=== PATIENT | female | born 1960 | race Caucasian/White ===

== ENCOUNTER → 2022-12-11 07:54 | Outpatient (BNVA) | payer OTHER, SELFPAY | PROVIDERS: PCP Internal Medicine; Visit Provider Psychiatry & Neurology Neurology ==

== ENCOUNTER 2023-02-23 10:13 | Inpatient (IN) | payer OTHER, SELFPAY ==
--- NOTE | ~2023-02-23 | CT_ITS ---
EXAMINATION: CT HEAD WITHOUT CONTRAST CLINICAL INFORMATION: Unwitnessed fall. COMPARISON: None available. TECHNIQUE: Contiguous axial imaging was performed from the skull base to vertex without intravenous administration of contrast. This CT examination was performed using dose optimization techniques as appropriate, variously including the following: *Automated exposure control *Adjustment of mA and/or kV according to patient size (this includes techniques or standardized protocols for targeted exams where dose is matched to indication/reason for exam; i.e. extremities or head) *Use of iterative reconstruction technique DLP: 576 mGy-cm FINDINGS: There is no intra-axial, extra axial bleed, masses or midline shift. There is no acute infarction in evolution. There is no edema. The lateral ventricles are symmetrical in size and configuration without enlargement. Bone windows reveal no calvarial abnormality. There is no scalp soft tissue abnormality. Bilateral paranasal sinuses and mastoid air cells are well-aerated. CT/CT head/brain wo IV con IMPRESSION: No acute intracranial process seen.
--- NOTE | ~2023-02-23 | CT_ITS ---
EXAMINATION: CT HEAD WITHOUT CONTRAST CLINICAL INFORMATION: Headache, change in mentation. COMPARISON: None available. TECHNIQUE: Contiguous axial imaging was performed from the skull base to vertex without intravenous administration of contrast. Coronal and sagittal reformatted images were obtained. This CT examination was performed using dose optimization techniques as appropriate, variously including the following: *Automated exposure control *Adjustment of mA and/or kV according to patient size (this includes techniques or standardized protocols for targeted exams where dose is matched to indication/reason for exam; i.e. extremities or head) *Use of iterative reconstruction technique DLP: 545 mGy-cm FINDINGS: The cortical sulci are normal. The lateral ventricles are symmetrical. The third and fourth ventricles are in their normal midline position. The basilar and prepontine cisterns are unremarkable. There is no acute intra or extracerebral abnormality. There is no mass effect or midline shift. Sections through the bony calvarium are unremarkable. The paranasal sinuses are clear. The bony orbits and orbital contents are unremarkable. CT/CT head/brain wo IV con IMPRESSION: No acute intracranial pathology.
[2023-02-23 10:17] VITALS: BP 123/65; PULSE 76; RESP 18; TEMP 36.8; O2SAT 98; BMI 26.6
[2023-02-23 11:12] VITALS: BP 117/80; PULSE 62; RESP 16; O2SAT 99
--- NOTE | 2023-02-23 12:06 | ED_ITS ---
HPI - Psych General Chief Complaint: Psychiatric Symptoms Stated Complaint: Severe Depression Med Maintenance Time Seen by Provider: 02/23/23 11:54 Source: patient and family (cousin at bedside) Mode of arrival: ambulatory Limitations: no limitations History of Present Illness HPI Narrative: 62 year-old female with a history of bipolar 2 disorder, conversion disorder, TIA, carotid stenosis, syncope, seizures, PTSD, HDL, MVP, GERD, presenting to the ED today with a complaint of depression, racing thoughts x1 mo. Her psychiatrist recently started her on Abilify for depression, is currently tapering her off of sertraline, and started her on Trileptal 2 weeks ago however her depression has worsened - states she feels angry and admits to snapping at people. Reports increasing depression, not sleeping, caring for self, not participating in family vacations ( this is abnormal for her), not talking to many family members. Reports visual hallucinations and insomnia with 2-3 hours of sleep/night. Additionally complains of headache stating ?I feel like my head is going to explode? x1 mo, no resolution with NSAIDs. Last hospitalization for her BPD was 8 years ago and has been well controlled with medications. Denies SI/HI, visual/auditory/tactile hallucinations. Denies substance abuse. Denies fever, chills, chest pain, shortness of breath, nausea vomiting diarrhea, abdominal pain, dysuria, hematuria. Related Data Home Medications Medication Instructions Recorded Confirmed aspirin 81 mg tablet,delayed 81 mg PO DAILY 12/11/22 12/11/22 release atorvastatin 40 mg tablet 40 mg PO DAILY 12/11/22 12/11/22 clonazepam 0.5 mg tablet 0.25 - 0.5 mg PO DAILY PRN anxiety 12/11/22 12/11/22 ferrous sulfate 325 mg (65 mg 325 mg PO QAM 12/11/22 12/11/22 iron) tablet,delayed release lidocaine 5 % topical patch 1 patch topical DAILY 12/11/22 12/11/22 sertraline 100 mg tablet 100 mg PO BID 12/11/22 12/11/22 trazodone 100 mg tablet 100 mg PO BEDTIME 12/11/22 12/11/22 Allergies Allergy/AdvReac Type Severity Reaction Status Date / Time latex Allergy Unknown Unknown Uncoded 12/11/22 08:00 penicillin Allergy Unknown Unknown Uncoded 12/11/22 08:00 sulfa Allergy Unknown Unknown Uncoded 12/11/22 08:00 Review of Systems Review of Systems: Constitutional : No Weight loss, No Fever, No Chills, No Fatigue, No Malaise Eyes: No Eye Pain, No Swelling, No Redness Cardiovascular : No Chest Pain, No SOB, No Dyspnea on Exertion, No Orthopnea Respiratory : No Cough, No Sputum, No Wheezing Gastrointestinal : No Nausea, No Vomiting, No Diarrhea, No Constipation, No abdominal Pain, No Hematochezia, No Melena Genitourinary : No Dysuria, No Urinary Frequency, No Hematuria Musculoskeletal : No joint pain, No Myalgias, No Joint Swelling Skin : No Skin Lesions, No rash Neuro : No Weakness, No Numbness, No Dizziness, + Headache Psych : No Anxiety/Panic, + Depression All other systems reviewed and are negative Yes all other systems are reviewed and are negative [facility] Past Medical History Attestation statement: The following information was validated with the patient. Source: old records reviewed and nursing notes reviewed Medical History Acute cataract Anxiety Arthritis Bipolar 2 disorder Carotid artery stenosis [place] syndrome Cataract Cervical dystonia Cervicalgia Conversion disorder Essential and other specified forms of tremor GERD (gastroesophageal reflux disease) Hyperlipidemia Mitral valve prolapse Osteopenia PTSD (post-traumatic stress disorder) Raynauds syndrome Restless legs syndrome (RLS) Seizures Syncope TIA (transient ischemic attack) Surgical History Gastric bypass status for obesity H/O arthroplasty History of hysterectomy Family History Family History Father Heart disease Depressed Mother Heart disease Social History Social History Alcohol intake: never Patient Tobacco Use Status: Never used Tobacco Advance Directives: No Advance Directives Information Provided: No Physical Exam Vital Signs: Vital Signs: Last Vital Signs Temp 97.8 F 02/23/23 15:54 Pulse 59 02/23/23 15:54 Resp 18 02/23/23 15:54 BP 135/83 02/23/23 15:54 Pulse Ox 99 02/23/23 15:54 O2 Del Method Room Air 02/23/23 15:54 BMI result Body Mass Index 26.6 Appearance: Alert.? Oriented X3.? No acute distress.? Head: Normocephalic, atraumatic, no step-offs or deformities Eyes: Pupils equal, round and reactive to light.? Neck: Normal inspection.? Neck supple.? CVS: Normal heart rate and rhythm.? Pulses normal.? Respiratory: No respiratory distress.? Breath sounds normal.? Abdomen: Soft and nontender.? Skin: Skin warm and dry.? Normal skin color.? Normal skin turgor.? Extremities: No lower extremity edema.? No calf ttp. 5/5 strength to bilateral upper and lower extremities. Ambulating with a steady gait. Back: no CVA tenderness bilaterally Neuro: Oriented X 3.? No motor deficit.? No sensory deficit. CN 2-12 intact. Normal [id number], [id number], rapid hand movements. Course Reevaluation(s) Reevaluation #1: CBC with leukopenia and a normocytic anemia, no reports of bleeding. Do not have baseline labs on this patient to compare with. Chemistry with sodium of 132, patient tolerating p.o. will encourage p.o. hydration, this is likely secondary to poor p.o. intake. UA without infection. COVID negative . Head CT no acute intracranial abnormality. Consult placed for care team. For behavioral outburst. At this time medically cleared. Patient to be placed in observation to allow more time to be evaluated by behavioral health team. At time observation started patient common cooperative no acute distress will continue to monitor Time: 14:27 Reevaluation #2: In patient psychiatric admission at this time. Time: 17:20 Medications Administered Discontinued Medications Generic Name Dose Route Start Last Admin Trade Name Iris PRN Reason Stop Dose Admin Acetaminophen 650 mg 02/23/23 14:24 02/23/23 14:28 Acetaminophen 325 Mg Tablet PO 02/23/23 14:25 650 mg ONCE ONE Administration Ibuprofen 600 mg 02/23/23 15:55 02/23/23 16:00 Ibuprofen 600 Mg Tablet PO 02/23/23 15:56 600 mg ONCE ONE Administration Medical Decision Making Medical Decision Making MDM Narrative: 1230 62-year-old female with depression, visual hallucinations, outbursts of anger Vital signs stable. PE unremarkable Clinical concern for bipolar 2 disorder and depression. Will obtain CT head to rule out intracranial pathology given patient's age, history and symptoms. Low suspicion for ICH, CVA, posterior stroke. Will rule out UTI in electrolyte disturbances. Plan: UA, CT head. Medical clearance evaluation by behavioral health team Differential Diagnosis Differential Diagnoses: The differential diagnosis associated with the presentation includes Clinical concern for bipolar 2 disorder and depression. Will obtain CT head to rule out intracranial pathology given patient's age, history and symptoms. Low suspicion for ICH, CVA, posterior stroke. Will rule out UTI in electrolyte disturbances. Admission/Observation Consideration of admission/observation: Escalation of care including admission/observation considered possible psych admission Lab Data MDM Lab Attestation statement: I reviewed the patient's lab results. 02/23/23 13:17 02/23/23 13:17 Labs: Lab Results 02/23/23 02/23/23 02/23/23 Range/Units 13:17 13:17 13:17 WBC 3.2 L (4.8-10.8) X10*3/uL RBC 3.99 L (4.20-5.50) X10*6/uL Hgb 10.2 L (12.0-16.0) g/dl Hct 32.9 L (37.0-47.0) % MCV 82.5 (80.0-98.0) fL MCH 25.6 L (27.0-33.0) pg MCHC 31.0 (31.0-35.0) g/dl RDW 17.5 H (11.0-16.0) % Plt Count 123 L (160-400) X10*3/uL MPV 9.0 L (9.4-12.3) fL Immature Gran % (Auto) 0.0 (0.0-0.4) % Neut % (Auto) 62.2 (45-73) % Lymph % (Auto) 25.4 (20-40) % [place] % (Auto) 10.2 (2-11) % Eos % (Auto) 1.9 (0-4) % Baso % (Auto) 0.3 (0-2) % Lymph # (Auto) 0.8 L (1.2-4.9) X10*3/uL [place] # (Auto) 0.3 (0.1-1.2) X10*3/uL Eos # (Auto) 0.1 (0.0-0.4) X10*3/uL Baso # (Auto) 0.0 (0.0-0.2) X10*3/uL Abs Immat Gran (auto) 0.00 (0.00-0.03) X10*3/uL Absolute Neuts (auto) 2.0 (2.0-8.3) x10*3/uL Absolute Nucleated RBC 0.000 (0.0-0.012) X10*3/uL Nucleated RBC % (auto) 0.0 (0.0-0.2) /100WBC Sodium 132 L (135-145) mmol/L Potassium 3.7 (3.3-5.1) mmol/L Chloride 100 (96-108) mmol/L Carbon Dioxide 24 (22-29) mmol/L Anion Gap 12 (12-20) BUN 9 (9-16) mg/dL Creatinine 0.74 (0.5-1.4) mg/dL Estim Creat Clear Calc 92.3 Estimated GFR > 60 Random Glucose 93 (60-115) mg/dL Calcium 8.5 (8.4-10.2) mg/dL Magnesium 2.0 (1.6-2.6) mg/dL Total Bilirubin 0.5 (0.0-1.0) mg/dL AST 20 (5-31) U/L ALT 12 (0-31) U/L Alkaline Phosphatase 70 (39-117) U/L Total Protein 5.7 L (6.5-8.0) g/dL Albumin 3.4 L (3.5-5.0) g/dL Urine Color Urine Appearance Urine pH (5.0-9.0) Ur Specific [place] (1.005-1.025) Urine Protein (Neg-Trace) mg/dL Urine Glucose (UA) (Negative) mg/dL Urine Ketones (Negative) mg/dL Urine Blood (Negative) Urine Nitrite (Negative) Ur Leukocyte Esterase (Negative) Urine RBC (0-2) /HPF Urine WBC (0-5) /HPF Ur Squamous Epith Cells (0-2) /HPF Urine Bacteria (None Seen) Hyaline Casts (0-2) /LPF Urine Opiates Screen (Not Detect) Urine Fentanyl Screen (Not Detect) Ur Barbiturates Screen (Not Detect) Ur Phencyclidine Scrn (Not Detect) Ur Amphetamines Screen (Not Detect) U Benzodiazepines Scrn (Not Detect) Urine Cocaine Screen (Not Detect) U Marijuana (THC) Screen (Not Detect) Ethyl Alcohol < 10 mg/dL COVID-19 (JAYLIN) Negative (Negative) COVID-19 Clin Com See Note 02/23/23 02/23/23 Range/Units 13:17 15:16 WBC (4.8-10.8) X10*3/uL RBC (4.20-5.50) X10*6/uL Hgb (12.0-16.0) g/dl Hct (37.0-47.0) % MCV (80.0-98.0) fL MCH (27.0-33.0) pg MCHC (31.0-35.0) g/dl RDW (11.0-16.0) % Plt Count (160-400) X10*3/uL MPV (9.4-12.3) fL Immature Gran % (Auto) (0.0-0.4) % Neut % (Auto) (45-73) % Lymph % (Auto) (20-40) % [place] % (Auto) (2-11) % Eos % (Auto) (0-4) % Baso % (Auto) (0-2) % Lymph # (Auto) (1.2-4.9) X10*3/uL [place] # (Auto) (0.1-1.2) X10*3/uL Eos # (Auto) (0.0-0.4) X10*3/uL Baso # (Auto) (0.0-0.2) X10*3/uL Abs Immat Gran (auto) (0.00-0.03) X10*3/uL Absolute Neuts (auto) (2.0-8.3) x10*3/uL Absolute Nucleated RBC (0.0-0.012) X10*3/uL Nucleated RBC % (auto) (0.0-0.2) /100WBC Sodium (135-145) mmol/L Potassium (3.3-5.1) mmol/L Chloride (96-108) mmol/L Carbon Dioxide (22-29) mmol/L Anion Gap (12-20) BUN (9-16) mg/dL Creatinine (0.5-1.4) mg/dL Estim Creat Clear Calc Estimated GFR Random Glucose (60-115) mg/dL Calcium (8.4-10.2) mg/dL Magnesium (1.6-2.6) mg/dL Total Bilirubin (0.0-1.0) mg/dL AST (5-31) U/L ALT (0-31) U/L Alkaline Phosphatase (39-117) U/L Total Protein (6.5-8.0) g/dL Albumin (3.5-5.0) g/dL Urine Color Yellow Urine Appearance Cloudy Urine pH 7.5 (5.0-9.0) Ur Specific [place] 1.015 (1.005-1.025) Urine Protein Negative (Neg-Trace) mg/dL Urine Glucose (UA) Negative (Negative) mg/dL Urine Ketones Negative (Negative) mg/dL Urine Blood Negative (Negative) Urine Nitrite Negative (Negative) Ur Leukocyte Esterase Trace H (Negative) Urine RBC 0-2 (0-2) /HPF Urine WBC 0-5 (0-5) /HPF Ur Squamous Epith Cells 0-2 (0-2) /HPF Urine Bacteria None Seen (None Seen) Hyaline Casts 0-2 (0-2) /LPF Urine Opiates Screen Not Detected (Not Detect) Urine Fentanyl Screen Not Detected (Not Detect) Ur Barbiturates Screen Not Detected (Not Detect) Ur Phencyclidine Scrn Not Detected (Not Detect) Ur Amphetamines Screen Not Detected (Not Detect) U Benzodiazepines Scrn Not Detected (Not Detect) Urine Cocaine Screen Not Detected (Not Detect) U Marijuana (THC) Screen Not Detected (Not Detect) Ethyl Alcohol mg/dL COVID-19 (JAYLIN) (Negative) COVID-19 Clin Com Independent Interpretation I performed an independent interpretation of an: CT Scan (CT/CT head/brain wo IV con IMPRESSION: No acute intracranial pathology.) Radiology Impression Discussion of test interpretation with radiology: I have reviewed the radiologist's reading. Independent Historian Clinical information obtained from an independent historian. History obtained from or confirmed by: Friend (cousin at bedside) Chronic Conditions Patient?s care impacted by: Other (PTSD, bipolar 2 disorder, TIA, depression, conversion disorder) Core Measures AMI core measures followed: Yes Measure exclusions: not indicated Critical Care Time Critical Care Time Critical Care Time: No Discharge Plan Discharge Clinical Impression: Bipolar 2 disorder, Headache, Depression Patient Disposition: Still a Patient Prescriptions: No Action sertraline 100 mg tablet 100 mg PO BID clonazepam 0.5 mg tablet 0.25 - 0.5 mg PO DAILY PRN (Reason: anxiety) trazodone 100 mg tablet 100 mg PO BEDTIME atorvastatin 40 mg tablet 40 mg PO DAILY lidocaine 5 % adhesive patch,medicated 1 patch topical DAILY aspirin 81 mg tablet,delayed release (DR/EC) 81 mg PO DAILY ferrous sulfate 325 mg (65 mg iron) tablet,delayed release (DR/EC) 325 mg PO QAM Interventions: [place]-Suicide Risk Severity Scale Last Done: 02/23/23 11:18
[2023-02-23 13:27] LABS: MANUAL DIFF FLAG NO
[2023-02-23 13:29] LABS: Basophils Percent Auto 0.3 % (0-2); Eosinophils Absolute Auto 0.1 X10*3/uL (0.0-0.4); Eosinophils Percent Auto 1.9 % (0-4); Hematocrit 32.9 % (37.0-47.0); Hemoglobin 10.2 g/dl (12.0-16.0); Lymphocytes Absolute Auto 0.8 X10*3/uL (1.2-4.9); Lymphocytes Percent Auto 25.4 % (20-40); Mean Corpuscular Hemoglobin 25.6 pg (27.0-33.0); Mean Corpuscular Volume 82.5 fL (80.0-98.0); Monocytes Absolute Auto 0.3 X10*3/uL (0.1-1.2); Monocytes Percent Auto 10.2 % (2-11); Neutrophils Percent Auto 62.2 % (45-73); Platelet Count 123 X10*3/uL (160-400); Red Blood Count 3.99 X10*6/uL (4.20-5.50); Red Cell Distribution Width 17.5 % (11.0-16.0); White Blood Count 3.2 X10*3/uL (4.8-10.8)
[2023-02-23 13:32] LABS: Appearance Urine Cloudy; Color Urine Yellow; Glucose Urine UA Negative (Negative); Leukocyte Esterase Urine Trace (Negative); Nitrite Urine Negative (Negative); PH 7.5 (5.0-9.0); Specific Gravity - Urine 1.015 (1.005-1.025); UMIC TRIGGER UACC YES; Urine Blood Negative (Negative); Urine Ketones Negative (Negative); Urine Protein Negative (Neg-Trace)
[2023-02-23 13:37] LABS: Bacteria Urine None Seen (None Seen); Hyaline Casts Urine 0-2 /LPF (0-2); RBC Urine 0-2 /HPF (0-2); Squamous Epithelial Cell Urine 0-2 /HPF (0-2); WBC Urine 0-5 /HPF (0-5)
[2023-02-23 13:46] LABS: Alanine Aminotransferase 12 U/L (0-31); Albumin Level 3.4 g/dL (3.5-5.0); Alkaline Phosphatase 70 U/L (39-117); Anion Gap 12 (12-20); Aspartate Amino Transferase 20 U/L (5-31); Bilirubin Total 0.5 mg/dL (0.0-1.0); Blood Urea Nitrogen 9 mg/dL (9-16); Calcium 8.5 mg/dL (8.4-10.2); Carbon Dioxide 24 mmol/L (22-29); Chloride 100 mmol/L (96-108); Creatinine Clr Calc Pharmacy 92.3; Estimated Glomerular Filt Rate > 60; Glucose Random 93 mg/dL (60-115); Potassium 3.7 mmol/L (3.3-5.1); Sodium 132 mmol/L (135-145); Total Protein 5.7 g/dL (6.5-8.0)
[2023-02-23 14:05] LABS: COVID-19 Test Negative (Negative); IDNOW Serial# 9DB6401D
[2023-02-23] MEDS: Acetaminophen 325 MG TABLET 650 MG PO ×2 (14:28→23:16)
[2023-02-23 15:36] LABS: Amphetamine Screen Urine Not Detected (Not Detect); Barbiturates, Urine Not Detected (Not Detect); Benzodiazepines Screen Urine Not Detected (Not Detect); Cannabinoid Screen Urine Not Detected (Not Detect); Cocaine Screen Urine Not Detected (Not Detect); Fentanyl, urine Not Detected (Not Detect); Opiate Screen Urine Not Detected (Not Detect); Phencyclidine Screen Urine Not Detected (Not Detect)
[2023-02-23 15:40] LABS: Ethanol < 10 mg/dL
[2023-02-23 15:54] VITALS: BP 135/83; PULSE 59; RESP 18; TEMP 36.6; O2SAT 99
[2023-02-23] MEDS: Ibuprofen 600 MG TABLET PO (16:00)
--- NOTE | 2023-02-23 16:21 | PC.NURSE ---
CARE team with pt
--- NOTE | 2023-02-23 17:25 | ECG_ITS ---
Test Reason : MED CLEARANCE Blood Pressure : / mmHG Vent. Rate : 053 BPM Atrial Rate : 053 BPM P-R Int : 196 ms QRS Dur : 088 ms QT Int : 458 ms P-R-T Axes : 049 015 025 degrees QTc Int : 429 ms Sinus bradycardia Otherwise normal ECG No previous ECGs available Referred By: Martin Murray Electronically Signed By:ELVIA SHEETS MD
--- NOTE | 2023-02-23 18:34 | PHA.MEDREC ---
Addendum entered by Tessa Egan [facility] 02/25/23 12:36: Estradiol 0.1 mg does not exist, lowest it comes is 0.5mg. Patient stated she picks up from [facility] in [place], I called the [facility] and confirmed patient has been on estradiol 1 mg, not 0.1 mg. Reached out to provider. Original Note: Pharmacy Consult ? Medication Reconciliation Pharmacy has completed the medication reconciliation. Patient had list of medications. Reports abilify and Oxcarbezapine are newer prescriptions with in the past couple of weeks. She reported that her doctor are trying to wean her off of sertraline to swtich to bupropion. Patient reports using Estradiol 0.1 mg however she has not gotten that filled. Nora Pedroza, CarieD
--- NOTE | 2023-02-23 18:39 | PC.NURSE ---
RN TO RN REPORT FROM [facility] . PT IS AWARE OF PLAN OF CARE FOR TRANSFER TO THE POD.
[2023-02-23] MEDS: Ferrous Sulfate 324 MG TABLET.DR PO (23:15)
[2023-02-23] MEDS: traZODone HCL 100 MG TABLET PO (23:20)
[2023-02-23] MEDS: Sertraline HCL 100 MG TABLET 200 MG PO (23:20)
[2023-02-24 00:07] VITALS: BP 121/78; PULSE 69; RESP 18; TEMP 36.3; O2SAT 98
--- NOTE | 2023-02-24 02:11 | PC.NURSE ---
Patient is very pleasant, able to give thorough med/surg/medicine hx and provider hx. Appears well groomed, ambulates with some difficulty d/t medical issues with feet and also states that she thinks she might have broken her great toe on left foot in the last few days. Toe has very mild bruising but appears normal. Reports her hx of suicide attempts. States she has a very good family support structure but also states she doesn't like to tell them how she is feeling. She states her psychiatrist told her to come in. Patient reports not recognizing how she was feeling. She states very little sleep, racing thoughts, not wanting to clean her house or do anything that normally gives her pleasure. Family recognized something wrong. Patient reports wanting help to feel better.
[2023-02-24 06:00] VITALS: BP 118/66; PULSE 88; RESP 18; TEMP 36; O2SAT 99
[2023-02-24] MEDS: Acetaminophen 325 MG TABLET 650 MG PO ×2 (06:17→22:53)
[2023-02-24 07:57] LABS: Alanine Aminotransferase 13 U/L (0-31); Albumin Level 3.5 g/dL (3.5-5.0); Alkaline Phosphatase 71 U/L (39-117); Anion Gap 13 (12-20); Aspartate Amino Transferase 19 U/L (5-31); Bilirubin Total 0.5 mg/dL (0.0-1.0); Blood Urea Nitrogen 9 mg/dL (9-16); Calcium 8.7 mg/dL (8.4-10.2); Carbon Dioxide 23 mmol/L (22-29); Chloride 100 mmol/L (96-108); Cholesterol 156 mg/dL; Creatinine Clr Calc Pharmacy 94.9; Estimated Glomerular Filt Rate > 60; Glucose Fasting 96 mg/dL (60-99); HDL Cholesterol 33 mg/dL; LDL Cholesterol Calculated 103 mg/dl; Potassium 4.2 mmol/L (3.3-5.1); Sodium 132 mmol/L (135-145); Total Protein 5.8 g/dL (6.5-8.0); Triglycerides 104 mg/dL
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
[2023-02-24] MEDS: Atorvastatin Calcium 40 MG TABLET PO (09:34)
[2023-02-24] MEDS: ARIPiprazole 2 MG TABLET PO (09:34)
[2023-02-24] MEDS: Aspirin Enteric Coated 81 MG TABLET.DR PO (09:34)
[2023-02-24] MEDS: Ferrous Sulfate 324 MG TABLET.DR PO (09:34)
[2023-02-24] MEDS: Multivitamin TABLET 1 TAB PO (09:34)
[2023-02-24] MEDS: OXcarbazepine 300 MG TABLET PO ×2 (09:34→20:28)
[2023-02-24] MEDS: Ibuprofen 400 MG TABLET PO (10:41)
[2023-02-24] MEDS: Ondansetron ODT 4 MG TAB.RAPDIS TRANSLINGU (15:48)
[2023-02-24 17:08] VITALS: BP 127/60; PULSE 58; TEMP 36.3; O2SAT 100
[2023-02-24] MEDS: Sertraline HCL 50 MG TABLET 150 MG PO (20:28)
[2023-02-24] MEDS: traZODone HCL 100 MG TABLET PO (20:28)
[2023-02-24] MEDS: traZODone HCL 50 MG TABLET PO (22:53)
[2023-02-25] MEDS: Ibuprofen 400 MG TABLET PO ×2 (03:38→12:22)
[2023-02-25] MEDS: Atorvastatin Calcium 40 MG TABLET PO (10:03)
[2023-02-25] MEDS: Aspirin Enteric Coated 81 MG TABLET.DR PO (10:03)
[2023-02-25] MEDS: OXcarbazepine 300 MG TABLET PO ×2 (10:04→22:02)
[2023-02-25] MEDS: Multivitamin TABLET 1 TAB PO (10:04)
[2023-02-25] MEDS: clonazePAM 0.5 MG TABLET 0.25 MG PO (10:04)
[2023-02-25] MEDS: Ferrous Sulfate 324 MG TABLET.DR PO (10:04)
[2023-02-25] MEDS: ARIPiprazole 2 MG TABLET PO (10:04)
[2023-02-25 10:12] VITALS: BP 109/68; PULSE 70; RESP 18; TEMP 36.3; O2SAT 99
--- NOTE | 2023-02-25 10:29 | P.PNPSI_ITS ---
Subjective Subjective Date of Service: 02/25/23 Reason For Visit: Depression Subjective Notes: Rodriguez Warning and Conditional Voluntary Healthcare Proxy: No Guardianship: No Medical Problems Affecting Mental Status: No Interim History: Patient was seen and discussed in rounds today. Records and plans were reviewed. She is doing much better, is more hopeful. She is visible, social and interactive. She talked about her tremors but she is seeing a neurologist. She is less sad. Had some trouble sleeping last night. I will increase her trazodone. She is also requesting a vitamin-D level. This was ordered. Her sodium was a little bit low at 132 with a repeat and she states that she had reduced her sodium intake because of lower extremity edema. She was informed of this. She denies any symptoms pertaining to this. I also decrease her Zoloft further to 100 mg. She did not have any trouble with the previous decrease Review of Systems Review of Systems Tremors Yes all other systems are reviewed and are negative Mental Status Exam Mental Status Exam Narrative: Sophia was seen the morning after her admission. She is alert, oriented and very pleasant. Normal speech. Good eye contact. Affect is appropriate and varied. Less dysphoria present. No signs of psychosis. No signs of hypomania at this time. Cognitively she is intact. Judgment is intact Diagnostics Vital Signs (24Hr): Vital Signs - 24 hr 02/24/23 17:08 02/25/23 10:12 Temperature 97.4 F 97.3 F Pulse Rate 58 70 Respiratory Rate 18 Blood Pressure 127/60 109/68 Pulse Oximetry 100 99 Oxygen Delivery Method Room Air Room Air BMI result Body Mass Index 26.6 Labs 02/23/23 13:17 02/24/23 07:29 Labs: Laboratory Results - last 48 hr 02/23/23 02/23/23 02/23/23 13:17 13:17 13:17 WBC 3.2 L RBC 3.99 L Hgb 10.2 L Hct 32.9 L MCV 82.5 MCH 25.6 L MCHC 31.0 RDW 17.5 H Plt Count 123 L MPV 9.0 L Immature Gran % (Auto) 0.0 Neut % (Auto) 62.2 Lymph % (Auto) 25.4 Blanco % (Auto) 10.2 Eos % (Auto) 1.9 Baso % (Auto) 0.3 Lymph # (Auto) 0.8 L [place] # (Auto) 0.3 Eos # (Auto) 0.1 Baso # (Auto) 0.0 Abs Immat Gran (auto) 0.00 Absolute Neuts (auto) 2.0 Absolute Nucleated RBC 0.000 Nucleated RBC % (auto) 0.0 Sodium 132 L Potassium 3.7 Chloride 100 Carbon Dioxide 24 Anion Gap 12 BUN 9 Creatinine 0.74 Estim Creat Clear Calc 92.3 Estimated GFR > 60 Random Glucose 93 Fasting Glucose Calcium 8.5 Magnesium 2.0 Total Bilirubin 0.5 AST 20 ALT 12 Alkaline Phosphatase 70 Total Protein 5.7 L Albumin 3.4 L Triglycerides Cholesterol LDL Cholesterol, Calc HDL Cholesterol Urine Color Urine Appearance Urine pH Ur Specific [place] Urine Protein Urine Glucose (UA) Urine Ketones Urine Blood Urine Nitrite Ur Leukocyte Esterase Urine RBC Urine WBC Ur Squamous Epith Cells Urine Bacteria Hyaline Casts Urine Opiates Screen Urine Fentanyl Screen Ur Barbiturates Screen Ur Phencyclidine Scrn Ur Amphetamines Screen U Benzodiazepines Scrn Urine Cocaine Screen U Marijuana (THC) Screen Ethyl Alcohol < 10 COVID-19 (JAYLIN) Negative COVID-19 Clin Com See Note 02/23/23 02/23/23 02/24/23 13:17 15:16 07:29 WBC RBC Hgb Hct MCV MCH MCHC RDW Plt Count MPV Immature Gran % (Auto) Neut % (Auto) Lymph % (Auto) Blanco % (Auto) Eos % (Auto) Baso % (Auto) Lymph # (Auto) [place] # (Auto) Eos # (Auto) Baso # (Auto) Abs Immat Gran (auto) Absolute Neuts (auto) Absolute Nucleated RBC Nucleated RBC % (auto) Sodium 132 L Potassium 4.2 Chloride 100 Carbon Dioxide 23 Anion Gap 13 BUN 9 Creatinine 0.72 Estim Creat Clear Calc 94.9 Estimated GFR > 60 Random Glucose Fasting Glucose 96 Calcium 8.7 Magnesium Total Bilirubin 0.5 AST 19 ALT 13 Alkaline Phosphatase 71 Total Protein 5.8 L Albumin 3.5 Triglycerides 104 Cholesterol 156 LDL Cholesterol, Calc 103 HDL Cholesterol 33 Urine Color Yellow Urine Appearance Cloudy Urine pH 7.5 Ur Specific [place] 1.015 Urine Protein Negative Urine Glucose (UA) Negative Urine Ketones Negative Urine Blood Negative Urine Nitrite Negative Ur Leukocyte Esterase Trace H Urine RBC 0-2 Urine WBC 0-5 Ur Squamous Epith Cells 0-2 Urine Bacteria None Seen Hyaline Casts 0-2 Urine Opiates Screen Not Detected Urine Fentanyl Screen Not Detected Ur Barbiturates Screen Not Detected Ur Phencyclidine Scrn Not Detected Ur Amphetamines Screen Not Detected U Benzodiazepines Scrn Not Detected Urine Cocaine Screen Not Detected U Marijuana (THC) Screen Not Detected Ethyl Alcohol COVID-19 (JAYLIN) COVID-19 Clin Com Imaging Radiology Impressions: ITS Impressions Head CT 02/23/23 12:45 IMPRESSION: No acute intracranial pathology. Medications Medications Current Medications Acetaminophen (Acetaminophen 325 Mg Tablet) 650 mg PO Q6H PRN PRN Reason: Headache/Pain Mild Scale (1-3) Last Admin: 02/24/23 22:53 Dose: 650 mg Al Hydroxide/Mg Hydroxide (Magnesium Hydrox/Alum Hydrox 30 Ml Oral.Susp) 30 ml PO Q6H PRN PRN Reason: Heartburn/Nausea Aripiprazole (Aripiprazole 2 Mg Tablet) 2 mg PO DAILY [facility] Last Admin: 02/25/23 10:04 Dose: 2 mg Aspirin (Aspirin Enteric Coated 81 Mg Tablet.) 81 mg PO DAILY [facility] Last Admin: 02/25/23 10:03 Dose: 81 mg Atorvastatin Calcium (Atorvastatin Calcium 40 Mg Tablet) 40 mg PO DAILY [facility] Last Admin: 02/25/23 10:03 Dose: 40 mg Clonazepam (Clonazepam 0.5 Mg Tablet) 0.25 mg PO DAILY PRN PRN Reason: anxiety Last Admin: 02/25/23 10:04 Dose: 0.25 mg Ferrous Sulfate (Ferrous Sulfate 324 Mg Tablet.) 324 mg PO DAILY [facility] Last Admin: 02/25/23 10:04 Dose: 324 mg Hydroxyzine HCl (Hydroxyzine Hcl 25 Mg Tablet) 25 mg PO Q6H PRN PRN Reason: Anxiety Ibuprofen (Ibuprofen 400 Mg Tablet) 400 mg PO Q6H PRN PRN Reason: Headache Last Admin: 02/25/23 03:38 Dose: 400 mg Magnesium Hydroxide (Milk Of Magnesia 30 Ml Oral.Susp) 30 ml PO DAILY PRN PRN Reason: Constipation Multivitamins/Vitamin C (Multivitamin Tablet) 1 tab PO DAILY [facility] Last Admin: 02/25/23 10:04 Dose: 1 tab Non-Formulary Medication (Estradiol) 0.1 mg PO DAILY [facility] Ondansetron HCl (Ondansetron Odt 4 Mg Tab.Rapdis) 4 mg TRANSLINGU BID PRN PRN Reason: Nausea and Vomiting Last Admin: 02/24/23 15:48 Dose: 4 mg Oxcarbazepine (Oxcarbazepine 300 Mg Tablet) 300 mg PO BID JAYSON Last Admin: 02/25/23 10:04 Dose: 300 mg Pharmacy Consult (Consult Rx Perform Med Rec) 1 each MISCELLANE ONCE PRN PRN Reason: Consult order Sertraline HCl (Sertraline Hcl 50 Mg Tablet) 150 mg PO BEDTIME JAYSON Last Admin: 02/24/23 20:28 Dose: 150 mg Trazodone HCl (Trazodone Hcl 100 Mg Tablet) 100 mg PO BEDTIME JAYSON Last Admin: 02/24/23 20:28 Dose: 100 mg Trazodone HCl (Trazodone Hcl 50 Mg Tablet) 50 mg PO BEDTIME MRX1 PRN PRN Reason: Insomnia Last Admin: 02/24/23 22:53 Dose: 50 mg Allergies Allergies Allergy/AdvReac Type Severity Reaction Status Date / Time latex Allergy Unknown Unknown Uncoded 12/11/22 08:00 penicillin Allergy Unknown Unknown Uncoded 12/11/22 08:00 sulfa Allergy Unknown Unknown Uncoded 12/11/22 08:00 Assessment & Plan Assessment & Plan (1) PTSD (post-traumatic stress disorder): Status: Acute Code(s): F43.10 - Post-traumatic stress disorder, unspecified (2) Bipolar 2 disorder: Status: Acute Code(s): F31.81 - Bipolar II disorder Plan Continue current current medications with the reduction of Zoloft as previously planned by her psychiatrist to 150 mg towards tapering off and initiating Wellbutrin SR. Continue Abilify 2 mg, trazodone 100 mg and Trileptal 300 mg b.i.d.. She meets criteria for hospital level of care for safety and stabilization and medication review and change 02/25: Continue current regimen and plans. Decreased Zoloft further to 100 mg and increase trazodone to 150 mg Patient educated on: medication risk/benefits and therapeutic strategies Reason for continued inpatient stay Substantial Risk for: med/psych decompensation Time Spent With Patient Time: Total time managing care of this patient today ____ minutes.
[2023-02-25] MEDS: Acetaminophen 325 MG TABLET 650 MG PO (10:34)
[2023-02-25 11:34] LABS: Vitamin D 25-OH Total 33.2 ng/mL (>30)
[2023-02-25] MEDS: estradioL 0.5 MG TABLET 1 MG PO (14:07)
[2023-02-25] MEDS: hydrOXYzine HCL 25 MG TABLET PO ×2 (15:53→22:04)
[2023-02-25 18:00] VITALS: RESP 16
[2023-02-25] MEDS: traZODone HCL 50 MG TABLET 150 MG PO (22:02)
[2023-02-25] MEDS: Sertraline HCL 100 MG TABLET PO (22:02)
[2023-02-26] MEDS: Acetaminophen 325 MG TABLET 650 MG PO ×2 (06:38→14:51)
[2023-02-26] MEDS: OXcarbazepine 300 MG TABLET PO (09:05)
[2023-02-26] MEDS: Ferrous Sulfate 324 MG TABLET.DR PO (09:05)
[2023-02-26] MEDS: ARIPiprazole 2 MG TABLET PO (09:05)
[2023-02-26] MEDS: Multivitamin TABLET 1 TAB PO (09:05)
[2023-02-26] MEDS: estradioL 0.5 MG TABLET 1 MG PO (09:05)
[2023-02-26] MEDS: Aspirin Enteric Coated 81 MG TABLET.DR PO (09:05)
[2023-02-26] MEDS: Atorvastatin Calcium 40 MG TABLET PO (09:05)
[2023-02-26 09:09] VITALS: BP 118/71; PULSE 84; RESP 18; TEMP 35.9; O2SAT 99
--- NOTE | 2023-02-26 10:30 | HO.PSYCHPN ---
Subjective Subjective Date of Service: 02/26/23 Reason For Visit: Depression Subjective Notes: Conditional Voluntary Healthcare Proxy: No Guardianship: No Medical Problems Affecting Mental Status: No Interim History: Pt provides a list of symptoms she is looking to have addressed including feeling sad all of the time, angry, yelling, snapping, depressed, no energy, not caring about anything, lost interest in things-the beach, the pool, working out; introversion, staying alone, staying quiet, not participating in conversation, limited attention span, eating more, not sleeping well-up and down all night, staying home, no company, bad thoughts, road rage, multi-tasking, seeing things that are not there, cluttered home, not making phone calls, [place] 5 [place] 1 day. Care discussed with Dr. Chung Medication Compliance: Yes Side effects from medications: No Attending Groups: No Review of Systems Acute medical concerns: No Medical Review of Systems: unchanged Mental Status Exam Mental Status Exam Patient Appearance: Appropriate Patient Orientation: Person, Place, Time and Situation Level of Consciousness: Alert Patient Behavior: Talkative and Good Eye Contact Mood Description: Withdrawn, Depressed, Anxious and Apprehensive Affect Description: Flat Patient Cognition Impaired: No Ability to Follow Directions: Fair Speech Pattern: Spontaneous Speech Memory Description: Intact Hallucinations: Visual Delusions: Not Present Perceptual Disturbances: Depersonalization and Derealization Thought Process: Distracted and Rumination Thought Content: positive for Perseveration Depressive Symptoms: Increased Anxiety, Insomnia, Diff. Making Decisions, Increased Irritability, Difficulty Sleeping, Changes in Appetite, Loss of Int. in Activity, Feelings of Worthlessness, Hopelessness, Isolating-Friends/Family, Feelings of Guilt, Unhappiness, Increased Fatigue, Low Self Esteem, Loss of Energy and Difficulty Concentrating Judgement: Fair Diagnostics Vital Signs (24Hr): Vital Signs - 24 hr 02/25/23 18:00 02/26/23 09:09 Temperature 96.7 F L Pulse Rate 84 Respiratory Rate 16 18 Blood Pressure 118/71 Pulse Oximetry 99 Oxygen Delivery Method Room Air BMI result Body Mass Index 26.6 Labs 02/23/23 13:17 02/24/23 07:29 Labs: Laboratory Results - last 48 hr 02/25/23 10:38 25-OH Vitamin D Total 33.2 Imaging Radiology Impressions: ITS Impressions Head CT 02/23/23 12:45 IMPRESSION: No acute intracranial pathology. Medications Medications Current Medications Acetaminophen (Acetaminophen 325 Mg Tablet) 650 mg PO Q6H PRN PRN Reason: Headache/Pain Mild Scale (1-3) Last Admin: 02/26/23 06:38 Dose: 650 mg Al Hydroxide/Mg Hydroxide (Magnesium Hydrox/Alum Hydrox 30 Ml Oral.Susp) 30 ml PO Q6H PRN PRN Reason: Heartburn/Nausea Aripiprazole (Aripiprazole 2 Mg Tablet) 2 mg PO DAILY [facility] Last Admin: 02/26/23 09:05 Dose: 2 mg Aspirin (Aspirin Enteric Coated 81 Mg Tablet.) 81 mg PO DAILY [facility] Last Admin: 02/26/23 09:05 Dose: 81 mg Atorvastatin Calcium (Atorvastatin Calcium 40 Mg Tablet) 40 mg PO DAILY [facility] Last Admin: 02/26/23 09:05 Dose: 40 mg Clonazepam (Clonazepam 0.5 Mg Tablet) 0.25 mg PO DAILY PRN PRN Reason: anxiety Last Admin: 02/25/23 10:04 Dose: 0.25 mg Estradiol (Estradiol 0.5 Mg Tablet) 1 mg PO DAILY [facility] Last Admin: 02/26/23 09:05 Dose: 1 mg Ferrous Sulfate (Ferrous Sulfate 324 Mg Tablet.) 324 mg PO DAILY [facility] Last Admin: 02/26/23 09:05 Dose: 324 mg Hydroxyzine HCl (Hydroxyzine Hcl 25 Mg Tablet) 25 mg PO Q6H PRN PRN Reason: Anxiety Last Admin: 02/25/23 22:04 Dose: 25 mg Ibuprofen (Ibuprofen 400 Mg Tablet) 400 mg PO Q6H PRN PRN Reason: Headache Last Admin: 02/25/23 12:22 Dose: 400 mg Magnesium Hydroxide (Milk Of Magnesia 30 Ml Oral.Susp) 30 ml PO DAILY PRN PRN Reason: Constipation Multivitamins/Vitamin C (Multivitamin Tablet) 1 tab PO DAILY [facility] Last Admin: 02/26/23 09:05 Dose: 1 tab Ondansetron HCl (Ondansetron Odt 4 Mg Tab.Rapdis) 4 mg TRANSLINGU BID PRN PRN Reason: Nausea and Vomiting Last Admin: 02/24/23 15:48 Dose: 4 mg Oxcarbazepine (Oxcarbazepine 300 Mg Tablet) 300 mg PO BID [facility] Last Admin: 02/26/23 09:05 Dose: 300 mg Pharmacy Consult (Consult Rx Perform Med Rec) 1 each MISCELLANE ONCE PRN PRN Reason: Consult order Sertraline HCl (Sertraline Hcl 100 Mg Tablet) 100 mg PO BEDTIME JAYSON Last Admin: 02/25/23 22:02 Dose: 100 mg Trazodone HCl (Trazodone Hcl 50 Mg Tablet) 50 mg PO BEDTIME MRX1 PRN PRN Reason: Insomnia Last Admin: 02/24/23 22:53 Dose: 50 mg Trazodone HCl (Trazodone Hcl 50 Mg Tablet) 150 mg PO BEDTIME JAYSON Last Admin: 02/25/23 22:02 Dose: 150 mg Allergies Allergies Allergy/AdvReac Type Severity Reaction Status Date / Time latex Allergy Unknown Unknown Uncoded 12/11/22 08:00 penicillin Allergy Unknown Unknown Uncoded 12/11/22 08:00 sulfa Allergy Unknown Unknown Uncoded 12/11/22 08:00 Assessment & Plan Assessment & Plan (1) PTSD (post-traumatic stress disorder): Status: Acute Code(s): F43.10 - Post-traumatic stress disorder, unspecified (2) Bipolar 2 disorder: Status: Acute Code(s): F31.81 - Bipolar II disorder Plan Continue current current medications with the reduction of Zoloft as previously planned by her psychiatrist to 150 mg towards tapering off and initiating Wellbutrin SR. Continue Abilify 2 mg, trazodone 100 mg and Trileptal 300 mg b.i.d.. She meets criteria for hospital level of care for safety and stabilization and medication review and change 02/25: Continue current regimen and plans. Decreased Zoloft further to 100 mg and increase trazodone to 150 mg 02/26: Care discussed with Dr. Chung who reports Abilify by history has been helpful, Trileptal has just been started and they had hoped to change to Wellbutrin. Plan: Increase Abilify to 5 mg daily Increase Trileptal to 600 mg bid Informed Consent: understands Reason for continued inpatient stay Substantial Risk for: rapid decompensation Time Spent With Patient Time: Total time managing care of this patient today ____ minutes.
[2023-02-26] MEDS: clonazePAM 0.5 MG TABLET 0.25 MG PO (10:55)
[2023-02-26 17:35] VITALS: BP 114/63; PULSE 67; TEMP 36.2; O2SAT 96
[2023-02-26] MEDS: hydrOXYzine HCL 25 MG TABLET PO (18:11)
[2023-02-26] MEDS: OXcarbazepine 300 MG TABLET 600 MG PO (20:48)
[2023-02-26] MEDS: traZODone HCL 50 MG TABLET 150 MG PO (20:49)
[2023-02-26] MEDS: Sertraline HCL 100 MG TABLET PO (20:49)
[2023-02-27 08:21] VITALS: BP 112/67; PULSE 71; RESP 16; TEMP 35.6; O2SAT 98
[2023-02-27] MEDS: Ibuprofen 400 MG TABLET PO ×2 (08:30→15:45)
[2023-02-27] MEDS: estradioL 0.5 MG TABLET 1 MG PO (09:04)
[2023-02-27] MEDS: Ferrous Sulfate 324 MG TABLET.DR PO (09:05)
[2023-02-27] MEDS: ARIPiprazole 5 MG TABLET PO (09:05)
[2023-02-27] MEDS: Multivitamin TABLET 1 TAB PO (09:05)
[2023-02-27] MEDS: OXcarbazepine 300 MG TABLET 600 MG PO ×2 (09:06→20:10)
[2023-02-27] MEDS: Atorvastatin Calcium 40 MG TABLET PO (09:06)
[2023-02-27] MEDS: Docusate Sodium 100 MG CAPSULE PO (09:06)
--- NOTE | 2023-02-27 09:12 | HO.PSYCHPN ---
Subjective Subjective Date of Service: 02/27/23 Reason For Visit: Depression Subjective Notes: Conditional Voluntary Interim History: Pt reports overall improvement of symptoms including feeling less irritable, less depressed and her sleep is better. She continues to described mood as sad all day. She states she stays in her room most of the time and feels tired and fatigue. Noted that she has normocytic anemia on iron supplementation. Noted low sodium on admission, will recheck today as she has been started on trileptal. Pt denies SI/HI. Review of Systems Review of Systems Tremors Yes all other systems are reviewed and are negative Mental Status Exam Mental Status Exam Narrative: Appearance: wearing casual clothing, fair hygiene, in NAD Behavior: cooperative Psychomotor: no agitation or retardation noted Speech: clear, normal rate/rhythm/volume, spontaneous TP: linear TC: no psychosis, feeling better but still depressed SI: denies HI: denies VH/AH: none Delusions: none Insight/judgment: fair x 2. Memory/cog: alert, oriented x 3. Diagnostics Vital Signs (24Hr): Vital Signs - 24 hr 02/26/23 17:35 02/27/23 08:21 Temperature 97.1 F 96.1 F L Pulse Rate 67 71 Respiratory Rate 16 Blood Pressure 114/63 112/67 Pulse Oximetry 96 98 Oxygen Delivery Method Room Air Room Air BMI result Body Mass Index 26.6 Labs 02/23/23 13:17 02/24/23 07:29 Labs: Laboratory Results - last 48 hr 02/25/23 10:38 25-OH Vitamin D Total 33.2 Imaging Radiology Impressions: ITS Impressions Head CT 02/23/23 12:45 IMPRESSION: No acute intracranial pathology. Medications Medications Current Medications Acetaminophen (Acetaminophen 325 Mg Tablet) 650 mg PO Q6H PRN PRN Reason: Headache/Pain Mild Scale (1-3) Last Admin: 02/26/23 14:51 Dose: 650 mg Al Hydroxide/Mg Hydroxide (Magnesium Hydrox/Alum Hydrox 30 Ml Oral.Susp) 30 ml PO Q6H PRN PRN Reason: Heartburn/Nausea Aripiprazole (Aripiprazole 5 Mg Tablet) 5 mg PO DAILY [facility] Last Admin: 02/27/23 09:05 Dose: 5 mg Aspirin (Aspirin Enteric Coated 81 Mg Tablet.) 81 mg PO DAILY [facility] Last Admin: 02/26/23 09:05 Dose: 81 mg Atorvastatin Calcium (Atorvastatin Calcium 40 Mg Tablet) 40 mg PO DAILY [facility] Last Admin: 02/27/23 09:06 Dose: 40 mg Clonazepam (Clonazepam 0.5 Mg Tablet) 0.25 mg PO DAILY PRN PRN Reason: anxiety Last Admin: 02/26/23 10:55 Dose: 0.25 mg Docusate Sodium (Docusate Sodium 100 Mg Capsule) 100 mg PO BID PRN PRN Reason: Constipation Last Admin: 02/27/23 09:06 Dose: 100 mg Estradiol (Estradiol 0.5 Mg Tablet) 1 mg PO DAILY [facility] Last Admin: 02/27/23 09:04 Dose: 1 mg Ferrous Sulfate (Ferrous Sulfate 324 Mg Tablet.Dr) 324 mg PO DAILY [facility] Last Admin: 02/27/23 09:05 Dose: 324 mg Hydroxyzine HCl (Hydroxyzine Hcl 25 Mg Tablet) 25 mg PO Q6H PRN PRN Reason: Anxiety Last Admin: 02/26/23 18:11 Dose: 25 mg Ibuprofen (Ibuprofen 400 Mg Tablet) 400 mg PO Q6H PRN PRN Reason: Headache Last Admin: 02/27/23 08:30 Dose: 400 mg Magnesium Hydroxide (Milk Of Magnesia 30 Ml Oral.Susp) 30 ml PO DAILY PRN PRN Reason: Constipation Multivitamins/Vitamin C (Multivitamin Tablet) 1 tab PO DAILY [facility] Last Admin: 02/27/23 09:05 Dose: 1 tab Ondansetron HCl (Ondansetron Odt 4 Mg Tab.Rapdis) 4 mg TRANSLINGU BID PRN PRN Reason: Nausea and Vomiting Last Admin: 02/24/23 15:48 Dose: 4 mg Oxcarbazepine (Oxcarbazepine 300 Mg Tablet) 600 mg PO BID [facility] Last Admin: 02/27/23 09:06 Dose: 600 mg Pharmacy Consult (Consult Rx Perform Med Rec) 1 each MISCELLANE ONCE PRN PRN Reason: Consult order Sertraline HCl (Sertraline Hcl 100 Mg Tablet) 100 mg PO BEDTIME [facility] Last Admin: 02/26/23 20:49 Dose: 100 mg Trazodone HCl (Trazodone Hcl 50 Mg Tablet) 50 mg PO BEDTIME MRX1 PRN PRN Reason: Insomnia Last Admin: 02/24/23 22:53 Dose: 50 mg Trazodone HCl (Trazodone Hcl 50 Mg Tablet) 150 mg PO BEDTIME [facility] Last Admin: 02/26/23 20:49 Dose: 150 mg Allergies Allergies Allergy/AdvReac Type Severity Reaction Status Date / Time latex Allergy Unknown Unknown Uncoded 12/11/22 08:00 penicillin Allergy Unknown Unknown Uncoded 12/11/22 08:00 sulfa Allergy Unknown Unknown Uncoded 12/11/22 08:00 Assessment & Plan Assessment & Plan (1) PTSD (post-traumatic stress disorder): Status: Acute Code(s): F43.10 - Post-traumatic stress disorder, unspecified (2) Bipolar 2 disorder: Status: Acute Code(s): F31.81 - Bipolar II disorder Plan Continue current current medications with the reduction of Zoloft as previously planned by her psychiatrist to 150 mg towards tapering off and initiating Wellbutrin SR. Continue Abilify 2 mg, trazodone 100 mg and Trileptal 300 mg b.i.d.. She meets criteria for hospital level of care for safety and stabilization and medication review and change 02/25: Continue current regimen and plans. Decreased Zoloft further to 100 mg and increase trazodone to 150 mg 02/26: Care discussed with Dr. Chung who reports Abilify by history has been helpful, Trileptal has just been started and they had hoped to change to Wellbutrin. Plan: Increase Abilify to 5 mg daily Increase Trileptal to 600 mg bid 02/27 continue current medications. rechecked Na- slightly lowered than on admission 131- pending urine NA and urine osmolality. continue to monitor as trileptal recently increased. Reason for continued inpatient stay Substantial Risk for: inability to function Time Spent With Patient Time: Total time managing care of this patient today ____ minutes.
[2023-02-27 10:12] LABS: MANUAL DIFF FLAG NO
[2023-02-27 10:23] LABS: Basophils Percent Auto 0.4 % (0-2); Eosinophils Absolute Auto 0.1 X10*3/uL (0.0-0.4); Eosinophils Percent Auto 1.8 % (0-4); Hematocrit 32.2 % (37.0-47.0); Imm Gran Abs Auto 0.01 X10*3/uL (0.00-0.03); Imm Gran Pct Auto 0.4 % (0.0-0.4); Lymphocytes Absolute Auto 0.6 X10*3/uL (1.2-4.9); Lymphocytes Percent Auto 22.3 % (20-40); Mean Corpuscular HGB Conc 31.1 g/dl (31.0-35.0); Mean Corpuscular Hemoglobin 25.6 pg (27.0-33.0); Mean Corpuscular Volume 82.6 fL (80.0-98.0); Mean Platelet Volume 8.8 fL (9.4-12.3); Monocytes Absolute Auto 0.3 X10*3/uL (0.1-1.2); Monocytes Percent Auto 9.2 % (2-11); Neutrophils Absolute Auto 1.9 x10*3/uL (2.0-8.3); Neutrophils Percent Auto 65.9 % (45-73); Platelet Count 133 X10*3/uL (160-400); Red Cell Distribution Width 17.2 % (11.0-16.0); White Blood Count 2.8 X10*3/uL (4.8-10.8)
[2023-02-27 10:30] LABS: Alanine Aminotransferase 19 U/L (0-31); Albumin Level 3.1 g/dL (3.5-5.0); Alkaline Phosphatase 58 U/L (39-117); Anion Gap 13 (12-20); Aspartate Amino Transferase 27 U/L (5-31); Bilirubin Total 0.3 mg/dL (0.0-1.0); Blood Urea Nitrogen 10 mg/dL (9-16); Calcium 8.6 mg/dL (8.4-10.2); Carbon Dioxide 21 mmol/L (22-29); Chloride 101 mmol/L (96-108); Creatinine Clr Calc Pharmacy 94.9; Estimated Glomerular Filt Rate > 60; Glucose Random 97 mg/dL (60-115); Potassium 3.9 mmol/L (3.3-5.1); Sodium 131 mmol/L (135-145); Total Protein 5.2 g/dL (6.5-8.0)
[2023-02-27 11:05] LABS: Folate 13.6 ng/mL (> or = 4.0); Vitamin B12 436 pg/mL (200-900)
[2023-02-27] MEDS: hydrOXYzine HCL 25 MG TABLET PO ×2 (11:09→21:01)
[2023-02-27] MEDS: Acetaminophen 325 MG TABLET 650 MG PO ×2 (11:09→21:00)
[2023-02-27 14:33] LABS: Osmolality, Serum 268 mosm/kg (281-305)
[2023-02-27] MEDS: Ondansetron ODT 4 MG TAB.RAPDIS TRANSLINGU (14:35)
--- NOTE | 2023-02-27 19:19 | PC.NURSE ---
PT reports painful urination with urgency, pt reports hx of UTIs. Dr. Leblanc (oncall) notified via tiger text. Awaiting orders.
[2023-02-27 20:09] VITALS: BP 133/64; PULSE 69; RESP 18; TEMP 36.6; O2SAT 98
[2023-02-27] MEDS: Sertraline HCL 100 MG TABLET PO (20:10)
--- NOTE | 2023-02-27 20:24 | PC.NURSE ---
PT reports nausea/vomiting this afternoon, mild nausea is still present as well as a headache rated [address] Leblanc made aware, labs reordered as sodium was low this morning at 131. Ondansetron ordered also.
[2023-02-27] MEDS: traZODone HCL 50 MG TABLET 150 MG PO (21:02)
--- NOTE | 2023-02-27 22:37 | PC.NURSE ---
U/A ordered - awaiting sample, pt given cup and instructions on a clean catch.
[2023-02-28 03:04] LABS: Appearance Urine Clear; Color Urine Yellow; Glucose Urine UA Negative (Negative); Leukocyte Esterase Urine Negative (Negative); Nitrite Urine Negative (Negative); PH 6.5 (5.0-9.0); Specific Gravity - Urine >= 1.030 (1.005-1.025); Urine Blood Negative (Negative); Urine Ketones Negative (Negative); Urine Protein Negative (Neg-Trace)
[2023-02-28 03:23] LABS: Osmolality Urine 796 mosm/kg (373-1093)
[2023-02-28 03:29] LABS: Bacteria Urine None Seen (None Seen); Hyaline Casts Urine 0-2 /LPF (0-2); RBC Urine 0-2 /HPF (0-2); Squamous Epithelial Cell Urine 0-2 /HPF (0-2); WBC Urine 0-5 /HPF (0-5)
[2023-02-28 08:02] VITALS: BP 100/64; PULSE 91; RESP 16; TEMP 36.1; O2SAT 99
[2023-02-28] MEDS: OXcarbazepine 300 MG TABLET 600 MG PO (09:23)
[2023-02-28] MEDS: Acetaminophen 325 MG TABLET 650 MG PO ×2 (09:23→20:02)
[2023-02-28] MEDS: Aspirin Enteric Coated 81 MG TABLET.DR PO (09:24)
[2023-02-28] MEDS: ARIPiprazole 5 MG TABLET PO (09:24)
[2023-02-28] MEDS: Atorvastatin Calcium 40 MG TABLET PO (09:24)
[2023-02-28] MEDS: estradioL 0.5 MG TABLET 1 MG PO (09:24)
[2023-02-28] MEDS: Ferrous Sulfate 324 MG TABLET.DR PO (09:24)
[2023-02-28] MEDS: hydrOXYzine HCL 25 MG TABLET PO (09:25)
[2023-02-28] MEDS: Multivitamin TABLET 1 TAB PO (09:25)
[2023-02-28] MEDS: Ondansetron ODT 4 MG TAB.RAPDIS TRANSLINGU (10:31)
[2023-02-28] MEDS: Docusate Sodium 100 MG CAPSULE PO (12:42)
--- NOTE | 2023-02-28 15:53 | HO.PSYCHPN ---
Subjective Subjective Date of Service: 02/28/23 Reason For Visit: Depression Subjective Notes: Conditional Voluntary Healthcare Proxy: No Guardianship: No Medical Problems Affecting Mental Status: No Interim History: Review of discussion with Dr. Chung. Discussed hyponatremia, trileptal, sertraline. Will taper trileptal. Sertraline in process of taper. Wellbutrin to begin. Pt not interested in Depakote-45lb gain. [place] she reports she has taken before and will consider again. Shared list of some trials on her phone (cross reference to event note) Affordability is important, Atarax has been helpful. Medication Compliance: Yes Side effects from medications: Yes (Na 131) Attending Groups: No Review of Systems Na 131- asymptomatic, agrees to have BMP 03/01 Medical Review of Systems: unchanged Mental Status Exam Mental Status Exam Patient Appearance: Appropriate Patient Orientation: Person, Place, Time and Situation Level of Consciousness: Alert Patient Behavior: Talkative and Good Eye Contact Mood Description: Withdrawn, Depressed, Anxious and Apprehensive Affect Description: Flat Patient Cognition Impaired: No Ability to Follow Directions: Fair Speech Pattern: Spontaneous Speech Memory Description: Intact Hallucinations: Visual Delusions: Not Present Perceptual Disturbances: Depersonalization and Derealization Thought Process: Distracted and Rumination Thought Content: positive for Perseveration Depressive Symptoms: Increased Anxiety, Diff. Making Decisions, Increased Irritability, Changes in Appetite, Loss of Int. in Activity, Feelings of Worthlessness, Hopelessness, Isolating-Friends/Family, Feelings of Guilt, Unhappiness, Increased Fatigue, Low Self Esteem, Loss of Energy and Difficulty Concentrating Judgement: Fair Diagnostics Vital Signs (24Hr): Vital Signs - 24 hr 02/27/23 20:09 02/28/23 08:02 Temperature 97.8 F 96.9 F Pulse Rate 69 91 Respiratory Rate 18 16 Blood Pressure 133/64 100/64 Pulse Oximetry 98 99 Oxygen Delivery Method Room Air Room Air BMI result Body Mass Index 26.6 Labs 02/27/23 09:57 02/27/23 09:57 Labs: Laboratory Results - last 48 hr 02/27/23 02/27/23 02/27/23 02:48 09:57 09:57 WBC RBC Hgb Hct MCV MCH MCHC RDW Plt Count MPV Immature Gran % (Auto) Neut % (Auto) Lymph % (Auto) Keith % (Auto) Eos % (Auto) Baso % (Auto) Lymph # (Auto) Keith # (Auto) Eos # (Auto) Baso # (Auto) Abs Immat Gran (auto) Absolute Neuts (auto) Absolute Nucleated RBC Nucleated RBC % (auto) Sodium 131 L Potassium 3.9 Chloride 101 Carbon Dioxide 21 L Anion Gap 13 BUN 10 Creatinine 0.72 Estim Creat Clear Calc 94.9 Estimated GFR > 60 Random Glucose 97 Osmolality Calcium 8.6 Total Bilirubin 0.3 AST 27 ALT 19 Alkaline Phosphatase 58 Total Protein 5.2 L Albumin 3.1 L Vitamin B12 436 Folate 13.6 Urine Color Yellow Urine Appearance Clear Urine pH 6.5 Ur Specific Percival >= 1.030 H Urine Protein Negative Urine Glucose (UA) Negative Urine Ketones Negative Urine Blood Negative Urine Nitrite Negative Ur Leukocyte Esterase Negative Urine RBC 0-2 Urine WBC 0-5 Ur Squamous Epith Cells 0-2 Urine Bacteria None Seen Hyaline Casts 0-2 Urine Osmolality Ur Random Sodium 02/27/23 02/27/23 02/28/23 09:57 09:57 02:48 WBC 2.8 L RBC 3.90 L Hgb 10.0 L Hct 32.2 L MCV 82.6 MCH 25.6 L MCHC 31.1 RDW 17.2 H Plt Count 133 L MPV 8.8 L Immature Gran % (Auto) 0.4 Neut % (Auto) 65.9 Lymph % (Auto) 22.3 Keith % (Auto) 9.2 Eos % (Auto) 1.8 Baso % (Auto) 0.4 Lymph # (Auto) 0.6 L Keith # (Auto) 0.3 Eos # (Auto) 0.1 Baso # (Auto) 0.0 Abs Immat Gran (auto) 0.01 Absolute Neuts (auto) 1.9 L Absolute Nucleated RBC 0.000 Nucleated RBC % (auto) 0.0 Sodium Potassium Chloride Carbon Dioxide Anion Gap BUN Creatinine Estim Creat Clear Calc Estimated GFR Random Glucose Osmolality 268 L Calcium Total Bilirubin AST ALT Alkaline Phosphatase Total Protein Albumin Vitamin B12 Folate Urine Color Urine Appearance Urine pH Ur Specific Percival Urine Protein Urine Glucose (UA) Urine Ketones Urine Blood Urine Nitrite Ur Leukocyte Esterase Urine RBC Urine WBC Ur Squamous Epith Cells Urine Bacteria Hyaline Casts Urine Osmolality 796 Ur Random Sodium 02/28/23 02:48 WBC RBC Hgb Hct MCV MCH MCHC RDW Plt Count MPV Immature Gran % (Auto) Neut % (Auto) Lymph % (Auto) Keith % (Auto) Eos % (Auto) Baso % (Auto) Lymph # (Auto) Keith # (Auto) Eos # (Auto) Baso # (Auto) Abs Immat Gran (auto) Absolute Neuts (auto) Absolute Nucleated RBC Nucleated RBC % (auto) Sodium Potassium Chloride Carbon Dioxide Anion Gap BUN Creatinine Estim Creat Clear Calc Estimated GFR Random Glucose Osmolality Calcium Total Bilirubin AST ALT Alkaline Phosphatase Total Protein Albumin Vitamin B12 Folate Urine Color Urine Appearance Urine pH Ur Specific Percival Urine Protein Urine Glucose (UA) Urine Ketones Urine Blood Urine Nitrite Ur Leukocyte Esterase Urine RBC Urine WBC Ur Squamous Epith Cells Urine Bacteria Hyaline Casts Urine Osmolality Ur Random Sodium 72.0 Imaging Radiology Impressions: ITS Impressions Head CT 02/23/23 12:45 IMPRESSION: No acute intracranial pathology. Medications Medications Current Medications Acetaminophen (Acetaminophen 325 Mg Tablet) 650 mg PO Q6H PRN PRN Reason: Headache/Pain Mild Scale (1-3) Last Admin: 02/28/23 09:23 Dose: 650 mg Al Hydroxide/Mg Hydroxide (Magnesium Hydrox/Alum Hydrox 30 Ml Oral.Susp) 30 ml PO Q6H PRN PRN Reason: Heartburn/Nausea Aripiprazole (Aripiprazole 5 Mg Tablet) 5 mg PO DAILY [facility] Last Admin: 02/28/23 09:24 Dose: 5 mg Aspirin (Aspirin Enteric Coated 81 Mg Tablet.) 81 mg PO DAILY [facility] Last Admin: 02/28/23 09:24 Dose: 81 mg Atorvastatin Calcium (Atorvastatin Calcium 40 Mg Tablet) 40 mg PO DAILY [facility] Last Admin: 02/28/23 09:24 Dose: 40 mg Clonazepam (Clonazepam 0.5 Mg Tablet) 0.25 mg PO DAILY PRN PRN Reason: anxiety Last Admin: 02/26/23 10:55 Dose: 0.25 mg Docusate Sodium (Docusate Sodium 100 Mg Capsule) 100 mg PO BID PRN PRN Reason: Constipation Last Admin: 02/28/23 12:42 Dose: 100 mg Estradiol (Estradiol 0.5 Mg Tablet) 1 mg PO DAILY [facility] Last Admin: 02/28/23 09:24 Dose: 1 mg Ferrous Sulfate (Ferrous Sulfate 324 Mg Tablet.) 324 mg PO DAILY [facility] Last Admin: 02/28/23 09:24 Dose: 324 mg Hydroxyzine HCl (Hydroxyzine Hcl 25 Mg Tablet) 25 mg PO Q6H PRN PRN Reason: Anxiety Last Admin: 02/28/23 09:25 Dose: 25 mg Ibuprofen (Ibuprofen 400 Mg Tablet) 400 mg PO Q6H PRN PRN Reason: Headache Last Admin: 02/27/23 15:45 Dose: 400 mg Magnesium Hydroxide (Milk Of Magnesia 30 Ml Oral.Susp) 30 ml PO DAILY PRN PRN Reason: Constipation Multivitamins/Vitamin C (Multivitamin Tablet) 1 tab PO DAILY [facility] Last Admin: 02/28/23 09:25 Dose: 1 tab Ondansetron HCl (Ondansetron Odt 4 Mg Tab.Rapdis) 4 mg TRANSLINGU BID PRN PRN Reason: Nausea and Vomiting Last Admin: 02/28/23 10:31 Dose: 4 mg Ondansetron HCl (Ondansetron Odt 4 Mg Tab.Rapdis) 4 mg TRANSLINGU Q6H PRN PRN Reason: nausea/vomiting Oxcarbazepine (Oxcarbazepine 300 Mg Tablet) 300 mg PO BID [facility] Stop: 03/01/23 22:00 Oxcarbazepine (Oxcarbazepine 300 Mg Tablet) 300 mg PO DAILY [facility] Stop: 03/04/23 10:00 Pharmacy Consult (Consult Rx Perform Med Rec) 1 each MISCELLANE ONCE PRN PRN Reason: Consult order Sertraline HCl (Sertraline Hcl 25 Mg Tablet) 75 mg PO BEDTIME [facility] Trazodone HCl (Trazodone Hcl 50 Mg Tablet) 50 mg PO BEDTIME MRX1 PRN PRN Reason: Insomnia Last Admin: 02/24/23 22:53 Dose: 50 mg Trazodone HCl (Trazodone Hcl 50 Mg Tablet) 150 mg PO BEDTIME [facility] Last Admin: 02/27/23 21:02 Dose: 150 mg Allergies Allergies Allergy/AdvReac Type Severity Reaction Status Date / Time latex Allergy Unknown Unknown Uncoded 12/11/22 08:00 penicillin Allergy Unknown Unknown Uncoded 12/11/22 08:00 sulfa Allergy Unknown Unknown Uncoded 12/11/22 08:00 Assessment & Plan Assessment & Plan (1) PTSD (post-traumatic stress disorder): Status: Acute Code(s): F43.10 - Post-traumatic stress disorder, unspecified (2) Bipolar 2 disorder: Status: Acute Code(s): F31.81 - Bipolar II disorder Plan Continue current current medications with the reduction of Zoloft as previously planned by her psychiatrist to 150 mg towards tapering off and initiating Wellbutrin SR. Continue Abilify 2 mg, trazodone 100 mg and Trileptal 300 mg b.i.d.. She meets criteria for hospital level of care for safety and stabilization and medication review and change 02/25: Continue current regimen and plans. Decreased Zoloft further to 100 mg and increase trazodone to 150 mg 02/26: Care discussed with Dr. Chung who reports Abilify by history has been helpful, Trileptal has just been started and they had hoped to change to Wellbutrin. Plan: Increase Abilify to 5 mg daily Increase Trileptal to 600 mg bid 02/27 continue current medications. rechecked Na- slightly lowered than on admission 131- pending urine NA and urine osmolality. continue to monitor as trileptal recently increased. 02/28- Na 131. Discussed Dr. Rosado recommendations. Will taper and stop Trileptal, Sertraline taper continues. Will begin Wellbutrin. Tolerating Abilify. Pt reports feeling some relief in consideration of events on the unit 02/28 which frightened her as one of her peers was agitated. Repeat BMP 03/01. Patient educated on: medication risk/benefits and therapeutic strategies Informed Consent: understands and further education needed Reason for continued inpatient stay Substantial Risk for: rapid decompensation Time Spent With Patient Time: Total time managing care of this patient today ____ minutes.
[2023-02-28 18:00] VITALS: BP 147/88; PULSE 61; RESP 18; TEMP 36.6
--- NOTE | 2023-02-28 18:54 | P.EN_ITS ---
Documented by User: Belle Aguilar APRN 02/28/23 19:08 Event Note Date of Service: 02/28/23 Event Note: Psychopharm history per pt report Lamictal, Tegretol, Keppra, [place], Depakote Sertraline, Wellbutrin, Klonopin Seroquel, Risperdal, Zyprexa Trazodone Requip Propranolol, Time Spent With Patient Time: Total time managing care of this patient today ____ minutes. Documented by User: Vic Roth MD 02/28/23 23:09 Event Note Date of Service: 02/28/23
--- NOTE | 2023-02-28 19:46 | PM.EVENT ---
Event Note Date of Service: 02/28/23 Event Note: Rapid response was called as patient had an unwitnessed fall. Upon evaluation, vital signs within normal limits. Patient following commands and answering questions appropriately. Obtaining CT head and VBG. Patient states she had an episode of emesis before she fell. Unclear if she lost consciousness. Obtaining orthostatic vital signs Time Spent With Patient Time: Total time managing care of this patient today ____ minutes.
[2023-02-28 19:49] LABS: Glucose, Whole Blood 91 mg/dL (60-115)
[2023-02-28 20:40] VITALS: BP 141/83; PULSE 60
[2023-02-28 20:40] LABS: VBG Base Excess 1.8 mmol/L; VBG HCO3 26 mmol/L (22-26); VBG pCO2 40 mmHg; VBG pH 7.42 (7.32-7.43); VBG pO2 41 mmHg
[2023-02-28 20:42] LABS: Venous Blood Gas Refer to POC result
[2023-02-28 20:43] VITALS: BP 144/85; BP 147/88; PULSE 61; PULSE 67
[2023-02-28] MEDS: traZODone HCL 50 MG TABLET 150 MG PO (21:54)
[2023-02-28] MEDS: Sertraline HCL 25 MG TABLET 75 MG PO (21:54)
--- NOTE | 2023-02-28 22:34 | PC.NURSE ---
At approximately 19:32 pt was found outside of her bedroom lying prone in the hallway and a rapid response was immediately called. PT was unconscious when found but was breathing with a strong pulse. PT responded to her name shortly after and began fluttering and opening her eyes. T 97.6 BP 183/88 HR 64 O2 sat 97% on RA. POC 91. PT awoke and was able to sit up and then get into wheelchair and was immediately taken to CT as ordered by Dr. Lynch. Labs were drawn shortly after (VBG) . PT's recovery was uneventful and is currently resting in bed. VS stable. PT did report one episode of vomiting prior to this episode. Nothing further to report at this time.
[2023-03-01 07:00] VITALS: BMI 28.1
[2023-03-01 08:35] VITALS: BP 108/54; PULSE 67; RESP 16; TEMP 36.5; O2SAT 99
[2023-03-01] MEDS: estradioL 0.5 MG TABLET 1 MG PO (09:06)
[2023-03-01] MEDS: Aspirin Enteric Coated 81 MG TABLET.DR PO (09:06)
[2023-03-01] MEDS: Multivitamin TABLET 1 TAB PO (09:06)
[2023-03-01] MEDS: OXcarbazepine 300 MG TABLET PO (09:07)
[2023-03-01] MEDS: ARIPiprazole 5 MG TABLET PO (09:07)
[2023-03-01] MEDS: Atorvastatin Calcium 40 MG TABLET PO (09:07)
[2023-03-01] MEDS: Ondansetron ODT 4 MG TAB.RAPDIS TRANSLINGU (09:15)
[2023-03-01 09:35] LABS: Anion Gap 12 (12-20); Blood Urea Nitrogen 8 mg/dL (9-16); Calcium 8.4 mg/dL (8.4-10.2); Carbon Dioxide 23 mmol/L (22-29); Chloride 94 mmol/L (96-108); Creatinine Clr Calc Pharmacy 108.5; Estimated Glomerular Filt Rate > 60; Glucose Random 87 mg/dL (60-115); Sodium 125 mmol/L (135-145)
[2023-03-01] MEDS: Acetaminophen 325 MG TABLET 650 MG PO ×2 (12:25→21:11)
--- NOTE | 2023-03-01 16:02 | HO.PSYCHPN ---
Subjective Subjective Date of Service: 03/01/23 Reason For Visit: Depression Subjective Notes: Conditional Voluntary Healthcare Proxy: No Guardianship: No Medical Problems Affecting Mental Status: No Interim History: Pt/Team report pt had an episode of nausea/vertigo last evening and fell. Seen by hospitalist, CAT Scan negative. Today, BMP with Na 125, hospitalist consult requested for intervention. Sertraline discontinued, Trileptal taper increased. No new antidepressants initiated today. Met with pt who is resting, alert, oriented. She reports a history of issues with hyponatremia since her bypass surgery years ago. Reports a decrease in appetite and is attempting to sustain herself without vomiting. Medication Compliance: Yes Side effects from medications: Yes (hyponatremia) Attending Groups: No Review of Systems Acute medical concerns: Yes hyponatremia, await hospitalist contult Medical Review of Systems: unchanged Mental Status Exam Mental Status Exam Patient Appearance: Fatigued Patient Orientation: Person, Place, Time and Situation Level of Consciousness: Alert Patient Behavior: Talkative and Good Eye Contact Mood Description: Flat Affect Description: Flat Patient Cognition Impaired: No Ability to Follow Directions: Good Speech Pattern: Spontaneous Speech Memory Description: Intact Hallucinations: None Delusions: Not Present Thought Process: Rumination Thought Content: positive for Perseveration Depressive Symptoms: Increased Anxiety, Increased Fatigue and Loss of Energy Judgement: Fair Diagnostics Vital Signs (24Hr): Vital Signs - 24 hr 02/28/23 20:40 02/28/23 20:43 02/28/23 20:43 Temperature Pulse Rate 60 61 67 Respiratory Rate Blood Pressure 141/83 H 147/88 H 144/85 H Pulse Oximetry Oxygen Delivery Method 02/28/23 18:00 03/01/23 08:35 Temperature 97.8 F 97.7 F Pulse Rate 61 67 Respiratory Rate 18 16 Blood Pressure 147/88 H 108/54 L Pulse Oximetry 99 Oxygen Delivery Method Room Air BMI result Body Mass Index 28.1 Labs 02/27/23 09:57 03/01/23 08:37 Labs: Laboratory Results - last 48 hr 02/27/23 02/28/23 02/28/23 02:48 02:48 02:48 VBG pH VBG pCO2 VBG pO2 VBG HCO3 VBG O2 Saturation VBG Base Excess Sodium Potassium Chloride Carbon Dioxide Anion Gap BUN Creatinine Estim Creat Clear Calc Estimated GFR POC Glucose Random Glucose Calcium Urine Color Yellow Urine Appearance Clear Urine pH 6.5 Ur Specific [place] >= 1.030 H Urine Protein Negative Urine Glucose (UA) Negative Urine Ketones Negative Urine Blood Negative Urine Nitrite Negative Ur Leukocyte Esterase Negative Urine RBC 0-2 Urine WBC 0-5 Ur Squamous Epith Cells 0-2 Urine Bacteria None Seen Hyaline Casts 0-2 Urine Osmolality 796 Ur Random Sodium 72.0 02/28/23 02/28/23 03/01/23 19:37 20:32 08:37 VBG pH 7.42 VBG pCO2 40 VBG pO2 41 VBG HCO3 26 VBG O2 Saturation 66.0 VBG Base Excess 1.8 Sodium 125 L Potassium 4.0 Chloride 94 L Carbon Dioxide 23 Anion Gap 12 BUN 8 L Creatinine 0.63 Estim Creat Clear Calc 108.5 Estimated GFR > 60 POC Glucose 91 Random Glucose 87 Calcium 8.4 Urine Color Urine Appearance Urine pH Ur Specific [place] Urine Protein Urine Glucose (UA) Urine Ketones Urine Blood Urine Nitrite Ur Leukocyte Esterase Urine RBC Urine WBC Ur Squamous Epith Cells Urine Bacteria Hyaline Casts Urine Osmolality Ur Random Sodium Imaging Radiology Impressions: ITS Impressions Head CT 02/23/23 12:45 IMPRESSION: No acute intracranial pathology. Head CT 02/28/23 20:04 IMPRESSION: No acute intracranial process seen. Medications Medications Current Medications Acetaminophen (Acetaminophen 325 Mg Tablet) 650 mg PO Q6H PRN PRN Reason: Headache/Pain Mild Scale (1-3) Last Admin: 03/01/23 12:25 Dose: 650 mg Al Hydroxide/Mg Hydroxide (Magnesium Hydrox/Alum Hydrox 30 Ml Oral.Susp) 30 ml PO Q6H PRN PRN Reason: Heartburn/Nausea Aripiprazole (Aripiprazole 5 Mg Tablet) 5 mg PO DAILY [facility] Last Admin: 03/01/23 09:07 Dose: 5 mg Aspirin (Aspirin Enteric Coated 81 Mg Tablet.Dr) 81 mg PO DAILY [facility] Last Admin: 03/01/23 09:06 Dose: 81 mg Atorvastatin Calcium (Atorvastatin Calcium 40 Mg Tablet) 40 mg PO DAILY [facility] Last Admin: 03/01/23 09:07 Dose: 40 mg Clonazepam (Clonazepam 0.5 Mg Tablet) 0.25 mg PO DAILY PRN PRN Reason: anxiety Last Admin: 02/26/23 10:55 Dose: 0.25 mg Docusate Sodium (Docusate Sodium 100 Mg Capsule) 100 mg PO BID PRN PRN Reason: Constipation Last Admin: 02/28/23 12:42 Dose: 100 mg Estradiol (Estradiol 0.5 Mg Tablet) 1 mg PO DAILY [facility] Last Admin: 03/01/23 09:06 Dose: 1 mg Ferrous Sulfate (Ferrous Sulfate 324 Mg Tablet.Dr) 324 mg PO DAILY [facility] Last Admin: 03/01/23 09:09 Dose: Not Given Hydroxyzine HCl (Hydroxyzine Hcl 25 Mg Tablet) 25 mg PO Q6H PRN PRN Reason: Anxiety Last Admin: 02/28/23 09:25 Dose: 25 mg Ibuprofen (Ibuprofen 400 Mg Tablet) 400 mg PO Q6H PRN PRN Reason: Headache Last Admin: 02/27/23 15:45 Dose: 400 mg Magnesium Hydroxide (Milk Of Magnesia 30 Ml Oral.Susp) 30 ml PO DAILY PRN PRN Reason: Constipation Multivitamins/Vitamin C (Multivitamin Tablet) 1 tab PO DAILY [facility] Last Admin: 03/01/23 09:06 Dose: 1 tab Ondansetron HCl (Ondansetron Odt 4 Mg Tab.Rapdis) 4 mg TRANSLINGU BID PRN PRN Reason: Nausea and Vomiting Last Admin: 03/01/23 09:15 Dose: 4 mg Ondansetron HCl (Ondansetron Odt 4 Mg Tab.Rapdis) 4 mg TRANSLINGU Q6H PRN PRN Reason: nausea/vomiting Oxcarbazepine (Oxcarbazepine 300 Mg Tablet) 300 mg PO DAILY [facility] Pharmacy Consult (Consult Rx Perform Med Rec) 1 each MISCELLANE ONCE PRN PRN Reason: Consult order Trazodone HCl (Trazodone Hcl 50 Mg Tablet) 50 mg PO BEDTIME MRX1 PRN PRN Reason: Insomnia Last Admin: 02/24/23 22:53 Dose: 50 mg Trazodone HCl (Trazodone Hcl 50 Mg Tablet) 150 mg PO BEDTIME [facility] Last Admin: 02/28/23 21:59 Dose: 150 mg Allergies Allergies Allergy/AdvReac Type Severity Reaction Status Date / Time latex Allergy Unknown Unknown Uncoded 12/11/22 08:00 penicillin Allergy Unknown Unknown Uncoded 12/11/22 08:00 sulfa Allergy Unknown Unknown Uncoded 12/11/22 08:00 Assessment & Plan Assessment & Plan (1) PTSD (post-traumatic stress disorder): Status: Acute Code(s): F43.10 - Post-traumatic stress disorder, unspecified (2) Bipolar 2 disorder: Status: Acute Code(s): F31.81 - Bipolar II disorder Plan Continue current current medications with the reduction of Zoloft as previously planned by her psychiatrist to 150 mg towards tapering off and initiating Wellbutrin SR. Continue Abilify 2 mg, trazodone 100 mg and Trileptal 300 mg b.i.d.. She meets criteria for hospital level of care for safety and stabilization and medication review and change 02/25: Continue current regimen and plans. Decreased Zoloft further to 100 mg and increase trazodone to 150 mg 02/26: Care discussed with Dr. Chung who reports Abilify by history has been helpful, Trileptal has just been started and they had hoped to change to Wellbutrin. Plan: Increase Abilify to 5 mg daily Increase Trileptal to 600 mg bid 02/27 continue current medications. rechecked Na- slightly lowered than on admission 131- pending urine NA and urine osmolality. continue to monitor as trileptal recently increased. 02/28- Na 131. Discussed Dr. Rosado recommendations. Will taper and stop Trileptal, Sertraline taper continues. Will begin Wellbutrin. Tolerating Abilify. Pt reports feeling some relief in consideration of events on the unit 02/28 which frightened her as one of her peers was agitated. Repeat BMP 03/01. 03/01/23 s/p fall, vomiting last night Na 125 this a.m. Hospitalist to consult Discontinue Sertraline Increase Trilpetal tapering No new trials until hyponatremia is resolved. Patient educated on: medication risk/benefits, therapeutic strategies and medical condition Informed Consent: understands and further education needed Reason for continued inpatient stay Substantial Risk for: rapid decompensation Time Spent With Patient Time: Total time managing care of this patient today ____ minutes.
--- NOTE | 2023-03-01 16:31 | PM.EVENT ---
Event Note Date of Service: 03/01/23 Event Note: Patient seen for evaluation of hyponatremia of 125. Patient has a history of hyponatremia, most likely iatrogenic and caused by sertraline. Patient complains of weakness, headache, nausea but no vomiting. Denies abdominal pain. Of note, patient had an unwitnessed fall and loss of consciousness yesterday. CT of head negative for acute intracranial pathology. Pt's SSRI should be stopped and pt should be placed on fluid restriction and a low-salt diet. Sodium shoud be trended daily. Will continue to follow for now. Time Spent With Patient Time: Total time managing care of this patient today ____ minutes.
[2023-03-01 18:36] VITALS: BP 141/70; PULSE 53; RESP 18; TEMP 36.6; O2SAT 96
[2023-03-01] MEDS: traZODone HCL 50 MG TABLET 150 MG PO (20:56)
[2023-03-01 21:09] VITALS: BP 118/72; PULSE 62; RESP 18
[2023-03-02 08:00] VITALS: BP 94/57; PULSE 63; RESP 16; TEMP 36.4; O2SAT 99
[2023-03-02] MEDS: Aspirin Enteric Coated 81 MG TABLET.DR PO (08:18)
[2023-03-02] MEDS: Multivitamin TABLET 1 TAB PO (08:18)
[2023-03-02] MEDS: Atorvastatin Calcium 40 MG TABLET PO (08:18)
[2023-03-02] MEDS: Ferrous Sulfate 324 MG TABLET.DR PO (08:18)
[2023-03-02] MEDS: estradioL 0.5 MG TABLET 1 MG PO (08:18)
[2023-03-02] MEDS: OXcarbazepine 300 MG TABLET PO (08:18)
[2023-03-02] MEDS: ARIPiprazole 5 MG TABLET PO (08:19)
[2023-03-02 10:24] LABS: Blood Urea Nitrogen 6 mg/dL (9-16); Calcium 9.4 mg/dL (8.4-10.2); Chloride 97 mmol/L (96-108); Creatinine Clr Calc Pharmacy 98.7; Estimated Glomerular Filt Rate > 60; Glucose Random 84 mg/dL (60-115); Potassium 4.4 mmol/L (3.3-5.1); Sodium 132 mmol/L (135-145)
[2023-03-02 10:50] LABS: Anion Gap 14 (12-20); Carbon Dioxide 24 mmol/L (22-29)
[2023-03-02] MEDS: Ibuprofen 400 MG TABLET PO (13:30)
[2023-03-02] MEDS: Acetaminophen 325 MG TABLET 650 MG PO (14:50)
--- NOTE | 2023-03-02 17:23 | P.CONNP_ITS ---
History of Present Illness Reason for Consult Consult date: 03/02/23 Chief Complaint Chief complaint: Depression History of Present Illness Narrative: Ms. Sophia Paez is a 62-year-old female with past medical history of bipolar 2 disorder, conversion disorder, TIA, carotid stenosis, syncope, seizures, PTSD, HDL, MVP, GERD, presenting with decompensated bipolar. She was taken off sertraline and started on abilify along with trileptal recently. She has acute on chronic hyponatremia. Review of Systems Review of Systems Yes all other systems are reviewed and are negative [facility] Past Medical History Medical History (Updated 03/02/23 @ 17:25 by Damien Alicea MD) Acute cataract Anxiety Arthritis Bipolar 2 disorder Carotid artery stenosis Faulkner syndrome Cataract Cervical dystonia Cervicalgia Conversion disorder Essential and other specified forms of tremor GERD (gastroesophageal reflux disease) Hyperlipidemia Hyponatremia Mitral valve prolapse Osteopenia PTSD (post-traumatic stress disorder) Raynauds syndrome (~08/2022) Restless legs syndrome (RLS) Seizures Syncope TIA (transient ischemic attack) Family History Family History Father Heart disease Depressed Mother Heart disease Surgical History Surgical History Gastric bypass status for obesity H/O arthroplasty History of hysterectomy Social History Social History Household Members: None Housing: Unknown / Unable to assess Do you presently have visiting nurse or other home services: No Alcohol intake: never Patient Tobacco Use Status: Never used Tobacco Use of substances other than those prescribed or required for medical reasons: No Currently Displaying Signs/Symptoms of Drug Intoxication Withdrawal: No Have you been hit, kicked, punched, or otherwise hurt by someone within the past year? If so, by whom?: No Do you feel safe in your current relationship?: No Current Relationship Is there a partner from a previous relationship who is making you feel unsafe now?: No Are you made to feel afraid or neglected: No Advance Directives: No Advance Directives Information Provided: No Healthcare Proxy: No Guardian: No Suicidal Behavior: History of suicide attemps Current/Past Psychiatric Disorders: Chronic mental illess [place] Symptoms: Anxiety Do you have thoughts of harming others: None Do you have a plan to hurt others: No Plan Nutrition Risks: No Nutritional Risk Patient : No : No Poor oral hygiene: No service: No Sexual orientation: Straight/Heterosexual Meds Allergies Allergy/AdvReac Type Severity Reaction Status Date / Time latex Allergy Unknown Unknown Uncoded 12/11/22 08:00 penicillin Allergy Unknown Unknown Uncoded 12/11/22 08:00 sulfa Allergy Unknown Unknown Uncoded 12/11/22 08:00 Active Medications: Current Medications Acetaminophen (Acetaminophen 325 Mg Tablet) 650 mg PO Q6H PRN PRN Reason: Headache/Pain Mild Scale (1-3) Last Admin: 03/02/23 14:50 Dose: 650 mg Al Hydroxide/Mg Hydroxide (Magnesium Hydrox/Alum Hydrox 30 Ml Oral.Susp) 30 ml PO Q6H PRN PRN Reason: Heartburn/Nausea Aripiprazole (Aripiprazole 5 Mg Tablet) 5 mg PO DAILY [facility] Last Admin: 03/02/23 08:19 Dose: 5 mg Aspirin (Aspirin Enteric Coated 81 Mg Tablet.) 81 mg PO DAILY [facility] Last Admin: 03/02/23 08:18 Dose: 81 mg Atorvastatin Calcium (Atorvastatin Calcium 40 Mg Tablet) 40 mg PO DAILY [facility] Last Admin: 03/02/23 08:18 Dose: 40 mg Clonazepam (Clonazepam 0.5 Mg Tablet) 0.25 mg PO DAILY PRN PRN Reason: anxiety Last Admin: 02/26/23 10:55 Dose: 0.25 mg Docusate Sodium (Docusate Sodium 100 Mg Capsule) 100 mg PO BID PRN PRN Reason: Constipation Last Admin: 02/28/23 12:42 Dose: 100 mg Estradiol (Estradiol 0.5 Mg Tablet) 1 mg PO DAILY [facility] Last Admin: 03/02/23 08:18 Dose: 1 mg Ferrous Sulfate (Ferrous Sulfate 324 Mg Tablet.) 324 mg PO DAILY [facility] Last Admin: 03/02/23 08:18 Dose: 324 mg Hydroxyzine HCl (Hydroxyzine Hcl 25 Mg Tablet) 25 mg PO Q6H PRN PRN Reason: Anxiety Last Admin: 02/28/23 09:25 Dose: 25 mg Ibuprofen (Ibuprofen 400 Mg Tablet) 400 mg PO Q6H PRN PRN Reason: Headache Last Admin: 03/02/23 13:30 Dose: 400 mg Magnesium Hydroxide (Milk Of Magnesia 30 Ml Oral.Susp) 30 ml PO DAILY PRN PRN Reason: Constipation Multivitamins/Vitamin C (Multivitamin Tablet) 1 tab PO DAILY [facility] Last Admin: 03/02/23 08:18 Dose: 1 tab Ondansetron HCl (Ondansetron Odt 4 Mg Tab.Rapdis) 4 mg TRANSLINGU BID PRN PRN Reason: Nausea and Vomiting Last Admin: 03/01/23 09:15 Dose: 4 mg Ondansetron HCl (Ondansetron Odt 4 Mg Tab.Rapdis) 4 mg TRANSLINGU Q6H PRN PRN Reason: nausea/vomiting Oxcarbazepine (Oxcarbazepine 300 Mg Tablet) 300 mg PO DAILY [facility] Last Admin: 03/02/23 08:18 Dose: 300 mg Pharmacy Consult (Consult Rx Perform Med Rec) 1 each MISCELLANE ONCE PRN PRN Reason: Consult order Trazodone HCl (Trazodone Hcl 50 Mg Tablet) 50 mg PO BEDTIME MRX1 PRN PRN Reason: Insomnia Last Admin: 02/24/23 22:53 Dose: 50 mg Trazodone HCl (Trazodone Hcl 50 Mg Tablet) 150 mg PO BEDTIME [facility] Last Admin: 03/01/23 20:56 Dose: 150 mg Urea (Urea 15 Gm Powder) 30 gm PO ONCE [facility] Stop: 03/02/23 17:22 Home Medications Medication Instructions Recorded Confirmed Last Taken Type aspirin 81 mg tablet,delayed 81 mg PO DAILY 12/11/22 02/23/23 02/22/23 History release atorvastatin 40 mg tablet 40 mg PO DAILY 12/11/22 02/23/23 02/23/23 History clonazepam 0.5 mg tablet 0.25 mg PO DAILY PRN anxiety 12/11/22 02/23/23 Unknown History ferrous sulfate 325 mg (65 mg 325 mg PO QAM 12/11/22 02/23/23 02/23/23 History iron) tablet,delayed release sertraline 100 mg tablet 200 mg PO BEDTIME 12/11/22 02/23/23 02/22/23 History trazodone 100 mg tablet 100 mg PO BEDTIME 12/11/22 02/23/23 02/22/23 History aripiprazole 2 mg tablet 2 mg PO DAILY 02/23/23 02/23/23 02/23/23 History estradiol 1 mg PO DAILY 02/23/23 02/25/23 02/23/23 History multivitamin 1 tab PO DAILY 02/23/23 02/23/23 02/23/23 History oxcarbazepine 300 mg tablet 300 mg PO BID 02/23/23 02/23/23 02/23/23 History Physical Exam Vital Signs: Last Vital Signs Temp 97.6 F 03/02/23 08:00 Pulse 63 03/02/23 08:00 Resp 16 03/02/23 08:00 BP 94/57 L 03/02/23 08:00 Pulse Ox 99 03/02/23 08:00 O2 Del Method Room Air 03/02/23 08:00 BMI result Body Mass Index 28.1 Const General: cooperative Resp Effort & Inspection: normal respiratory effort Auscultation: clear to auscultation bilaterally Cardio Jugular venous distension: no JVD Rate: regular rate GI Inspection: Yes normal to inspection Extrem Other: No edema General: Yes normal to inspection Results Lab Results 02/27/23 09:57 03/02/23 08:38 Lab results: Chemistry 03/01/23 03/02/23 08:37 08:38 Sodium 125 L 132 L Potassium 4.0 4.4 Carbon Dioxide 23 24 BUN 8 L 6 L Creatinine 0.63 0.71 Calcium 8.4 9.4 D Urinalysis 02/27/23 02:48 Urine Color Yellow Urine Appearance Clear Urine pH 6.5 Ur Specific [place] >= 1.030 H Urine Protein Negative Urine Glucose (UA) Negative Urine Ketones Negative Urine Blood Negative Urine Nitrite Negative Ur Leukocyte Esterase Negative Urine RBC 0-2 Urine WBC 0-5 Ur Squamous Epith Cells 0-2 Hyaline Casts 0-2 Urine Studies 02/28/23 02:48 Urine Osmolality 796 Assessment and Plan (1) PTSD (post-traumatic stress disorder): Status: Acute (2) Bipolar 2 disorder: Status: Acute (3) Hyponatremia: Status: Acute (4) Hyponatremia: Status: Acute Plan Ms. Sophia Paez is a 62-year-old female with past medical history of bipolar 2 disorder, conversion disorder, TIA, carotid stenosis, syncope, seizures, PTSD, HDL, MVP, GERD, presenting with decompensated bipolar. She was taken off sertraline and started on abilify along with trileptal recently. She has acute on chronic hyponatremia. 1. 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 Time Spent With Patient Time: Total time managing care of this patient today ____ minutes. Procedures Date of Service Date of Service: 03/02/23
--- NOTE | 2023-03-02 17:32 | HO.PSYCHPN ---
Subjective Subjective Date of Service: 03/02/23 Reason For Visit: Depression Subjective Notes: Conditional Voluntary Healthcare Proxy: No Guardianship: No Medical Problems Affecting Mental Status: No Interim History: Reports physically some improvement, however legs feel weak,heavy. Seen by nephrology, urea and daily bmp ordered. Discussed tentative start of Wellbutrin if Na continues to improve. Pt is in agreement. Medication Compliance: Yes Side effects from medications: No Attending Groups: No Review of Systems Acute medical concerns: No Medical Review of Systems: unchanged Mental Status Exam Mental Status Exam Patient Appearance: Fatigued Patient Orientation: Person, Place, Time and Situation Level of Consciousness: Alert Patient Behavior: Talkative and Good Eye Contact Mood Description: Depressed, Labile and Flat Affect Description: Flat Patient Cognition Impaired: No Ability to Follow Directions: Good Speech Pattern: Spontaneous Speech Memory Description: Intact Hallucinations: None Delusions: Not Present Thought Process: Rumination Thought Content: positive for Perseveration Depressive Symptoms: Increased Anxiety, Increased Fatigue and Loss of Energy Judgement: Fair Diagnostics Vital Signs (24Hr): Vital Signs - 24 hr 03/01/23 18:36 03/01/23 21:09 03/02/23 08:00 Temperature 98 F 97.6 F Pulse Rate 53 62 63 Respiratory Rate 18 18 16 Blood Pressure 141/70 H 118/72 94/57 L Pulse Oximetry 96 99 Oxygen Delivery Method Room Air Room Air BMI result Body Mass Index 28.1 Labs 02/27/23 09:57 03/02/23 08:38 Labs: Laboratory Results - last 48 hr 02/28/23 02/28/23 03/01/23 19:37 20:32 08:37 VBG pH 7.42 VBG pCO2 40 VBG pO2 41 VBG HCO3 26 VBG O2 Saturation 66.0 VBG Base Excess 1.8 Sodium 125 L Potassium 4.0 Chloride 94 L Carbon Dioxide 23 Anion Gap 12 BUN 8 L Creatinine 0.63 Estim Creat Clear Calc 108.5 Estimated GFR > 60 POC Glucose 91 Random Glucose 87 Calcium 8.4 03/02/23 08:38 VBG pH VBG pCO2 VBG pO2 VBG HCO3 VBG O2 Saturation VBG Base Excess Sodium 132 L Potassium 4.4 Chloride 97 Carbon Dioxide 24 Anion Gap 14 BUN 6 L Creatinine 0.71 Estim Creat Clear Calc 98.7 Estimated GFR > 60 POC Glucose Random Glucose 84 Calcium 9.4 D Imaging Radiology Impressions: ITS Impressions Head CT 02/23/23 12:45 IMPRESSION: No acute intracranial pathology. Head CT 02/28/23 20:04 IMPRESSION: No acute intracranial process seen. Medications Medications Current Medications Acetaminophen (Acetaminophen 325 Mg Tablet) 650 mg PO Q6H PRN PRN Reason: Headache/Pain Mild Scale (1-3) Last Admin: 03/02/23 14:50 Dose: 650 mg Al Hydroxide/Mg Hydroxide (Magnesium Hydrox/Alum Hydrox 30 Ml Oral.Susp) 30 ml PO Q6H PRN PRN Reason: Heartburn/Nausea Aripiprazole (Aripiprazole 5 Mg Tablet) 5 mg PO DAILY [facility] Last Admin: 03/02/23 08:19 Dose: 5 mg Aspirin (Aspirin Enteric Coated 81 Mg Tablet.) 81 mg PO DAILY [facility] Last Admin: 03/02/23 08:18 Dose: 81 mg Atorvastatin Calcium (Atorvastatin Calcium 40 Mg Tablet) 40 mg PO DAILY [facility] Last Admin: 03/02/23 08:18 Dose: 40 mg Clonazepam (Clonazepam 0.5 Mg Tablet) 0.25 mg PO DAILY PRN PRN Reason: anxiety Last Admin: 02/26/23 10:55 Dose: 0.25 mg Docusate Sodium (Docusate Sodium 100 Mg Capsule) 100 mg PO BID PRN PRN Reason: Constipation Last Admin: 02/28/23 12:42 Dose: 100 mg Estradiol (Estradiol 0.5 Mg Tablet) 1 mg PO DAILY [facility] Last Admin: 03/02/23 08:18 Dose: 1 mg Ferrous Sulfate (Ferrous Sulfate 324 Mg Tablet.) 324 mg PO DAILY [facility] Last Admin: 03/02/23 08:18 Dose: 324 mg Hydroxyzine HCl (Hydroxyzine Hcl 25 Mg Tablet) 25 mg PO Q6H PRN PRN Reason: Anxiety Last Admin: 02/28/23 09:25 Dose: 25 mg Ibuprofen (Ibuprofen 400 Mg Tablet) 400 mg PO Q6H PRN PRN Reason: Headache Last Admin: 03/02/23 13:30 Dose: 400 mg Magnesium Hydroxide (Milk Of Magnesia 30 Ml Oral.Susp) 30 ml PO DAILY PRN PRN Reason: Constipation Multivitamins/Vitamin C (Multivitamin Tablet) 1 tab PO DAILY [facility] Last Admin: 03/02/23 08:18 Dose: 1 tab Ondansetron HCl (Ondansetron Odt 4 Mg Tab.Rapdis) 4 mg TRANSLINGU BID PRN PRN Reason: Nausea and Vomiting Last Admin: 03/01/23 09:15 Dose: 4 mg Ondansetron HCl (Ondansetron Odt 4 Mg Tab.Rapdis) 4 mg TRANSLINGU Q6H PRN PRN Reason: nausea/vomiting Oxcarbazepine (Oxcarbazepine 300 Mg Tablet) 300 mg PO DAILY [facility] Last Admin: 03/02/23 08:18 Dose: 300 mg Pharmacy Consult (Consult Rx Perform Med Rec) 1 each MISCELLANE ONCE PRN PRN Reason: Consult order Trazodone HCl (Trazodone Hcl 50 Mg Tablet) 50 mg PO BEDTIME MRX1 PRN PRN Reason: Insomnia Last Admin: 02/24/23 22:53 Dose: 50 mg Trazodone HCl (Trazodone Hcl 50 Mg Tablet) 150 mg PO BEDTIME [facility] Last Admin: 03/01/23 20:56 Dose: 150 mg Allergies Allergies Allergy/AdvReac Type Severity Reaction Status Date / Time latex Allergy Unknown Unknown Uncoded 12/11/22 08:00 penicillin Allergy Unknown Unknown Uncoded 12/11/22 08:00 sulfa Allergy Unknown Unknown Uncoded 12/11/22 08:00 Assessment & Plan Assessment & Plan (1) PTSD (post-traumatic stress disorder): Status: Acute Code(s): F43.10 - Post-traumatic stress disorder, unspecified (2) Bipolar 2 disorder: Status: Acute Code(s): F31.81 - Bipolar II disorder Plan Ms. Sophia Paez is a 62-year-old female with past medical history of bipolar 2 disorder, conversion disorder, TIA, carotid stenosis, syncope, seizures, PTSD, HDL, MVP, GERD, presenting with decompensated bipolar. She was taken off sertraline and started on abilify along with trileptal recently. She has acute on chronic hyponatremia. 1. 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 03/02/23 BMP 03/03/23. If Na is improved, consider initiation of Wellbutrin trial tomorrow. Patient educated on: medication risk/benefits and therapeutic strategies Informed Consent: understands and further education needed Reason for continued inpatient stay Substantial Risk for: med/psych decompensation Time Spent With Patient Time: Total time managing care of this patient today ____ minutes.
[2023-03-02 18:00] VITALS: BP 120/60; PULSE 60; RESP 18
[2023-03-02] MEDS: Urea 15 GM POWDER 30 GM PO (18:31)
[2023-03-02] MEDS: Docusate Sodium 100 MG CAPSULE PO (20:17)
[2023-03-02] MEDS: traZODone HCL 50 MG TABLET 150 MG PO (20:18)
[2023-03-02] MEDS: traZODone HCL 50 MG TABLET PO (23:49)
[2023-03-03 07:47] LABS: Anion Gap 12 (12-20); Blood Urea Nitrogen 17 mg/dL (9-16); Calcium 9.3 mg/dL (8.4-10.2); Carbon Dioxide 25 mmol/L (22-29); Chloride 105 mmol/L (96-108); Estimated Glomerular Filt Rate > 60; Glucose Random 88 mg/dL (60-115); Potassium 4.5 mmol/L (3.3-5.1); Sodium 137 mmol/L (135-145)
[2023-03-03 08:00] VITALS: BP 109/62; PULSE 79; RESP 16; TEMP 36.5; O2SAT 99
[2023-03-03] MEDS: estradioL 0.5 MG TABLET 1 MG PO (09:25)
[2023-03-03] MEDS: Multivitamin TABLET 1 TAB PO (09:25)
[2023-03-03] MEDS: Ferrous Sulfate 324 MG TABLET.DR PO (09:25)
[2023-03-03] MEDS: Aspirin Enteric Coated 81 MG TABLET.DR PO (09:26)
[2023-03-03] MEDS: Atorvastatin Calcium 40 MG TABLET PO (09:26)
[2023-03-03] MEDS: OXcarbazepine 300 MG TABLET PO (09:26)
[2023-03-03] MEDS: ARIPiprazole 5 MG TABLET PO (09:26)
[2023-03-03] MEDS: Ibuprofen 400 MG TABLET PO ×2 (09:43→20:10)
[2023-03-03] MEDS: Acetaminophen 325 MG TABLET 650 MG PO (09:43)
--- NOTE | 2023-03-03 11:01 | PM.EVENT ---
Event Note Date of Service: 03/03/23 Event Note: Hyponatremia resolved and nephrology following. Signing off at this time. Please do not hesitate to reach out. \ Time Spent With Patient Time: Total time managing care of this patient today ____ minutes.
[2023-03-03] MEDS: buPROPion HCL 75 MG TABLET PO (13:56)
--- NOTE | 2023-03-03 15:37 | PM.PNNEP ---
Subjective Subjective Date of Service: 03/03/23 Interval history: Na better Physical Exam Vital Signs: Vital Signs: Last Vital Signs Temp 97.7 F 03/03/23 08:00 Pulse 79 03/03/23 08:00 Resp 16 03/03/23 08:00 BP 109/62 03/03/23 08:00 Pulse Ox 99 03/03/23 08:00 O2 Del Method Room Air 03/03/23 08:00 BMI result Body Mass Index 28.1 Const: General: cooperative Resp: Effort & Inspection: normal respiratory effort Auscultation: clear to auscultation bilaterally Cardio: Jugular venous distension: no JVD Rate: regular rate GI: Inspection: Yes normal to inspection Extrem: Other: No edema General: Yes normal to inspection Objective Data Labs 02/27/23 09:57 03/03/23 07:07 Labs: Laboratory Results - last 24 hr 03/03/23 07:07 Sodium 137 Potassium 4.5 Chloride 105 Carbon Dioxide 25 Anion Gap 12 BUN 17 H Creatinine 0.73 Estim Creat Clear Calc 96.0 Estimated GFR > 60 Random Glucose 88 Calcium 9.3 Procedures Date of Service Date of Service: 03/03/23 Assessment & Plan Assessment and plan (1) PTSD (post-traumatic stress disorder): Status: Acute (2) Bipolar 2 disorder: Status: Acute (3) Hyponatremia: Status: Acute Plan Ms. Sophia Paez is a 62-year-old female with past medical history of bipolar 2 disorder, conversion disorder, TIA, carotid stenosis, syncope, seizures, PTSD, HDL, MVP, GERD, presenting with decompensated bipolar. She was taken off sertraline and started on abilify along with trileptal recently. She has acute on chronic hyponatremia. 1. 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 Call if any questions at all. Time Spent With Patient Time: Total time managing care of this patient today ____ minutes.
--- NOTE | 2023-03-03 18:55 | P.PNPSI_ITS ---
Subjective Subjective Date of Service: 03/03/23 Reason For Visit: Depression Subjective Notes: Conditional Voluntary Healthcare Proxy: No Guardianship: No Medical Problems Affecting Mental Status: No Interim History: Pt seen, reviewed with team. Na 137, pt pleased with her progress but having sx of depression. Discussed Wellbutrin increase for 03/05. Tolerating Abilify increase. She would like another increase. Will increase on 03/05 as well. BMP daily Asking appropriate questions about her sodium and how to manage this when at home. Medication Compliance: Yes Side effects from medications: No Attending Groups: Yes Review of Systems Acute medical concerns: No Medical Review of Systems: unchanged Mental Status Exam Mental Status Exam Patient Appearance: Fatigued Patient Orientation: Person, Place, Time and Situation Level of Consciousness: Alert Patient Behavior: Talkative and Good Eye Contact Mood Description: Depressed, Labile and Flat Affect Description: Flat Patient Cognition Impaired: No Ability to Follow Directions: Good Speech Pattern: Spontaneous Speech Memory Description: Intact Hallucinations: None Delusions: Not Present Thought Process: Rumination Thought Content: positive for Perseveration Depressive Symptoms: Increased Anxiety, Increased Fatigue and Loss of Energy Judgement: Fair Diagnostics Vital Signs (24Hr): Vital Signs - 24 hr 03/03/23 08:00 Temperature 97.7 F Pulse Rate 79 Respiratory Rate 16 Blood Pressure 109/62 Pulse Oximetry 99 Oxygen Delivery Method Room Air BMI result Body Mass Index 28.1 Labs 02/27/23 09:57 03/03/23 07:07 Labs: Laboratory Results - last 48 hr 03/02/23 03/03/23 08:38 07:07 Sodium 132 L 137 Potassium 4.4 4.5 Chloride 97 105 Carbon Dioxide 24 25 Anion Gap 14 12 BUN 6 L 17 H Creatinine 0.71 0.73 Estim Creat Clear Calc 98.7 96.0 Estimated GFR > 60 > 60 Random Glucose 84 88 Calcium 9.4 D 9.3 Imaging Radiology Impressions: ITS Impressions Head CT 02/23/23 12:45 IMPRESSION: No acute intracranial pathology. Head CT 02/28/23 20:04 IMPRESSION: No acute intracranial process seen. Medications Medications Current Medications Acetaminophen (Acetaminophen 325 Mg Tablet) 650 mg PO Q6H PRN PRN Reason: Headache/Pain Mild Scale (1-3) Last Admin: 03/03/23 09:43 Dose: 650 mg Al Hydroxide/Mg Hydroxide (Magnesium Hydrox/Alum Hydrox 30 Ml Oral.Susp) 30 ml PO Q6H PRN PRN Reason: Heartburn/Nausea Aripiprazole (Aripiprazole 5 Mg Tablet) 5 mg PO DAILY [facility] Last Admin: 03/03/23 09:26 Dose: 5 mg Aspirin (Aspirin Enteric Coated 81 Mg Tablet.) 81 mg PO DAILY [facility] Last Admin: 03/03/23 09:26 Dose: 81 mg Atorvastatin Calcium (Atorvastatin Calcium 40 Mg Tablet) 40 mg PO DAILY [facility] Last Admin: 03/03/23 09:26 Dose: 40 mg Bupropion HCl (Bupropion Hcl 75 Mg Tablet) 75 mg PO DAILY [facility] Last Admin: 03/03/23 13:56 Dose: 75 mg Clonazepam (Clonazepam 0.5 Mg Tablet) 0.25 mg PO DAILY PRN PRN Reason: anxiety Last Admin: 02/26/23 10:55 Dose: 0.25 mg Docusate Sodium (Docusate Sodium 100 Mg Capsule) 100 mg PO BID PRN PRN Reason: Constipation Last Admin: 03/02/23 20:17 Dose: 100 mg Estradiol (Estradiol 0.5 Mg Tablet) 1 mg PO DAILY [facility] Last Admin: 03/03/23 09:25 Dose: 1 mg Ferrous Sulfate (Ferrous Sulfate 324 Mg Tablet.) 324 mg PO DAILY [facility] Last Admin: 03/03/23 09:25 Dose: 324 mg Hydroxyzine HCl (Hydroxyzine Hcl 25 Mg Tablet) 25 mg PO Q6H PRN PRN Reason: Anxiety Last Admin: 02/28/23 09:25 Dose: 25 mg Ibuprofen (Ibuprofen 400 Mg Tablet) 400 mg PO Q6H PRN PRN Reason: Headache Last Admin: 03/03/23 09:43 Dose: 400 mg Magnesium Hydroxide (Milk Of Magnesia 30 Ml Oral.Susp) 30 ml PO DAILY PRN PRN Reason: Constipation Multivitamins/Vitamin C (Multivitamin Tablet) 1 tab PO DAILY [facility] Last Admin: 03/03/23 09:25 Dose: 1 tab Ondansetron HCl (Ondansetron Odt 4 Mg Tab.Rapdis) 4 mg TRANSLINGU BID PRN PRN Reason: Nausea and Vomiting Last Admin: 03/01/23 09:15 Dose: 4 mg Ondansetron HCl (Ondansetron Odt 4 Mg Tab.Rapdis) 4 mg TRANSLINGU Q6H PRN PRN Reason: nausea/vomiting Oxcarbazepine (Oxcarbazepine 300 Mg Tablet) 300 mg PO DAILY [facility] Last Admin: 03/03/23 09:26 Dose: 300 mg Pharmacy Consult (Consult Rx Perform Med Rec) 1 each MISCELLANE ONCE PRN PRN Reason: Consult order Trazodone HCl (Trazodone Hcl 50 Mg Tablet) 50 mg PO BEDTIME MRX1 PRN PRN Reason: Insomnia Last Admin: 03/02/23 23:49 Dose: 50 mg Trazodone HCl (Trazodone Hcl 50 Mg Tablet) 150 mg PO BEDTIME [facility] Last Admin: 03/02/23 20:18 Dose: 150 mg Allergies Allergies Allergy/AdvReac Type Severity Reaction Status Date / Time latex Allergy Unknown Unknown Uncoded 12/11/22 08:00 penicillin Allergy Unknown Unknown Uncoded 12/11/22 08:00 sulfa Allergy Unknown Unknown Uncoded 12/11/22 08:00 Assessment & Plan Assessment & Plan (1) PTSD (post-traumatic stress disorder): Status: Acute Code(s): F43.10 - Post-traumatic stress disorder, unspecified (2) Bipolar 2 disorder: Status: Acute Code(s): F31.81 - Bipolar II disorder Plan Hospital Course: -Increase Wellbutrin, Abilify on 03/05 -BMP 03/04. Medical Consult: Ms. Sophia Paez is a 62-year-old female with past medical history of bipolar 2 disorder, conversion disorder, TIA, carotid stenosis, syncope, seizures, PTSD, HDL, MVP, GERD, presenting with decompensated bipolar. She was taken off sertraline and started on abilify along with trileptal recently. She has acute on chronic hyponatremia. 1. 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 Call if any questions at all. Informed Consent: understands Reason for continued inpatient stay Substantial Risk for: rapid decompensation Time Spent With Patient Time: Total time managing care of this patient today ____ minutes.
[2023-03-03] MEDS: clonazePAM 0.5 MG TABLET 0.25 MG PO (20:11)
[2023-03-03 22:10] VITALS: BP 123/65; PULSE 61; RESP 18; TEMP 36.1
[2023-03-03] MEDS: traZODone HCL 50 MG TABLET 150 MG PO (22:10)
[2023-03-04 07:58] LABS: Anion Gap 13 (12-20); Blood Urea Nitrogen 13 mg/dL (9-16); Carbon Dioxide 26 mmol/L (22-29); Chloride 105 mmol/L (96-108); Creatinine Clr Calc Pharmacy 94.7; Estimated Glomerular Filt Rate > 60; Glucose Random 92 mg/dL (60-115); Potassium 4.6 mmol/L (3.3-5.1); Sodium 139 mmol/L (135-145)
[2023-03-04 08:00] VITALS: BP 116/66; PULSE 78; RESP 16; TEMP 36.6; O2SAT 99
[2023-03-04] MEDS: estradioL 0.5 MG TABLET 1 MG PO (09:10)
[2023-03-04] MEDS: Ibuprofen 400 MG TABLET PO (09:10)
[2023-03-04] MEDS: Multivitamin TABLET 1 TAB PO (09:11)
[2023-03-04] MEDS: ARIPiprazole 5 MG TABLET PO (09:11)
[2023-03-04] MEDS: Atorvastatin Calcium 40 MG TABLET PO (09:11)
[2023-03-04] MEDS: Aspirin Enteric Coated 81 MG TABLET.DR PO (09:11)
[2023-03-04] MEDS: buPROPion HCL 75 MG TABLET PO (09:11)
[2023-03-04] MEDS: Ferrous Sulfate 324 MG TABLET.DR PO (09:11)
[2023-03-04] MEDS: Acetaminophen 325 MG TABLET 650 MG PO (16:00)
--- NOTE | 2023-03-04 16:51 | P.PNPSI_ITS ---
Subjective Subjective Date of Service: 03/04/23 Reason For Visit: Depression Subjective Notes: Conditional Voluntary Healthcare Proxy: No Guardianship: No Medical Problems Affecting Mental Status: No Interim History: Pt reviewed in team, records, reports reviewed. Na 139! Sleeping Sx of depression, lability, anxiety with current sertraline, trileptal wash out. Will increase Wellbutrin, Abilify on 03/05. Medication Compliance: Yes Side effects from medications: No Attending Groups: Intermittent Review of Systems Acute medical concerns: No Medical Review of Systems: unchanged Mental Status Exam Mental Status Exam Patient Appearance: Fatigued Patient Orientation: Person, Place, Time and Situation Level of Consciousness: Alert Patient Behavior: Talkative and Good Eye Contact Mood Description: Depressed, Labile and Flat Affect Description: Flat Patient Cognition Impaired: No Ability to Follow Directions: Good Speech Pattern: Spontaneous Speech Memory Description: Intact Hallucinations: None Delusions: Not Present Thought Process: Rumination Thought Content: positive for Perseveration Depressive Symptoms: Increased Anxiety, Increased Fatigue and Loss of Energy Judgement: Fair Diagnostics Vital Signs (24Hr): Vital Signs - 24 hr 03/03/23 22:10 03/04/23 08:00 Temperature 97 F 97.8 F Pulse Rate 61 78 Respiratory Rate 18 16 Blood Pressure 123/65 116/66 Pulse Oximetry 99 Oxygen Delivery Method Room Air BMI result Body Mass Index 28.1 Labs 02/27/23 09:57 03/04/23 07:05 Labs: Laboratory Results - last 48 hr 03/03/23 03/04/23 07:07 07:05 Sodium 137 139 Potassium 4.5 4.6 Chloride 105 105 Carbon Dioxide 25 26 Anion Gap 12 13 BUN 17 H 13 Creatinine 0.73 0.74 Estim Creat Clear Calc 96.0 94.7 Estimated GFR > 60 > 60 Random Glucose 88 92 Calcium 9.3 9.0 Imaging Radiology Impressions: ITS Impressions Head CT 02/23/23 12:45 IMPRESSION: No acute intracranial pathology. Head CT 02/28/23 20:04 IMPRESSION: No acute intracranial process seen. Medications Medications Current Medications Acetaminophen (Acetaminophen 325 Mg Tablet) 650 mg PO Q6H PRN PRN Reason: Headache/Pain Mild Scale (1-3) Last Admin: 03/04/23 16:00 Dose: 650 mg Al Hydroxide/Mg Hydroxide (Magnesium Hydrox/Alum Hydrox 30 Ml Oral.Susp) 30 ml PO Q6H PRN PRN Reason: Heartburn/Nausea Aripiprazole (Aripiprazole 5 Mg Tablet) 5 mg PO DAILY [facility] Last Admin: 03/04/23 09:11 Dose: 5 mg Aspirin (Aspirin Enteric Coated 81 Mg Tablet.Dr) 81 mg PO DAILY [facility] Last Admin: 03/04/23 09:11 Dose: 81 mg Atorvastatin Calcium (Atorvastatin Calcium 40 Mg Tablet) 40 mg PO DAILY [facility] Last Admin: 03/04/23 09:11 Dose: 40 mg Bupropion HCl (Bupropion Hcl Xl 150 Mg Tab.Er.24h) 150 mg PO DAILY [facility] Clonazepam (Clonazepam 0.5 Mg Tablet) 0.25 mg PO DAILY PRN PRN Reason: anxiety Last Admin: 03/03/23 20:11 Dose: 0.25 mg Docusate Sodium (Docusate Sodium 100 Mg Capsule) 100 mg PO BID PRN PRN Reason: Constipation Last Admin: 03/02/23 20:17 Dose: 100 mg Estradiol (Estradiol 0.5 Mg Tablet) 1 mg PO DAILY [facility] Last Admin: 03/04/23 09:10 Dose: 1 mg Ferrous Sulfate (Ferrous Sulfate 324 Mg Tablet.) 324 mg PO DAILY [facility] Last Admin: 03/04/23 09:11 Dose: 324 mg Hydroxyzine HCl (Hydroxyzine Hcl 25 Mg Tablet) 25 mg PO Q6H PRN PRN Reason: Anxiety Last Admin: 02/28/23 09:25 Dose: 25 mg Ibuprofen (Ibuprofen 400 Mg Tablet) 400 mg PO Q6H PRN PRN Reason: Headache Last Admin: 03/04/23 09:10 Dose: 400 mg Magnesium Hydroxide (Milk Of Magnesia 30 Ml Oral.Susp) 30 ml PO DAILY PRN PRN Reason: Constipation Multivitamins/Vitamin C (Multivitamin Tablet) 1 tab PO DAILY [facility] Last Admin: 03/04/23 09:11 Dose: 1 tab Ondansetron HCl (Ondansetron Odt 4 Mg Tab.Rapdis) 4 mg TRANSLINGU BID PRN PRN Reason: Nausea and Vomiting Last Admin: 03/01/23 09:15 Dose: 4 mg Ondansetron HCl (Ondansetron Odt 4 Mg Tab.Rapdis) 4 mg TRANSLINGU Q6H PRN PRN Reason: nausea/vomiting Pharmacy Consult (Consult Rx Perform Med Rec) 1 each MISCELLANE ONCE PRN PRN Reason: Consult order Trazodone HCl (Trazodone Hcl 50 Mg Tablet) 50 mg PO BEDTIME MRX1 PRN PRN Reason: Insomnia Last Admin: 03/02/23 23:49 Dose: 50 mg Trazodone HCl (Trazodone Hcl 50 Mg Tablet) 150 mg PO BEDTIME [facility] Last Admin: 03/03/23 22:10 Dose: 150 mg Allergies Allergies Allergy/AdvReac Type Severity Reaction Status Date / Time latex Allergy Unknown Unknown Uncoded 12/11/22 08:00 penicillin Allergy Unknown Unknown Uncoded 12/11/22 08:00 sulfa Allergy Unknown Unknown Uncoded 12/11/22 08:00 Assessment & Plan Assessment & Plan (1) PTSD (post-traumatic stress disorder): Status: Acute Code(s): F43.10 - Post-traumatic stress disorder, unspecified (2) Bipolar 2 disorder: Status: Acute Code(s): F31.81 - Bipolar II disorder Plan Hospital Course: -Increase Wellbutrin, Abilify on 03/05 -BMP /. 03/04/23 BMP / Increase Abilify to 10 mg 03/05 Increase Wellbutrin XL to 150 mg 03/05 Medical Consult: Ms. Sophia Paez is a 62-year-old female with past medical history of bip olar 2 disorder, conversion disorder, TIA, carotid stenosis, syncope, seizures, PTSD, HDL, MVP, GERD, presenting with decompensated bipolar. She was taken off sertraline and started on abilify along with trileptal recently. She has acute on chronic hyponatremia. 1. 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 Call if any questions at all. Informed Consent: understands Reason for continued inpatient stay Substantial Risk for: med/psych decompensation Time Spent With Patient Time: Total time managing care of this patient today ____ minutes.
[2023-03-04 18:00] VITALS: BP 130/59; PULSE 62; RESP 18; TEMP 36.3
[2023-03-04] MEDS: clonazePAM 0.5 MG TABLET 0.25 MG PO (19:11)
[2023-03-04] MEDS: traZODone HCL 50 MG TABLET 150 MG PO (22:17)
[2023-03-04 22:25] LABS: Glucose, Whole Blood 68 mg/dL (60-115)
[2023-03-04] MEDS: Docusate Sodium 100 MG CAPSULE PO (22:30)
--- NOTE | 2023-03-04 22:40 | PC.NURSE ---
At approximately 22:20 pt was seen lowering herself to the floor outside of med room and then lying on floor. PT was able to respond to verbal commands. BP 155/88 HR 88 T 98 O2 99% POC 68. PT reports she began to feel dizzy while standing at med window so she lowered herself to prevent a fall. PT was a & o x 4 within one minute. physically impaired teacher notified (CAW), no further orders at this time, nothing further to report at this time.
--- NOTE | 2023-03-05 07:00 | EEG_ITS ---
FINDINGS: The waking background activity consists of a well-defined, moderate-voltage posterior 10 to 11 hertz alpha frequency that is seen symmetrically and attenuates well with eye opening while low voltage fast frequencies predominate anteriorly. Photic stimulation is without activation. hyperventilation was omitted. No sleep stages are identified. No focal, lateralizing, or paroxysmal discharges are seen. IMPRESSION: This waking EEG is within normal limits. MD ANGELA Wylie/MARCO / [id number]
[2023-03-05 08:00] VITALS: BP 120/56; PULSE 77; RESP 16; TEMP 36.5; O2SAT 100
[2023-03-05] MEDS: buPROPion HCL 75 MG TABLET PO (08:27)
[2023-03-05] MEDS: estradioL 0.5 MG TABLET 1 MG PO (08:28)
[2023-03-05] MEDS: Atorvastatin Calcium 40 MG TABLET PO (08:28)
[2023-03-05] MEDS: Multivitamin TABLET 1 TAB PO (08:28)
[2023-03-05] MEDS: Ferrous Sulfate 324 MG TABLET.DR PO (08:28)
[2023-03-05] MEDS: Aspirin Enteric Coated 81 MG TABLET.DR PO (08:28)
[2023-03-05] MEDS: ARIPiprazole 5 MG TABLET PO (08:49)
[2023-03-05 09:27] LABS: Anion Gap 12 (12-20); Blood Urea Nitrogen 12 mg/dL (9-16); Calcium 9.4 mg/dL (8.4-10.2); Carbon Dioxide 26 mmol/L (22-29); Chloride 105 mmol/L (96-108); Creatinine Clr Calc Pharmacy 97.3; Estimated Glomerular Filt Rate > 60; Glucose Random 72 mg/dL (60-115); Potassium 4.1 mmol/L (3.3-5.1); Sodium 139 mmol/L (135-145)
[2023-03-05] MEDS: Acetaminophen 325 MG TABLET 650 MG PO (11:15)
[2023-03-05] MEDS: Ibuprofen 400 MG TABLET PO (11:15)
[2023-03-05] MEDS: clonazePAM 0.5 MG TABLET 0.25 MG PO (16:45)
--- NOTE | 2023-03-05 17:11 | HO.PSYCHPN ---
Subjective Subjective Date of Service: 03/05/23 Reason For Visit: Depression Subjective Notes: Conditional Voluntary Interim History: Pt reports doing well. She reports feeling less depressed, less irritable. She is sleeping through the night. No SI/HI. No need for fluid restriction. Pt also reports physically feeling much less tired. She has been visible on the unit, social with peers. No behavioral concerns. Medication Compliance: Yes Review of Systems Review of Systems Tremors Yes all other systems are reviewed and are negative Mental Status Exam Mental Status Exam Narrative: Appearance: wearing casual clothing, fair hygiene, in NAD Behavior: cooperative Psychomotor: no agitation or retardation noted Speech: clear, normal rate/rhythm/volume, spontaneous TP: linear TC: no psychosis, feeling better but still depressed SI: denies HI: denies VH/AH: none Delusions: none Insight/judgment: fair x 2. Memory/cog: alert, oriented x 3. Diagnostics Vital Signs (24Hr): Vital Signs - 24 hr 03/04/23 18:00 03/05/23 08:00 Temperature 97.3 F 97.7 F Pulse Rate 62 77 Respiratory Rate 18 16 Blood Pressure 130/59 L 120/56 L Pulse Oximetry 100 Oxygen Delivery Method Room Air BMI result Body Mass Index 28.1 Labs 02/27/23 09:57 03/05/23 08:48 Labs: Laboratory Results - last 48 hr 03/04/23 03/04/23 03/05/23 07:05 22:21 08:48 Sodium 139 139 Potassium 4.6 4.1 Chloride 105 105 Carbon Dioxide 26 26 Anion Gap 13 12 BUN 13 12 Creatinine 0.74 0.72 Estim Creat Clear Calc 94.7 97.3 Estimated GFR > 60 > 60 POC Glucose 68 Random Glucose 92 72 Calcium 9.0 9.4 Imaging Radiology Impressions: ITS Impressions Head CT 02/23/23 12:45 IMPRESSION: No acute intracranial pathology. Head CT 02/28/23 20:04 IMPRESSION: No acute intracranial process seen. Medications Medications Current Medications Acetaminophen (Acetaminophen 325 Mg Tablet) 650 mg PO Q6H PRN PRN Reason: Headache/Pain Mild Scale (1-3) Last Admin: 03/05/23 11:15 Dose: 650 mg Al Hydroxide/Mg Hydroxide (Magnesium Hydrox/Alum Hydrox 30 Ml Oral.Susp) 30 ml PO Q6H PRN PRN Reason: Heartburn/Nausea Aripiprazole (Aripiprazole 5 Mg Tablet) 5 mg PO DAILY [facility] Last Admin: 03/05/23 08:49 Dose: 5 mg Aspirin (Aspirin Enteric Coated 81 Mg Tablet.) 81 mg PO DAILY [facility] Last Admin: 03/05/23 08:28 Dose: 81 mg Atorvastatin Calcium (Atorvastatin Calcium 40 Mg Tablet) 40 mg PO DAILY [facility] Last Admin: 03/05/23 08:28 Dose: 40 mg Bupropion HCl (Bupropion Hcl 75 Mg Tablet) 75 mg PO DAILY [facility] Last Admin: 03/05/23 08:27 Dose: 75 mg Clonazepam (Clonazepam 0.5 Mg Tablet) 0.25 mg PO DAILY PRN PRN Reason: anxiety Last Admin: 03/05/23 16:45 Dose: 0.25 mg Docusate Sodium (Docusate Sodium 100 Mg Capsule) 100 mg PO BID PRN PRN Reason: Constipation Last Admin: 03/04/23 22:30 Dose: 100 mg Estradiol (Estradiol 0.5 Mg Tablet) 1 mg PO DAILY [facility] Last Admin: 03/05/23 08:28 Dose: 1 mg Ferrous Sulfate (Ferrous Sulfate 324 Mg Tablet.) 324 mg PO DAILY [facility] Last Admin: 03/05/23 08:28 Dose: 324 mg Hydroxyzine HCl (Hydroxyzine Hcl 25 Mg Tablet) 25 mg PO Q6H PRN PRN Reason: Anxiety Last Admin: 02/28/23 09:25 Dose: 25 mg Ibuprofen (Ibuprofen 400 Mg Tablet) 400 mg PO Q6H PRN PRN Reason: Headache Last Admin: 03/05/23 11:15 Dose: 400 mg Magnesium Hydroxide (Milk Of Magnesia 30 Ml Oral.Susp) 30 ml PO DAILY PRN PRN Reason: Constipation Multivitamins/Vitamin C (Multivitamin Tablet) 1 tab PO DAILY [facility] Last Admin: 03/05/23 08:28 Dose: 1 tab Ondansetron HCl (Ondansetron Odt 4 Mg Tab.Rapdis) 4 mg TRANSLINGU BID PRN PRN Reason: Nausea and Vomiting Last Admin: 03/01/23 09:15 Dose: 4 mg Ondansetron HCl (Ondansetron Odt 4 Mg Tab.Rapdis) 4 mg TRANSLINGU Q6H PRN PRN Reason: nausea/vomiting Pharmacy Consult (Consult Rx Perform Med Rec) 1 each MISCELLANE ONCE PRN PRN Reason: Consult order Trazodone HCl (Trazodone Hcl 50 Mg Tablet) 150 mg PO BEDTIME [facility] Last Admin: 03/04/23 22:17 Dose: 150 mg Trazodone HCl (Trazodone Hcl 50 Mg Tablet) 50 mg PO BEDTIME PRN PRN Reason: Insomnia Allergies Allergies Allergy/AdvReac Type Severity Reaction Status Date / Time latex Allergy Unknown Unknown Uncoded 12/11/22 08:00 penicillin Allergy Unknown Unknown Uncoded 12/11/22 08:00 sulfa Allergy Unknown Unknown Uncoded 12/11/22 08:00 Assessment & Plan Assessment & Plan (1) PTSD (post-traumatic stress disorder): Status: Acute Code(s): F43.10 - Post-traumatic stress disorder, unspecified (2) Bipolar 2 disorder: Status: Acute Code(s): F31.81 - Bipolar II disorder Plan Hospital Course: -Increase Wellbutrin, Abilify on 03/05 -BMP 8/6. 03/04/23 BMP 8/7 Increase Abilify to 10 mg 03/05 Increase Wellbutrin XL to 150 mg 03/05 03/05 continue tx. d/c fluid restriction. Medical Consult: Ms. Sophia Paez is a 62-year-old female with past medical history of bipolar 2 disorder, conversion disorder, TIA, carotid stenosis, syncope, seizures, PTSD, HDL, MVP, GERD, presenting with decompensated bipolar. She was taken off sertraline and started on abilify along with trileptal recently. She has acute on chronic hyponatremia. 1. 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 Call if any questions at all. Reason for continued inpatient stay Substantial Risk for: inability to function Time Spent With Patient Time: Total time managing care of this patient today ____ minutes.
[2023-03-05] MEDS: traZODone HCL 50 MG TABLET 150 MG PO (19:36)
[2023-03-05 19:38] VITALS: BP 109/69; PULSE 91; RESP 18; TEMP 36.6
--- NOTE | 2023-03-06 | ECG_ITS ---
Test Reason : unresponive Blood Pressure : / mmHG Vent. Rate : 114 BPM Atrial Rate : 127 BPM P-R Int : 152 ms QRS Dur : 074 ms QT Int : 310 ms P-R-T Axes : 000 175 170 degrees QTc Int : 427 ms Limbs lead reversal Sinus tachycardia with Premature atrial complexes Right axis deviation Abnormal ECG When compared with ECG of 23-FEB-2023 17:53, Premature atrial complexes are now Present Vent. rate has increased BY 61 BPM QRS axis Shifted right Inferior infarct is now Present T wave inversion now evident in Lateral leads Referred By: Raffi Lynn Electronically Signed By:Cristian Lundberg
[2023-03-06 06:00] VITALS: BP 126/70; PULSE 76; RESP 16; TEMP 36.1; O2SAT 97
[2023-03-06 09:51] LABS: Glucose, Whole Blood 119 mg/dL (60-115)
[2023-03-06 10:13] VITALS: BP 180/80; PULSE 114; RESP 18; O2SAT 96
--- NOTE | 2023-03-06 10:14 | PC.NURSE ---
Around 0935 staff informed RN that patient stated she felt short of breath as she was walking back to her room from doing laundry. This RN went into patients room to check on her at 0940. Pt was unresponsive to voice and painful stimuli. Sternal chest rub was performed with no reaction. Rapid Response called. Pupils were reactive to light measuring about 5mm. Vitals obtained. Blood pressure 164/69, 98% on room air, heart rate 116. Blood sugar was 119. Narcan administered at 0948 without any response. Narcan unable to be scanned in [facility] due to patient being discharged off our unit and admitted to [facility] EKG completed at 0952 which showed patient to be in sinus tach with PAC's. Pt's vitals/respirations remained stable during incidence. Pt transferred from bed to stretcher and escorted to [facility] At the time of transfer, Pt did open her eyes and was able to track staff but not able to verbally respond. Belongings and cell phone sent down to [facility] with patient.
--- NOTE | 2023-03-06 16:55 | PM.PSYDC ---
DS: Providers Provider Date of Service: 03/06/23 Date of admission: 02/23/23 21:43 Date of discharge: 03/06/23 Primary care physician: Susanne Barbour MD Admitting clinician: Elieser Aviles Attending physician on admission: Elieser Aviles Consults: 03/01/23 09:44 Consult to Hospitalist Routine Comment: Consulting Provider: Hospitalist Reason For Exam: sodium 125, consult for replacement 03/01/23 09:49 Consult to Nephrology Routine Consulting Provider: Luis Scanlon Reason for consultation: hyponatremia, 125 Has provider been notified: No Attending physician on discharge: Vic Roth Discharging clinician: Belle Aguilar DS: Diagnosis Discharge Diagnosis (1) PTSD (post-traumatic stress disorder): Status: Acute (2) Bipolar 2 disorder: Status: Acute DS: Medications Discharge Medications Home Medications: Home Medications Medication Instructions Recorded Confirmed aspirin 81 mg tablet,delayed 81 mg PO DAILY 12/11/22 03/06/23 release atorvastatin 40 mg tablet 40 mg PO DAILY 12/11/22 03/06/23 clonazepam 0.5 mg tablet 0.25 mg PO DAILY PRN anxiety 12/11/22 03/06/23 ferrous sulfate 325 mg (65 mg 325 mg PO QAM 12/11/22 03/06/23 iron) tablet,delayed release estradiol 1 mg PO DAILY 02/23/23 03/06/23 multivitamin 1 tab PO DAILY 02/23/23 03/06/23 Previous Rx's Medication Instructions Recorded docusate sodium 100 mg capsule 100 mg PO BID PRN Constipation #0 03/06/23 caps trazodone 50 mg tablet 150 mg PO BEDTIME #0 tabs 03/06/23 Mental Status Exam Mental Status Exam Narrative: Unresponsive during transfer Data Data Completed and Pending Completed studies during hospitalization [Text1]: 02/27/23 02/28/23 02/28/23 02:48 02:48 02:48 VBG pH VBG pCO2 VBG pO2 VBG HCO3 VBG O2 Saturation VBG Base Excess Sodium Potassium Chloride Carbon Dioxide Anion Gap BUN Creatinine Estim Creat Clear Calc Estimated GFR POC Glucose Random Glucose Calcium Urine Color Yellow Urine Appearance Clear Urine pH 6.5 Ur Specific [place] >= 1.030 H Urine Protein Negative Urine Glucose (UA) Negative Urine Ketones Negative Urine Blood Negative Urine Nitrite Negative Ur Leukocyte Esterase Negative Urine RBC 0-2 Urine WBC 0-5 Ur Squamous Epith Cells 0-2 Urine Bacteria None Seen Hyaline Casts 0-2 Urine Osmolality 796 Ur Random Sodium 72.0 02/28/23 02/28/23 03/01/23 19:37 20:32 08:37 VBG pH 7.42 VBG pCO2 40 VBG pO2 41 VBG HCO3 26 VBG O2 Saturation 66.0 VBG Base Excess 1.8 Sodium 125 L Potassium 4.0 Chloride 94 L Carbon Dioxide 23 Anion Gap 12 BUN 8 L Creatinine 0.63 Estim Creat Clear Calc 108.5 Estimated GFR > 60 POC Glucose 91 Random Glucose 87 Calcium 8.4 Urine Color Urine Appearance Urine pH Ur Specific [place] Urine Protein Urine Glucose (UA) Urine Ketones Urine Blood Urine Nitrite Ur Leukocyte Esterase Urine RBC Urine WBC Ur Squamous Epith Cells Urine Bacteria Hyaline Casts Urine Osmolality Ur Random Sodium 03/02/23 03/03/23 03/04/23 08:38 07:07 07:05 VBG pH VBG pCO2 VBG pO2 VBG HCO3 VBG O2 Saturation VBG Base Excess Sodium 132 L 137 139 Potassium 4.4 4.5 4.6 Chloride 97 105 105 Carbon Dioxide 24 25 26 Anion Gap 14 12 13 BUN 6 L 17 H 13 Creatinine 0.71 0.73 0.74 Estim Creat Clear Calc 98.7 96.0 94.7 Estimated GFR > 60 > 60 > 60 POC Glucose Random Glucose 84 88 92 Calcium 9.4 D 9.3 9.0 Urine Color Urine Appearance Urine pH Ur Specific [place] Urine Protein Urine Glucose (UA) Urine Ketones Urine Blood Urine Nitrite Ur Leukocyte Esterase Urine RBC Urine WBC Ur Squamous Epith Cells Urine Bacteria Hyaline Casts Urine Osmolality Ur Random Sodium 03/04/23 03/05/23 03/06/23 22:21 08:48 09:48 VBG pH VBG pCO2 VBG pO2 VBG HCO3 VBG O2 Saturation VBG Base Excess Sodium 139 Potassium 4.1 Chloride 105 Carbon Dioxide 26 Anion Gap 12 BUN 12 Creatinine 0.72 Estim Creat Clear Calc 97.3 Estimated GFR > 60 POC Glucose 68 119 H Random Glucose 72 Calcium 9.4 Urine Color Urine Appearance Urine pH Ur Specific [place] Urine Protein Urine Glucose (UA) Urine Ketones Urine Blood Urine Nitrite Ur Leukocyte Esterase Urine RBC Urine WBC Ur Squamous Epith Cells Urine Bacteria Hyaline Casts Urine Osmolality Ur Random Sodium Imaging Diagnostic Imaging Impressions Head CT 02/23/23 12:45 IMPRESSION: No acute intracranial pathology. Head CT 02/28/23 20:04 IMPRESSION: No acute intracranial process seen. DS: Summary Hospital Course Hospital Course: Admission to adult psychiatry 02/24/23 for exacerbation of symptoms of bipolar II disorder. Reported hypomania in early December with transition to depressive sx, irritability, poor sleep, increase in reactivity, racing thoughts. Pt had started to make some medication changes with her out patient team, Dr. Chung, who was contacted to continue the plan of care. Trazodone was increased. Sertraline was tapered. Trilpetal was increased, then tapered as pt developed hypoosmolar euvolemic hyponatremia and medically induced SIADH. Fluids were restricted to 1.5L/day and urea was added 30g x1. Abilify was increased and Wellbutrin was added. On 03/06/23 pt reported feeling SOB. She became unresponsive with hemodynamic stability. No postictal sx were observed. EEG on 03/05 was WNL. Team called rapid response/code and pt was transferred to medicine for further cardiac eval. Time spent discussing smoking cessation with patient: 3 to 10 minutes Status at Discharge Functional status at discharge: bed bound Overall status at discharge: patient is not back to baseline Time Spent with Patient Time attestation: Total time managing care of this patient today ____ minutes. Time spent: Greater than 30 minutes Discharge Plan Discharge Anticipated Discharge Date/Time: 03/06/23 09:59 Patient Disposition: [facility] Hospital Discharge Diagnosis: Bipolar Disorder Referrals: Susanne Barbour MD [Primary Care Provider] - 1 Week Discharge Medications: New trazodone 50 mg Tablet 150 mg PO BEDTIME Qty: 0 0RF docusate sodium 100 mg Capsule 100 mg PO BID PRN (Reason: Constipation) Qty: 0 0RF Continued multivitamin Tablet 1 tab PO DAILY estradiol 1 mg PO DAILY clonazepam 0.5 mg tablet 0.25 mg PO DAILY PRN (Reason: anxiety) atorvastatin 40 mg tablet 40 mg PO DAILY aspirin 81 mg tablet,delayed release (DR/EC) 81 mg PO DAILY ferrous sulfate 325 mg (65 mg iron) tablet,delayed release (DR/EC) 325 mg PO QAM Discontinued oxcarbazepine 300 mg tablet 300 mg PO BID aripiprazole 2 mg tablet 2 mg PO DAILY sertraline 100 mg tablet 200 mg PO BEDTIME trazodone 100 mg tablet 100 mg PO BEDTIME No Action ibuprofen 400 mg Tablet 400 mg PO Q6H PRN (Reason: Headache) bupropion HCl 75 mg Tablet 75 mg PO DAILY Rx Instructions: administer 6 hours apart hydroxyzine HCl 25 mg Tablet 25 mg PO Q6H PRN (Reason: Anxiety) aripiprazole [Abilify] 5 mg Tablet 5 mg PO DAILY verapamil 120 mg capsule,ext rel. pellets 24 hr 120 mg PO DAILY Qty: 30 0RF Discharge Orders: Discharge Order (Routine); Ordered 03/06/23 Ordered By: Belle Aguilar Diet: Advance to usual diet Activity on Discharge: As tolerated Stand Alone Forms: Patient Portal Discharge page Care Plan Goals: Transfer to medical Health Concerns: Transfer to medical Plan of Treatment: Transfer to medical Assessment: Transfer to medical Discharge Date/Time: 03/06/23 10:48
--- NOTE | 2023-03-13 10:27 | PM.PSYDC ---
DS: Providers Provider Date of Service: 03/10/23 Date of admission: 02/23/23 21:43 Date of discharge: 03/10/23 Primary care physician: Susanne Barbour MD Admitting clinician: Belle Aguilar Attending physician on admission: Vic Roth Consults: 03/01/23 09:44 Consult to Hospitalist Routine Comment: Consulting Provider: Hospitalist Reason For Exam: sodium 125, consult for replacement 03/01/23 09:49 Consult to Nephrology Routine Consulting Provider: Luis Scanlon Reason for consultation: hyponatremia, 125 Has provider been notified: No Attending physician on discharge: Vic Roth Discharging clinician: Vic Roth DS: Diagnosis Discharge Diagnosis (1) PTSD (post-traumatic stress disorder): Status: Acute (2) Bipolar 2 disorder: Status: Acute DS: Medications Discharge Medications Home Medications: Home Medications Medication Instructions Recorded Confirmed aspirin 81 mg tablet,delayed 81 mg PO DAILY 12/11/22 03/10/23 release atorvastatin 40 mg tablet 40 mg PO DAILY 12/11/22 03/10/23 clonazepam 0.5 mg tablet 0.25 mg PO DAILY PRN anxiety 12/11/22 03/10/23 ferrous sulfate 325 mg (65 mg 325 mg PO QAM 12/11/22 03/10/23 iron) tablet,delayed release estradiol 1 mg PO DAILY 02/23/23 03/10/23 multivitamin 1 tab PO DAILY 02/23/23 03/10/23 aripiprazole 5 mg tablet (Abilify) 5 mg PO DAILY 03/09/23 03/10/23 bupropion HCl 75 mg tablet 75 mg PO DAILY 03/09/23 03/10/23 hydroxyzine HCl 25 mg tablet 25 mg PO Q6H PRN Anxiety 03/09/23 03/10/23 ibuprofen 400 mg tablet 400 mg PO Q6H PRN Headache 03/09/23 03/10/23 Previous Rx's Medication Instructions Recorded docusate sodium 100 mg capsule 100 mg PO BID PRN Constipation #0 03/06/23 caps trazodone 50 mg tablet 150 mg PO BEDTIME #0 tabs 03/06/23 verapamil 120 mg 24 hr 120 mg PO DAILY #30 caps 03/12/23 capsule,extended release Mental Status Exam Mental Status Exam Patient Appearance: Appropriate Patient Orientation: Person, Place, Time and Situation Level of Consciousness: Alert Patient Behavior: Appropriate, Talkative, Cooperative and Good Eye Contact Mood Description: Appropriate Affect Description: Appropriate Patient Cognition Impaired: No Ability to Follow Directions: Good Speech Pattern: Spontaneous Speech Memory Description: Intact Hallucinations: None Delusions: Not Present Thought Process: Intact Thought Content: positive for Intact Depressive Symptoms: Thoughts of /Suicide (denies) Judgement: Good Data Imaging Diagnostic Imaging Impressions Head CT 02/23/23 12:45 IMPRESSION: No acute intracranial pathology. Head CT 02/28/23 20:04 IMPRESSION: No acute intracranial process seen. DS: Summary Hospital Course Hospital Course: Admission to adult psychiatry 02/24/23 for exacerbation of symptoms of bipolar II disorder. Reported hypomania in early December with transition to depressive sx, irritability, poor sleep, increase in reactivity, racing thoughts. Pt had started to make some medication changes with her out patient team, Dr. Chung, who was contacted to continue the plan of care. Trazodone was increased. Sertraline was tapered. Trilpetal was increased, then tapered as pt developed hypoosmolar euvolemic hyponatremia and medically induced SIADH. Fluids were restricted to 1.5L/day and urea was added 30g x1. Abilify was increased and Wellbutrin was added. On 03/06/23 pt reported feeling SOB. She became unresponsive with hemodynamic stability. No postictal sx were observed. EEG on 03/05 was WNL. Team called rapid response/code and pt was transferred to medicine for further cardiac eval. 03/12/23- Returned to psychiatry from medicine on 03/09/23 with discharge diagnosis of supraventricular tachycardia. Pt experienced another episode after admission and was discharged again to medicine on 03/10/23. She declined to return for further in patient psychiatric treatment and will follow up with her out patient team, Dr. Chung, of [facility] Time spent discussing smoking cessation with patient: 3 to 10 minutes Status at Discharge Functional status at discharge: independent ambulation Overall status at discharge: patient is back to baseline Time Spent with Patient Time attestation: Total time managing care of this patient today ____ minutes. Discharge Plan Discharge Anticipated Discharge Date/Time: 03/06/23 09:59 Patient Disposition: [facility] Discharge Diagnosis: Bipolar Disorder Referrals: Susanne Barbour MD [Primary Care Provider] - 1 Week Discharge Medications: New trazodone 50 mg Tablet 150 mg PO BEDTIME Qty: 0 0RF docusate sodium 100 mg Capsule 100 mg PO BID PRN (Reason: Constipation) Qty: 0 0RF Continued multivitamin Tablet 1 tab PO DAILY estradiol 1 mg PO DAILY clonazepam 0.5 mg tablet 0.25 mg PO DAILY PRN (Reason: anxiety) atorvastatin 40 mg tablet 40 mg PO DAILY aspirin 81 mg tablet,delayed release (DR/EC) 81 mg PO DAILY ferrous sulfate 325 mg (65 mg iron) tablet,delayed release (DR/EC) 325 mg PO QAM Discontinued oxcarbazepine 300 mg tablet 300 mg PO BID aripiprazole 2 mg tablet 2 mg PO DAILY sertraline 100 mg tablet 200 mg PO BEDTIME trazodone 100 mg tablet 100 mg PO BEDTIME No Action ibuprofen 400 mg Tablet 400 mg PO Q6H PRN (Reason: Headache) bupropion HCl 75 mg Tablet 75 mg PO DAILY Rx Instructions: administer 6 hours apart hydroxyzine HCl 25 mg Tablet 25 mg PO Q6H PRN (Reason: Anxiety) aripiprazole [Abilify] 5 mg Tablet 5 mg PO DAILY verapamil 120 mg capsule,ext rel. pellets 24 hr 120 mg PO DAILY Qty: 30 0RF Discharge Orders: Discharge Order (Routine); Ordered 03/06/23 Ordered By: Belle Aguilar Diet: Advance to usual diet Activity on Discharge: As tolerated Stand Alone Forms: Patient Portal Discharge page Care Plan Goals: Transfer to medical Health Concerns: Transfer to medical Plan of Treatment: Transfer to medical Assessment: Transfer to medical Discharge Date/Time: 03/06/23 10:48
== END 2023-03-06 10:48 | disposition short-term general hospital (02) | DRG 753 ==
LOC: HO.ED 18:38 → HO.PM5 21:49 → HO.IMC 03-06 10:00 → HO.PM5 03-06 10:46
PROVIDERS: Physician Assistant; Psychiatry & Neurology Psychiatry; Social Worker; Student in an Organized Health Care Education/Training Program; Admitting Provider Psychiatry & Neurology Psychiatry; Emergency Provider Emergency Medicine Emergency Medical Services; PCP Family Medicine; Visit Provider Clinical Nurse Specialist Psychiatric/Mental Health, Adult
DX: F31.81 Bipolar II disorder (principal); E22.2 Syndrome of inappropriate secretion of antidiuretic hormone; E78.5 Hyperlipidemia, unspecified; T43.225A Adverse effect of selective serotonin reuptake inhibitors, initial encounter; F43.10 Post-traumatic stress disorder, unspecified; K21.9 Gastro-esophageal reflux disease without esophagitis; Z20.822 Contact with and (suspected) exposure to COVID-19; Z91.040 Latex allergy status; Z79.82 Long term (current) use of aspirin; Z79.899 Other long term (current) drug therapy
CPT/HCPCS: 36415; 70450; 80048; 80053; 80061; 80307; 81001; 82306; 82607; 82746; 82803; 82947; 83735; 83930; 83935; 84300; 85025; 87635; 92950; 93005; 95816; 99285; S9485

== ENCOUNTER → 2023-02-23 17:25 | Outpatient (BNV) | payer OTHER, SELFPAY | PROVIDERS: Admitting Provider Psychiatry & Neurology Psychiatry; Emergency Provider Emergency Medicine Emergency Medical Services; PCP Family Medicine; Visit Provider Internal Medicine Cardiovascular Disease | DX: R00.1 Bradycardia, unspecified (principal) | CPT/HCPCS: 93010 ==

== ENCOUNTER 2023-02-23 21:43 | Outpatient (BNV) | payer OTHER, SELFPAY | END 2023-03-06 09:45 | PROVIDERS: Admitting Provider Psychiatry & Neurology Psychiatry; Emergency Provider Emergency Medicine Emergency Medical Services; PCP Family Medicine; Visit Provider Internal Medicine Cardiovascular Disease | DX: R40.4 Transient alteration of awareness (principal) | CPT/HCPCS: 93010 ==

== ENCOUNTER → 2023-02-23 21:43 | Outpatient (BNV) | payer OTHER, SELFPAY | PROVIDERS: Admitting Provider Psychiatry & Neurology Psychiatry; Emergency Provider Emergency Medicine Emergency Medical Services; PCP Family Medicine; Visit Provider Psychiatry & Neurology Psychiatry | DX: F43.11 Post-traumatic stress disorder, acute (principal); F31.81 Bipolar II disorder | CPT/HCPCS: 90792; 99231; 99232; 99238; 99239; 99499 ==

== ENCOUNTER 2023-03-06 10:44 | Observation (INO) | payer OTHER, SELFPAY ==
[2023-03-06] VITALS (7 sets, daily range): BP systolic 107–135; BP diastolic 55–80; PULSE 64–92; RESP 17–18; TEMP 36.6–37.1; O2SAT 98–100; BMI 26.0
--- NOTE | 2023-03-06 | ECG_ITS ---
Test Reason : UNRESPONSIVE Blood Pressure : / mmHG Vent. Rate : 069 BPM Atrial Rate : 069 BPM P-R Int : 172 ms QRS Dur : 078 ms QT Int : 412 ms P-R-T Axes : 041 007 022 degrees QTc Int : 441 ms Sinus rhythm with Premature atrial complexes Otherwise normal ECG When compared with ECG of 06-MAR-2023 09:45, Vent. rate has decreased BY 45 BPM QRS axis Shifted left Criteria for Inferior infarct are no longer Present T wave inversion no longer evident in Lateral leads Referred By: Raffi Duarte Electronically Signed By:Cristian Lundberg
--- NOTE | 2023-03-06 10:47 | P.HPHOSP_ITS ---
History of Present Illness Date of Service: 03/06/23 Chief Complaint: Syncope, ? seizure 62 year old female with Biplioar depression, history of non-eplietic seizure, admittd to Psych for depression and decompensated bipolar. Her management has included Trileptal for her moods but was discontinued because of hyponatremia, her sodium level has since normalazied. She was supposedly in her normal state this morning, but later stated she was going to her room because she felt short of breath. Just minutes later her nurse found her unresponsive, Rapid response was, called followed by a code blue in error. She was unresponsive yet hemodynamically stable the whole time, normal breathing patern, pulse present just eyes closed. ECG showed no arrythmia, no seizure like activity, no urinary or stool incontinence, no tongue bite. Upon transfer to [facility], she awake, alert, talking and aware of being at [facility]. There was nothing resembling post-ictal state Review of Systems Review of Systems: Gen: no fever Resp: no sob, no cough CV: no chest, no [place], no leg edema GI: No n/v, no abd pain Neuro: No confusion [facility] Medical History (Updated 03/07/23 @ 07:40 by Raffi Duarte MD) Acute cataract Anxiety Arthritis Bipolar 2 disorder Carotid artery stenosis Faulkner syndrome Cataract Cervical dystonia Cervicalgia Conversion disorder Conversion disorder Essential and other specified forms of tremor GERD (gastroesophageal reflux disease) Hyperlipidemia Hyponatremia Mitral valve prolapse Osteopenia PTSD (post-traumatic stress disorder) Raynauds syndrome (~08/2022) Restless legs syndrome (RLS) Seizures Syncope TIA (transient ischemic attack) Family History Father Heart disease Depressed Mother Heart disease Surgical History Gastric bypass status for obesity H/O arthroplasty History of hysterectomy Social History Household Members: None Housing: Apartment Do you presently have visiting nurse or other home services: No Alcohol intake: never Patient Tobacco Use Status: Never used Tobacco Use of substances other than those prescribed or required for medical reasons: No Currently Displaying Signs/Symptoms of Drug Intoxication Withdrawal: No Have you been hit, kicked, punched, or otherwise hurt by someone within the past year? If so, by whom?: No Do you feel safe in your current relationship?: No Current Relationship Is there a partner from a previous relationship who is making you feel unsafe now?: No Are you made to feel afraid or neglected: No Spiritual Healthcare Practices: N/A Anabaptist Healthcare Practices: N/A Cultural Healthcare Practices: N/A Advance Directives: No Advance Directives Information Provided: No Do you have thoughts of harming others: None Do you have a plan to hurt others: No Plan Recently lost weight without trying: No Nutrition Risks: No Nutritional Risk Patient : No service: No Sexual orientation: Straight/Heterosexual Meds Allergies Allergy/AdvReac Type Severity Reaction Status Date / Time latex Allergy Unknown Unknown Uncoded 12/11/22 08:00 penicillin Allergy Unknown Unknown Uncoded 12/11/22 08:00 sulfa Allergy Unknown Unknown Uncoded 12/11/22 08:00 Home Medications Medication Instructions Recorded Confirmed Last Taken Type aspirin 81 mg tablet,delayed 81 mg PO DAILY 12/11/22 03/06/23 02/22/23 History release atorvastatin 40 mg tablet 40 mg PO DAILY 12/11/22 03/06/23 02/23/23 History clonazepam 0.5 mg tablet 0.25 mg PO DAILY PRN anxiety 12/11/22 03/06/23 Unknown History ferrous sulfate 325 mg (65 mg 325 mg PO QAM 12/11/22 03/06/23 02/23/23 History iron) tablet,delayed release estradiol 1 mg PO DAILY 02/23/23 03/06/23 02/23/23 History multivitamin 1 tab PO DAILY 02/23/23 03/06/23 02/23/23 History Physical Exam Const: Other: Constitutional: Alert, in no distress, overweight. Mental Status: Oriented to person, place and time. Eyes: Pupils are equal, round and reactive to light. Ear, Nose and Throat: Oropharynx clear, mucous membranes moist. . Respiratory: Clear to auscultation. No wheezing, rales or rhonchi. Cardiovascular: S1 S2 regular. No murmurs, rubs or gallops. Gastrointestinal: Abdomen soft, non-tender, non-distended. Normal bowel sounds.? Neurologic: Cranial nerves II-XII grossly intact. No focal neurological deficits. Moves all extremities spontaneously.? Skin: No rashes or lesions.? Musculoskeletal: No cyanosis or clubbing. Psychiatric: Normal mood and affect? Results Labs 03/07/23 05:38 03/07/23 05:38 Assessment and Plan (1) Non-motor epileptic seizure: Status: Acute Plan 62 year old female with Biplioar depression, history of non-eplietic seizure, admittd to Psych for depression and decompensated bipolar and now transfer to [facility] for an episode of unresponsiveness ? seizure (ie non epileptic type) Plan: Check BMP, mag, phos, observe on tele, ecg, neuro consult. Continue Psych meds. IVF. DVT prophylaxis: low risk, ambulate, full code med rec pending Time Spent With Patient Time: Total time managing care of this patient today ____ minutes. Quality Stroke Does the patient have a stroke diagnosis?: No VTE Prior VTE?: No VTE Risk Level:: Medical - low VTE Device Contraindication: N/A - Device Ordered VTE Drug Contraindication: Treatment Not Indicated
--- OUTSIDE RECORDS SUMMARY | 2023-03-06 10:47 | XMS_ITS | Continuity of Care Document ---
Author Name Unknown Organization [facility] Address [address] [place] [address]- Care Team Providers Care Utilization Specialist Name Role Phone Amadeo Edouard MD Primary Care Physician [phone] [place] [facility] [place](s): 12/07/20 - 02/03/21 [facility] [address] [place] [address] Attending Physician: Mylene Carranza MD Admitting Physician: Mylene Carranza MD Referring Physician: Amadeo Edouard MD Allergies, Adverse Reactions, Alerts Substance Reaction Severity Status penicillin hives Active penicillins Active sulfa drugs Active Latex Active Medications Ambien CR 12.5, mg, By Mouth, Daily at bedtime, 0, 0, 10/24/05 23:24:39, Print CHRISTIANO Number, [id number], Constant Indicator Start Date: 10/24/05 Status: Ordered Aspirin 81, mg, By Mouth, Daily, 0, 0, 10/24/05 23:26:02, [id number], Constant Indicator Start Date: 10/24/05 Status: Ordered Celexa Tablet 20, mg, By Mouth, Daily, 0, 0, 10/24/05 23:22:05, [id number], Constant Indicator Start Date: 10/24/05 Status: Ordered Klonopin Tablet 0.5, mg, By Mouth, Daily, 0, 0, 10/24/05 23:23:45, Print CHRISTIANO Number, [id number], Constant Indicator Start Date: 10/24/05 Status: Ordered Klonopin Tablet 1, mg, By Mouth, Daily at bedtime, 0, 0, 10/24/05 23:24:03, Print CHRISTIANO Number, [id number], Constant Indicator Start Date: 10/24/05 Status: Ordered lithium carbonate 300, mg, By Mouth, Daily, 0, 0, 10/24/05 23:22:38, [id number], Constant Indicator Start Date: 10/24/05 Status: Ordered Multivitamin 1, tablet, By Mouth, Daily, 0, 0, 10/24/05 23:26:38, [id number], Constant Indicator Start Date: 10/24/05 Status: Ordered Premarin Tablet 0.3, mg, By Mouth, Daily, 0, 0, 10/24/05 23:23:07, [id number], Constant Indicator Start Date: 10/24/05 Status: Ordered Seroquel Tablet See Instructions, 0, 0, 05/26/05 2:20:30, 50 mg By Mouth, [id number], Constant Indicator Start Date: 05/26/05 Status: Ordered Zoloft Tablet 50, mg, By Mouth, Daily, 0, 0, 05/26/05 2:21:41, [id number], Constant Indicator Start Date: 05/26/05 Status: Ordered
--- OUTSIDE RECORDS SUMMARY | 2023-03-06 10:47 | XMS_ITS | Continuity of Care Document ---
Author Name Unknown Organization [facility] ter Address [address] [place] [id number]- Care Team Providers Care Librarian Name Role Phone Amadeo Edouard MD Primary Care Physician [phone] Encounter [facility] [place] Date(s): 06/01/21 - 06/02/[address] [address] Discharge Disposition: A-D/C Home Attending Physician: Renita Dunn MD Admitting Physician: Renita Dunn MD Referring Physician: Renita Dunn MD Allergies, Adverse Reactions, Alerts Substance Reaction Severity Status penicillin hives Active sulfa drugs rash, GI Upset Active Latex throat closing, rash Active Kiwi sevee GI Upset Active penicillins hives Active Medications acetaminophen 500 mg oral tablet 2 tablet = 1,000 mg, By Mouth, Every 8 hours, PRN for pain, for 15 days, # 90 tablet, 0 Refills, Acute 06/16/21 11:11:00 EST, 06/01/21 11:11:00 EDT, Tablet, [facility], Partial fill upon patient request if the prescription is for a sched... Start Date: 06/01/21 Stop Date: 06/16/21 Status: Ordered Acetaminophen Tablet 975 mg, Tablet, By Mouth, 06/02/21 9:00:00 EDT Start Date: 06/02/21 Stop Date: 06/02/21 Status: Completed aspirin 325 mg oral delayed release tablet 325 mg, 1, tablet, By Mouth, Daily, # 30 tablet, Refills 0, Tot. Refills 0, Maintenance, 06/01/21 11:11:00 EDT, Route to Pharmacy Electronically, [facility], Partial fill upon patient request if the prescription is for a schedule II opio... Start Date: 06/01/21 Status: Ordered estradiol 1 mg oral tablet 1 mg, 1, tablet, By Mouth, Daily in AM, # 30 tablet, Refills 0, Maintenance, 05/23/21 8:52:00 EDT, Partial fill upon patient request if the prescription is for a schedule II opioid drug. Start Date: 05/23/21 Status: Ordered midodrine 2.5 mg oral tablet 7.5 mg, 3, tablet, By Mouth, Daily in AM, Refills 0, Maintenance, 05/23/21 8:51:00 EDT, Partial fill upon patient request if the prescription is for a schedule II opioid drug. Start Date: 05/23/21 Status: Ordered midodrine 5 mg oral tablet 7.5 mg, Tablet, By Mouth, 06/02/21 7:00:00 EDT Start Date: 06/02/21 Stop Date: 06/02/21 Status: Completed Multivitamin 1 tablet, By Mouth, Daily in AM, 0 Refills, Maintenance, 05/23/21 8:53:00 EDT, Partial fill upon patient request if the prescription is for a schedule II opioid drug. Start Date: 05/23/21 Status: Ordered oxyCODONE 5 mg oral tablet See Instructions, PRN, 1-2 tablet By Mouth Every 4- 6 hours, # 42 tablet, Refills 0, Tot. Refills 0, Acute 06/06/21 11:11:00 EST, as needed for pain, 06/01/21 11:11:00 EDT, Instructions Replace Required Details, Route to Pharmacy Electronically, [facility]... Start Date: 06/01/21 Stop Date: 06/06/21 Status: Ordered OxyCODONE IR Tablet 10 mg, Tablet, By Mouth, Every 4 hours, PRN for Pain , Moderate, Routine, 06/01/21 11:45:00 EDT Start Date: 06/01/21 Stop Date: 06/02/21 Status: Discontinued propranolol 60 mg oral capsule, extended release 60 mg, 1, capsule, By Mouth, Daily in AM, # 30 capsule, Refills 0, Maintenance, 02/13/21 15:38:00 EDT, Partial fill upon patient request if the prescription is for a schedule II opioid drug. Start Date: 02/13/21 Stop Date: 03/15/21 Status: Ordered propranolol 60 mg oral capsule, extended release 60 mg, CR Capsule, By Mouth, 06/02/21 7:00:00 EDT Start Date: 06/02/21 Stop Date: 06/02/21 Status: Completed traZODone 100 mg oral tablet 100 mg, 1, tablet, By Mouth, Daily at bedtime, # 180 tablet, Refills 0, Maintenance, 02/13/21 15:38:00 EDT, Partial fill upon patient request if the prescription is for a schedule II opioid drug. Start Date: 02/13/21 Stop Date: 03/15/21 Status: Ordered Zofran 4 mg oral tablet 1 tablet = 4 mg, By Mouth, Every 8 hours, PRN as needed for nausea/vomiting, # 21 tablet, 0 Refills, Maintenance, 06/01/21 11:11:00 EDT, Tablet, [facility], Partial fill upon patient request if the prescription is for a schedule II opioi... Start Date: 06/01/21 Stop Date: 06/08/21 Status: Ordered Zoloft Tablet = 150 mg, By Mouth, Daily at bedtime, 0 Refills, 05/26/05 2:21:41 EDT Start Date: 05/26/05 Stop Date: 03/15/21 Status: Ordered Vital Signs Most recent to oldest [Reference Range]: 1 2 3 4 Height 175.26 cm (06/02/21 11:14 AM) 175.26 cm (06/02/21 6:20 AM) 175.26 cm (06/02/21 3:54 AM) Weight 79.6 kg (06/01/21 6:27 AM) 75.0 kg (05/23/21 9:43 AM) Oxygen Saturation [94-100 %] 100 % (06/02/21 11:14 AM) 99 % (06/02/21 6:20 AM) 100 % (06/02/21 3:54 AM) Pulse Rate [55-90 bpm] 88 bpm (06/02/21 11:14 AM) 57 bpm (06/02/21 7:39 AM) 57 bpm (06/02/21 7:39 AM) Body Mass Index [18.5-24.99] 25.91 *H* (06/01/21 6:27 AM) 24.42 (05/23/21 9:43 AM) Blood Pressure [90-138/55-84 mm Hg] 94/54mm Hg (06/02/21 11:14 AM) 102/81mm Hg (06/02/21 7:39 AM) 102/81mm Hg (06/02/21 7:39 AM) Respiratory Rate [16-30 br/min] 18 br/min (06/02/21 12:56 PM) 18 br/min (06/02/21 11:48 AM) 18 br/min (06/02/21 9:19 AM) 18 br/min (06/02/21 9:19 AM) Temperature [96.8-100.4 DegF] 98.0 DegF (06/02/21 11:14 AM) 98.0 DegF (06/02/21 6:20 AM) 97.9 DegF (06/02/21 3:54 AM) Liters per Minute 5 L/min (06/01/21 11:45 AM) 5 L/min (06/01/21 11:30 AM) 5 L/min (06/01/21 11:15 AM) Mode of Delivery (Oxygen) Room air (06/02/21 6:20 AM) Room air (06/02/21 3:54 AM) Room air (06/01/21 11:57 PM) Blood pressure sites Arm, right (06/02/21 11:14 AM) Arm, right (06/02/21 6:20 AM) Arm, right (06/01/21 8:10 PM) Temperature Route Oral (06/02/21 11:14 AM) Oral (06/02/21 6:20 AM) Oral (06/02/21 3:54 AM) Dry Weight 79.6 kg (06/01/21 6:27 AM) 75.0 kg (05/23/21 9:43 AM) Weight Obtained Via Standing scale (06/01/21 6:27 AM) Patient/family stated (05/23/21 9:43 AM) Dry Weight Obtained Via Standing scale (06/01/21 6:27 AM) Patient/family stated (05/23/21 9:43 AM) Medical Equipment Implanted Date:06/01/21Target Site:Foot Left Description Quantity MRI Company Model INJ AUGMENT BONE GRAFT 1.5ML - WRGT ([id number]) 1 [employer] Unknown LILIYA:No Information Assigning Authority: FDA GRAFT BONE MATRIX VIVIGEN 5CC - LFNT (BL-1500-02) 1 [employer] Unknown LILIYA:No Information Assigning Authority: FDA
--- OUTSIDE RECORDS SUMMARY | 2023-03-06 10:47 | XMS_ITS | Continuity of Care Document ---
Author Name Unknown Organization [facility] ter Address [address] [place] [address]- Care Team Providers Care Front End Drupal Developer Name Role Phone Amadeo Edouard MD Primary Care Physician Encounter [facility] [place] Date(s): 02/12/21 - 02/13/[address] [address]- Encounter Diagnosis Chest pain(Final) - 02/12/21 Shortness of breath(Final) - 02/12/21 Discharge Disposition: A-D/C Home Attending Physician: Gunnar Fowler MD Admitting Physician: Jayme Pierce MD Referring Physician: Not on Staff, Referring MD Allergies, Adverse Reactions, Alerts Substance Reaction Severity Status penicillin hives Active penicillins Active sulfa drugs Active Latex Active Medications Premarin Tablet 0.3, mg, By Mouth, Daily, 0, 0, 10/24/05 23:23:07, 1.12617p+006, Constant Indicator Start Date: 10/24/05 Status: Ordered propranolol 60 mg oral capsule, extended release 60 mg, 1, capsule, By Mouth, Daily, # 30 capsule, Refills 0, Maintenance, 02/13/21 15:38:00 EDT, Partial fill upon patient request if the prescription is for a schedule II opioid drug. Start Date: 02/13/21 Stop Date: 03/15/21 Status: Ordered traZODone 100 mg oral tablet 100 mg, 1, tablet, By Mouth, Daily at bedtime, # 180 tablet, Refills 0, Maintenance, 02/13/21 15:38:00 EDT, Partial fill upon patient request if the prescription is for a schedule II opioid drug. Start Date: 02/13/21 Stop Date: 03/15/21 Status: Ordered Zoloft Tablet = 150 mg, By Mouth, Daily, 0 Refills, 10/28/05 2:21:41 EDT Start Date: 05/26/05 Stop Date: 03/15/21 Status: Ordered Results Radiology Reports * Exam Date Time Procedure Performing Provider Status 02/12/21 10:09 PM Chest 2 Views Frontal and Lat Belinda Frye; Auth (Verified) Notes: (Chest 2 Views Frontal and Lat) Reason For Exam: Shortness of Breath;Other: RESULT: Chest 2 Views Frontal and Lat Chest 2 Views Frontal and Lat Hx of Present Illness: pt reports syncopal episode, 6 since last night. Reports feeling weak and tired, had chest pain earlier but denies at this time. + mild SOB.; COMPARISON: 03/29/2005 FINDINGS: LINES AND TUBES: None. LUNGS AND PLEURA: Clear lungs. Normal pulmonary vascularity. No pleural effusion. No pneumothorax. HEART, MEDIASTINUM AND GHAZAL: Heart is normal in size. Normal upper mediastinal and hilar contour. BONES AND SOFT TISSUES: No acute abnormality. IMPRESSION: No acute abnormality. WSN: [id number] Ordering Physician: Helene Lynne Dictated By: Yann Myrick MD Dictated Date/Time: 02/12/21 10:11 p Reviewed By: Yann Myrick MD Signed By: Yann Myrick MD Signed Date/Time: 02/12/21 10:11 pm Transcribed By: CHET Transcribed Date/Time: 02/12/21 10:10 pm Vital Signs Most recent to oldest [Reference Range]: 1 2 3 Weight 82.8 kg (02/13/21 1:13 AM) 82.8 kg (02/13/21 1:11 AM) Oxygen Saturation [94-100 %] 96 % (02/13/21 7:36 PM) 100 % (02/13/21 3:31 PM) 100 % (02/13/21 11:54 AM) Pulse Rate [55-90 bpm] 69 bpm (02/13/21 7:36 PM) 50 bpm *L* (02/13/21 3:31 PM) 64 bpm (02/13/21 11:54 AM) Blood Pressure [90-138/55-84 mm Hg] 137/80mm Hg (02/13/21 7:36 PM) 123/75mm Hg (02/13/21 3:31 PM) 144/75mm Hg *H* (02/13/21 11:54 AM) Respiratory Rate [16-30 br/min] 19 br/min (02/13/21 7:36 PM) 17 br/min (02/13/21 3:31 PM) 18 br/min (02/13/21 11:54 AM) Temperature [96.8-100.4 DegF] 97.6 DegF (02/13/21 7:36 PM) 98.4 DegF (02/13/21 7:56 AM) 97.7 DegF (02/13/21 3:39 AM) Mode of Delivery (Oxygen) Room air (02/13/21 7:36 PM) Room air (02/13/21 3:31 PM) Room air (02/13/21 11:54 AM) Blood pressure sites Arm, right (02/13/21 7:36 PM) Arm, right (02/13/21 3:31 PM) Arm, left (02/13/21 11:54 AM) Temperature Route Oral (02/13/21 7:36 PM) Oral (02/13/21 7:56 AM) Oral (02/13/21 3:39 AM) Dry Weight 82.8 kg (02/13/21 1:13 AM)
--- OUTSIDE RECORDS SUMMARY | 2023-03-06 10:47 | XMS_ITS | Continuity of Care Document ---
Author Name Unknown Organization [facility] Address [address] [place] [id number]- Care Team Providers Care Gas Processing Plant Operator Name Role Phone Amadeo Edouard MD Primary Care Physician Encounter [facility] [place] Date(s): 03/28/21 - 06/23/21 [facility] [address] [place] [address]- Attending Physician: Mylene aCrranza MD Admitting Physician: Mylene Carranza MD Referring Physician: Cricket Dominguez MD Allergies, Adverse Reactions, Alerts Substance Reaction Severity Status penicillin hives Active penicillins hives Active sulfa drugs rash, GI Upset Active Latex throat closing, rash Active Kiwi sevee GI Upset Active Medications aspirin 325 mg oral delayed release tablet 325 mg, 1, tablet, By Mouth, Daily, # 30 tablet, Refills 0, Tot. Refills 0, Maintenance, 06/01/21 11:11:00 EDT, Route to Pharmacy Electronically, [facility], Partial fill upon patient request [...] opioid drug. Start Date: 05/23/21 Status: Ordered Multivitamin 1 tablet, By Mouth, Daily in AM, 0 Refills, Maintenance, 05/23/21 8:53:00 EDT, Partial fill upon patient request if the prescription is for a schedule II opioid drug. Start Date: 05/23/21 Status: Ordered propranolol 60 mg oral capsule, [...] 0 Refills, Maintenance, 06/01/21 11:11:00 EDT, Tablet, [facility], Partial fill upon patient request if the prescription is for a schedule II opioi... Start Date: 06/01/21 Stop Date: 06/08/21 Status: Ordered Zoloft Tablet = 150 mg, By Mouth, Daily at bedtime, 0 Refills, 05/26/05 2:21:41 EDT Start Date: 05/26/05 Stop Date: 03/15/21 Status: Ordered Medical Equipment Implanted Date:06/01/21Target Site:Foot Left Description Quantity MRI Company Model INJ AUGMENT BONE GRAFT 1.5ML - WRGT ([id number]) 1 [employer] Unknown LILIYA:No Information Assigning Authority: FDA GRAFT BONE MATRIX VIVIGEN 5CC - LFNT (BL-1500-02) 1 [employer] Unknown LILIYA:No Information Assigning Authority: FDA
--- OUTSIDE RECORDS SUMMARY | 2023-03-06 10:47 | XMS_ITS | Continuity of Care Document ---
Author Name Unknown Organization [facility] Address [address] [place] [address] [address] [place] [address]- Care Team Providers Care Hostler Helper Name Role Phone Amadeo Edouard MD Primary Care Physician [phone] [place] [facility] [place] 11/04[place] - 12/04/21 [facility] [address] [place], [place] [address] Attending Physician: Admtr, [id number] Admitting Physician: Admtr, Ar8 Referring Physician: Admtr, Ar8 Allergies, Adverse Reactions, Alerts Substance Reaction Severity Status penicillin hives Active penicillins hives Active sulfa drugs rash, GI Upset Active Latex throat closing, rash Active Kiwi sevee GI Upset Active Medications aspirin 325 mg oral delayed release tablet 325 mg, 1, tablet, By Mouth, Daily, # 30 tablet, Refills 0, Tot. Refills 0, Maintenance, 06/01/21 11:11:00 EDT, Route to Pharmacy Electronically, [facility], Partial fill upon patient [...] 0 Refills, Maintenance, 06/01/21 11:11:00 EDT, Tablet, [facility] 3, Partial fill upon patient [...] INJ AUGMENT BONE GRAFT 1.5ML - WRGT ([id number]) 1 [employer] Unknown LILIYA:No Information Assigning Authority: FDA GRAFT BONE MATRIX VIVIGEN 5CC - LFNT (BL-1500-02) 1 [employer] Unknown LILIYA:No Information Assigning Authority: FDA
--- OUTSIDE RECORDS SUMMARY | 2023-03-06 10:47 | XMS_ITS | Continuity of Care Document ---
Author Name Unknown Organization [facility] Address [address] [place] [id number]- Care Team Providers Care Drying Machine Tender Name Role Phone Amadeo Edouard MD Primary Care Physician [phone] Encounter [facility] [place] Date(s): 03/28/21 - 04/27/21 [facility] [address] [place] [id number]- [place] Allergies, Adverse Reactions, Alerts Substance Reaction Severity Status penicillin hives Active penicillins Active sulfa drugs Active Latex Active Medications Premarin Tablet 0.3, mg, By Mouth, Daily, 0, 0, 10/24/05 23:23:07, [id number]+006, Constant Indicator Start Date: 10/24/05 Status: Ordered [...] 150 mg, By Mouth, Daily, 0 Refills, 05/26/05 2:21:41 EDT Start Date: 05/26/05 Stop Date: 03/15/21 Status: Ordered
--- OUTSIDE RECORDS SUMMARY | 2023-03-06 10:47 | XMS_ITS | Continuity of Care Document ---
Author Name Unknown Organization [facility] ter Address [address] [place] [address]- Care Team Providers Care Bag Turner Name Role Phone Javan TRACY, Amadeo Diana Primary Care Physician [phone] Encounter [place] Date(s): 03/01/22 - 03/03/[address] [address]- Encounter Diagnosis Syncope(Final) - 03/01/22 Precordial chest pain(Final) - 03/01/22 Discharge Disposition: A-D/C Home Attending Physician: Zac Obrien MD Admitting Physician: Damaris Riley MD Referring Physician: Not on Staff, Referring MD Allergies, Adverse Reactions, Alerts Substance Reaction Severity Status penicillin hives Active penicillins hives Active sulfa drugs rash, GI Upset Active Latex throat closing, rash Active Kiwi sevee GI Upset Active Medications aspirin 81 mg oral delayed release tablet 81 mg, 1, tablet, By Mouth, Daily, # 30 tablet, Refills 1, Tot. Refills 1, Maintenance, 03/03/22 14:40:00 EDT, Route to Pharmacy Electronically, [facility]/pharmacy #[id number], Partial fill upon patient request if the prescription is for a schedule II opioid drug... Start Date: 03/03/22 Status: Ordered estradiol 1 mg oral tablet 1 mg, 1, tablet, By Mouth, Daily in AM, # 30 tablet, Refills 0, Maintenance, 05/23/21 8:52:00 EDT, Partial fill upon patient request if the prescription is for a schedule II opioid drug. Start Date: 05/23/21 Status: Ordered Lipitor 40 mg oral tablet 1 tablet = 40 mg, By Mouth, Daily, # 30 tablet, 1 Refills, Maintenance, 03/03/22 14:40:00 EDT, Tablet, [facility]/pharmacy #[id number], Partial fill upon patient request if the prescription is for a schedule II opioid drug., 175, cm, 03/03/22 11:04:00 EDT, Height,... Start Date: 03/03/22 Status: Ordered Multivitamin 1 tablet, By Mouth, Daily in AM, 0 Refills, Maintenance, 05/23/21 8:53:00 EDT, Partial fill upon patient request if the prescription is for a schedule II opioid drug. Start Date: 05/23/21 Status: Ordered primidone 50 mg oral tablet 25 mg, 0.5, tablet, By Mouth, Daily at bedtime, # 30 tablet, Refills 5, Tot. Refills 5, Maintenance, 03/03/22 14:40:00 EDT, Route to Pharmacy Electronically, [facility]/pharmacy #[id number], Partial fill upon patient request if the prescription is for a schedule I... Start Date: 03/03/22 Status: Ordered traZODone 100 mg oral tablet [...] 0 Refills, Maintenance, 06/01/21 11:11:00 EDT, Tablet, [facility], Partial fill upon patient request if the prescription is for a schedule II opioi... Start Date: 06/01/21 Stop Date: 06/08/21 Status: Ordered Zoloft Tablet = 200 mg, By Mouth, Daily at bedtime, 0 Refills, 05/26/05 2:21:41 EDT Start Date: 05/26/05 Stop Date: 03/15/21 Status: Ordered Results Radiology Reports * Exam Date Time Procedure Performing Provider Status 03/01/22 8:34 PM Chest Portable Delilah Duckworth; Yenifer (Verified) Notes: (Chest Portable) Reason For Exam: Shortness of Breath RESULT: Chest Portable Chest Portable Hx of Present Illness: pt presents from [facility] via rapid response team, pt syncopizedafter standing up from sitting, LOC x 7 mins per bystander, p[t is now awake alert, endorsing mild CP, nausea and dizziness,; Reason: Shortness of Breath; Clinical Question(s): Pneumonia / Pneumonia COMPARISON: 02/12/2021 FINDINGS: LINES AND TUBES: None. LUNGS AND PLEURA: Clear lungs. Normal pulmonary vascularity. No pleural effusion. No pneumothorax. HEART, MEDIASTINUM AND GHAZAL: Heart is normal in size. Normal mediastinal and hilar contour. BONES AND SOFT TISSUES: No acute abnormality. IMPRESSION: No evidence of acute abnormality. WSN: [id number] Ordering Physician: Joslyn Neal Dictated By: Ramon Gray MD Dictated Date/Time: 03/01/22 8:37 pm Reviewed By: Ramon Gray MD Signed By: Ramon Gray MD Signed Date/Time: 03/01/22 8:37 pm Transcribed By: CHET Transcribed Date/Time: 03/01/22 8:37 pm Vital Signs Most recent to oldest [Reference Range]: 1 2 3 Height 175 cm (03/03/22 11:04 AM) 175 cm (03/03/22 7:30 AM) 175 cm (03/03/22 5:43 AM) Weight 77 kg (03/01/22 11:33 PM) Oxygen Saturation [94-100 %] 100 % (03/03/22 11:04 AM) 100 % (03/03/22 7:30 AM) 99 % (03/03/22:43 AM) Pulse Rate [55-90 bpm] 77 bpm (03/03/22 11:04 AM) 62 bpm (03/03/22 7:30 AM) 60 bpm (03/03/22 5:43 AM) Body Mass Index [18.5-24.99] 25.14 *H* (03/01/22 11:33 PM) Blood Pressure [90-138/55-84 mm Hg] 99/64mm Hg (03/03/22 11:04 AM) 131/75mm Hg (03/03/22 7:30 AM) 125/74mm Hg (03/03/22 5:43 AM) Respiratory Rate [16-30 br/min] 20 br/min (03/03/22 11:04 AM) 18 br/min (03/03/22 10:52 AM) 20 br/min (03/03/22 7:30 AM) Temperature [96.8-100.4 DegF] 97.9 DegF (03/03/22 11:04 AM) 97.7 DegF (03/03/22 7:30 AM) 98.1 DegF (03/03/22 5:43 AM) Mode of Delivery (Oxygen) Room air (03/03/22 11:04 AM) Room air (03/03/22 7:30 AM) Room air (03/03/22 5:43 AM) Blood pressure sites Arm, right (03/03/22 11:04 AM) Arm, right (03/03/22 7:30 AM) Arm, right (03/03/22 5:43 AM) Temperature Route Oral (03/03/22 11:04 AM) Oral (03/03/22 7:30 AM) Oral (03/03/22 5:43 AM) Dry Weight 77 kg (03/01/22 11:33 PM) Weight Obtained Via Patient/family state d (03/01/22 11:33 PM) Dry Weight Obtained Via Patient/family s tated (03/01/22 11:33 PM) Social History Social History Type Response Smoking Status Never (less than 100 in lifetime) entered on: 03/01/22 Sex Medical Equipment Implanted Date:06/01/21Target Site:Foot Left Description Quantity MRI Company Model INJ AUGMENT BONE GRAFT 1.5ML - WRGT ([id number]) 1 [employer] Unknown LILIYA:No Information Assigning Authority: FDA GRAFT BONE MATRIX VIVIGEN 5CC - LFNT (BL-1500-02) 1 [employer] Unknown LILIYA:No Information Assigning Authority: FDA
--- OUTSIDE RECORDS SUMMARY | 2023-03-06 10:47 | XMS_ITS | Continuity of Care Document ---
Author Name Unknown Organization [facility] Address [address] [place] [address]- Care Team Providers Care Depilatory Painter Name Role Phone Amadeo Edouard MD Primary Care Physician [phone] Encounter [facility] Date(s): 01/04/21 - 02/03/21 [facility] [address] [place] [address] Attending Physician: Admtr, Ar8 Admitting Physician: Admtr, Ar8 Referring Physician: Admtr, Ar8 Allergies, Adverse Reactions, Alerts Substance Reaction Severity Status penicillin hives Active penicillins Active sulfa drugs Active Latex Active Medications Ambien CR 12.5, mg, By Mouth, Daily at bedtime, 0, 0, 10/24/05 23:24:39, Print CHRISTIANO Number, [id number], Constant Indicator Start Date: 10/24/05 Status: Ordered Aspirin 81, mg, By Mouth, Daily, 0, 0, 10/24/05 23:26:02, 1.93006l+006, Constant Indicator Start Date: 10/24/05 Status: Ordered Celexa Tablet 20, mg, By Mouth, Daily, 0, 0, 10/24/05 23:22:05, 1.64089s+006, Constant Indicator Start Date: 10/24/05 Status: Ordered Klonopin Tablet 0.5, mg, By Mouth, Daily, 0, 0, 10/24/05 23:23:45, Print CHRISTIANO Number, [id number], Constant Indicator Start Date: 10/24/05 Status: Ordered Klonopin Tablet 1, mg, By Mouth, Daily at bedtime, 0, 0, 10/24/05 23:24:03, Print CHRISTIANO Number, 144, Constant Indicator Start Date: 10/24/05 Status: Ordered lithium carbonate 300, mg, By Mouth, Daily, 0, 0, 10/24/05 23:22:38, 1.84782m+006, Constant Indicator Start Date: 10/24/05 Status: Ordered Multivitamin 1, tablet, By Mouth, Daily, 0, 0, 10/24/05 23:26:38, 1.77914h+006, Constant Indicator Start Date: 10/24/05 Status: Ordered Premarin Tablet 0.3, mg, By Mouth, Daily, 0, 0, 10/24/05 23:23:07, 1.55657p+006, Constant Indicator Start Date: 10/24/05 Status: Ordered Seroquel Tablet See Instructions, 0, 0, 05/26/05 2:20:30, 50 mg By Mouth, 1.05095q+006, Constant Indicator Start Date: 05/26/05 Status: Ordered Zoloft Tablet 50, mg, By Mouth, Daily, 0, 0, 05/26/05 2:21:41, 1.55357q+006, Constant Indicator Start Date: 05/26/05 Status: Ordered
--- OUTSIDE RECORDS SUMMARY | 2023-03-06 10:48 | XMS_ITS | Continuity of Care Document ---
Author Name Unknown Organization [facility] Address [address] [place] [address]- Care Team Providers Care Inseminator Name Role Phone Amadeo Edouard MD Primary Care Physician Encounter [facility] Date(s): 05/24/21 - 06/23/21 [facility] [address] [place] [address]- Attending Physician: Main Cyr Admitting Physician: AdmtrMain Referring Physician: Admtr, Ar8 Allergies, Adverse Reactions, [...] 06/01/21 11:11:00 EDT, Route to Pharmacy Electronically, [facility], Partial fill upon patient [...] 0 Refills, Maintenance, 06/01/21 11:11:00 EDT, Tablet, [facility], Partial fill upon patient request if [...] INJ AUGMENT BONE GRAFT 1.5ML - WRGT ([id number]) 1 [employer] Unknown LILIYA:No Information Assigning Authority: FDA GRAFT BONE MATRIX VIVIGEN 5CC - LFNT (BL-1500-02) 1 [employer] Unknown LILIYA:No Information Assigning Authority: FDA
--- OUTSIDE RECORDS SUMMARY | 2023-03-06 10:48 | XMS_ITS | Continuity of Care Document ---
Author Name Unknown Organization [facility] Address [address] [place] [address]- Care Team Providers Care Board Certified Music Therapist Name Role Phone Km TRACY, Susanne Diaz Primary Care Physicia n [id number] Date(s): 09/25/22 - 10/25/22 [facility] [address] [place] [address]- Attending Physician: Main Cyr Admitting Physician: AdmtrMain Referring Physician: AdmtrMain Allergies, Adverse Reactions, Alerts Substance Reaction Severity Status penicillin hives Active penicillins hives Active Kiwi sevee GI Upset Active sulfa drugs rash, GI Upset Active Latex throat closing, rash Active Medications aspirin 81 mg oral delayed release tablet 81 mg, 1, tablet, By Mouth, Daily, # 30 tablet, Refills 1, Tot. Refills 1, Maintenance, 03/03/22 14:40:00 EDT, Route to Pharmacy Electronically, [facility]/pharmacy #[id number], Partial fill upon patient request [...] 1 Refills, Maintenance, 03/03/22 14:40:00 EDT, Tablet, [facility]/pharmacy #[id number], Partial fill upon patient request [...] 03/03/22 14:40:00 EDT, Route to Pharmacy Electronically, [facility]/pharmacy #[id number], Partial fill upon patient request if the [...] 0 Refills, Maintenance, 06/01/21 11:11:00 EDT, Tablet, [facility], Partial fill upon patient request if the prescription is for a schedule II opioi... Start Date: 06/01/21 Stop Date: 06/08/21 Status: Ordered Zoloft Tablet = 200 mg, By Mouth, Daily at bedtime, 0 Refills, 05/26/05 2:21:41 EDT Start Date: 05/26/05 Stop Date: 03/15/21 Status: Ordered Social History Social History Type Response Smoking Status Never (less than 100 in lifetime) entered on: 03/01/22 Sex Implantable Device List Procedure Provider Procedure Date Device Type Site Lengthening Gastrocnemius Renita Dunn MD 06/01/21 U nknown Foot Left Device Identifier Serial Number Lot or Batch Number Manufacturing Date Expiration Date Distinct Identification Code MRI Safety Implantable Status Assigning Authority Unknown Unknown [id number] Unknown 10/27/22 Unknown Unknown Active Unk nown Unknown [id number] Unknown Unknown 05/13/22 Unknown Unknown Active Unknown Patient Care team information Care Team Personnel Name: Ryan RUSHING, Sondra Position: S RN Member Role: Primary Care Nurse Name: Km TRACY, Susanne Diaz Position: Reference Physician Member Role: PCP Address: Address: [address] [place] [address] Care Team Related Persons Name: MATHEUS BARRIGA Address: home [address] [place] [address] Name: DAVID GLORIA Address: home [address] [address] Name: WEST FERNANDEZ Address: home [address] [place] [address] [place]
--- OUTSIDE RECORDS SUMMARY | 2023-03-06 10:48 | XMS_ITS | Continuity of Care Document ---
Author Name Unknown Organization [facility] ter Address [address] [place] [address]- Care Team Providers Care Kitchen Aide Name Role Phone Amadeo Edouard MD Primary Care Physician Encounter [facility] Date(s): 04/29/21 - 04/30/[address] [address]- Discharge Disposition: A-D/C Walkout Attending Physician: Not on Staff, Attending MD Admitting Physician: Not on Staff, Admitting MD Referring Physician: Not on Staff, Referring MD Allergies, Adverse Reactions, Alerts Substance Reaction Severity Status penicillin hives Active penicillins Active sulfa drugs Active Latex Active Medications Premarin Tablet 0.3, mg, By Mouth, Daily, 0, 0, 10/24/05 23:23:07, 1.13570e+006, Constant Indicator Start Date: 10/24/05 Status: Ordered [...] Exam Date Time Procedure Performing Provider Status 04/30/21 12:03 AM Foot Min 3 Views Right Jeana Capellan (Verified) Notes: (Foot Min 3 Views Right) Reason For Exam: with Pain;Trauma RESULT: Foot Min 3 Views Right Right foot 3 views dated April 30, 2021. No prior studies are available. HISTORY: Pain. FINDINGS: This examination shows no evidence of fracture or dislocation. Joint spaces are fairly well-preserved. There is a minimal bunion and hallux valgus deformity. IMPRESSION: No evidence of acute osseous abnormality. Examination [address]. Thank you for allowing me to participate in the care of this patient. WSN: [id number] Ordering Physician: Adina Multani Dictated By: Kike Montano MD Dictated Date/Time: 04/30/21 9:26 am Reviewed By: Kike Montano MD Signed By: Kike Montano MD Signed Date/Time: 04/30/21 9:26 am Transcribed By: CHET Transcribed Date/Time: 04/30/21 9:26 am Vital Signs Most recent to oldest [Reference Range]: 1 Oxygen Saturation [94-100 %] 100 % (04/29/21 11:46 PM) Pulse Rate [55-90 bpm] 56 bpm (04/29/21 11:46 PM) Blood Pressure [90-138/55-84 mm Hg] 127/ 69mm Hg (04/29/21 11:46 PM) Respiratory Rate [16-30 br/min] 16 br/mi n (04/29/21 11:46 PM) Temperature [96.8-100.4 DegF] 98.6 DegF (04/29/21 11:46 PM) Mode of Delivery (Oxygen) Room air (04/29/21 11:46 PM) Blood pressure sites Arm, right (04/29/21 11:46 PM) Temperature Route Oral (04/29/21 11:46 PM)
--- OUTSIDE RECORDS SUMMARY | 2023-03-06 10:48 | XMS_ITS | Continuity of Care Document ---
Author Name Unknown Organization [facility] Address [address] [place] [address] [address] [place] [address]- Care Team Providers Care Beam Carrier Hauler Pusher Name Role Phone Amadeo Edouard MD Primary Care Physician Encounter [facility] Date(s): 11/04/21 - 12/04/21 [facility] [address] [place] [address] Drive [address] [place], [place] [address] Allergies, Adverse Reactions, Alerts Substance Reaction Severity Status penicillin hives Active penicillins hives Active sulfa drugs rash, GI Upset Active Latex throat closing, rash Active Kiwi sevee GI Upset Active Medications aspirin 325 mg oral delayed release tablet 325 mg, 1, tablet, By Mouth, Daily, # 30 tablet, Refills 0, Tot. Refills 0, Maintenance, 06/01/21 11:11:00 EDT, Route to Pharmacy Electronically, [facility], Partial fill upon patient [...] 0 Refills, Maintenance, 06/01/21 11:11:00 EDT, Tablet, [facility], Partial fill upon patient request [...] INJ AUGMENT BONE GRAFT 1.5ML - WRGT ([id number]) 1 [employer] Unknown LILIYA:No Information Assigning Authority: FDA GRAFT BONE MATRIX VIVIGEN 5CC - LFNT (BL-1500-02) 1 [employer] Unknown LILIYA:No Information Assigning Authority: FDA
--- NOTE | 2023-03-06 12:38 | PC.NURSE ---
Received transfer at approx 1000am to [facility], from psych unit for unresponsiveness. Patient eyes opening small amounts and now completely awake eating, talking. Reports does not remember what happened when unresponsive. Denies pain. Reported having shortness of breath earlier in morning. Patient denies dizziness at this time. Cooperative with care. HR 70's to 80's - SR w/ frequent PAC's. Denies SI & HI - reports was admitted to psych unit for medication management. Spoke to sister on her cell phone at bedside - updated about plan of care. Report given to Kalie RUSHING.
--- NOTE | 2023-03-06 12:50 | PHA.MEDREC ---
Pharmacy Consult ? Medication Reconciliation Pharmacy has completed the medication reconciliation.
--- NOTE | 2023-03-06 15:59 | MHC.CM.PN ---
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 CM UNABLE TO DISCUSS GOALS FOR D/C AT TIME OF INTAKE PT RECEIVED PHONE CALL THAT SHE WANTED TO TAKE, CM TO REVISIT.
[2023-03-06] MEDS: Acetaminophen 325 MG TABLET 650 MG PO (16:59)
[2023-03-06] MEDS: 0.9 % Sodium Chloride Flush 3 ML SYRINGE IVFLUSH (17:00)
--- NOTE | 2023-03-06 17:16 | PM.NEUROCN ---
History of Present Illness Data of Consult Service Date: 03/06/23 Primary Care Provider: Susanne Barbour MD HPI Reason for consult: syncope 62 year old female with Biplioar depression, history of non-epileptic seizure,? admittd to Psych? for depression and decompensated bipolar disorder and hyponatremia from Trileptal for her moods, that was discontinued because of hyponatremia, her sodium level has since normalized. She was supposedly in her normal state this morning, but later stated she was going to her room because she felt? short of breath. Just minutes later her nurse found her unresponsive, Rapid response was, called followed by a code blue in error. She was unresponsive yet hemodynamically stable the whole time, normal breathing patern, pulse present just eyes closed. ECG showed no arrythmia, no seizure like activity, no urinary or stool incontinence, no tongue bite. Upon transfer to med floor, she awake, alert, talking and aware of being at [facility]. Sh esays she has no recall of it and only woke up on the medical floor. A similar episod ehappened many years ago at [facility] Review of Systems Review of Systems: Gen: no fever Resp: no sob, no cough CV: no chest, no [place], no leg edema GI: No n/v, no abd pain Neuro: No confusion PMFSH Past Medical History Medical History (Updated 03/06/23 @ 12:45 by Reji Mcdaniel RN) Acute cataract Anxiety Arthritis Bipolar 2 disorder Carotid artery stenosis Faulkner syndrome Cataract Cervical dystonia Cervicalgia Conversion disorder Conversion disorder Essential and other specified forms of tremor GERD (gastroesophageal reflux disease) Hyperlipidemia Hyponatremia Mitral valve prolapse Osteopenia PTSD (post-traumatic stress disorder) Raynauds syndrome (~08/2022) Restless legs syndrome (RLS) Seizures Syncope TIA (transient ischemic attack) Family History Family History Father Heart disease Depressed Mother Heart disease Surgical History Surgical History Gastric bypass status for obesity H/O arthroplasty History of hysterectomy Social History Social History Household Members: None Housing: Apartment Do you presently have visiting nurse or other home services: No Alcohol intake: never Patient Tobacco Use Status: Never used Tobacco Use of substances other than those prescribed or required for medical reasons: No Currently Displaying Signs/Symptoms of Drug Intoxication Withdrawal: No Have you been hit, kicked, punched, or otherwise hurt by someone within the past year? If so, by whom?: No Do you feel safe in your current relationship?: No Current Relationship Is there a partner from a previous relationship who is making you feel unsafe now?: No Are you made to feel afraid or neglected: No Spiritual Healthcare Practices: N/A Yazidism Healthcare Practices: N/A Cultural Healthcare Practices: N/A Advance Directives: No Advance Directives Information Provided: No Do you have thoughts of harming others: None Do you have a plan to hurt others: No Plan Recently lost weight without trying: No Nutrition Risks: No Nutritional Risk Patient : No service: No Sexual orientation: Straight/Heterosexual Meds Allergies Allergy/AdvReac Type Severity Reaction Status Date / Time latex Allergy Unknown Unknown Uncoded 12/11/22 08:00 penicillin Allergy Unknown Unknown Uncoded 12/11/22 08:00 sulfa Allergy Unknown Unknown Uncoded 12/11/22 08:00 Active Medications: Current Medications Acetaminophen (Acetaminophen 325 Mg Tablet) 650 mg PO Q6H PRN PRN Reason: Pain, Mild (Pain Scale 1-3) Last Admin: 03/06/23 16:59 Dose: 650 mg Acetaminophen (Acetaminophen 325 Mg Tablet) 650 mg PO Q6H PRN PRN Reason: Headache/Pain Mild Scale (1-3) Al Hydroxide/Mg Hydroxide (Magnesium Hydrox/Alum Hydrox 30 Ml Oral.Susp) 30 ml PO Q6H PRN PRN Reason: Heartburn/Nausea Aripiprazole (Aripiprazole 5 Mg Tablet) 5 mg PO DAILY [facility] Aspirin (Aspirin Enteric Coated 81 Mg Tablet.) 81 mg PO DAILY [facility] Atorvastatin Calcium (Atorvastatin Calcium 40 Mg Tablet) 40 mg PO DAILY [facility] Bupropion HCl (Bupropion Hcl 75 Mg Tablet) 75 mg PO DAILY [facility] Clonazepam (Clonazepam 0.5 Mg Tablet) 0.25 mg PO DAILY PRN PRN Reason: anxiety Docusate Sodium (Docusate Sodium 100 Mg Capsule) 100 mg PO BID PRN PRN Reason: Constipation Estradiol (Estradiol 0.5 Mg Tablet) 1 mg PO DAILY [facility] Ferrous Sulfate (Ferrous Sulfate 324 Mg Tablet.) 324 mg PO DAILY [facility] Hydroxyzine HCl (Hydroxyzine Hcl 25 Mg Tablet) 25 mg PO Q6H PRN PRN Reason: Anxiety Ibuprofen (Ibuprofen 400 Mg Tablet) 400 mg PO Q6H PRN PRN Reason: Headache Magnesium Hydroxide (Milk Of Magnesia 30 Ml Oral.Susp) 30 ml PO DAILY PRN PRN Reason: Constipation Magnesium Hydroxide (Milk Of Magnesia 30 Ml Oral.Susp) 30 ml PO DAILY PRN PRN Reason: Constipation Melatonin (Melatonin 3 Mg Tablet) 6 mg PO BEDTIME PRN PRN Reason: Insomnia Multivitamins/Vitamin C (Multivitamin Tablet) 1 tab PO DAILY [facility] Ondansetron HCl (Ondansetron Odt 4 Mg Tab.Rapdis) 4 mg TRANSLINGU BID PRN PRN Reason: Nausea and Vomiting Ondansetron HCl (Ondansetron Odt 4 Mg Tab.Rapdis) 4 mg TRANSLINGU Q6H PRN PRN Reason: nausea/vomiting Pharmacy Consult (Consult Rx Perform Med Rec) 1 each MISCELLANE ONCE PRN PRN Reason: Consult order Sodium Chloride (0.9 % Sodium Chloride Flush 3 Ml Syringe) 3 ml IVFLUSH [facility] Last Admin: 03/06/23 17:00 Dose: 3 ml Trazodone HCl (Trazodone Hcl 50 Mg Tablet) 50 mg PO BEDTIME PRN PRN Reason: Insomnia Trazodone HCl (Trazodone Hcl 50 Mg Tablet) 150 mg PO BEDTIME [facility] Home Medications Medication Instructions Recorded Confirmed Last Taken Type aspirin 81 mg tablet,delayed 81 mg PO DAILY 12/11/22 03/06/23 02/22/23 History release atorvastatin 40 mg tablet 40 mg PO DAILY 12/11/22 03/06/23 02/23/23 History clonazepam 0.5 mg tablet 0.25 mg PO DAILY PRN anxiety 12/11/22 03/06/23 Unknown History ferrous sulfate 325 mg (65 mg 325 mg PO QAM 12/11/22 03/06/23 02/23/23 History iron) tablet,delayed release estradiol 1 mg PO DAILY 02/23/23 03/06/23 02/23/23 History multivitamin 1 tab PO DAILY 02/23/23 03/06/23 02/23/23 History Physical Exam Vital Signs: Vital Signs: Last Vital Signs Temp 98.7 F 03/06/23 16:00 Pulse 64 03/06/23 16:00 Resp 17 03/06/23 16:00 BP 134/63 03/06/23 16:00 Pulse Ox 100 03/06/23 16:00 O2 Del Method Room Air 03/06/23 16:00 BMI result Body Mass Index 26.0 Const: Other: Constitutional: Alert, in no distress, overweight. Mental Status: Oriented to person, place and time. Eyes: Pupils are equal, round and reactive to light. Ear, Nose and Throat: Oropharynx clear, mucous membranes moist. . Respiratory: Clear to auscultation. No wheezing, rales or rhonchi. Cardiovascular: S1 S2 regular. No murmurs, rubs or gallops. Gastrointestinal: Abdomen soft, non-tender, non-distended. Normal bowel sounds.? Neurologic: Cranial nerves II-XII grossly intact. No focal neurological deficits. Moves all extremities spontaneously.? Skin: No rashes or lesions.? Musculoskeletal: No cyanosis or clubbing. Psychiatric: Normal mood and affect? Neuro: Other: Normal neuro exam Assessment and Plan (1) Conversion disorder: Status: Acute (2) Bipolar 2 disorder: Status: Acute (3) Syncope: Status: Acute probable pseudoseizure/ psychogenic non epileptic seizure/ unresponsiveness. CT negative. Recom.: EEG. Cardiac monitoring Time Spent With Patient Time: Total time managing care of this patient today ____ minutes. Procedures Date of Service Date of Service: 03/06/23
[2023-03-06] MEDS: traZODone HCL 50 MG TABLET 150 MG PO (21:22)
[2023-03-07] VITALS (7 sets, daily range): BP systolic 84–140; BP diastolic 50–74; PULSE 63–98; RESP 18–20; TEMP 35.7–37.1; O2SAT 97–100
--- NOTE | 2023-03-07 | ECG_ITS ---
Test Reason : tachy Blood Pressure : / mmHG Vent. Rate : 076 BPM Atrial Rate : 081 BPM P-R Int : 170 ms QRS Dur : 084 ms QT Int : 392 ms P-R-T Axes : 053 -03 021 degrees QTc Int : 441 ms Sinus rhythm with Premature atrial complexes Cannot rule out Anterior infarct , age undetermined Abnormal ECG When compared with ECG of 06-MAR-2023 11:52, No significant change was found Referred By: Raffi Duarte Electronically Signed By:Cristian Lundberg
[2023-03-07] MEDS: 0.9 % Sodium Chloride Flush 3 ML SYRINGE IVFLUSH ×4 (00:06→21:01)
[2023-03-07 06:18] LABS: Hematocrit 38.4 % (37.0-47.0); Hemoglobin 11.9 g/dl (12.0-16.0); Mean Corpuscular Hemoglobin 26.4 pg (27.0-33.0); Mean Corpuscular Volume 85.1 fL (80.0-98.0); Mean Platelet Volume 8.8 fL (9.4-12.3); Platelet Count 152 X10*3/uL (160-400); Red Blood Count 4.51 X10*6/uL (4.20-5.50); Red Cell Distribution Width 17.5 % (11.0-16.0); White Blood Count 3.8 X10*3/uL (4.8-10.8)
[2023-03-07 06:35] LABS: Anion Gap 11 (12-20); Blood Urea Nitrogen 11 mg/dL (9-16); Calcium 9.5 mg/dL (8.4-10.2); Carbon Dioxide 28 mmol/L (22-29); Chloride 107 mmol/L (96-108); Creatinine Clr Calc Pharmacy 74.3; Estimated Glomerular Filt Rate > 60; Glucose Random 99 mg/dL (60-115); Magnesium 2.2 mg/dL (1.6-2.6); Phosphorus 3.8 mg/dL (2.7-4.5); Potassium 3.9 mmol/L (3.3-5.1); Sodium 142 mmol/L (135-145)
--- NOTE | 2023-03-07 08:48 | MHC.CM.PN ---
CM ATTEMPTED TO MEET W/PT X2 TO DELIVER GRACIA NOTICE HOWEVER PT W/PROVIDER AND THEN ON PHONE AND REQUESTING CM TO RETURN, CM TO REVISIT.
[2023-03-07] MEDS: Atorvastatin Calcium 40 MG TABLET PO (09:23)
[2023-03-07] MEDS: Ferrous Sulfate 324 MG TABLET.DR PO (09:23)
--- NOTE | 2023-03-07 09:23 | MHC.CM.PN ---
Addendum entered by Eduarda Nowak RN 03/07/23 11:44: PER HOSPITALIST PT NOT READY FOR D/C WILL NEED CARDIOLOGY WORK UP, CM WILL CONT TO FOLLOW D/C NEEDS. Original Note: GRACIA 03/07/23 DELIVERED TO BEDSIDE, ANTIC PT WILL D/C BACK TO [facility] LATER TODAY, [facility] STAFF FOR TRANSPORT
[2023-03-07] MEDS: Multivitamin TABLET 1 TAB PO (09:24)
[2023-03-07] MEDS: Aspirin Enteric Coated 81 MG TABLET.DR PO (09:24)
[2023-03-07] MEDS: ARIPiprazole 5 MG TABLET PO (09:24)
[2023-03-07] MEDS: buPROPion HCL 75 MG TABLET PO (09:24)
[2023-03-07] MEDS: estradioL 0.5 MG TABLET 1 MG PO (09:24)
--- NOTE | 2023-03-07 09:39 | PC.NURSE ---
Patient alert and oriented x4. RICE to command 5/5 sensation intact, +pp bilat no edema noted. LSCTA denies SOB or CP, NSR on tele. BS+X4 abdomen soft non-tender denies nausea/vomiting. Denies pain/discomfort. Pt reports occasional episodes of dizziness. Approx 0908 pt has episode of atrial tachycardia into 170's c/o feeling dizzy following episode. Dr Duarte notified ecg and Cardiology consult ordered. Pt notified of plan. Awaiting EEG. Will continue to monitor and report changes
[2023-03-07] MEDS: Adenosine 6 MG/2 ML VIAL IVPUSH (11:14)
[2023-03-07 11:16] LABS: Glucose, Whole Blood 67 mg/dL (60-115)
[2023-03-07] MEDS: dilTIAZem HCL 50 MG/10 ML VIAL 10 MG IVPUSH (11:19)
[2023-03-07] MEDS: LORazepam 2 MG/ML VIAL IVPUSH (11:21)
--- NOTE | 2023-03-07 11:39 | PM.CCN ---
Critical Care Event Note Summary Date of Service: 03/07/23 Code activated: No Narrative: On my exam post OFFICE SYSTEM ANALYST for tachycardia/seizure - systolic blood pressure 140s, pulse 100s, O2 sat 99% on room air, awake, pupils equal and reactive, recalcitrant demeanor. No bowel or bladder incontinence. No tongue biting. Likely an episode of SVT requiring extended release hermilo agent. Likely pseudo-seizure. At this time does not require intensive care unit level of monitoring. Please notify for re-evaluation, if patient's condition changes. Discussed with Dr. Duarte. Critical Care Time (minutes): 0
--- NOTE | 2023-03-07 11:42 | HO.PM.IMPN ---
Subjective Subjective Date of Service: 03/07/23 Interval History: Patient is being having episodes of SVTs 180 to 200, and had an episode of unresponsive during SVTs but with normal blood pressure, normal O2 sat but unresponsive eyes closed but when open was bliking them.. aperance of Pseudoseizure. Given Adenosine 6 mg for SVT and cardizem 10 mg, HR has come down, she is now awake Physical Exam Vital Signs: Vital Signs: Last Vital Signs Temp 96.9 F 03/07/23 07:33 Pulse 65 03/07/23 07:33 Resp 20 03/07/23 07:33 BP 137/74 03/07/23 07:33 Pulse Ox 97 03/07/23 07:33 O2 Del Method Room Air 03/07/23 07:33 BMI result Body Mass Index 26.0 General: AO X 3, no acute distress Resp: CTA bilateral CVS: S1,S2,RRR GI: +BS, NT, no distention Skin: No rash Neuro: motor grossly intact Psych: appropriate affect Objective Data Active Medications Acetaminophen (Acetaminophen 325 Mg Tablet) 650 mg PO Q6H PRN PRN Reason: Pain, Mild (Pain Scale 1-3) Last Admin: 03/06/23 16:59 Dose: 650 mg Documented By: CTORRZ Acetaminophen (Acetaminophen 325 Mg Tablet) 650 mg PO Q6H PRN PRN Reason: Headache/Pain Mild Scale (1-3) Al Hydroxide/Mg Hydroxide (Magnesium Hydrox/Alum Hydrox 30 Ml Oral.Susp) 30 ml PO Q6H PRN PRN Reason: Heartburn/Nausea Aripiprazole (Aripiprazole 5 Mg Tablet) 5 mg PO DAILY [facility] Last Admin: 03/07/23 09:24 Dose: 5 mg Documented By: AIME Aspirin (Aspirin Enteric Coated 81 Mg Tablet.) 81 mg PO DAILY [facility] Last Admin: 03/07/23 09:24 Dose: 81 mg Documented By: AIME Atorvastatin Calcium (Atorvastatin Calcium 40 Mg Tablet) 40 mg PO DAILY [facility] Last Admin: 03/07/23 09:23 Dose: 40 mg Documented By: AIME Bupropion HCl (Bupropion Hcl 75 Mg Tablet) 75 mg PO DAILY [facility] Last Admin: 03/07/23 09:24 Dose: 75 mg Documented By: AIME Clonazepam (Clonazepam 0.5 Mg Tablet) 0.25 mg PO DAILY PRN PRN Reason: anxiety Docusate Sodium (Docusate Sodium 100 Mg Capsule) 100 mg PO BID PRN PRN Reason: Constipation Estradiol (Estradiol 0.5 Mg Tablet) 1 mg PO DAILY [facility] Last Admin: 03/07/23 09:24 Dose: 1 mg Documented By: AIME Ferrous Sulfate (Ferrous Sulfate 324 Mg Tablet.Dr) 324 mg PO DAILY [facility] Last Admin: 03/07/23 09:23 Dose: 324 mg Documented By: AIME Hydroxyzine HCl (Hydroxyzine Hcl 25 Mg Tablet) 25 mg PO Q6H PRN PRN Reason: Anxiety Ibuprofen (Ibuprofen 400 Mg Tablet) 400 mg PO Q6H PRN PRN Reason: Headache Magnesium Hydroxide (Milk Of Magnesia 30 Ml Oral.Susp) 30 ml PO DAILY PRN PRN Reason: Constipation Magnesium Hydroxide (Milk Of Magnesia 30 Ml Oral.Susp) 30 ml PO DAILY PRN PRN Reason: Constipation Melatonin (Melatonin 3 Mg Tablet) 6 mg PO BEDTIME PRN PRN Reason: Insomnia Multivitamins/Vitamin C (Multivitamin Tablet) 1 tab PO DAILY [facility] Last Admin: 03/07/23 09:24 Dose: 1 tab Documented By: AIME Ondansetron HCl (Ondansetron Odt 4 Mg Tab.Rapdis) 4 mg TRANSLINGU BID PRN PRN Reason: Nausea and Vomiting Ondansetron HCl (Ondansetron Odt 4 Mg Tab.Rapdis) 4 mg TRANSLINGU Q6H PRN PRN Reason: nausea/vomiting Pharmacy Consult (Consult Rx Perform Med Rec) 1 each MISCELLANE ONCE PRN PRN Reason: Consult order Sodium Chloride (0.9 % Sodium Chloride Flush 3 Ml Syringe) 3 ml IVFLUSH QSHIFT [facility] Last Admin: 03/07/23 09:26 Dose: 3 ml Documented By: AIME Trazodone HCl (Trazodone Hcl 50 Mg Tablet) 50 mg PO BEDTIME PRN PRN Reason: Insomnia Trazodone HCl (Trazodone Hcl 50 Mg Tablet) 150 mg PO BEDTIME [facility] Last Admin: 03/06/23 21:22 Dose: 150 mg Documented By: MARLY Labs 03/07/23 05:38 03/07/23 05:38 Labs: Laboratory Results - last 24 hr 03/07/23 03/07/23 03/07/23 05:38 05:38 11:11 MCV 85.1 MCH 26.4 L MCHC 31.0 RDW 17.5 H Plt Count 152 L MPV 8.8 L Absolute Nucleated RBC 0.000 Nucleated RBC % (auto) 0.0 Anion Gap 11 L Estim Creat Clear Calc 74.3 Estimated GFR > 60 POC Glucose 67 Random Glucose 99 Calcium 9.5 Phosphorus 3.8 Magnesium 2.2 Assessment and Plan (1) SVT (supraventricular tachycardia): Status: Acute Plan 62 year old female with Biplioar depression, history of non-eplietic seizure,? admittd to Psych? for depression and decompensated bipolar and now transfer [facility] for an episode of unresponsiveness ? seizure (ie non epileptic type), noted to have SVTs SVTs, doubt cause of unresponsiveness given that BPs were normal, will give he metoprolol 12.5 q6 or advised by cardiology, check TSH Unresponsiveness, appear to be Pseudosizure, hadd EEG days ago to be read by Neurologist, continue [facility] depression bipolar--continue meds DVT prophylaxis: low risk, ambulate, Time Spent With Patient Time: Total time managing care of this patient today ____ minutes. Quality Stroke Does the patient have a stroke diagnosis?: No VTE Prior VTE?: No VTE Risk Level:: Medical - low VTE Device Contraindication: N/A - Device Ordered VTE Drug Contraindication: Treatment Not Indicated
--- NOTE | 2023-03-07 12:33 | PC.NURSE ---
This RN paged to patients room at approx 1110. Patient found to be unresponsive by TURBINE MEASUREMENTS ENGINEER this RN at bedside no reaction to painful stimuli or sternal rub. Heart rate on monitor initially SVT 160-170's, as high as 190. BP 164/99 initially oxygen sats high 90-100. Skin pink lips pink not discolored. EMAIL ADMINISTRATOR called d/t unresponsive and heart rate. Initial assessment by this RN minimal response to painful stimuli although pupils PERRLA 3B, + blink to threat noted no nystagmus or irregular eye movement noted. Muscle tone with no rigidity, continue to notice baseline tremors unchanged. Dr Duarte, Dr Lundberg, FOUNDER AND PRESIDENT's, RT and staff at bedside. Patient placed on 15L non-rebreather mask satting 100. Placed on pacer pads and monitor at bedside. Adenosine at Cardizem IV given by FOUNDER AND PRESIDENT's with good effect heart rate down to low 100-120. Blood pressure and vitals stable. 2mg IV ativan given per order per MD's for seizure activity. Seen by ICU attending. Pt stable following episode resting in bed does not remember event per pt educated on events. Will continue to monitor and report changes
[2023-03-07 12:45] LABS: Thyroid Stimulating Hormone 2.81 uIU/mL (0.32-4.0)
[2023-03-07] MEDS: Metoprolol Tartrate 12.5 MG HALFTAB PO ×3 (13:29→21:00)
[2023-03-07] MEDS: Ibuprofen 400 MG TABLET PO ×2 (13:32→19:38)
--- NOTE | 2023-03-07 15:50 | PM.CNCAR ---
History of Present Illness History of Present Illness Date of Service: 03/07/23 Requesting physician: Raffi Duarte Chief complaint: SVT Narrative: 62-year-old female who we have been asked to help with management of tachycardia. At the time I assessed the patient she had an RODEO RIDER called on her because she was unresponsive. It appears she was having a seizure at the same time she was having SVT with heart rates in 190s. It was initially felt that she passed out due to SVT but her blood pressure was 160/90 and she was not hypotensive obviously. She was given Ativan for seizures. She was given 10 mg of diltiazem IV and she was going in and out of SVT but settles as the seizures started improving. History is not possible currently because patient is on a sponsor/postictal. [facility] Past Medical History Medical History (Updated 03/07/23 @ 11:53 by Raffi Duarte MD) Acute cataract Anxiety Arthritis Bipolar 2 disorder Carotid artery stenosis Faulkner syndrome Cataract Cervical dystonia Cervicalgia Conversion disorder Conversion disorder Essential and other specified forms of tremor GERD (gastroesophageal reflux disease) Hyperlipidemia Hyponatremia Mitral valve prolapse Osteopenia PTSD (post-traumatic stress disorder) Raynauds syndrome (~08/2022) Restless legs syndrome (RLS) Seizures Syncope TIA (transient ischemic attack) Family History Family History Father Heart disease Depressed Mother Heart disease Surgical History Surgical History Gastric bypass status for obesity H/O arthroplasty History of hysterectomy Social History Social History Household Members: None Housing: Apartment Do you presently have visiting nurse or other home services: No Alcohol intake: never Patient Tobacco Use Status: Never used Tobacco Use of substances other than those prescribed or required for medical reasons: No Currently Displaying Signs/Symptoms of Drug Intoxication Withdrawal: No Have you been hit, kicked, punched, or otherwise hurt by someone within the past year? If so, by whom?: No Do you feel safe in your current relationship?: No Current Relationship Is there a partner from a previous relationship who is making you feel unsafe now?: No Are you made to feel afraid or neglected: No Spiritual Healthcare Practices: N/A Gnosticist Healthcare Practices: N/A Cultural Healthcare Practices: N/A Advance Directives: No Advance Directives Information Provided: No Do you have thoughts of harming others: None Do you have a plan to hurt others: No Plan Recently lost weight without trying: No Nutrition Risks: No Nutritional Risk Patient : No service: No Sexual orientation: Straight/Heterosexual Meds Allergies Allergy/AdvReac Type Severity Reaction Status Date / Time latex Allergy Unknown Unknown Uncoded 12/11/22 08:00 penicillin Allergy Unknown Unknown Uncoded 12/11/22 08:00 sulfa Allergy Unknown Unknown Uncoded 12/11/22 08:00 Active Medications: Current Medications Acetaminophen (Acetaminophen 325 Mg Tablet) 650 mg PO Q6H PRN PRN Reason: Pain, Mild (Pain Scale 1-3) Last Admin: 03/06/23 16:59 Dose: 650 mg Acetaminophen (Acetaminophen 325 Mg Tablet) 650 mg PO Q6H PRN PRN Reason: Headache/Pain Mild Scale (1-3) Al Hydroxide/Mg Hydroxide (Magnesium Hydrox/Alum Hydrox 30 Ml Oral.Susp) 30 ml PO Q6H PRN PRN Reason: Heartburn/Nausea Aripiprazole (Aripiprazole 5 Mg Tablet) 5 mg PO DAILY [facility] Last Admin: 03/07/23 09:24 Dose: 5 mg Aspirin (Aspirin Enteric Coated 81 Mg Tablet.) 81 mg PO DAILY [facility] Last Admin: 03/07/23 09:24 Dose: 81 mg Atorvastatin Calcium (Atorvastatin Calcium 40 Mg Tablet) 40 mg PO DAILY [facility] Last Admin: 03/07/23 09:23 Dose: 40 mg Bupropion HCl (Bupropion Hcl 75 Mg Tablet) 75 mg PO DAILY [facility] Last Admin: 03/07/23 09:24 Dose: 75 mg Clonazepam (Clonazepam 0.5 Mg Tablet) 0.25 mg PO DAILY PRN PRN Reason: anxiety Docusate Sodium (Docusate Sodium 100 Mg Capsule) 100 mg PO BID PRN PRN Reason: Constipation Estradiol (Estradiol 0.5 Mg Tablet) 1 mg PO DAILY [facility] Last Admin: 03/07/23 09:24 Dose: 1 mg Ferrous Sulfate (Ferrous Sulfate 324 Mg Tablet.) 324 mg PO DAILY [facility] Last Admin: 03/07/23 09:23 Dose: 324 mg Hydroxyzine HCl (Hydroxyzine Hcl 25 Mg Tablet) 25 mg PO Q6H PRN PRN Reason: Anxiety Ibuprofen (Ibuprofen 400 Mg Tablet) 400 mg PO Q6H PRN PRN Reason: Headache Last Admin: 03/07/23 13:32 Dose: 400 mg Magnesium Hydroxide (Milk Of Magnesia 30 Ml Oral.Susp) 30 ml PO DAILY PRN PRN Reason: Constipation Magnesium Hydroxide (Milk Of Magnesia 30 Ml Oral.Susp) 30 ml PO DAILY PRN PRN Reason: Constipation Melatonin (Melatonin 3 Mg Tablet) 6 mg PO BEDTIME PRN PRN Reason: Insomnia Metoprolol Tartrate (Metoprolol Tartrate 12.5 Mg Halftab) 12.5 mg PO QID [facility]; Protocol Last Admin: 03/07/23 13:29 Dose: 12.5 mg Multivitamins/Vitamin C (Multivitamin Tablet) 1 tab PO DAILY [facility] Last Admin: 03/07/23 09:24 Dose: 1 tab Ondansetron HCl (Ondansetron Odt 4 Mg Tab.Rapdis) 4 mg TRANSLINGU BID PRN PRN Reason: Nausea and Vomiting Ondansetron HCl (Ondansetron Odt 4 Mg Tab.Rapdis) 4 mg TRANSLINGU Q6H PRN PRN Reason: nausea/vomiting Pharmacy Consult (Consult Rx Perform Med Rec) 1 each MISCELLANE ONCE PRN PRN Reason: Consult order Sodium Chloride (0.9 % Sodium Chloride Flush 3 Ml Syringe) 3 ml IVFLUSH [facility] Last Admin: 03/07/23 09:26 Dose: 3 ml Trazodone HCl (Trazodone Hcl 50 Mg Tablet) 50 mg PO BEDTIME PRN PRN Reason: Insomnia Trazodone HCl (Trazodone Hcl 50 Mg Tablet) 150 mg PO BEDTIME [facility] Last Admin: 03/06/23 21:22 Dose: 150 mg Home Medications Medication Instructions Recorded Confirmed Last Taken Type aspirin 81 mg tablet,delayed 81 mg PO DAILY 12/11/22 03/06/23 02/22/23 History release atorvastatin 40 mg tablet 40 mg PO DAILY 12/11/22 03/06/23 02/23/23 History clonazepam 0.5 mg tablet 0.25 mg PO DAILY PRN anxiety 12/11/22 03/06/23 Unknown History ferrous sulfate 325 mg (65 mg 325 mg PO QAM 12/11/22 03/06/23 02/23/23 History iron) tablet,delayed release estradiol 1 mg PO DAILY 02/23/23 03/06/23 02/23/23 History multivitamin 1 tab PO DAILY 02/23/23 03/06/23 02/23/23 History Physical Exam Vital Signs: Vital Signs: Last Vital Signs Temp 96.7 F L 03/07/23 15:33 Pulse 63 03/07/23 15:33 Resp 18 03/07/23 15:33 BP 104/59 L 03/07/23 15:33 Pulse Ox 98 03/07/23 15:33 O2 Del Method Room Air 03/07/23 15:33 FiO2 100 03/07/23 11:36 BMI result Body Mass Index 26.0 GENERAL APPEARANCE: Unresponsive, blankly staring due to seizure. NECK: no carotid bruit, no jugular venous distention. SKIN: no suspicious lesions, warm and dry. HEART: no murmurs, regular rate and rhythm. Tachycardic. LUNGS: clear to auscultation bilaterally. ABDOMEN: soft, nontender. EXTREMITIES: no edema. Objective Labs and Meds 03/07/23 05:38 03/07/23 05:38 Lab results: Laboratory Results - last 24 hr 03/07/23 03/07/23 03/07/23 05:38 05:38 11:11 WBC 3.8 L RBC 4.51 Hgb 11.9 L Hct 38.4 MCV 85.1 MCH 26.4 L MCHC 31.0 RDW 17.5 H Plt Count 152 L MPV 8.8 L Absolute Nucleated RBC 0.000 Nucleated RBC % (auto) 0.0 Sodium 142 Potassium 3.9 Chloride 107 Carbon Dioxide 28 Anion Gap 11 L BUN 11 Creatinine 0.87 Estim Creat Clear Calc 74.3 Estimated GFR > 60 POC Glucose 67 Random Glucose 99 Calcium 9.5 Phosphorus 3.8 Magnesium 2.2 TSH 2.81 Assessment and Plan (1) SVT (supraventricular tachycardia): Status: Acute Plan 62-year-old female with seizure in SVT. Unresponsiveness is due to seizure and not due to SVT. SVT can cause hypotension and syncope but unresponsiveness is not possible. Also her blood pressure during SVT was 160/90 and she was not in shock. Treatment of seizures. It appears the time cc is she goes into SVT probably from the stress of seizure. If blood pressure allows low-dose metoprolol 25 mg Toprol-XL can be started. This can be titrated based on her blood pressure readings. Thank you for allowing me to participate in the care of your patient. Please feel free to contact me if you have any questions. Time Spent With Patient Time: Total time managing care of this patient today ____ minutes. Procedures Date of Service Date of Service: 03/07/23
[2023-03-07] MEDS: Lidocaine 4 % Patch ADH..PATCH 1 PATCH TRANSDERMA (21:00)
[2023-03-07] MEDS: traZODone HCL 50 MG TABLET 150 MG PO (23:01)
[2023-03-07] MEDS: clonazePAM 0.5 MG TABLET 0.25 MG PO (23:06)
[2023-03-08] VITALS (7 sets, daily range): BP systolic 98–126; BP diastolic 49–76; PULSE 52–84; RESP 14–20; TEMP 35.9–36.4; O2SAT 97–100
[2023-03-08] MEDS: Lactated Ringers 1,000 ML 999 ML IV (00:17)
--- NOTE | 2023-03-08 00:19 | PC.NURSE ---
A&Ox4, denies SOB/Dyspnea. No c/o light headedness or dizziness. BP at 2300 of 84/50. HR 74 MD notified, 1L LR Bolus ordered and infusing.
--- NOTE | 2023-03-08 08:39 | P.PNIM_ITS ---
Subjective Subjective Date of Service: 03/08/23 Interval History: No furhter episodes of unresponsiveness or SVTs overnight, SBP of 84 not due sepsis Physical Exam Vital Signs: Vital Signs: Last Vital Signs Temp 97.2 F 03/08/23 07:00 Pulse 61 03/08/23 07:00 Resp 20 03/08/23 07:00 BP 106/56 L 03/08/23 07:00 Pulse Ox 99 03/08/23 07:00 O2 Del Method Room Air 03/08/23 07:00 FiO2 100 03/07/23 11:36 BMI result Body Mass Index 26.0 Const: Other: General: AO X 3, no acute distress Resp: CTA bilateral CVS: S1,S2,RRR GI: +BS, NT, no distention Skin: No rash Neuro: motor grossly intact Psych: appropriate affect Objective Data Active Medications Acetaminophen (Acetaminophen 325 Mg Tablet) 650 mg PO Q6H PRN PRN Reason: Pain, Mild (Pain Scale 1-3) Last Admin: 03/06/23 16:59 Dose: 650 mg Documented By: JORDONORRKetty Acetaminophen (Acetaminophen 325 Mg Tablet) 650 mg PO Q6H PRN PRN Reason: Headache/Pain Mild Scale (1-3) Al Hydroxide/Mg Hydroxide (Magnesium Hydrox/Alum Hydrox 30 Ml Oral.Susp) 30 ml PO Q6H PRN PRN Reason: Heartburn/Nausea Aripiprazole (Aripiprazole 5 Mg Tablet) 5 mg PO DAILY [facility] Last Admin: 03/07/23 09:24 Dose: 5 mg Documented By: AIME Aspirin (Aspirin Enteric Coated 81 Mg Tablet.) 81 mg PO DAILY [facility] Last Admin: 03/07/23 09:24 Dose: 81 mg Documented By: AIME Atorvastatin Calcium (Atorvastatin Calcium 40 Mg Tablet) 40 mg PO DAILY [facility] Last Admin: 03/07/23 09:23 Dose: 40 mg Documented By: AIME Bupropion HCl (Bupropion Hcl 75 Mg Tablet) 75 mg PO DAILY [facility] Last Admin: 03/07/23 09:24 Dose: 75 mg Documented By: AIME Clonazepam (Clonazepam 0.5 Mg Tablet) 0.25 mg PO DAILY PRN PRN Reason: anxiety Last Admin: 03/07/23 23:06 Dose: 0.25 mg Documented By: LISA Docusate Sodium (Docusate Sodium 100 Mg Capsule) 100 mg PO BID PRN PRN Reason: Constipation Estradiol (Estradiol 0.5 Mg Tablet) 1 mg PO DAILY [facility] Last Admin: 03/07/23 09:24 Dose: 1 mg Documented By: AIME Ferrous Sulfate (Ferrous Sulfate 324 Mg Tablet.Dr) 324 mg PO DAILY [facility] Last Admin: 03/07/23 09:23 Dose: 324 mg Documented By: AIME Hydroxyzine HCl (Hydroxyzine Hcl 25 Mg Tablet) 25 mg PO Q6H PRN PRN Reason: Anxiety Ibuprofen (Ibuprofen 400 Mg Tablet) 400 mg PO Q6H PRN PRN Reason: Headache Last Admin: 03/07/23 19:38 Dose: 400 mg Documented By: LISA Magnesium Hydroxide (Milk Of Magnesia 30 Ml Oral.Susp) 30 ml PO DAILY PRN PRN Reason: Constipation Magnesium Hydroxide (Milk Of Magnesia 30 Ml Oral.Susp) 30 ml PO DAILY PRN PRN Reason: Constipation Melatonin (Melatonin 3 Mg Tablet) 6 mg PO BEDTIME PRN PRN Reason: Insomnia Metoprolol Succinate (Metoprolol Succinate Er 25 Mg Tab.Er.24h) 25 mg PO DAILY [facility]; Protocol Multivitamins/Vitamin C (Multivitamin Tablet) 1 tab PO DAILY [facility] Last Admin: 03/07/23 09:24 Dose: 1 tab Documented By: AIME Ondansetron HCl (Ondansetron Odt 4 Mg Tab.Rapdis) 4 mg TRANSLINGU BID PRN PRN Reason: Nausea and Vomiting Ondansetron HCl (Ondansetron Odt 4 Mg Tab.Rapdis) 4 mg TRANSLINGU Q6H PRN PRN Reason: nausea/vomiting Pharmacy Consult (Consult Rx Perform Med Rec) 1 each MISCELLANE ONCE PRN PRN Reason: Consult order Sodium Chloride (0.9 % Sodium Chloride Flush 3 Ml Syringe) 3 ml IVFLUSH QSHIFT [facility] Last Admin: 03/07/23 21:01 Dose: 3 ml Documented By: LISA Trazodone HCl (Trazodone Hcl 50 Mg Tablet) 50 mg PO BEDTIME PRN PRN Reason: Insomnia Trazodone HCl (Trazodone Hcl 50 Mg Tablet) 150 mg PO BEDTIME [facility] Last Admin: 03/07/23 23:01 Dose: 150 mg Documented By: LISA Labs 03/07/23 05:38 03/07/23 05:38 Labs: Laboratory Results - last 24 hr 03/07/23 03/07/23 05:38 11:11 POC Glucose 67 TSH 2.81 Assessment and Plan (1) SVT (supraventricular tachycardia): Status: Acute Plan 62 year old female with Biplioar depression, history of non-eplietic seizure,? admittd to Psych? for depression and decompensated bipolar and now transfer to med-tele for an episode of unresponsiveness ? 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 Quality Stroke Does the patient have a stroke diagnosis?: No VTE Prior VTE?: No VTE Risk Level:: Medical - low VTE Device Contraindication: N/A - Device Ordered VTE Drug Contraindication: Treatment Not Indicated
[2023-03-08] MEDS: ARIPiprazole 5 MG TABLET PO (09:18)
[2023-03-08] MEDS: estradioL 0.5 MG TABLET 1 MG PO (09:20)
[2023-03-08] MEDS: buPROPion HCL 75 MG TABLET PO (09:21)
[2023-03-08] MEDS: Atorvastatin Calcium 40 MG TABLET PO (09:21)
[2023-03-08] MEDS: Ferrous Sulfate 324 MG TABLET.DR PO (09:21)
[2023-03-08] MEDS: Multivitamin TABLET 1 TAB PO (09:22)
[2023-03-08] MEDS: Enoxaparin Sodium 40 MG/0.4 ML SYRINGE SUBCUT (09:22)
[2023-03-08] MEDS: Aspirin Enteric Coated 81 MG TABLET.DR PO (09:22)
[2023-03-08] MEDS: Metoprolol Succinate ER 25 MG TAB.ER.24H PO (09:22)
[2023-03-08] MEDS: 0.9 % Sodium Chloride Flush 3 ML SYRINGE IVFLUSH ×2 (09:23→16:51)
--- NOTE | 2023-03-08 14:44 | PM.PNCARD ---
Subjective Subjective Date of Service: 03/08/23 Interval history: Seen examined bedside. She complained of non anginal chest pain today she has left-sided chest wall tenderness. Physical Exam Vital Signs: Last Vital Signs Temp 97.1 F 03/08/23 12:00 Pulse 60 03/08/23 12:00 Resp 20 03/08/23 12:00 BP 126/59 L 03/08/23 12:00 Pulse Ox 100 03/08/23 12:00 O2 Del Method Room Air 03/08/23 12:00 FiO2 100 03/07/23 11:36 BMI result Body Mass Index 26.0 GENERAL APPEARANCE: in no acute distress, pleasant. NECK: no carotid bruit, no jugular venous distention. SKIN: no suspicious lesions, warm and dry. HEART: no murmurs, regular rate and rhythm. LUNGS: clear to auscultation bilaterally. Left-sided chest wall tenderness. ABDOMEN: soft, nontender. EXTREMITIES: no edema. PERIPHERAL PULSES: equal. NEUROLOGIC: No gross deficits, AAO X 3. Tremors. Objective Labs and Meds 03/07/23 05:38 03/07/23 05:38 Progress Note: A&P Assessment and plan (1) SVT (supraventricular tachycardia): Status: Acute Plan 62-year-old female with seizures and supraventricular tachycardia. Continue metoprolol 25 mg daily. Clinically stable right now. Chest pain is non anginal. Thank you for allowing me to participate in the care of your patient. Please feel free to contact me if you have any questions. Time Spent With Patient Time: Total time managing care of this patient today ____ minutes. Progress Note: Quality Stroke Does the patient have a stroke diagnosis?: No Procedures Date of Service Date of Service: 03/08/23
--- NOTE | 2023-03-08 15:39 | PC.NURSE ---
0905- Patient reporting numbness on fingers on R hand x1 hour, reports never having this feeling before. Dr. Duarte made aware. 914- This RN assisted patient OOB to bathroom, ambulated minimal assist. While returning to bed patient reports sharp, pinching chest pain. Once back in bed, pain became dull in nature. BP 123/75, p 75. MD aware. 0920- Patient reports a feeling that something is going to happen , heart monitor noted to have HR of 80s. Patient than became unresponsive. Patient did not respond to verbal stimuli. Sternum rub performed, patient became responsive within 5-10 seconds. Patient aware of surrounds, alert and oriented. Vital signs obtained, 153/67, HR 74. Dr. Duarte paged and at bedside. 0930- 10 minutes after unresponsive episode, repeat vitals, 113/61, p 67. Patient denies any chest pain, numbness in fingers going away. Scheduled morning meds given per EMAR. Bed alarm on, call schilling and seizure precautions in place. All needs met.
[2023-03-08] MEDS: Ibuprofen 400 MG TABLET PO (20:51)
[2023-03-08] MEDS: traZODone HCL 50 MG TABLET 150 MG PO (22:14)
[2023-03-08] MEDS: hydrOXYzine HCL 25 MG TABLET PO (22:14)
[2023-03-09 04:00] VITALS: BP 92/51; PULSE 67; RESP 16; TEMP 36.4; O2SAT 97
[2023-03-09 07:44] VITALS: BP 104/63; PULSE 58; RESP 20; TEMP 36.2; O2SAT 99
[2023-03-09] MEDS: Aspirin Enteric Coated 81 MG TABLET.DR PO (08:58)
[2023-03-09] MEDS: Metoprolol Succinate ER 25 MG TAB.ER.24H PO (08:58)
[2023-03-09] MEDS: estradioL 0.5 MG TABLET 1 MG PO (08:58)
[2023-03-09] MEDS: clonazePAM 0.5 MG TABLET 0.25 MG PO (08:59)
[2023-03-09] MEDS: Multivitamin TABLET 1 TAB PO (08:59)
[2023-03-09] MEDS: Acetaminophen 325 MG TABLET 650 MG PO (08:59)
[2023-03-09] MEDS: ARIPiprazole 5 MG TABLET PO (08:59)
[2023-03-09] MEDS: buPROPion HCL 75 MG TABLET PO (08:59)
[2023-03-09] MEDS: Ferrous Sulfate 324 MG TABLET.DR PO (08:59)
[2023-03-09] MEDS: Atorvastatin Calcium 40 MG TABLET PO (08:59)
[2023-03-09] MEDS: 0.9 % Sodium Chloride Flush 3 ML SYRINGE IVFLUSH (09:00)
[2023-03-09] MEDS: Enoxaparin Sodium 40 MG/0.4 ML SYRINGE SUBCUT (09:00)
--- NOTE | 2023-03-09 09:58 | PM.DS ---
DS: Providers Provider Date of Service: 03/09/23 Date of admission: 03/06/23 10:44 Primary care physician: Susanne Barbour MD Consults: 03/06/23 11:20 Consult to Neurology Routine Consulting Provider: [facility] [place] [facility] Reason for consultation: syncope, seizure 03/07/23 09:31 Consult to Cardiology Routine Consulting Provider: [facility] Reason for consultation: SVTs Has provider been notified: Yes 03/09/23 07:34 Consult to Care Team Routine Comment: Reason for consultation: depression, medically ready for discharge Consult to Psychiatry Routine Consulting Provider: Psych Covering Reason for consultation: depression Has provider been notified: No DS: Diagnosis Discharge Diagnosis (1) SVT (supraventricular tachycardia): Status: Resolved DS: Summary Hospital Course Hospital Course: Chief Complaint: Syncope, ? seizure 62 year old female with Biplioar depression, history of non-eplietic seizure,? admittd to Psych? for depression and decompensated bipolar. Her management has included? Trileptal for her moods but was discontinued because of hyponatremia, her sodium level has since normalazied. She was supposedly in her normal state this morning, but later stated she was going to her room because she felt? short of breath. Just minutes later her nurse found her unresponsive, Rapid response was, called followed by a code blue in error. She was unresponsive yet hemodynamically stable the whole time, normal breathing patern, pulse present just eyes closed. ECG showed no arrythmia, no seizure like activity, no urinary or stool incontinence, no tongue bite. Upon transfer to med floor, she awake, alert, talking and aware of being at [facility]. There was nothing resembling post-ictal state Hospital course: Patient was transfered to medical floor Psych floor where she was been treated for depression and became unrsponsive. While on the medical floor noted to go into SVTs (up 200) however hemodynamically stable with normal blood pressure and there not cause of unresponsive which are believed to be Pseudoseizures. SVT was evaluated by Dr. Lundberg with recommendation to starte metoprolol and presently responding to Toprol XL 25 mg daily, and has no had further episode of SVTs. Unresponsiveness was evaluated by Dr. Lucia and believed to be Pseudoseizures, she had previously been on Lamictal but was stopped due to Hyponatremia, had EEG earlier with no seizure activity. No further medication management recommended. As for Depression she still feels depressed, no SI and believes she was getting help from Psych floor and therefore will be discharged back to Psych to complete her treatment there ? Time Spent with Patient Time attestation: Total time managing care of this patient today ____ minutes. Discharge coordination time: Greater than 30 minutes Quality: Safe Use of Opioids Does Pt have an Active Cancer Diagnosis on the Problem List?: No Quality: Stroke Does the patient have a stroke diagnosis?: No Physical Exam Vital Signs: Vital Signs: Last Vital Signs Temp 97.2 F 03/09/23 07:44 Pulse 58 03/09/23 07:44 Resp 20 03/09/23 07:44 BP 104/63 03/09/23 07:44 Pulse Ox 99 03/09/23 07:44 O2 Del Method Room Air 03/09/23 07:44 FiO2 100 03/07/23 11:36 BMI result Body Mass Index 26.0 Const: Other: General: AO X 3, no acute distress Resp: CTA bilateral CVS: S1,S2,RRR GI: +BS, NT, no distention Skin: No rash Neuro: motor grossly intact Psych: appropriate affect Discharge Plan Discharge Anticipated Discharge Date/Time: 03/09/23 12:02 Patient Disposition: Xfer Psychiatric Hosp Discharge Diagnosis: SVT, pseudoseizures Referrals: Susanne Barbour MD [Primary Care Provider] - 1 Week Discharge Medications: Continued multivitamin Tablet 1 tab PO DAILY estradiol 1 mg PO DAILY atorvastatin 40 mg tablet 40 mg PO DAILY aspirin 81 mg tablet,delayed release (DR/EC) 81 mg PO DAILY No Action aripiprazole [Abilify] 5 mg Tablet 5 mg PO DAILY verapamil 120 mg capsule,ext rel. pellets 24 hr 120 mg PO DAILY Qty: 30 0RF clonazepam 0.5 mg tablet 0.5 mg PO DAILY PRN (Reason: anxiety) ferrous sulfate 325 mg (65 mg iron) tablet,delayed release (DR/EC) 365 mg PO QAM trazodone 50 mg tablet 150 mg PO BEDTIME diphenhydramine HCl [Benadryl] 25 mg capsule 50 mg PO BEDTIME PRN Discharge Orders: Discharge Order (Routine); Ordered 03/09/23 Ordered By: Raffi Mlapah Diet: Advance to usual diet Activity on Discharge: As tolerated Stand Alone Forms: Patient Portal Discharge page Care Plan Goals: control of SVTs , management of depression and pseudoseizures Health Concerns: Supraventricular tachycardia, pseudoseizures Depression Plan of Treatment: Transfer back to psych for depression management Take Toprol XL 25 mg daily for supraventricular tachycardia (SVTs). Assessment: As above Discharge Date/Time: 03/09/23 16:35
--- NOTE | 2023-03-09 10:12 | HO.PM.IMPN ---
Subjective Subjective Date of Service: 03/09/23 Interval History: Very brief episode of unresponsivnes yesterday not corresponding with tachycardia or SVT Physical Exam Vital Signs: Vital Signs: Last Vital Signs Temp 97.2 F 03/09/23 07:44 Pulse 58 03/09/23 07:44 Resp 20 03/09/23 07:44 BP 104/63 03/09/23 07:44 Pulse Ox 99 03/09/23 07:44 O2 Del Method Room Air 03/09/23 07:44 FiO2 100 03/07/23 11:36 BMI result Body Mass Index 26.0 Const: Other: General: AO X 3, no acute distress Resp: CTA bilateral CVS: S1,S2,RRR GI: +BS, NT, no distention Skin: No rash Neuro: motor grossly intact Psych: appropriate affect Objective Data Active Medications Acetaminophen (Acetaminophen 325 Mg Tablet) 650 mg PO Q6H PRN PRN Reason: Pain, Mild (Pain Scale 1-3) Last Admin: 03/09/23 08:59 Dose: 650 mg Documented By: STEVE Acetaminophen (Acetaminophen 325 Mg Tablet) 650 mg PO Q6H PRN PRN Reason: Headache/Pain Mild Scale (1-3) Al Hydroxide/Mg Hydroxide (Magnesium Hydrox/Alum Hydrox 30 Ml Oral.Susp) 30 ml PO Q6H PRN PRN Reason: Heartburn/Nausea Aripiprazole (Aripiprazole 5 Mg Tablet) 5 mg PO DAILY [facility] Last Admin: 03/09/23 08:59 Dose: 5 mg Documented By: STEVE Aspirin (Aspirin Enteric Coated 81 Mg Tablet.) 81 mg PO DAILY [facility] Last Admin: 03/09/23 08:58 Dose: 81 mg Documented By: STEVE Atorvastatin Calcium (Atorvastatin Calcium 40 Mg Tablet) 40 mg PO DAILY [facility] Last Admin: 03/09/23 08:59 Dose: 40 mg Documented By: STEVE Bupropion HCl (Bupropion Hcl 75 Mg Tablet) 75 mg PO DAILY [facility] Last Admin: 03/09/23 08:59 Dose: 75 mg Documented By: STEVE Clonazepam (Clonazepam 0.5 Mg Tablet) 0.25 mg PO DAILY PRN PRN Reason: anxiety Last Admin: 03/09/23 08:59 Dose: 0.25 mg Documented By: STEVE Docusate Sodium (Docusate Sodium 100 Mg Capsule) 100 mg PO BID PRN PRN Reason: Constipation Enoxaparin Sodium (Enoxaparin Sodium 40 Mg/0.4 Ml Syringe) 40 mg SUBCUT Q24H [facility] Last Admin: 03/09/23 09:00 Dose: 40 mg Documented By: STEVE Estradiol (Estradiol 0.5 Mg Tablet) 1 mg PO DAILY [facility] Last Admin: 03/09/23 08:58 Dose: 1 mg Documented By: STEVE Ferrous Sulfate (Ferrous Sulfate 324 Mg Tablet.Dr) 324 mg PO DAILY [facility] Last Admin: 03/09/23 08:59 Dose: 324 mg Documented By: STEVE Hydroxyzine HCl (Hydroxyzine Hcl 25 Mg Tablet) 25 mg PO Q6H PRN PRN Reason: Anxiety Last Admin: 03/08/23 22:14 Dose: 25 mg Documented By: LISA Ibuprofen (Ibuprofen 400 Mg Tablet) 400 mg PO Q6H PRN PRN Reason: Headache Last Admin: 03/08/23 20:51 Dose: 400 mg Documented By: LISA Magnesium Hydroxide (Milk Of Magnesia 30 Ml Oral.Susp) 30 ml PO DAILY PRN PRN Reason: Constipation Magnesium Hydroxide (Milk Of Magnesia 30 Ml Oral.Susp) 30 ml PO DAILY PRN PRN Reason: Constipation Melatonin (Melatonin 3 Mg Tablet) 6 mg PO BEDTIME PRN PRN Reason: Insomnia Metoprolol Succinate (Metoprolol Succinate Er 25 Mg Tab.Er.24h) 25 mg PO DAILY [facility]; Protocol Last Admin: 03/09/23 08:58 Dose: 25 mg Documented By: STEVE Multivitamins/Vitamin C (Multivitamin Tablet) 1 tab PO DAILY [facility] Last Admin: 03/09/23 08:59 Dose: 1 tab Documented By: STEVE Ondansetron HCl (Ondansetron Odt 4 Mg Tab.Rapdis) 4 mg TRANSLINGU BID PRN PRN Reason: Nausea and Vomiting Ondansetron HCl (Ondansetron Odt 4 Mg Tab.Rapdis) 4 mg TRANSLINGU Q6H PRN PRN Reason: nausea/vomiting Pharmacy Consult (Consult Rx Perform Med Rec) 1 each MISCELLANE ONCE PRN PRN Reason: Consult order Sodium Chloride (0.9 % Sodium Chloride Flush 3 Ml Syringe) 3 ml IVFLUSH QSHIFT [facility] Last Admin: 03/09/23 09:00 Dose: 3 ml Documented By: STEVE Trazodone HCl (Trazodone Hcl 50 Mg Tablet) 50 mg PO BEDTIME PRN PRN Reason: Insomnia Trazodone HCl (Trazodone Hcl 50 Mg Tablet) 150 mg PO BEDTIME [facility] Last Admin: 03/08/23 22:14 Dose: 150 mg Documented By: LISA Labs 03/07/23 05:38 03/07/23 05:38 Assessment and Plan (1) SVT (supraventricular tachycardia): Status: Acute Plan 62 year old female with Biplioar depression, history of non-eplietic seizure,? admittd to Psych? for depression and decompensated bipolar and now transfer to med-tele for an episode of unresponsiveness ? seizure (ie non epileptic type), noted to have SVTs SVTs, no further episodes for 2 days continue toprol XL Unresponsiveness, appear to be Pseudosizure, hadd EEG days earlier, continue montoring depression bipolar--continue meds, to be discharge back to Psych to complete treatment DVT prophylaxis: lovenox Time Spent With Patient Time: Total time managing care of this patient today ____ minutes. Quality Stroke Does the patient have a stroke diagnosis?: No VTE Prior VTE?: No VTE Risk Level:: Medical - low VTE Device Contraindication: N/A - Device Ordered VTE Drug Contraindication: Treatment Not Indicated
--- NOTE | 2023-03-09 11:03 | MHC.CM.PN ---
Plan for pt is to discharge back to psych unit when bed available.
[2023-03-09 11:16] VITALS: BP 103/61; PULSE 66; RESP 20; TEMP 36.4; O2SAT 97
--- NOTE | 2023-03-09 11:53 | PC.NURSE ---
Gave report to KRISTAN Miller assuming care of patient on psychiatric unit
[2023-03-09 15:57] VITALS: BP 92/53; PULSE 68; RESP 18; TEMP 36.7; O2SAT 100
== END 2023-03-09 16:35 ==
PROVIDERS: Admitting Provider Internal Medicine; PCP Family Medicine; Visit Provider Internal Medicine
DX: I47.1 Supraventricular tachycardia (principal); R55 Syncope and collapse; G40.A09 Absence epileptic syndrome, not intractable, without status epilepticus; F44.9 Dissociative and conversion disorder, unspecified; F31.81 Bipolar II disorder; E78.5 Hyperlipidemia, unspecified; Z79.899 Other long term (current) drug therapy
CPT/HCPCS: 36415; 80048; 82947; 83735; 84100; 84443; 85027; 93005; 96361; 96372; 96374; 96375; 99222; J0153; J1650; J2060; S9485

== ENCOUNTER 2023-03-06 10:44 | Outpatient (BNV) | payer OTHER, SELFPAY | END 2023-03-07 09:39 | PROVIDERS: Admitting Provider Internal Medicine; PCP Family Medicine; Visit Provider Internal Medicine Cardiovascular Disease | DX: I47.1 Supraventricular tachycardia (principal) | CPT/HCPCS: 93010 ==

== ENCOUNTER → 2023-03-06 10:44 | Outpatient (BNV) | payer OTHER, SELFPAY | PROVIDERS: Admitting Provider Internal Medicine; PCP Family Medicine; Visit Provider Internal Medicine Pulmonary Disease | DX: R00.0 Tachycardia, unspecified (principal); R56.9 Unspecified convulsions | CPT/HCPCS: 99499 ==

== ENCOUNTER → 2023-03-06 10:44 | Outpatient (BNV) | payer OTHER, SELFPAY | PROVIDERS: Admitting Provider Internal Medicine; PCP Family Medicine; Visit Provider Internal Medicine Cardiovascular Disease | DX: I47.1 Supraventricular tachycardia (principal) | CPT/HCPCS: 99222; 99231 ==

== ENCOUNTER → 2023-03-06 10:44 | Outpatient (BNV) | payer OTHER, SELFPAY | PROVIDERS: Admitting Provider Internal Medicine; PCP Family Medicine; Visit Provider Internal Medicine | DX: I47.1 Supraventricular tachycardia (principal) | CPT/HCPCS: 99222; 99232; 99239 ==

== ENCOUNTER 2023-03-09 14:16 | Inpatient (IN) | payer OTHER, SELFPAY ==
[2023-03-09 17:05] VITALS: BP 106/75; PULSE 60; RESP 18; TEMP 36.2; O2SAT 98
[2023-03-09 17:06] VITALS: BMI 26.8
--- NOTE | 2023-03-09 19:04 | PHA.MEDREC ---
Pharmacy Consult ? Medication Reconciliation Pharmacy has completed the medication reconciliation. Med rec done from previous admission 03/06.
[2023-03-09] MEDS: Docusate Sodium 100 MG CAPSULE PO (19:14)
[2023-03-09] MEDS: clonazePAM 0.5 MG TABLET 0.25 MG PO (19:14)
--- NOTE | 2023-03-09 20:02 | PC.ADMIT ---
Sophia was admitted to on 03/09/23 at 1634 from [facility] on a CV for the treatment of ptsd. Safety check completed by this RN and another RN. She denies suicidal and homicidal thoughts and intent. She denies auditory and visual hallucinations. She states she is able to seek out staff for help if feeling unsafe. She was pleasant and cooperative with admission. She states she is happy to be back and continue my treatment , as she was previously admitted to before being sent to [facility]. Will continue to monitor for safety and changes in behavior.
[2023-03-09] MEDS: traZODone HCL 50 MG TABLET 150 MG PO (21:01)
[2023-03-09] MEDS: hydrOXYzine HCL 25 MG TABLET PO (21:03)
--- NOTE | 2023-03-10 | ECG_ITS ---
Test Reason : Chest pain Blood Pressure : / mmHG Vent. Rate : 079 BPM Atrial Rate : 060 BPM P-R Int : 000 ms QRS Dur : 078 ms QT Int : 394 ms P-R-T Axes : 025 054 046 degrees QTc Int : 451 ms Undetermined rhythm Otherwise normal ECG When compared with ECG of 07-MAR-2023 09:39, Current undetermined rhythm precludes rhythm comparison, needs review Questionable change in QRS axis Referred By: Sánchez Waggoner Electronically Signed By:Cristian Lundberg
[2023-03-10] MEDS: Acetaminophen 325 MG TABLET 650 MG PO (05:29)
[2023-03-10] MEDS: Aspirin Enteric Coated 81 MG TABLET.DR PO (09:08)
[2023-03-10] MEDS: Metoprolol Succinate ER 25 MG TAB.ER.24H PO (09:08)
[2023-03-10] MEDS: estradioL 0.5 MG TABLET 1 MG PO (09:08)
[2023-03-10] MEDS: ARIPiprazole 5 MG TABLET PO (09:09)
[2023-03-10] MEDS: buPROPion HCL 75 MG TABLET PO (09:09)
[2023-03-10] MEDS: Multivitamin TABLET 1 TAB PO (09:09)
[2023-03-10] MEDS: Ferrous Sulfate 324 MG TABLET.DR PO (09:09)
[2023-03-10] MEDS: Atorvastatin Calcium 40 MG TABLET PO (09:09)
[2023-03-10 09:15] VITALS: BP 133/59; PULSE 62; RESP 16; TEMP 36.3; O2SAT 97
[2023-03-10] MEDS: hydrOXYzine HCL 25 MG TABLET PO (10:14)
--- NOTE | 2023-03-10 14:44 | P.PNPSI_ITS ---
Subjective Subjective Reason For Visit: Bipolar II, depressed Diagnostics Vital Signs (24Hr): Vital Signs - 24 hr 03/09/23 17:05 03/10/23 09:15 Temperature 97.1 F 97.3 F Pulse Rate 60 62 Respiratory Rate 18 16 Blood Pressure 106/75 133/59 L Pulse Oximetry 98 97 Oxygen Delivery Method Room Air Room Air BMI result Body Mass Index 26.8 Labs 03/10/23 19:59 03/10/23 19:59 Medications Medications Current Medications Acetaminophen (Acetaminophen 325 Mg Tablet) 650 mg PO Q6H PRN PRN Reason: Pain, Mild (Pain Scale 1-3) Last Admin: 03/10/23 05:29 Dose: 650 mg Al Hydroxide/Mg Hydroxide (Magnesium Hydrox/Alum Hydrox 30 Ml Oral.Susp) 30 ml PO Q6H PRN PRN Reason: Heartburn/Nausea Aripiprazole (Aripiprazole 5 Mg Tablet) 5 mg PO DAILY [facility] Last Admin: 03/10/23 09:09 Dose: 5 mg Aspirin (Aspirin Enteric Coated 81 Mg Tablet.) 81 mg PO DAILY [facility] Last Admin: 03/10/23 09:08 Dose: 81 mg Atorvastatin Calcium (Atorvastatin Calcium 40 Mg Tablet) 40 mg PO DAILY [facility] Last Admin: 03/10/23 09:09 Dose: 40 mg Bupropion HCl (Bupropion Hcl 75 Mg Tablet) 75 mg PO DAILY [facility] Last Admin: 03/10/23 09:09 Dose: 75 mg Clonazepam (Clonazepam 0.5 Mg Tablet) 0.25 mg PO DAILY PRN PRN Reason: anxiety Last Admin: 03/09/23 19:14 Dose: 0.25 mg Docusate Sodium (Docusate Sodium 100 Mg Capsule) 100 mg PO BID PRN PRN Reason: Constipation Last Admin: 03/09/23 19:14 Dose: 100 mg Estradiol (Estradiol 0.5 Mg Tablet) 1 mg PO DAILY [facility] Last Admin: 03/10/23 09:08 Dose: 1 mg Ferrous Sulfate (Ferrous Sulfate 324 Mg Tablet.) 324 mg PO DAILY [facility] Last Admin: 03/10/23 09:09 Dose: 324 mg Hydroxyzine HCl (Hydroxyzine Hcl 25 Mg Tablet) 25 mg PO Q6H PRN PRN Reason: Anxiety Last Admin: 03/10/23 10:14 Dose: 25 mg Ibuprofen (Ibuprofen 400 Mg Tablet) 400 mg PO Q6H PRN PRN Reason: Headache Magnesium Hydroxide (Milk Of Magnesia 30 Ml Oral.Susp) 30 ml PO DAILY PRN PRN Reason: Constipation Melatonin (Melatonin 3 Mg Tablet) 6 mg PO BEDTIME PRN PRN Reason: Insomnia Metoprolol Succinate (Metoprolol Succinate Er 25 Mg Tab.Er.24h) 25 mg PO DAILY [facility]; Protocol Last Admin: 03/10/23 09:08 Dose: 25 mg Multivitamins/Vitamin C (Multivitamin Tablet) 1 tab PO DAILY [facility] Last Admin: 03/10/23 09:09 Dose: 1 tab Ondansetron HCl (Ondansetron Odt 4 Mg Tab.Rapdis) 4 mg TRANSLINGU BID PRN PRN Reason: Nausea and Vomiting Pharmacy Consult (Consult Rx Perform Med Rec) 1 each MISCELLANE ONCE PRN PRN Reason: Consult order Trazodone HCl (Trazodone Hcl 50 Mg Tablet) 150 mg PO BEDTIME [facility] Last Admin: 03/09/23 21:01 Dose: 150 mg Allergies Allergies Allergy/AdvReac Type Severity Reaction Status Date / Time latex Allergy Unknown Unknown Uncoded 12/11/22 08:00 penicillin Allergy Unknown Unknown Uncoded 12/11/22 08:00 sulfa Allergy Unknown Unknown Uncoded 12/11/22 08:00 Assessment & Plan Assessment & Plan (1) SVT (supraventricular tachycardia): Status: Acute Code(s): I47.1 - Supraventricular tachycardia (2) Bipolar 2 disorder: Status: Acute Code(s): F31.81 - Bipolar II disorder (3) Conversion disorder: Status: Acute Code(s): F44.9 - Dissociative and conversion disorder, unspecified Time Spent With Patient Time: Total time managing care of this patient today ____ minutes.
[2023-03-10 20:08] LABS: MANUAL DIFF FLAG NO
[2023-03-10 20:17] LABS: Basophils Percent Auto 0.6 % (0-2); Eosinophils Absolute Auto 0.1 X10*3/uL (0.0-0.4); Hematocrit 35.6 % (37.0-47.0); Hemoglobin 11.1 g/dl (12.0-16.0); Imm Gran Abs Auto 0.01 X10*3/uL (0.00-0.03); Imm Gran Pct Auto 0.2 % (0.0-0.4); Lymphocytes Absolute Auto 1.2 X10*3/uL (1.2-4.9); Lymphocytes Percent Auto 25.2 % (20-40); Mean Corpuscular HGB Conc 31.2 g/dl (31.0-35.0); Mean Corpuscular Hemoglobin 26.3 pg (27.0-33.0); Mean Corpuscular Volume 84.4 fL (80.0-98.0); Mean Platelet Volume 8.8 fL (9.4-12.3); Monocytes Absolute Auto 0.4 X10*3/uL (0.1-1.2); Monocytes Percent Auto 7.6 % (2-11); Neutrophils Percent Auto 63.4 % (45-73); Platelet Count 139 X10*3/uL (160-400); Red Blood Count 4.22 X10*6/uL (4.20-5.50); Red Cell Distribution Width 16.9 % (11.0-16.0); White Blood Count 4.7 X10*3/uL (4.8-10.8)
[2023-03-10 20:28] LABS: Anion Gap 14 (12-20); Blood Urea Nitrogen 18 mg/dL (9-16); Calcium 9.5 mg/dL (8.4-10.2); Carbon Dioxide 23 mmol/L (22-29); Chloride 108 mmol/L (96-108); Creatinine Clr Calc Pharmacy 81.7; Estimated Glomerular Filt Rate > 60; Glucose Random 85 mg/dL (60-115); Magnesium 2.1 mg/dL (1.6-2.6); Potassium 3.9 mmol/L (3.3-5.1); Sodium 141 mmol/L (135-145)
[2023-03-10 20:32] LABS: B Type Natriuretic Peptide 30 pg/mL (<100)
[2023-03-10 20:58] LABS: Troponin-I High Sensitivity < 2.7 ng/L (<3.5-17.0)
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
== END 2023-03-10 21:22 | disposition short-term general hospital (02) | DRG 753 ==
PROVIDERS: Student in an Organized Health Care Education/Training Program; Admitting Provider Clinical Nurse Specialist Psychiatric/Mental Health, Adult; PCP Family Medicine; Visit Provider Clinical Nurse Specialist Psychiatric/Mental Health, Adult
DX: F31.81 Bipolar II disorder (principal); I47.1 Supraventricular tachycardia; I73.00 Raynaud's syndrome without gangrene; G25.81 Restless legs syndrome; F44.9 Dissociative and conversion disorder, unspecified; Z98.84 Bariatric surgery status; Z79.82 Long term (current) use of aspirin; Z79.899 Other long term (current) drug therapy
CPT/HCPCS: 36415; 80048; 83735; 83880; 84484; 85025; 93005

== ENCOUNTER → 2023-03-09 14:16 | Outpatient (BNV) | payer OTHER, SELFPAY | PROVIDERS: Admitting Provider Clinical Nurse Specialist Psychiatric/Mental Health, Adult; PCP Family Medicine; Visit Provider Psychiatry & Neurology Psychiatry | DX: F31.81 Bipolar II disorder (principal); F43.12 Post-traumatic stress disorder, chronic | CPT/HCPCS: 90792; 99238 ==

== ENCOUNTER 2023-03-10 21:30 | Inpatient (IN) | payer OTHER, SELFPAY ==
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
[2023-03-10 22:24] VITALS: BP 118/75; PULSE 80; RESP 18; TEMP 36.6; O2SAT 98
--- NOTE | 2023-03-10 22:37 | PC.NURSE ---
Patient came out to nursing station at approx 1999 admitting to chest pain 8/10 radiating to her back and requesting a set of vitals. Vitals administered with b.p of 138/72 and h.r in the 60's. Patient took off the b.p cuff and ran to her room where she became unresponsive with a pulse. rapid called here to assess. Patient was unresponsive for approx 30 seconds and then opened her eyes and was speaking. No seizure like activity noted. EKG, blood work administered. Patients b.p in the 170's. Patient currently states no chest pain .
[2023-03-10 23:22] VITALS: BP 128/66; PULSE 57; RESP 18; TEMP 36; O2SAT 100
[2023-03-10] MEDS: Enoxaparin Sodium 30 MG/0.3 ML SYRINGE SUBCUT (23:57)
[2023-03-10] MEDS: traZODone HCL 50 MG TABLET 150 MG PO (23:58)
[2023-03-10] MEDS: Docusate Sodium 100 MG CAPSULE PO (23:58)
--- NOTE | 2023-03-11 | ECG_ITS ---
Test Reason : rhythm Blood Pressure : / mmHG Vent. Rate : 050 BPM Atrial Rate : 050 BPM P-R Int : 194 ms QRS Dur : 080 ms QT Int : 476 ms P-R-T Axes : 066 043 035 degrees QTc Int : 433 ms Sinus bradycardia with Premature atrial complexes Otherwise normal ECG Referred By: Cynthia Guillen Electronically Signed By:Cristian Lundberg
--- NOTE | 2023-03-11 | ECG_ITS ---
Test Reason : CP Blood Pressure : / mmHG Vent. Rate : 058 BPM Atrial Rate : 058 BPM P-R Int : 188 ms QRS Dur : 078 ms QT Int : 462 ms P-R-T Axes : 061 019 029 degrees QTc Int : 453 ms Sinus bradycardia with Premature atrial complexes Otherwise normal ECG When compared with ECG of 11-MAR-2023 02:13, No significant changes seen Referred By: Abhinav Jessica Electronically Signed By:ELVIA SHEETS MD
--- NOTE | 2023-03-11 03:16 | PC.NURSE ---
Pt transferred from [facility] after rapid response and episode of syncope. Pt AOx4, very pleasant. Pt denies SOB, dizziness or chest pain. Lungs CTA. Pt HR went as low as 45, paged to notify. EKG was ordered and results sent to provider. Pt resting comfortably with call schilling in reach and bed alarm on.
[2023-03-11 03:26] VITALS: BP 99/52; PULSE 54; RESP 18; TEMP 36.1; O2SAT 98
[2023-03-11 05:36] VITALS: BMI 28.8
[2023-03-11 06:56] LABS: Alanine Aminotransferase 19 U/L (0-31); Albumin Level 3.5 g/dL (3.5-5.0); Alkaline Phosphatase 54 U/L (39-117); Anion Gap 10 (12-20); Aspartate Amino Transferase 20 U/L (5-31); Bilirubin Total 0.3 mg/dL (0.0-1.0); Blood Urea Nitrogen 15 mg/dL (9-16); Calcium 9.2 mg/dL (8.4-10.2); Carbon Dioxide 28 mmol/L (22-29); Chloride 107 mmol/L (96-108); Creatinine Clr Calc Pharmacy 92.1; Estimated Glomerular Filt Rate > 60; Glucose Random 165 mg/dL (60-115); Potassium 4.1 mmol/L (3.3-5.1); Sodium 141 mmol/L (135-145); Total Protein 5.8 g/dL (6.5-8.0)
[2023-03-11 07:07] VITALS: BP 121/74; PULSE 61; RESP 16; TEMP 36; O2SAT 100
--- NOTE | 2023-03-11 07:44 | PHA.MEDREC ---
Pharmacy Consult ? Medication Reconciliation Pharmacy has completed the medication reconciliation. Patient transferred from
[2023-03-11] MEDS: ARIPiprazole 5 MG TABLET PO (07:54)
[2023-03-11] MEDS: estradioL 0.5 MG TABLET 1 MG PO (07:54)
[2023-03-11] MEDS: Metoprolol Succinate ER 25 MG TAB.ER.24H PO (07:55)
[2023-03-11] MEDS: Atorvastatin Calcium 40 MG TABLET PO (07:55)
[2023-03-11] MEDS: 0.9 % Sodium Chloride Flush 3 ML SYRINGE IVFLUSH ×3 (07:55→22:19)
[2023-03-11] MEDS: Multivitamin TABLET 1 TAB PO (07:55)
[2023-03-11] MEDS: Ferrous Sulfate 324 MG TABLET.DR PO (07:55)
[2023-03-11] MEDS: Aspirin Enteric Coated 81 MG TABLET.DR PO (07:55)
--- NOTE | 2023-03-11 08:19 | MHC.CM.PN ---
CM met with Patient at bedside. Patient lives alone ion an apartment and required no services nor DME [employer]ASS[employer]GER [employer]. [facility] VS home/self care (Patient states that she would privately hire a GEOMETRY TEACHER like she has done in the past) is the tentative plan. CM has initiated and will follow for dc planning. Patient's Sister/Dominga is the HCP and the PCP is Dr. Barbour.
[2023-03-11 08:28] LABS: Troponin-I High Sensitivity < 2.7 ng/L (<3.5-17.0)
[2023-03-11] MEDS: Ibuprofen 400 MG TABLET PO ×2 (09:14→18:35)
[2023-03-11 11:23] VITALS: BP 129/77; PULSE 63; RESP 16; TEMP 36.8; O2SAT 100
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
[2023-03-11 15:27] VITALS: BP 98/58; PULSE 63; RESP 16; TEMP 35.9; O2SAT 98
--- NOTE | 2023-03-11 15:49 | HO.PM.IMPN ---
Subjective Subjective Date of Service: 03/11/23 Interval History: No further ?seizure? activity since admission. Heart rate has been stable (NSR) Review of Systems Denies chest pain Denies shortness of breath Denies nausea vomiting diarrhea Denies fever chills Physical Exam Vital Signs: Vital Signs: Last Vital Signs Temp 96.7 F L 03/11/23 15:27 Pulse 63 03/11/23 15:27 Resp 16 03/11/23 15:27 BP 98/58 L 03/11/23 15:27 Pulse Ox 98 03/11/23 15:27 O2 Del Method Room Air 03/11/23 15:27 BMI result Body Mass Index 28.8 Const: Other: Awake alert no acute distress Resp: Other: Clear to auscultation bilaterally no rales rhonchi or wheezes Cardio: Other: No S4; positive S1-S2; no S3 murmurs rubs or gallops Extrem: Other: No edema bilaterally Objective Data Active Medications Acetaminophen (Acetaminophen 325 Mg Tablet) 650 mg PO Q6H PRN PRN Reason: Pain, Mild (Pain Scale 1-3) Al Hydroxide/Mg Hydroxide (Magnesium Hydrox/Alum Hydrox 30 Ml Oral.Susp) 30 ml PO Q6H PRN PRN Reason: Heartburn/Nausea Aripiprazole (Aripiprazole 5 Mg Tablet) 5 mg PO DAILY [facility] Last Admin: 03/11/23 07:54 Dose: 5 mg Documented By: YOLI Aspirin (Aspirin Enteric Coated 81 Mg Tablet.) 81 mg PO DAILY [facility] Last Admin: 03/11/23 07:55 Dose: 81 mg Documented By: YOLI Atorvastatin Calcium (Atorvastatin Calcium 40 Mg Tablet) 40 mg PO DAILY [facility] Last Admin: 03/11/23 07:55 Dose: 40 mg Documented By: YOLI Clonazepam (Clonazepam 0.5 Mg Tablet) 0.25 mg PO DAILY PRN PRN Reason: anxiety Docusate Sodium (Docusate Sodium 100 Mg Capsule) 100 mg PO BID PRN PRN Reason: Constipation Enoxaparin Sodium (Enoxaparin Sodium 30 Mg/0.3 Ml Syringe) 30 mg SUBCUT Q24H [facility] Last Admin: 03/10/23 23:57 Dose: 30 mg Documented By: SHIRA Estradiol (Estradiol 0.5 Mg Tablet) 1 mg PO DAILY [facility] Last Admin: 03/11/23 07:54 Dose: 1 mg Documented By: YOLI Ferrous Sulfate (Ferrous Sulfate 324 Mg Tablet.Dr) 324 mg PO DAILY [facility] Last Admin: 03/11/23 07:55 Dose: 324 mg Documented By: YOLI Ibuprofen (Ibuprofen 400 Mg Tablet) 400 mg PO Q6H PRN PRN Reason: Headache Last Admin: 03/11/23 09:14 Dose: 400 mg Documented By: NAMITA Melatonin (Melatonin 3 Mg Tablet) 6 mg PO BEDTIME PRN PRN Reason: Insomnia Metoprolol Succinate (Metoprolol Succinate Er 25 Mg Tab.Er.24h) 25 mg PO DAILY [facility]; Protocol Last Admin: 03/11/23 07:55 Dose: 25 mg Documented By: YOLI Multivitamins/Vitamin C (Multivitamin Tablet) 1 tab PO DAILY [facility] Last Admin: 03/11/23 07:55 Dose: 1 tab Documented By: YOLI Ondansetron HCl (Ondansetron Hcl 4 Mg/2 Ml Vial) 4 mg IVPUSH Q8H PRN PRN Reason: Nausea and Vomiting Pharmacy Consult (Consult Rx Perform Med Rec) 1 each MISCELLANE ONCE PRN PRN Reason: Consult order Sodium Chloride (0.9 % Sodium Chloride Flush 3 Ml Syringe) 3 ml IVFLUSH QSHIFT [facility] Last Admin: 03/11/23 07:55 Dose: 3 ml Documented By: YOLI Labs 03/11/23 06:12 Labs: Laboratory Results - last 24 hr 03/11/23 06:12 Anion Gap 10 L Estim Creat Clear Calc 92.1 Estimated GFR > 60 Random Glucose 165 H Calcium 9.2 Total Bilirubin 0.3 AST 20 ALT 19 Alkaline Phosphatase 54 Total Protein 5.8 L Albumin 3.5 Assessment and Plan (1) SVT (supraventricular tachycardia): Status: Acute (2) Near syncope: Status: Acute (3) Bipolar 2 disorder: Status: Acute Plan 62-year-old female past medical history of SVT who was recently admitted to the medical floor then transferred to [facility] for bipolar disorder, had a rapid response called on her due to near syncope, shortness of breath and chest pain. Noted to have ?seizure? along with SVT. Has been normal sinus rhythm since admission and no seizure activity since transfer to [facility]. Recent EEG done 03/05/2023 demonstrated no abnormal activity 1.Near syncope/SVT -discussed with Cardiology; SVT likely not the cause of her near-syncope as blood pressures 160/90's -unlikely seizure activity given normal EEG; likely related to bipolar disorder -monitor continues NSR. Appreciate Cardiology input. -monitor overnight hopeful DC in a.m. 2. Bipolar disorder -continue current therapies -patient states voluntary transfer to . .. Wishes to go home in a.m. -will discuss with psych Jaya Full code Requires ongoing hospitalization to monitor cardiac rhythm for SVT. Time Spent With Patient Time: Total time managing care of this patient today ____ minutes. Quality Stroke Does the patient have a stroke diagnosis?: No VTE Prior VTE?: No VTE Risk Level:: Medical - moderate - high VTE Device Contraindication: Treatment Not Indicated VTE Drug Contraindication: N/A - Med Ordered
[2023-03-11 19:17] VITALS: BP 99/61; PULSE 64; RESP 16; TEMP 35.8; O2SAT 99
[2023-03-11] MEDS: Enoxaparin Sodium 30 MG/0.3 ML SYRINGE SUBCUT (22:18)
[2023-03-11] MEDS: clonazePAM 0.5 MG TABLET 0.25 MG PO (22:30)
[2023-03-12] VITALS: BP 87/57; PULSE 63; RESP 20; TEMP 36.1; O2SAT 98
[2023-03-12] MEDS: Lactated Ringers 1,000 ML 500 ML IV (00:50)
--- NOTE | 2023-03-12 01:35 | PC.NURSE ---
Patient A&Ox4, BP soft 87/57 at midnight vitals. Asymptomatic. NSR on air sampling and monitoring. Denies dizziness or feeling light headed. Ambulating to bathroom with stanby assist, steady on feet. notified. 1000ml LR bolus ordered and infusing.
[2023-03-12 02:59] VITALS: BP 97/51; PULSE 55; RESP 20; TEMP 36.2; O2SAT 98
[2023-03-12] MEDS: Acetaminophen 325 MG TABLET 650 MG PO (05:08)
--- NOTE | 2023-03-12 07:00 | CA_ITS ---
Transthoracic Echocardiogram Patient (Last, First, Middle): Sophia Paez, Gender: Female Date of : 1960 Age: 62 Procedure Date: 03/12/2023 Procedure Type: Transthoracic Echocardiogram Location: [facility] [place] Height: 175.26 cm Weight: 80.29 kg BSA: 1.96 m2 Heart Rate: bpm BP: 107 / 53 mmHg Band Straightener: Referring MD: Abhinav Jessica DO Aluminum Boats Assembler: Neno Jean MD Symptoms: recent svt Study Quality: Adequate w Contrast ECG Rhythm: Sinus with extra beats Conclusions: - 1. Normal LV systolic function with impaired relaxation filling pattern 2. Cardiac valvular Dopplers within normal limits 3. Normal RV systolic pressure 4. No pericardial effusion Findings Procedure Information Contrast agent, definity, is being given per protocol without apparent complications. Left Ventricle Normal left ventricular size, thickness, and systolic function. The visually estimated ejection fraction is between 60-65%. Spectral Doppler is indicative of an impaired relaxation filling pattern. E/E prime ratio is between 8 and 15 consistent with indeterminate filling pressures. Right Ventricle Normal right ventricular cavity size and systolic function. Atria Both atria are normal in size. There is no evidence of interatrial shunt. Aortic Valve The aortic valve structure and function is likely normal. There is no aortic valve stenosis. There is no aortic valve regurgitation. Mitral Valve There is mild anterior and posterior mitral leaflet thickening. There is trace mitral valve regurgitation. There is no mitral valve stenosis. Pulmonic Valve The pulmonic valve is likely normal. Tricuspid Valve Normal tricuspid valve structure. There is trace tricuspid valve regurgitation. The right ventricular systolic pressure is normal. The right ventricular systolic pressure is 23 mmHg. Normal right atrial pressure. There is no evidence of pulmonary hypertension. Great Vessels All visible segments of the aorta are normal in size. The pulmonary artery was not well visualized. Venous The inferior vena cava is normal in size and collapses greater than 50% with inspiration. Pericardium/Pleural There is no evidence of pericardial effusion. Prior Study Comparison No prior study available for comparison. Measurements 2D Linear Measurements IVSd: 0.95 0.6-0.9/0.6-1.0 cm LVIDd: 4.15 3.9-5.3/4.2-5.9 cm LVIDd Index: 2.12 2.4-3.2/2.2-3.1 cm/m2 LVIDs: 2.59 2.0-3.6 cm LVPWd: 1.08 0.7-1.1 cm Ao Root: 3.10 2.1-3.5 cm LA Diam: 3.50 2.7-3.8/3.0-4.0 cm LAIDs Index: 1.79 1.5-2.3 cm/m2 LV Mass: 227.39 67-162/88-224 g LV Mass Index: 116.02 43-95/49-115 g/m2 LVOT Diam: 2.10 3.0+(-)1.3 cm 2D Systolic Function EF 4C: 66.60 >55% EF 2C: 59.00 >55% EF BiP: 61.40 >55% Mitral Valve MV VTI: 0.36 MV Pk Hugo: 0.98 MV Mn Hugo: 0.60 MV Pk Grad: 4.00 MV Mn Grad: 2.00 MV Pk E: 0.85 MV PK A: 0.83 MV Decel Time: 228.00 E/A: 1.00 E'Lateral: 10.20 E'Medial: 8.05 E/E' Med: 10.50 E/E' Lat: 8.30 PHT: 67.00 MVA PHT: 3.28 MVA Continuity: 2.69 Decel [place]: 3.73 Aortic Valve AoV Pk Hugo: 1.33 AoV Mn Hugo: 0.84 AoV VTI: 0.30 AoV Pk Grad: 7.00 Aov Mn Grad: 3.00 DYANA Cont.VTI: 3.17 LVOT LVOT Pk Hugo: 1.24 LVOT Mn Hugo: 0.74 LVOT VTI: 0.28 LVOT Pk Grad: 6.00 LVOT Mn Grad: 3.00 LVOT Diam: 2.10 LVOT Area: 3.46 Diastolic Function MV Pk E: 0.85 MV Pk A: 0.83 E/A: 1.00 E'Medial: 8.05 E/E' Med: 10.50 E' Laterial: 10.20 E/E' Lat: 8.30 Right Ventricle TAPSE (mm): 24.00 TVS' Hugo: 11.00 Tricuspid Valve TR Pk Hugo: 2.25 TR Pk Grad: 20.00 RA Press: 3.00 RVSP: 23.00 Great Vessels Aorta Ao Root-2D: 3.10 2.0-3.7 cm Pulmonary Valve PV Pk Hugo: 0.79 Peak PV Grad: 2.00 Updated in Other Vendor System with Status of Final Neno Jean MD electronically signed on 03/12/2023 3:09:05 PM with status of Final
[2023-03-12 07:01] VITALS: BP 107/53; PULSE 64; RESP 16; TEMP 36.3; O2SAT 98
[2023-03-12] MEDS: Ferrous Sulfate 324 MG TABLET.DR PO (11:12)
[2023-03-12] MEDS: Atorvastatin Calcium 40 MG TABLET PO (11:12)
[2023-03-12] MEDS: Aspirin Enteric Coated 81 MG TABLET.DR PO (11:12)
[2023-03-12] MEDS: estradioL 0.5 MG TABLET 1 MG PO (11:12)
[2023-03-12] MEDS: Multivitamin TABLET 1 TAB PO (11:13)
[2023-03-12] MEDS: ARIPiprazole 5 MG TABLET PO (11:13)
[2023-03-12] MEDS: 0.9 % Sodium Chloride Flush 3 ML SYRINGE IVFLUSH (11:16)
[2023-03-12 11:23] VITALS: BP 127/68; PULSE 57; RESP 16; TEMP 36; O2SAT 99
[2023-03-12] MEDS: Ibuprofen 400 MG TABLET PO (11:24)
--- NOTE | 2023-03-12 12:34 | P.DS_ITS ---
DS: Providers Provider Date of Service: 03/12/23 Date of admission: 03/10/23 21:30 Date of discharge: 03/12/23 Primary care physician: Unknown Physician Consults: 03/10/23 21:36 Consult to Cardiology Routine Consulting Provider: [facility] [place] [facility] Reason for consultation: SVT Has provider been notified: No 03/12/23 11:31 Consult to Care Team Stat Comment: Reason for consultation: Level of care. Discussed with Dr. Roth DS: Diagnosis Discharge Diagnosis (1) SVT (supraventricular tachycardia): Status: Acute (2) Near syncope: Status: Acute (3) Bipolar 2 disorder: Status: Acute DS: Summary Hospital Course Hospital Course: 62-year-old female who has a history of SVT, bipolar disorder, depression, history of hyponatremia, HLD, PTSD, among others who was seen on the medical floor and discharged to [facility] on 03/09, rapid response was called on this patient due to complaints of shortness of breath, dizziness. ? Patient is in bed, has purple fingertips, reports that she started feeling dizzy, and had SVTs.? She felt the SVTs, felt like she was about to pass out, came into bed, was also having midsternal chest pain nonradiating, mild, resolved spontaneously after a few minutes, reports feeling short of breath. ? vitals were checked showed a normal blood pressure, heart rate was very difficult to obtain but we were able to get an EKG which showed a heart rate of 79, satting 97% on room air. ?labs were obtained which showed a? WBC count of 4.7, hemoglobin of 11.1, all at baseline, normal BMP? And BNP,? negative troponin. ?EKG was abnormal showed? sawtooth pattern in V5, concerning for a flutter Hospital course Seen in consultation by Cardiology who had previously seen patient on M5. Recommendation was to stop Toprol XL and add verapamil 120 mg daily. We can follow-up as outpatient. Does not believe SVT had anything to do with questionable seizure versus syncopal episode. Of note patient had normal EEG earlier this month. On the day of discharge she was seen by the care team and deemed appropriate for discharge and they have arranged outpatient follow-up. She will be discharged with verapamil 120 daily is being the only change in her medical regimen. She can follow-up with PCP and psych as arranged Time Spent with Patient Time attestation: Total time managing care of this patient today ____ minutes. Discharge coordination time: Greater than 30 minutes Quality: Safe Use of Opioids Does Pt have an Active Cancer Diagnosis on the Problem List?: No Quality: Stroke Does the patient have a stroke diagnosis?: No Physical Exam Vital Signs: Vital Signs: Last Vital Signs Temp 96.8 F 03/12/23 11:23 Pulse 57 03/12/23 11:23 Resp 16 03/12/23 11:23 BP 127/68 03/12/23 11:23 Pulse Ox 99 03/12/23 11:23 O2 Del Method Room Air 03/12/23 07:01 BMI result Body Mass Index 28.8 Discharge Plan Discharge Anticipated Discharge Date/Time: 03/12/23 12:32 Patient Disposition: Home, Self-Care Discharge Diagnosis: SVT Referrals: Physician,Unknown J [Primary Care Provider] - 1 Week Discharge Medications: Continued multivitamin Tablet 1 tab PO DAILY estradiol 1 mg PO DAILY trazodone 50 mg Tablet 150 mg PO BEDTIME Qty: 0 0RF docusate sodium 100 mg Capsule 100 mg PO BID PRN (Reason: Constipation) Qty: 0 0RF ibuprofen 400 mg Tablet 400 mg PO Q6H PRN (Reason: Headache) bupropion HCl 75 mg Tablet 75 mg PO DAILY Rx Instructions: administer 6 hours apart hydroxyzine HCl 25 mg Tablet 25 mg PO Q6H PRN (Reason: Anxiety) metoprolol succinate [Toprol XL] 25 mg Tablet Extended Release 24 Hr 25 mg PO DAILY aripiprazole [Abilify] 5 mg Tablet 5 mg PO DAILY clonazepam 0.5 mg tablet 0.25 mg PO DAILY PRN (Reason: anxiety) atorvastatin 40 mg tablet 40 mg PO DAILY aspirin 81 mg tablet,delayed release (DR/EC) 81 mg PO DAILY ferrous sulfate 325 mg (65 mg iron) tablet,delayed release (DR/EC) 325 mg PO QAM Discharge Orders: Discharge Order (Routine); Ordered 03/11/23 Ordered By: Abhinav Jessica Diet: Advance to usual diet Activity on Discharge: As tolerated Stand Alone Forms: Patient Portal Discharge page Care Plan Goals: Resume all therapies as taken prior to hospital Health Concerns: Follow-up with counselors therapist as recommended Plan of Treatment: Follow-up with PCP in 2 weeks Assessment: See discharge summary
--- NOTE | 2023-03-12 13:02 | MHC.CM.PN ---
Pt is medically cleared for D/C home self-care, pts friend will transport her home.
[2023-03-12] MEDS: clonazePAM 0.5 MG TABLET 0.25 MG PO (14:05)
== END 2023-03-12 15:28 | disposition home or self-care (01) | DRG 201 ==
PROVIDERS: Admitting Provider Internal Medicine; PCP Family Medicine; Visit Provider Hospitalist
DX: I47.1 Supraventricular tachycardia (principal); R56.9 Unspecified convulsions; F31.81 Bipolar II disorder; F43.10 Post-traumatic stress disorder, unspecified; K21.9 Gastro-esophageal reflux disease without esophagitis; Z98.84 Bariatric surgery status; Z79.82 Long term (current) use of aspirin; Z79.899 Other long term (current) drug therapy
CPT/HCPCS: 36415; 80053; 84484; 93005; 93306; 99222; J1650; Q9957

== ENCOUNTER 2023-03-10 21:30 | Outpatient (BNV) | payer OTHER, SELFPAY | END 2023-03-11 02:13 | PROVIDERS: Admitting Provider Internal Medicine; Visit Provider Internal Medicine Cardiovascular Disease | DX: I49.1 Atrial premature depolarization (principal) | CPT/HCPCS: 93010 ==

== ENCOUNTER 2023-03-10 21:30 | Outpatient (BNV) | payer OTHER, SELFPAY | END 2023-03-12 07:00 | PROVIDERS: Admitting Provider Internal Medicine; PCP Family Medicine; Visit Provider Internal Medicine Cardiovascular Disease | DX: I34.0 Nonrheumatic mitral (valve) insufficiency (principal) | CPT/HCPCS: 93306 ==

== ENCOUNTER → 2023-03-10 21:30 | Outpatient (BNV) | payer OTHER, SELFPAY | PROVIDERS: Admitting Provider Internal Medicine; Visit Provider Internal Medicine Cardiovascular Disease | DX: R55 Syncope and collapse (principal); I47.1 Supraventricular tachycardia; R07.9 Chest pain, unspecified | CPT/HCPCS: 93010; 99222 ==

== ENCOUNTER → 2023-03-10 21:30 | Outpatient (BNV) | payer OTHER, SELFPAY | PROVIDERS: Admitting Provider Internal Medicine; Visit Provider Internal Medicine | DX: I47.1 Supraventricular tachycardia (principal); R55 Syncope and collapse; F31.81 Bipolar II disorder | CPT/HCPCS: 99223; 99233; 99239 ==

== ENCOUNTER 2023-03-22 09:40 | Outpatient (AMB) | payer OTHER, SELFPAY ==
[2023-03-22 09:41] VITALS: BP 108/62; PULSE 65; O2SAT 97; BMI 27.2
--- NOTE | 2023-03-22 09:41 | MHC.OFFVIS ---
Intake Vital Signs 03/22/23 09:41 Height 5 ft 9 in Weight 184 lb 8 oz BMI 27.2 BP 108/62 Blood Pressure Location Rt brachial Position Sitting Pulse 65 Pulse Source Pulse Oximeter Pulse Oximetry (%) 97 Oxygen Delivery Method Room Air Intake Visit Reasons: Hospital F/U (ok per )-confirmed Intake Note: Pt presents as a hospital f/u. Train Examiner Required: No Accompanied by: Friend Allergies latex Allergy (Unknown, Uncoded 03/22/23 09:45) Unknown penicillin Allergy (Unknown, Uncoded 03/22/23 09:45) Unknown sulfa Allergy (Unknown, Uncoded 03/22/23 09:45) Unknown HPI HPI Comments History of Present Illness Details 62y/o right handed female comes for further management of tremors.she reports unsteadiness and uses a cane. she was recently hospitalized for worsening of her bipolar disorder . During her psych hospitalization , she had episodes of passing out ? or unresponsiveness and was evaluated by cardiology.. The tremors are in her UE and head.She thinks it started about 10 years ago and has worsened since then Her mother has h/o tremors- diagnosed with benign tremors . The patient also had arthroplasty in her hands , carpal tunnel syndrome, etc. ADLS affected-her handwriting is poor, difficulty with applying make up,eating, drinking liquids,personal hygiene, dressing etc. she did not respond to primidone, propranolol - she had syncope.she has h/o exposure to neuroleptics [facility] Medical History Acute cataract Anxiety Arthritis Bipolar 2 disorder Carotid artery stenosis Faulkner syndrome Cataract Cervical dystonia Cervicalgia Conversion disorder Conversion disorder Essential and other specified forms of tremor GERD (gastroesophageal reflux disease) Hyperlipidemia Hyponatremia Mitral valve prolapse Non-motor epileptic seizure Osteopenia PTSD (post-traumatic stress disorder) Raynauds syndrome (~08/2022) Restless legs syndrome (RLS) Seizures Syncope TIA (transient ischemic attack) Surgical History Gastric bypass status for obesity H/O arthroplasty History of hysterectomy Family History Father Heart disease Depressed Mother Heart disease Social History Household Members: None Housing: Apartment Do you presently have visiting nurse or other home services: No Alcohol intake: never Patient Tobacco Use Status: Never used Tobacco e-Cigarette/Vaping Use: Never Used service: No Sexual orientation: Straight/Heterosexual Physical Exam Vital Signs: Last Vital Signs Pulse 65 03/22/23 09:41 BP 108/62 03/22/23 09:41 Pulse Ox 97 03/22/23 09:41 Oxygen Delivery Method Room Air 03/22/23 09:41 BMI result Body Mass Index 27.2 Const General: cooperative, healthy appearing and comfortable Nutritional Appearance: overweight Orientation/consciousness: patient oriented x3 Eyes Pupils: Equal, round and reactive pupils present Neuro Other: No no head tremors - moderate, with right torticollis , tenderness in right splenius, levator , scalene muscles Tad UE postural tremors, moderate action tremors severe R>L General: patient oriented x3, tone normal, moves all extremities and no focal motor deficits Cranial nerves: Yes Facial sensation intact/muscles of mastication intact, Yes Equal, round and reactive pupils present, Yes Bilaterally intact EOM present, Yes Nystagmus not present, Yes Normal facial strength present and Yes Midline tongue present Cognition (Neuro): normal cognition Speech: Other speech findings present (Neuro) (mild voice tremors) Gait exam (Neuro): Antalgic gait present Motor exam (neuro): 5/5 motor strength present throughout and Normal motor muscle tone present throughout Deep tendon reflexes (DTR's): Right triceps reflex intensity grade: 1+, Left triceps reflex intensity grade: 1+, Rt Biceps (C5, C6): 1+, Left biceps reflex intensity grade: 1+, Right brachioradialis reflex intensity grade: 1+, Left brachioradialis reflex intensity grade: 1+ and Right patellar reflex intensity grade: 1+ Coordination: [id number] test normal Assessment & Plan Assessment & Plan (1) Essential and other specified forms of tremor: Code(s): G25.0 - Essential tremor; G25.2 - Other specified forms of tremor (2) Cervical dystonia: Code(s): G24.3 - Spasmodic torticollis Plan will consider restarting primidone 50mg bid HARLAN TRIO - for tad hand tremors- not covered by her insurance F/u psychiatry Will trial her on botox for cervical dystonia Coding Level of Care Code Est Pt Level 4 (60701) Diagnoses Essential and other specified forms of tremor G25.0; G25.2 Cervical dystonia G24.3
== END 2023-03-22 10:10 | disposition home or self-care (01) ==
PROVIDERS: PCP Family Medicine; Visit Provider Psychiatry & Neurology Neurology
DX: G25.0 Essential tremor (principal); G25.2 Other specified forms of tremor; G24.3 Spasmodic torticollis
CPT/HCPCS: 99214

== ENCOUNTER → 2023-03-22 09:40 | Outpatient (BNVA) | payer OTHER, SELFPAY | PROVIDERS: PCP Family Medicine; Visit Provider Psychiatry & Neurology Neurology ==

== ENCOUNTER 2023-04-06 12:55 | Outpatient (AMB) | payer OTHER, SELFPAY ==
[2023-04-06 12:57] VITALS: BP 118/74; PULSE 60; O2SAT 99
--- NOTE | 2023-04-06 12:57 | A.OFFVIS_ITS ---
Intake Vital Signs 04/06/23 12:57 Height 5 ft 9 in BMI Reason not done Patient refused/unable BP 118/74 Blood Pressure Location Lt brachial Position Sitting Pulse 60 Pulse Source Pulse Oximeter Pulse Oximetry (%) 99 Oxygen Delivery Method Room Air Intake Visit Reasons: Botox-confirmed Intake Note: Pt presents in office for Botox. Hl7 Interface Developer Required: No Allergies latex Allergy (Unknown, Uncoded 04/06/23 13:00) Unknown penicillin Allergy (Unknown, Uncoded 04/06/23 13:00) Unknown sulfa Allergy (Unknown, Uncoded 04/06/23 13:00) Unknown Medication List - Last Reconciled 04/06/23 by Cheryl Garcia MD aripiprazole (Abilify) 5 mg PO DAILY aspirin 81 mg PO DAILY atorvastatin 40 mg PO DAILY clonazepam 0.5 mg PO DAILY PRN diphenhydramine HCl (Benadryl) 50 mg PO BEDTIME PRN [estradiol 1 mg PO DAILY] ferrous sulfate 365 mg PO QAM multivitamin 1 tab PO DAILY trazodone 150 mg PO BEDTIME verapamil ER 120 mg PO DAILY HPI HPI Comments History of Present Illness Details 62 y/o female comes for treatment of her cervical dystonia ? Side effects including spread of toxin effect, dysphagia, breathing difficulties , bronchitis etc was discussed in detail and the patient agreed to the procedure.An informed consent was obtained ??? Botulinum toxin type A 100units X 1 -was diluted with 2 cc of normal saline at a concentration of 25 units in 0.5cc saline. Lot number [id number] expiration 03/2025 ??? Muscles injected ? Tad levator 50 units each ? Total used 100 units PFSH Medical History Non-motor epileptic seizure Conversion disorder Hyponatremia Cervical dystonia Essential and other specified forms of tremor Cervicalgia Osteopenia GERD (gastroesophageal reflux disease) Hyperlipidemia Anxiety Restless legs syndrome (RLS) Mitral valve prolapse PTSD (post-traumatic stress disorder) Cataract Arthritis TIA (transient ischemic attack) Conversion disorder Bipolar 2 disorder Raynauds syndrome (~08/2022) Carotid artery stenosis Seizures Syncope Acute cataract Faulkner syndrome Surgical History H/O arthroplasty History of hysterectomy Gastric bypass status for obesity Family History Father Heart disease Depressed Mother Heart disease Social History Household Members: None Housing: Apartment Do you presently have visiting nurse or other home services: No Alcohol intake: never Patient Tobacco Use Status: Never used Tobacco e-Cigarette/Vaping Use: Never Used service: No Sexual orientation: Straight/Heterosexual Physical Exam Vital Signs: Last Vital Signs Pulse 60 04/06/23 12:57 BP 118/74 04/06/23 12:57 Pulse Ox 99 04/06/23 12:57 Oxygen Delivery Method Room Air 04/06/23 12:57 Const General: cooperative, healthy appearing and comfortable Nutritional Appearance: overweight Orientation/consciousness: patient oriented x3 Neuro Other: No no head tremors - moderate, with right torticollis , tenderness in right splenius, levator , scalene muscles Tad UE postural tremors, moderate action tremors severe R>L General: patient oriented x3, tone normal, moves all extremities and no focal motor deficits Speech: Other speech findings present (Neuro) (mild voice tremors) Gait exam (Neuro): Antalgic gait present Motor exam (neuro): 5/5 motor strength present throughout and Normal motor muscle tone present throughout Coordination: [id number] test normal Office Procedures Botulinum toxin Injection 18216 - Dystonia Procedure code (CPT) selection complete Office Meds onabotulinumtoxinA 100 unit solution for injection Performing Provider: Cheryl Garcia MD Performing Location: [facility] Administered by: Cheryl Garcia MD on 04/06/23 13:34 Dose Route Admin Location Dispensed Lot Number Expiration Date [facility] Health Education Aide 100 unit IM 100 units [id number] 03/30/25 1847-1841-19 [employer] Comments: see HPI Assessment & Plan Assessment & Plan (1) Cervical dystonia: Code(s): G24.3 - Spasmodic torticollis Plan Patient tolerated the procedure well she will call with any side effects Orders: Orders AMB Botulinum toxin Injection Today G24.3 - Spasmodic torticollis Coding Level of Care Code Est Pt Level 1 (24576) Diagnoses Cervical dystonia G24.3 CPT Codes Botox Injection - Botox 4: 79249 - Dystonia ([id number])
== END 2023-04-06 13:32 | disposition home or self-care (01) ==
PROVIDERS: Visit Provider Psychiatry & Neurology Neurology
DX: G24.3 Spasmodic torticollis (principal)
CPT/HCPCS: 64616

== ENCOUNTER → 2023-04-06 12:55 | Outpatient (BNVA) | payer OTHER, SELFPAY | PROVIDERS: Visit Provider Psychiatry & Neurology Neurology | DX: G24.3 Spasmodic torticollis (principal) | CPT/HCPCS: 64616; 99211; J0585 ==

== ENCOUNTER 2024-02-01 16:03 | Inpatient (IN) | payer OTHER, SELFPAY ==
[2024-02-01 16:13] VITALS: BP 116/65; PULSE 63; RESP 18; TEMP 36.4; O2SAT 98; BMI 27.1
[2024-02-01 16:35] VITALS: BP 116/65; PULSE 63; RESP 18; TEMP 36.4; O2SAT 98
--- NOTE | 2024-02-01 17:24 | ED.PSYCH ---
HPI - Psych General Chief Complaint: Psychiatric Symptoms Stated Complaint: SI Time Seen by Provider: 02/01/24 16:58 Source: patient Mode of arrival: ambulatory Limitations: no limitations History of Present Illness ED Provider: DR. Dumont HPI Narrative: 63-year-old female history of depression and SI in the past patient was taking antidepressant medication that she did not take for the past 3 months at least. Patient with increasing depression and SI with plan to overdose on her medication. Patient had a prior suicidal attempts and had history of mental health hospitalization in the past. Patient is here for further evaluation. Related Data Home Medications ?Medication ?Instructions ?Recorded ?Confirmed aspirin 81 mg tablet,delayed 81 mg PO DAILY 12/11/22 02/01/24 release atorvastatin 40 mg tablet 40 mg PO DAILY 12/11/22 02/01/24 estradiol 1 mg PO DAILY 02/23/23 02/01/24 multivitamin 1 tab PO DAILY 02/23/23 02/01/24 clonazepam 0.5 mg tablet 0.5 mg PO DAILY PRN anxiety 03/22/23 02/01/24 diphenhydramine HCl 25 mg capsule 50 mg PO BEDTIME PRN Insomnia 03/22/23 02/01/24 (Benadryl) ferrous sulfate 325 mg (65 mg 365 mg PO QAM 03/22/23 02/01/24 iron) tablet,delayed release trazodone 50 mg tablet 150 mg PO BEDTIME 03/22/23 02/01/24 apixaban 5 mg tablet (Eliquis) 5 mg PO BID 02/01/24 02/01/24 lamotrigine 300 mg tablet,extended 300 mg PO DAILY 02/01/24 02/01/24 release 24 hr metoprolol succinate 25 mg 25 mg PO DAILY 02/01/24 02/01/24 tablet,extended release 24 hr topiramate 25 mg tablet 25 mg PO DAILY 02/01/24 02/01/24 Allergies Allergy/AdvReac Type Severity Reaction Status Date / Time latex Allergy Unknown Unknown Uncoded 02/01/24 16:19 penicillin Allergy Unknown Unknown Uncoded 02/01/24 16:19 sulfa Allergy Unknown Unknown Uncoded 02/01/24 16:19 Review of Systems Review of Systems: All other systems are reviewed and are negative Constitutional: Reports as per HPI and Reports no additional constitutional complaints Eyes: Reports as per HPI and Reports no additional eye complaints Reports system reviewed and no additional complaints, except as documented Cardiovascular: Reports as per HPI and Reports no additional cardiovascular complaints Respiratory: Reports as per HPI and Reports no additional respiratory complaints Gastrointestinal: Reports as per HPI and Reports no additional gastrointestinal complaints Genitourinary: Reports no additional female genitourinary complaints Musculoskeletal: Reports no additional musculoskeletal complaints Skin/Breast: Reports system reviewed and no additional complaints, except as docu Psychiatric: Reports no additional psychiatric complaints Endocrine: Reports no additional endocrine complaints Hematologic/Lymphatic: Reports no additional hematologic/lymphatic complaints Allergic/Immunologic: Reports no additional allergic/immunologic complaints Reports system reviewed and no additional complaints, except as documented and Reports Abnormal speech present [facility] Past Medical History Medical History Non-motor epileptic seizure Conversion disorder Hyponatremia Cervical dystonia Essential and other specified forms of tremor Cervicalgia Osteopenia GERD (gastroesophageal reflux disease) Hyperlipidemia Anxiety Restless legs syndrome (RLS) Mitral valve prolapse PTSD (post-traumatic stress disorder) Cataract Arthritis TIA (transient ischemic attack) Conversion disorder Bipolar 2 disorder Raynauds syndrome (~08/2022) Carotid artery stenosis Seizures Syncope Acute cataract Faulkner syndrome Surgical History H/O arthroplasty History of hysterectomy Gastric bypass status for obesity Family History Family History Father Heart disease Depressed Mother Heart disease Social History Social History Household Members: None Housing: Apartment Do you presently have visiting nurse or other home services: No Alcohol intake: never Patient Tobacco Use Status: Never used Tobacco e-Cigarette/Vaping Use: Never Used Advance Directives: No Advance Directives Information Provided: No Do you have a plan to hurt others: No Plan service: No Sexual orientation: Straight/Heterosexual Physical Exam Vital Signs: Vital Signs: Last Vital Signs Temp 97.6 F 02/01/24 16:35 Pulse 63 02/01/24 16:35 Resp 18 02/01/24 16:35 BP 116/65 02/01/24 16:35 Pulse Ox 98 02/01/24 16:35 O2 Del Method Room Air 02/01/24 16:35 BMI result Body Mass Index 27.1 Vital signs have been reviewed and appear to be correct. Blood pressure elevated. Heart rate normal. Respiratory rate normal. Temperature normal. Oxygen saturation normal. Appearance: Alert. Oriented X3. No acute distress. Head: Normal external exam. Normocephalic. Atraumatic. No Grossman signs noted. No raccoon eyes noted Eyes: PERRLA. EOMI. Conjunctiva and sclera normal. Eyelids normal. ENT: TM's Normal. Pharynx normal. Uvula midline. Moist mucous membranes. No trismus noted. No drooling noted. No muffled voice noted. Neck: Normal inspection. Neck supple. FROM. No adenopathy. Thyroid Normal. No meningeal signs. No neck mass noted. CVS: Normal heart rate and rhythm. Heart sound normal. No murmurs noted. Pulses normal throughout. Respiratory: No respiratory distress. Painless inspiration. Breath sounds normal. No wheezes/rales/rhonchi noted. Chest nontender. No accessory muscle usage noted or decreased air movement noted. Abdomen: Soft and nontender. Bowel sounds normal in all 4 quadrants. No distention noted. No organomegaly noted. No visible injury noted. Back: No CVA tenderness. Full range of motion noted. Skin: Skin warm and dry. Normal skin color. Normal skin turgor. No rashes/lesions/lacerations noted. Extremities: No lower extremity edema. Extremities exhibit normal range of motion. Extremities nontender. Neuro: Oriented X 3. Cranial nerve exam: II-XII are grossly intact No motor deficit. No sensory deficit. Reflexes normal. Patient Orientation: Person, Place, Time and Situation, okay hygiene and grooming. Fair eye contact, attentive, no tics or tremors. Level of Consciousness: Awake, Appropriate and Alert Patient Behavior: Appropriate, Guarded, Cooperative and Anxious Mood Description: Constricted, Blunted and Apprehensive Affect Description: Constricted, Blunted and Apprehensive Patient Cognition Impaired: No Ability to Follow Directions: Excellent Speech Pattern: Clear, Appropriate and Spontaneous Speech, nonpressured, spontaneous with regular rate and rhythm, normal volume and prosody. No dysarthria. Memory Description: Intact, Immediate Intact and Short Term Intact Hallucinations: None Delusions: Not Present Thought Process: Intact Thought Content: Admit to Suicidal Ideation and denies Homicidal Ideation. Depressive Symptoms: Not present. Judgement and Insight: Limited but adequate. Course Reevaluation(s) Reevaluation #1: Depression and SI, start physician observation, care team for evaluation and consultation. Time: 17:27 Medical Decision Making Differential Diagnosis Differential Diagnoses: The differential diagnosis associated with the presentation includes (Medical clearance, severe anemia, electrolyte derangement, severe depression, SI, HI, acute psychosis, UTI, substance abuse.) Admission/Observation Consideration of admission/observation: Escalation of care including admission/observation considered Lab Data MDM Lab Attestation statement: I reviewed the patient's lab results. Discharge Plan Discharge Clinical Impression: Depression, Suicidal ideation Patient Disposition: Still a Patient Prescriptions: No Action multivitamin Tablet 1 tab PO DAILY estradiol 1 mg PO DAILY topiramate 25 mg tablet 25 mg PO DAILY metoprolol succinate 25 mg tablet extended release 24 hr 25 mg PO DAILY lamotrigine 300 mg tablet extended release 24hr 300 mg PO DAILY Eliquis 5 mg tablet 5 mg PO BID atorvastatin 40 mg tablet 40 mg PO DAILY aspirin 81 mg tablet,delayed release (DR/EC) 81 mg PO DAILY clonazepam 0.5 mg tablet 0.5 mg PO DAILY PRN (Reason: anxiety) ferrous sulfate 325 mg (65 mg iron) tablet,delayed release (DR/EC) 365 mg PO QAM trazodone 50 mg tablet 150 mg PO BEDTIME diphenhydramine HCl [Benadryl] 25 mg capsule 50 mg PO BEDTIME PRN (Reason: Insomnia) Interventions: [place]-Suicide Risk Severity Scale Last Done: 02/01/24 16:36 Print Language: Yi
[2024-02-01 18:33] LABS: MANUAL DIFF FLAG NO
[2024-02-01 18:38] LABS: Appearance Urine Clear; Color Urine Yellow; Glucose Urine UA Negative (Negative); Leukocyte Esterase Urine Negative (Negative); Nitrite Urine Negative (Negative); PH 5.5 (5.0-9.0); Specific Gravity - Urine 1.015 (1.005-1.025); Urine Blood Negative (Negative); Urine Ketones Negative (Negative); Urine Protein Negative (Neg-Trace)
[2024-02-01 18:42] LABS: Basophils Percent Auto 0.6 % (0-2); Eosinophils Absolute Auto 0.4 X10*3/uL (0.0-0.4); Eosinophils Percent Auto 5.2 % (0-4); Hematocrit 39.8 % (37.0-47.0); Hemoglobin 13.3 g/dl (12.0-16.0); Imm Gran Abs Auto 0.02 X10*3/uL (0.00-0.03); Imm Gran Pct Auto 0.3 % (0.0-0.4); Lymphocytes Absolute Auto 1.4 X10*3/uL (1.2-4.9); Lymphocytes Percent Auto 20.5 % (20-40); Mean Corpuscular HGB Conc 33.4 g/dl (31.0-35.0); Mean Corpuscular Hemoglobin 30.9 pg (27.0-33.0); Mean Corpuscular Volume 92.6 fL (80.0-98.0); Mean Platelet Volume 9.9 fL (9.4-12.3); Monocytes Absolute Auto 0.3 X10*3/uL (0.1-1.2); Monocytes Percent Auto 4.6 % (2-11); Neutrophils Absolute Auto 4.8 x10*3/uL (2.0-8.3); Neutrophils Percent Auto 68.8 % (45-73); Platelet Count 167 X10*3/uL (160-400); Red Cell Distribution Width 13.6 % (11.0-16.0)
[2024-02-01 18:56] LABS: Acetaminophen LAB < 3 mcg/mL (<30); Ethanol < 10 mg/dL; Salicylate < 5.0 mg/dL (15-30)
[2024-02-01 18:57] LABS: Alanine Aminotransferase 15 U/L (0-31); Albumin Level 4.1 g/dL (3.5-5.0); Alkaline Phosphatase 66 U/L (39-117); Anion Gap 11 (12-20); Aspartate Amino Transferase 19 U/L (5-31); Bilirubin Direct 0.1 mg/dL (0.0-0.5); Bilirubin Total 0.4 mg/dL (0.0-1.0); Blood Urea Nitrogen 15 mg/dL (9-16); Calcium 9.4 mg/dL (8.4-10.2); Carbon Dioxide 24 mmol/L (22-29); Chloride 109 mmol/L (96-108); Creatinine Clr Calc Pharmacy 71.6; Estimated Glomerular Filt Rate 60; Glucose Random 102 mg/dL (60-115); Lipase 57 U/L (8-78); Potassium 3.8 mmol/L (3.3-5.1); Sodium 140 mmol/L (135-145); Total Protein 6.8 g/dL (6.5-8.0)
[2024-02-01 19:15] LABS: Influenza A PCR NEGATIVE (Negative); Influenza B PCR NEGATIVE (Negative); Resp Syncy Virus RNA Qual PCR NEGATIVE (Negative); SARS COV2 PCR INHOUSE NEGATIVE (Negative)
--- NOTE | 2024-02-01 19:18 | PC.NURSE ---
patient appears to remain resting presently appears in no distress, awaits care team assessment.
[2024-02-01 22:13] LABS: Amphetamine Screen Urine Not Detected (Not Detect); Barbiturates, Urine Not Detected (Not Detect); Benzodiazepines Screen Urine Not Detected (Not Detect); Buprenorphine Scr Not Detected (Not Detect); Cannabinoid Screen Urine Not Detected (Not Detect); Cocaine Screen Urine Not Detected (Not Detect); Fentanyl, urine Not Detected (Not Detect); Methadone Screen, Urine Not Detected (Not Detect); Opiate Screen Urine Not Detected (Not Detect); Oxycodone Screen Urine Not Detected (Not Detect); Phencyclidine Screen Urine Not Detected (Not Detect)
[2024-02-02] MEDS: clonazePAM 0.5 MG TABLET PO (03:12)
[2024-02-02] MEDS: Apixaban 5 MG TABLET PO ×3 (03:12→21:04)
[2024-02-02 06:31] VITALS: BP 116/72; PULSE 51; TEMP 36.4; O2SAT 99
--- NOTE | 2024-02-02 07:29 | PC.NURSE ---
Assumed care of patient at 0645. No signs of distress, breathing is even and unlabored. Patient is observed resting quietly in their bed.
[2024-02-02 08:40] VITALS: BP 112/77; PULSE 65; TEMP 36.7; O2SAT 99
[2024-02-02] MEDS: Ferrous Sulfate 324 MG TABLET.DR PO (09:07)
[2024-02-02] MEDS: Aspirin Enteric Coated 81 MG TABLET.DR PO (09:07)
[2024-02-02] MEDS: Multivitamin TABLET 1 TAB PO (09:07)
[2024-02-02] MEDS: Atorvastatin Calcium 40 MG TABLET PO (09:08)
[2024-02-02] MEDS: Metoprolol Succinate ER 25 MG TAB.ER.24H PO (09:08)
[2024-02-02] MEDS: Topiramate 25 MG TABLET PO (09:08)
[2024-02-02] MEDS: estradioL 0.5 MG TABLET 1 MG PO (09:21)
[2024-02-02] MEDS: Acetaminophen 325 MG TABLET 650 MG PO (13:38)
--- NOTE | 2024-02-02 14:05 | PHA.MEDREC ---
Pharmacy Consult ? Medication Reconciliation Pharmacy has completed the medication reconciliation. spoke with patient to confirm medications. She is not taking losartan, furosemide, and keppra, states she was put on them from being hospitalized but her neurologist took her off them when she got out. Patient states she is on estrogen 1mg daily but the rx ran out a long time ago, states she has extra at home but is seeing her OB soon to get refills. She confirmed clonazepam, trazodone, metoprolol, and iron dosing.
[2024-02-02 16:28] VITALS: BP 110/70; PULSE 47; RESP 16; TEMP 36.3; O2SAT 99
--- NOTE | 2024-02-02 19:37 | PC.NURSE ---
patient appears to remain at rest at present respirations are even and unlabored patient appears in no distress
[2024-02-02] MEDS: traZODone HCL 50 MG TABLET 150 MG PO (21:04)
[2024-02-03 06:27] VITALS: BP 95/48; PULSE 57; RESP 16; TEMP 37.1; O2SAT 98
--- NOTE | 2024-02-03 07:10 | PC.NURSE ---
Assumed care of patient at 0645. No signs of distress, breathing is even and unlabored. Patient is observed resting quietly in their bed.
[2024-02-03] MEDS: Aspirin Enteric Coated 81 MG TABLET.DR PO (09:10)
[2024-02-03] MEDS: Topiramate 25 MG TABLET PO (09:10)
[2024-02-03] MEDS: Ferrous Sulfate 324 MG TABLET.DR PO (09:10)
[2024-02-03] MEDS: Multivitamin TABLET 1 TAB PO (09:11)
[2024-02-03] MEDS: Atorvastatin Calcium 40 MG TABLET PO (09:11)
[2024-02-03] MEDS: Apixaban 5 MG TABLET PO ×2 (09:11→21:29)
[2024-02-03 09:12] VITALS: PULSE 57
[2024-02-03] MEDS: estradioL 0.5 MG TABLET 1 MG PO (10:07)
[2024-02-03 10:13] VITALS: BP 112/84; PULSE 68; RESP 14; TEMP 36.7; O2SAT 98
[2024-02-03 14:05] VITALS: BP 93/58; PULSE 65; RESP 14; TEMP 37.1; O2SAT 100
[2024-02-03] MEDS: traZODone HCL 50 MG TABLET 150 MG PO (21:29)
[2024-02-04 06:09] VITALS: BP 90/60; PULSE 73; TEMP 36.1; O2SAT 99
--- NOTE | 2024-02-04 07:52 | ECG_ITS ---
Test Reason : medication side effect, QT duration Blood Pressure : / mmHG Vent. Rate : 059 BPM Atrial Rate : 059 BPM P-R Int : 186 ms QRS Dur : 078 ms QT Int : 446 ms P-R-T Axes : 064 032 027 degrees QTc Int : 441 ms Sinus bradycardia with Premature supraventricular complexes Septal infarct , age undetermined Abnormal ECG When compared with ECG of 11-MAR-2023 08:07, Septal infarct is now Present Nonspecific T wave abnormality now evident in Lateral leads Referred By: Kike Quinteros Electronically Signed By:Cristian Lundberg
[2024-02-04] MEDS: Ferrous Sulfate 324 MG TABLET.DR PO (09:54)
[2024-02-04] MEDS: Aspirin Enteric Coated 81 MG TABLET.DR PO (09:54)
[2024-02-04] MEDS: Apixaban 5 MG TABLET PO ×2 (09:54→21:30)
[2024-02-04] MEDS: Atorvastatin Calcium 40 MG TABLET PO (09:54)
[2024-02-04] MEDS: Multivitamin TABLET 1 TAB PO (09:54)
[2024-02-04] MEDS: Topiramate 25 MG TABLET PO (09:55)
[2024-02-04] MEDS: Acetaminophen 325 MG TABLET PO (09:55)
[2024-02-04 10:00] VITALS: BP 101/62
--- NOTE | 2024-02-04 10:01 | PC.NURSE ---
Anat Del Cid MD reviewed pt.'s EKG. EKG placed in chart.
[2024-02-04 10:15] VITALS: BP 101/62; PULSE 68; RESP 18; O2SAT 99
[2024-02-04] MEDS: Metoprolol Succinate ER 25 MG TAB.ER.24H PO (10:15)
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
[2024-02-04 13:30] VITALS: BP 117/77; PULSE 60; RESP 16; TEMP 36.4; O2SAT 100; BMI 26.2
[2024-02-04] MEDS: Acetaminophen 325 MG TABLET 650 MG PO (18:48)
--- NOTE | 2024-02-04 19:11 | PC.NURSE ---
Yessy is a 63 year old white female who was admitted from the pod at 12:50pm for anxiety d/o, bipolar 2 d/o and conversion disorder. Skin check completed and belongings inventoried, placed in [id number]. In the admission assessment, she said she has been off her meds for 3+ months and needs to get put back on them so she can stabilize. She said she had to resign from her job at [employer] due to her mental health decompensation and intends to file for SSDI. Cooperative with admission process, signed a CV and is currently on 15 minute checks.
[2024-02-04 21:00] VITALS: BP 104/62; PULSE 64; RESP 16; TEMP 36.3; O2SAT 99
[2024-02-04] MEDS: traZODone HCL 50 MG TABLET 150 MG PO (21:30)
[2024-02-05 07:35] VITALS: BP 102/57; PULSE 60; RESP 16; TEMP 36.8; O2SAT 97
[2024-02-05 09:32] VITALS: BP 102/57; PULSE 60
[2024-02-05] MEDS: Aspirin Enteric Coated 81 MG TABLET.DR PO (09:32)
[2024-02-05] MEDS: Multivitamin TABLET 1 TAB PO (09:32)
[2024-02-05] MEDS: Metoprolol Succinate ER 25 MG TAB.ER.24H PO (09:32)
[2024-02-05] MEDS: estradioL 0.5 MG TABLET 1 MG PO (09:35)
[2024-02-05] MEDS: Atorvastatin Calcium 40 MG TABLET PO (09:35)
[2024-02-05] MEDS: Apixaban 5 MG TABLET PO ×2 (09:35→21:42)
[2024-02-05] MEDS: Ferrous Sulfate 324 MG TABLET.DR PO (09:36)
[2024-02-05] MEDS: Topiramate 25 MG TABLET PO (09:36)
[2024-02-05] MEDS: clonazePAM 0.5 MG TABLET PO (09:39)
[2024-02-05] MEDS: Acetaminophen 325 MG TABLET 650 MG PO (10:49)
[2024-02-05 11:29] LABS: Alanine Aminotransferase 19 U/L (0-31); Albumin Level 4.3 g/dL (3.5-5.0); Alkaline Phosphatase 71 U/L (39-117); Anion Gap 12 (12-20); Aspartate Amino Transferase 24 U/L (5-31); Bilirubin Total 0.5 mg/dL (0.0-1.0); Blood Urea Nitrogen 12 mg/dL (9-16); Calcium 9.7 mg/dL (8.4-10.2); Carbon Dioxide 26 mmol/L (22-29); Chloride 107 mmol/L (96-108); Cholesterol 142 mg/dL (<200); Creatinine Clr Calc Pharmacy 65.7; Estimated Glomerular Filt Rate 55; Glucose Fasting 92 mg/dL (60-99); HDL Cholesterol 61 mg/dL (>40); LDL Cholesterol Calculated 65 mg/dL (<100); Potassium 3.5 mmol/L (3.3-5.1); Sodium 141 mmol/L (135-145); Triglycerides 80 mg/dL (<150)
--- NOTE | 2024-02-05 14:12 | P.PNPSI_ITS ---
Subjective Subjective Date of Service: 02/05/24 Reason For Visit: SI Subjective Notes: Conditional Voluntary Interim History: Reviewed with Dr. Roth. Pt reports feeling good today; pt stated, I'm not feeling as anxious or depressed today. I spoke to my son and it made me feel hopeful and positive . Discussed risks/benefits of Latuda; pt agreed to trial. Pt reports she is hoping to go home this week . Pt denies SI/HI/VH/AH. Start: Latuda 20mg PO daily Medication Compliance: Yes Side effects from medications: No Attending Groups: Yes Review of Systems Constitutional: Reports as per HPI Eyes: Reports as per HPI Reports as per HPI Cardiovascular: Reports as per HPI Respiratory: Reports as per HPI Gastrointestinal: Reports as per HPI Musculoskeletal: Reports as per HPI Skin/Breast: Reports as per HPI Reports as per HPI Psychiatric: Reports as per HPI Endocrine: Reports as per HPI Hematologic/Lymphatic: Reports as per HPI Allergic/Immunologic: Reports as per HPI Mental Status Exam Mental Status Exam Narrative: Pt is alert and oriented; behavior is cooperative and calm; dressed in casual attire; mood is described as good ; eye contact appropriate; Speech is normal rate, volume and not pressured; thought process is organized and goal directed; Thought content is on tx; otherwise pertinent to relevant topics and without any delusional content, paranoid ideations or grandiosity; denies SI/HI/VH/AH. Diagnostics Vital Signs (24Hr): Vital Signs - 24 hr 02/04/24 21:00 02/05/24 07:35 02/05/24 09:32 Temperature 97.3 F 98.2 F Pulse Rate 64 60 60 Respiratory Rate 16 16 Blood Pressure 104/62 102/57 L 102/57 L Pulse Oximetry 99 97 Oxygen Delivery Method Room Air Room Air BMI result Body Mass Index 26.2 Labs 02/01/24 18:22 02/05/24 10:45 Labs: Laboratory Results - last 48 hr 02/05/24 10:45 Sodium 141 Potassium 3.5 Chloride 107 Carbon Dioxide 26 Anion Gap 12 BUN 12 Creatinine 1.02 Estim Creat Clear Calc 65.7 Estimated GFR 55 Fasting Glucose 92 Calcium 9.7 Total Bilirubin 0.5 AST 24 ALT 19 Alkaline Phosphatase 71 Total Protein 7.0 Albumin 4.3 Triglycerides 80 Cholesterol 142 LDL Cholesterol, Calc 65 HDL Cholesterol 61 Medications Medications Current Medications Acetaminophen (Acetaminophen 325 Mg Tablet) 650 mg PO Q6H PRN PRN Reason: Headache/Pain Mild Scale (1-3) Last Admin: 02/05/24 10:49 Dose: 650 mg Al Hydroxide/Mg Hydroxide (Magnesium Hydrox/Alum Hydrox 30 Ml Oral.Susp) 30 ml PO Q6H PRN PRN Reason: Heartburn/Nausea Apixaban (Apixaban 5 Mg Tablet) 5 mg PO BID [facility] Last Admin: 02/05/24 09:35 Dose: 5 mg Aspirin (Aspirin Enteric Coated 81 Mg Tablet.) 81 mg PO DAILY [facility] Last Admin: 02/05/24 09:32 Dose: 81 mg Atorvastatin Calcium (Atorvastatin Calcium 40 Mg Tablet) 40 mg PO DAILY [facility] Last Admin: 02/05/24 09:35 Dose: 40 mg Clonazepam (Clonazepam 0.5 Mg Tablet) 0.5 mg PO DAILY PRN PRN Reason: anxiety Last Admin: 02/05/24 09:39 Dose: 0.5 mg Diphenhydramine HCl (Diphenhydramine Hcl 25 Mg Capsule) 50 mg PO BEDTIME PRN PRN Reason: Insomnia Estradiol (Estradiol 0.5 Mg Tablet) 1 mg PO DAILY [facility] Last Admin: 02/05/24 09:35 Dose: 1 mg Ferrous Sulfate (Ferrous Sulfate 324 Mg Tablet.) 324 mg PO DAILY [facility] Last Admin: 02/05/24 09:36 Dose: 324 mg Hydroxyzine HCl (Hydroxyzine Hcl 25 Mg Tablet) 25 mg PO Q6H PRN PRN Reason: Anxiety Magnesium Hydroxide (Milk Of Magnesia 30 Ml Oral.Susp) 30 ml PO DAILY PRN PRN Reason: Constipation Metoprolol Succinate (Metoprolol Succinate Er 25 Mg Tab.Er.24h) 25 mg PO DAILY [facility]; Protocol Last Admin: 02/05/24 09:32 Dose: 25 mg Multivitamins/Vitamin C (Multivitamin Tablet) 1 tab PO DAILY [facility] Last Admin: 02/05/24 09:32 Dose: 1 tab Nicotine Polacrilex (Nicotine Polacrilex 2 Mg Gum) 4 mg BUCCAL Q2H PRN PRN Reason: Nicotine Cravings Pt Own Lamotrigine 300 Mg Tablet Extended Release 24hr 1 each PO DAILY [facility] Last Admin: 02/05/24 09:36 Dose: 1 each Topiramate (Topiramate 25 Mg Tablet) 25 mg PO DAILY [facility] Last Admin: 02/05/24 09:36 Dose: 25 mg Trazodone HCl (Trazodone Hcl 50 Mg Tablet) 150 mg PO BEDTIME [facility] Last Admin: 02/04/24 21:30 Dose: 150 mg Allergies Allergies Allergy/AdvReac Type Severity Reaction Status Date / Time latex Allergy Unknown Unknown Uncoded 02/01/24 16:19 penicillin Allergy Unknown Unknown Uncoded 02/01/24 16:19 sulfa Allergy Unknown Unknown Uncoded 02/01/24 16:19 Assessment & Plan Assessment & Plan (1) Bipolar 2 disorder: Status: Acute Code(s): F31.81 - Bipolar II disorder (2) PTSD (post-traumatic stress disorder): Status: Acute Code(s): F43.10 - Post-traumatic stress disorder, unspecified Plan Patient is a 63 year old female with hx of Bipolar d/o and PTSD who presented to ER d/t suicidal ideation secondary to increased depression. Plan: CV 15 minute safety checks Continue home medications obtain collateral encourage groups discharge planning 02/04: Pt reports feeling good today; pt stated, I'm not feeling as anxious or depressed today. I spoke to my son and it made me feel hopeful and positive . Discussed risks/benefits of Latuda; pt agreed to trial. Pt reports she is hoping to go home this week . Pt denies SI/HI/VH/AH. Start: Latuda 20mg PO daily Patient educated on: diagnosis, medication risk/benefits and therapeutic strategies Informed Consent: understands Reason for continued inpatient stay Substantial Risk for: med/psych decompensation Time Spent With Patient Time: Total time managing care of this patient today _20___ minutes.
[2024-02-05] MEDS: Lurasidone HCl 20 MG TABLET PO (15:08)
[2024-02-05 20:00] VITALS: BP 118/58; PULSE 57; RESP 16; TEMP 36.3; O2SAT 100
[2024-02-05] MEDS: traZODone HCL 50 MG TABLET 150 MG PO (21:40)
[2024-02-06 07:40] VITALS: BP 92/51; PULSE 56; RESP 14; TEMP 36.6; O2SAT 98
--- NOTE | 2024-02-06 08:50 | HO.PSYCHPN ---
Subjective Subjective Date of Service: 02/06/24 Reason For Visit: SI Subjective Notes: Conditional Voluntary Interim History: Reviewed with Dr. Roth. Active on unit, social with peers, attending groups. Pt reports feeling good today; Pt stated, I'm looking forward to going home tomorrow. I'm going to go see my son and grandkids . Pt denies SI/HI/VH/AH. She denies any side effects from starting Latuda. Medication Compliance: Yes Side effects from medications: No Attending Groups: Yes Review of Systems Constitutional: Reports as per HPI Eyes: Reports as per HPI Reports as per HPI Cardiovascular: Reports as per HPI Respiratory: Reports as per HPI Gastrointestinal: Reports as per HPI Musculoskeletal: Reports as per HPI Skin/Breast: Reports as per HPI Reports as per HPI Psychiatric: Reports as per HPI Endocrine: Reports as per HPI Hematologic/Lymphatic: Reports as per HPI Allergic/Immunologic: Reports as per HPI Mental Status Exam Mental Status Exam Narrative: Pt is alert and oriented; behavior is cooperative and calm; dressed in casual attire; mood is described as good ; eye contact appropriate; Speech is normal rate, volume and not pressured; thought process is organized; Thought content is on discharge; otherwise pertinent to relevant topics and without any delusional content, paranoid ideations or grandiosity; denies SI/HI/VH/AH. Diagnostics Vital Signs (24Hr): Vital Signs - 24 hr 02/05/24 09:32 02/05/24 20:00 02/06/24 07:40 Temperature 97.3 F 97.9 F Pulse Rate 60 57 56 Respiratory Rate 16 14 Blood Pressure 102/57 L 118/58 L 92/51 L Pulse Oximetry 100 98 Oxygen Delivery Method Room Air BMI result Body Mass Index 26.2 Labs 02/01/24 18:22 02/05/24 10:45 Labs: Laboratory Results - last 48 hr 02/05/24 10:45 Sodium 141 Potassium 3.5 Chloride 107 Carbon Dioxide 26 Anion Gap 12 BUN 12 Creatinine 1.02 Estim Creat Clear Calc 65.7 Estimated GFR 55 Fasting Glucose 92 Calcium 9.7 Total Bilirubin 0.5 AST 24 ALT 19 Alkaline Phosphatase 71 Total Protein 7.0 Albumin 4.3 Triglycerides 80 Cholesterol 142 LDL Cholesterol, Calc 65 HDL Cholesterol 61 Medications Medications Current Medications Acetaminophen (Acetaminophen 325 Mg Tablet) 650 mg PO Q6H PRN PRN Reason: Headache/Pain Mild Scale (1-3) Last Admin: 02/05/24 10:49 Dose: 650 mg Al Hydroxide/Mg Hydroxide (Magnesium Hydrox/Alum Hydrox 30 Ml Oral.Susp) 30 ml PO Q6H PRN PRN Reason: Heartburn/Nausea Apixaban (Apixaban 5 Mg Tablet) 5 mg PO BID [facility] Last Admin: 02/05/24 21:42 Dose: 5 mg Aspirin (Aspirin Enteric Coated 81 Mg Tablet.) 81 mg PO DAILY [facility] Last Admin: 02/05/24 09:32 Dose: 81 mg Atorvastatin Calcium (Atorvastatin Calcium 40 Mg Tablet) 40 mg PO DAILY [facility] Last Admin: 02/05/24 09:35 Dose: 40 mg Clonazepam (Clonazepam 0.5 Mg Tablet) 0.5 mg PO DAILY PRN PRN Reason: anxiety Last Admin: 02/05/24 09:39 Dose: 0.5 mg Diphenhydramine HCl (Diphenhydramine Hcl 25 Mg Capsule) 50 mg PO BEDTIME PRN PRN Reason: Insomnia Estradiol (Estradiol 0.5 Mg Tablet) 1 mg PO DAILY [facility] Last Admin: 02/05/24 09:35 Dose: 1 mg Ferrous Sulfate (Ferrous Sulfate 324 Mg Tablet.) 324 mg PO DAILY [facility] Last Admin: 02/05/24 09:36 Dose: 324 mg Hydroxyzine HCl (Hydroxyzine Hcl 25 Mg Tablet) 25 mg PO Q6H PRN PRN Reason: Anxiety Lurasidone HCl (Lurasidone Hcl 20 Mg Tablet) 20 mg PO DAILY [facility] Last Admin: 02/05/24 15:08 Dose: 20 mg Magnesium Hydroxide (Milk Of Magnesia 30 Ml Oral.Susp) 30 ml PO DAILY PRN PRN Reason: Constipation Metoprolol Succinate (Metoprolol Succinate Er 25 Mg Tab.Er.24h) 25 mg PO DAILY [facility]; Protocol Last Admin: 02/05/24 09:32 Dose: 25 mg Multivitamins/Vitamin C (Multivitamin Tablet) 1 tab PO DAILY [facility] Last Admin: 02/05/24 09:32 Dose: 1 tab Nicotine Polacrilex (Nicotine Polacrilex 2 Mg Gum) 4 mg BUCCAL Q2H PRN PRN Reason: Nicotine Cravings Pt Own Lamotrigine 300 Mg Tablet Extended Release 24hr 1 each PO DAILY [facility] Last Admin: 02/05/24 09:36 Dose: 1 each Topiramate (Topiramate 25 Mg Tablet) 25 mg PO DAILY [facility] Last Admin: 02/05/24 09:36 Dose: 25 mg Trazodone HCl (Trazodone Hcl 50 Mg Tablet) 150 mg PO BEDTIME [facility] Last Admin: 02/05/24 21:40 Dose: 150 mg Allergies Allergies Allergy/AdvReac Type Severity Reaction Status Date / Time latex Allergy Unknown Unknown Uncoded 02/01/24 16:19 penicillin Allergy Unknown Unknown Uncoded 02/01/24 16:19 sulfa Allergy Unknown Unknown Uncoded 02/01/24 16:19 Assessment & Plan Assessment & Plan (1) Bipolar 2 disorder: Status: Acute Code(s): F31.81 - Bipolar II disorder (2) PTSD (post-traumatic stress disorder): Status: Acute Code(s): F43.10 - Post-traumatic stress disorder, unspecified Plan Patient is a 63 year old female with hx of Bipolar d/o and PTSD who presented to ER d/t suicidal ideation secondary to increased depression. Plan: CV 15 minute safety checks Continue home medications obtain collateral encourage groups discharge planning 02/04: Pt reports feeling good today; pt stated, I'm not feeling as anxious or depressed today. I spoke to my son and it made me feel hopeful and positive . Discussed risks/benefits of Latuda; pt agreed to trial. Pt reports she is hoping to go home this week . Pt denies SI/HI/VH/AH. Start: Latuda 20mg PO daily 02/05: Active on unit, social with peers, attending groups. Pt reports feeling good today; Pt stated, I'm looking forward to going home tomorrow. I'm going to go see my son and grandkids . Pt denies SI/HI/VH/AH. She denies any side effects from starting Latuda. Continue current tx plan. pt to be discharged home tomorrow. Patient educated on: diagnosis, medication risk/benefits and therapeutic strategies Informed Consent: understands Reason for continued inpatient stay Substantial Risk for: stable for discharge Time Spent With Patient Time: Total time managing care of this patient today _20___ minutes.
[2024-02-06 09:34] VITALS: BP 100/58; PULSE 73; RESP 16; TEMP 36.3; O2SAT 98
[2024-02-06] MEDS: Multivitamin TABLET 1 TAB PO (09:38)
[2024-02-06] MEDS: Acetaminophen 325 MG TABLET 650 MG PO ×2 (09:38→16:07)
[2024-02-06] MEDS: Aspirin Enteric Coated 81 MG TABLET.DR PO (09:39)
[2024-02-06] MEDS: Atorvastatin Calcium 40 MG TABLET PO (09:39)
[2024-02-06] MEDS: Topiramate 25 MG TABLET PO (09:39)
[2024-02-06] MEDS: Ferrous Sulfate 324 MG TABLET.DR PO (09:40)
[2024-02-06] MEDS: Lurasidone HCl 20 MG TABLET PO (09:40)
[2024-02-06] MEDS: Apixaban 5 MG TABLET PO ×2 (09:41→22:03)
[2024-02-06] MEDS: estradioL 0.5 MG TABLET 1 MG PO (09:41)
[2024-02-06] MEDS: clonazePAM 0.5 MG TABLET PO (11:29)
[2024-02-06 19:44] VITALS: BP 105/64; PULSE 66; RESP 16; TEMP 36.4; O2SAT 99
[2024-02-06] MEDS: traZODone HCL 50 MG TABLET 150 MG PO (22:03)
[2024-02-07 07:40] VITALS: BP 102/70; PULSE 75; RESP 16; TEMP 36.4; O2SAT 96
[2024-02-07 09:34] VITALS: BP 119/69; PULSE 88; RESP 16; O2SAT 98
[2024-02-07] MEDS: Aspirin Enteric Coated 81 MG TABLET.DR PO (09:36)
[2024-02-07] MEDS: clonazePAM 0.5 MG TABLET PO (09:36)
[2024-02-07] MEDS: Topiramate 25 MG TABLET PO (09:36)
[2024-02-07] MEDS: Ferrous Sulfate 324 MG TABLET.DR PO (09:37)
[2024-02-07] MEDS: Apixaban 5 MG TABLET PO (09:37)
[2024-02-07] MEDS: Lurasidone HCl 20 MG TABLET PO (09:37)
[2024-02-07] MEDS: Metoprolol Succinate ER 25 MG TAB.ER.24H PO (09:37)
[2024-02-07] MEDS: Atorvastatin Calcium 40 MG TABLET PO (09:37)
[2024-02-07] MEDS: estradioL 0.5 MG TABLET 1 MG PO (09:37)
[2024-02-07] MEDS: Multivitamin TABLET 1 TAB PO (09:37)
--- NOTE | 2024-02-07 13:57 | P.DS_ITS ---
DS: Providers Provider Date of Service: 02/07/24 Date of admission: 02/04/24 11:50 Date of discharge: 02/07/24 Primary care physician: Susanne Barbour MD Admitting clinician: Kalani Wall Attending physician on admission: Vic Roth Attending physician on discharge: Vic Roth Discharging clinician: Kalani Wall DS: Diagnosis Discharge Diagnosis (1) Bipolar 2 disorder: Status: Acute (2) PTSD (post-traumatic stress disorder): Status: Acute DS: Medications Discharge Medications Home Medications: Home Medications ?Medication ?Instructions ?Recorded ?Confirmed aspirin 81 mg tablet,delayed 81 mg PO DAILY 12/11/22 02/01/24 release atorvastatin 40 mg tablet 40 mg PO DAILY 12/11/22 02/01/24 estradiol 1 mg PO DAILY 02/23/23 02/01/24 multivitamin 1 tab PO DAILY 02/23/23 02/01/24 ferrous sulfate 325 mg (65 mg 325 mg PO MOWEFR 03/22/23 02/02/24 iron) tablet,delayed release apixaban 5 mg tablet (Eliquis) 5 mg PO BID 02/01/24 02/01/24 metoprolol succinate 25 mg 25 mg PO DAILY 02/01/24 02/01/24 tablet,extended release 24 hr Previous Rx's ?Medication ?Instructions ?Recorded clonazepam 0.25 mg disintegrating 0.25 mg PO DAILY PRN anxiety 30 02/06/24 tablet days #30 tabs lamotrigine 300 mg tablet,extended 300 mg PO DAILY 30 days #30 tabs 02/06/24 release 24 hr lurasidone 20 mg tablet (Latuda) 20 mg PO DAILY 30 days #30 tabs 02/06/24 topiramate 25 mg tablet 25 mg PO DAILY 30 days #30 tabs 02/06/24 trazodone 150 mg tablet 150 mg PO BEDTIME 30 days #30 tabs 02/06/24 Mental Status Exam Mental Status Exam Narrative: Pt is alert and oriented; behavior is cooperative and calm; dressed in casual attire; mood is described as good ; eye contact appropriate; Speech is normal rate, volume and not pressured; thought process is organized; Thought content is on discharge; otherwise pertinent to relevant topics and without any delusional content, paranoid ideations or grandiosity; denies SI/HI/VH/AH. Data Data Completed and Pending Completed studies during hospitalization [Text1]: 02/01/24 02/05/24 02/06/24 18:22 10:45 13:38 WBC 7.0 RBC 4.30 Hgb 13.3 Hct 39.8 MCV 92.6 MCH 30.9 MCHC 33.4 RDW 13.6 Plt Count 167 MPV 9.9 Immature Gran % (Auto) 0.3 Neut % (Auto) 68.8 Lymph % (Auto) 20.5 Valley % (Auto) 4.6 Eos % (Auto) 5.2 H Baso % (Auto) 0.6 Lymph # (Auto) 1.4 Valley # (Auto) 0.3 Eos # (Auto) 0.4 Baso # (Auto) 0.0 Abs Immat Gran (auto) 0.02 Absolute Neuts (auto) 4.8 Absolute Nucleated RBC 0.000 Nucleated RBC % (auto) 0.0 Sodium 140 141 Potassium 3.8 3.5 Chloride 109 H 107 Carbon Dioxide 24 26 Anion Gap 11 L 12 BUN 15 12 Creatinine 0.95 1.02 Estim Creat Clear Calc 71.6 65.7 Estimated GFR 60 55 Random Glucose 102 Fasting Glucose 92 Calcium 9.4 9.7 Total Bilirubin 0.4 0.5 Direct Bilirubin 0.1 AST 19 24 ALT 15 19 Alkaline Phosphatase 66 71 Total Protein 6.8 7.0 Albumin 4.1 4.3 Triglycerides 80 Cholesterol 142 LDL Cholesterol, Calc 65 HDL Cholesterol 61 Lipase 57 Urine Color Yellow Urine Appearance Clear Urine pH 5.5 Ur Specific [place] 1.015 Urine Protein Negative Urine Glucose (UA) Negative Urine Ketones Negative Urine Blood Negative Urine Nitrite Negative Ur Leukocyte Esterase Negative Salicylates < 5.0 L Urine Opiates Screen Not Detected Ur Buprenorphine Scrn Not Detected Ur Oxycodone Screen Not Detected Urine Methadone Screen Not Detected Urine Fentanyl Screen Not Detected Acetaminophen < 3 Ur Barbiturates Screen Not Detected Lamotrigine Pending Ur Phencyclidine Scrn Not Detected Ur Amphetamines Screen Not Detected U Benzodiazepines Scrn Not Detected Urine Cocaine Screen Not Detected U Marijuana (THC) Screen Not Detected Ethyl Alcohol < 10 Influenza Type A (PCR) NEGATIVE Influenza Type B (PCR) NEGATIVE RSV RNA Qual (PCR) NEGATIVE SARS-CoV-2 RNA (RT-PCR) NEGATIVE DS: Summary Hospital Course Hospital Course: Patient is a 63 year old female with hx of Bipolar d/o and PTSD who presented to ER d/t suicidal ideation secondary to increased depression. Per crisis report, pt reported last Sunday found old mediations and put them aside in preparation to intentionally overdose. Pt called her family to say goodbye but her family encouraged her to get help. Pt spoke with psychiatrist and came to ER to be evaluated. 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 Pt reported poor sleep and appetite. She reported visual hallucinations of dogs and black figures . During admission assessment, pt presents alert, oriented, calm, and cooperative. Pt reports feeling depressed today; pt stated, I came to the hospital because I was overwhelmed trying to get disability. I told my son I wanted to end it all but kept delaying it. I went and saw my psychiatrist and she put me on klonopin. When I was in the Pod, it let me think about my life and realized I was just overwhelmed and needed to listen to my sister who wanted to help me. I'm no longer feeling suicidal . Pt reports she feels she has so much support and a lot to live for ; she talked about her sister, son and 5 grandchildren. Pt reports her stress began in October 2023 after a TIA. She reports being medication compliant however states she still feels depressed . pt denies SI/HI/VH/AH. During hospital course, CV 15 minute safety checks Continue home medications obtain collateral encourage groups discharge planning Pt reports feeling good today; pt stated, I'm not feeling as anxious or depressed today. I spoke to my son and it made me feel hopeful and positive . Discussed risks/benefits of Latuda; pt agreed to trial. Pt reports she is hoping to go home this week . Pt denies SI/HI/VH/AH. Start: Latuda 20mg PO daily Active on unit, social with peers, attending groups. Pt reports feeling good today; Pt stated, I'm looking forward to going home tomorrow. I'm going to go see my son and grandkids . Pt denies SI/HI/VH/AH. She denies any side effects from starting Latuda. Continue current tx plan. pt to be discharged home tomorrow. Pt reports feeling good ; reports feeling ready to go home. pt plans on following up with outpatient providers. pt denies SI/HI/VH/AH. Time spent discussing smoking cessation with patient: 3 to 10 minutes Status at Discharge Cognitive/behavioral status at discharge: Patient was interviewed prior to discharge and found to be fully oriented and without SI or HI. Patient has insight and demonstrates good judgment in terms of wanting to pursue treatment. Patient has a safety plan that includes presenting to the closest ER or calling 911 if feeling unsafe. Functional status at discharge: independent ambulation Overall status at discharge: patient is back to baseline Time Spent with Patient Time attestation: Total time managing care of this patient today _20___ minutes. Time spent: Less than 30 minutes Discharge Plan Discharge Anticipated Discharge Date/Time: 02/07/24 11:00 Patient Disposition: Home, Self-Care Discharge Diagnosis: Bipolar d/o, PTSD Referrals: Therapy & Psychiatry [Other] - 1 Week (*Please follow up with your outpatient providers regarding follow up appointments. ) Susanne Barbour MD [Primary Care Provider] - 1 Week (PCP office will contact patient with appt. date and time) Discharge Medications: New lurasidone [Latuda] 20 mg Tablet 20 mg PO DAILY 30 Days Qty: 30 0RF trazodone 150 mg tablet 150 mg PO BEDTIME 30 Days Qty: 30 0RF Continued multivitamin Tablet 1 tab PO DAILY estradiol 1 mg PO DAILY metoprolol succinate 25 mg tablet extended release 24 hr 25 mg PO DAILY Eliquis 5 mg tablet 5 mg PO BID topiramate 25 mg tablet 25 mg PO DAILY 30 Days Qty: 30 0RF clonazepam 0.25 mg tablet,disintegrating 0.25 mg PO DAILY PRN (Reason: anxiety) 30 Days Qty: 30 0RF lamotrigine 300 mg tablet extended release 24hr 300 mg PO DAILY 30 Days Qty: 30 0RF atorvastatin 40 mg tablet 40 mg PO DAILY aspirin 81 mg tablet,delayed release (DR/EC) 81 mg PO DAILY ferrous sulfate 325 mg (65 mg iron) tablet,delayed release (DR/EC) 325 mg PO MOWEFR Discontinued clonazepam 0.5 mg tablet 0.5 mg PO BEDTIME trazodone 100 mg tablet 50 - 100 mg PO BEDTIME Discharge Orders: Discharge Order (Routine); Ordered 02/07/24 Ordered By: Kalani Wall Diet: Regular diet Activity on Discharge: As tolerated Stand Alone Forms: Patient Portal Discharge page, Community Support Print Language: Tristanian Care Plan Goals: Maintain mood and safe behaviors Take medications as prescribed Practice coping skills Continue with outpatient providers and reach out to them as needed Health Concerns: Mood stability and behaviors Plan of Treatment: Follow up with your PCP, psychiatric provider and other outpatient providers regarding above concerns Take medications as prescribed Assessment: Patient was interviewed prior to discharge and found to be fully oriented and without SI or HI. Patient has insight and demonstrates good judgment in terms of wanting to pursue treatment. Patient has a safety plan that includes presenting to the closest ER or calling 911 if feeling unsafe. Discharge Date/Time: 02/07/24 10:50
[2024-02-11 03:28] LABS: Lamotrigine Lamictal 3.6 mcg/mL (2.5-15.0)
== END 2024-02-07 10:50 | disposition home or self-care (01) | DRG 753 ==
LOC: HO.ED 17:30 → HO.PADLT16 02-04 12:01
PROVIDERS: Admitting Provider Registered Nurse; Emergency Provider Emergency Medicine; PCP Family Medicine; Responsible Provider Registered Nurse; Visit Provider Psychiatry & Neurology Psychiatry
DX: F31.81 Bipolar II disorder (principal); R45.851 Suicidal ideations; G25.81 Restless legs syndrome; F43.10 Post-traumatic stress disorder, unspecified; Z20.822 Contact with and (suspected) exposure to COVID-19; Z79.01 Long term (current) use of anticoagulants; Z79.82 Long term (current) use of aspirin; Z79.899 Other long term (current) drug therapy
CPT/HCPCS: 0241U; 36415; 80048; 80053; 80061; 80076; 80143; 80175; 80179; 80307; 81003; 83690; 85025; 93005; 99285; S9485

== ENCOUNTER → 2024-02-04 07:52 | Outpatient (BNV) | payer OTHER, SELFPAY | PROVIDERS: Admitting Provider Registered Nurse; Emergency Provider Emergency Medicine; PCP Family Medicine; Responsible Provider Registered Nurse; Visit Provider Internal Medicine Cardiovascular Disease | DX: R00.1 Bradycardia, unspecified (principal); R94.31 Abnormal electrocardiogram [ECG] [EKG] | CPT/HCPCS: 93010 ==

== ENCOUNTER → 2024-02-04 11:50 | Outpatient (BNV) | payer OTHER, SELFPAY | PROVIDERS: Admitting Provider Registered Nurse; Emergency Provider Emergency Medicine; PCP Family Medicine; Responsible Provider Registered Nurse; Visit Provider Registered Nurse | DX: F31.81 Bipolar II disorder (principal); F43.11 Post-traumatic stress disorder, acute | CPT/HCPCS: 90792; 99231; 99232; 99238 ==

== ENCOUNTER 2024-04-28 10:00 | Emergency (ER) | payer OTHER, SELFPAY | END 2024-04-28 10:46 | disposition left against medical advice (07) | PROVIDERS: Emergency Provider Emergency Medicine; PCP Family Medicine | DX: S69.91XA Unspecified injury of right wrist, hand and finger(s), initial encounter (principal); X58.XXXA Exposure to other specified factors, initial encounter; Y93.9 Activity, unspecified; Y92.9 Unspecified place or not applicable; Y99.9 Unspecified external cause status ==

== ENCOUNTER 2024-05-16 12:19 | Observation (INO) | payer OTHER, SELFPAY ==
[2024-05-16] VITALS (10 sets, daily range): BP systolic 100–140; BP diastolic 53–85; PULSE 49–72; RESP 14–20; TEMP 36.3–36.9; O2SAT 97–100; BMI 25.7
--- NOTE | ~2024-05-16 | XR_ITS ---
EXAMINATION: XR CHEST CLINICAL INFORMATION: Chest pain. COMPARISON: None available. TECHNIQUE: 2 views of the chest were obtained. FINDINGS: Normal appearance of the cardiomediastinal silhouette. Asymmetric elevation of the right hemidiaphragm. No focal consolidation, pleural effusion or pneumothorax. Surgical clips overlie the right greater than left upper lung cueva. No acute osseous findings. XR/XR chest 2V IMPRESSION: Nonspecific asymmetric elevation of the right hemidiaphragm, otherwise no significant cardiopulmonary findings. Electronically signed by: Kia Reyes MD 05/16/2024 02:53 PM EDT
--- NOTE | ~2024-05-16 | CT_ITS ---
EXAMINATION: CT HEAD WITHOUT CONTRAST CT CERVICAL SPINE WITHOUT CONTRAST CLINICAL INFORMATION: Fall with head strike COMPARISON: None. TECHNIQUE: Contiguous axial imaging was performed from the skull base to vertex without intravenous administration of contrast. In addition, helical noncontrast CT imaging was acquired through the cervical spine and source images were reviewed along with axial reconstructions and sagittal and coronal MPRs. DLP: 843 mGy-cm FINDINGS: HEAD: No intracranial mass, hemorrhage, or midline shift is visualized. The ventricles and sulci are age-appropriate. No extra-axial collections are identified. The paranasal sinuses are well aerated. Soft tissue density along the right parietal scalp. CERVICAL SPINE: There is no evidence of acute cervical spine fracture. Vertebral bodies remain normal in height, intervertebral disc spaces are preserved, and alignment is anatomic. No pre- or paravertebral soft tissue abnormality is identified. Limited assessment of the lung apices is unremarkable. CT/CT cervical spine wo IV con IMPRESSION: 1. No acute intracranial pathology. 2. No CT evidence of acute cervical spine fracture or traumatic subluxation. 3.Soft tissue density along the right parietal scalp may be a sebaceous cyst or posttraumatic hematoma/contusion. Electronically signed by: Jazmyne Galaviz MD 05/17/2024 03:06 PM EDT
--- NOTE | ~2024-05-16 | CT_ITS ---
EXAMINATION: CT HEAD WITHOUT CONTRAST CT CERVICAL SPINE WITHOUT CONTRAST CLINICAL INFORMATION: Fall with head strike COMPARISON: None. TECHNIQUE: Contiguous axial imaging was performed from the skull base to vertex without intravenous administration of contrast. In addition, helical noncontrast CT imaging was acquired through the cervical spine and source images were reviewed along with axial reconstructions and sagittal and coronal MPRs. DLP: 843 mGy-cm FINDINGS: HEAD: No intracranial mass, hemorrhage, or midline shift is visualized. The ventricles and sulci are age-appropriate. No extra-axial collections are identified. The paranasal sinuses are well aerated. Soft tissue density along the right parietal scalp. CERVICAL SPINE: There is no evidence of acute cervical spine fracture. Vertebral bodies remain normal in height, intervertebral disc spaces are preserved, and alignment is anatomic. No pre- or paravertebral soft tissue abnormality is identified. Limited assessment of the lung apices is unremarkable. CT/CT head/brain wo IV con IMPRESSION: 1. No acute intracranial pathology. 2. No CT evidence of acute cervical spine fracture or traumatic subluxation. 3.Soft tissue density along the right parietal scalp may be a sebaceous cyst or posttraumatic hematoma/contusion. Electronically signed by: Jazmyne Galaviz MD 05/17/2024 03:06 PM EDT
--- NOTE | ~2024-05-16 | CT_ITS ---
EXAMINATION: CT ANGIOGRAM CHEST CLINICAL INFORMATION: Chest pain. Exertional dyspnea. Syncope. COMPARISON: None available. TECHNIQUE: Multiple axial images were obtained through the chest after the administration of 65 mL of Omnipaque 350 intravenous contrast. Extensive vascular post-processing including two-dimensional and three-dimensional reformatted images were created and reviewed on an independent workstation. This CT examination was performed using dose optimization techniques as appropriate, variously including the following: *Automated exposure control *Adjustment of mA and/or kV according to patient size (this includes techniques or standardized protocols for targeted exams where dose is matched to indication/reason for exam; i.e. extremities or head) *Use of iterative reconstruction technique DLP: 308 mGy-cm FINDINGS: QUALITY OF STUDY/CONTRAST BOLUS: Satisfactory. PULMONARY ARTERIES: No pulmonary emboli. THORACIC AORTA: No aneurysm. LUNG: The most caudal aspects of the posterior costophrenic sulci are cut off the images, limiting the study. Mild elevation of the right hemidiaphragm. No focal consolidation or nodule identified. PLEURA: No pleural effusion or pneumothorax. MEDIASTINUM: Normal heart size. No pericardial effusion. No hilar or mediastinal lymphadenopathy. Normal variant retroesophageal aberrant right subclavian artery. Normal variant direct origin of the left vertebral artery from the aortic arch. No evidence of septal bowing or right heart strain. CORONARY ARTERY CALCIFICATION: None visualized on this study. CHEST WALL/AXILLA: No axillary or internal mammary lymphadenopathy. OSSEOUS STRUCTURES: Status post resection of the right first rib. Diminutive left first rib. Borderline mildly decreased bone mineral density. UPPER ABDOMEN: Evidence of gastric sleeve surgery. No reflux of contrast into the hepatic veins to suggest elevated right heart pressures. CT/CT angio chest PE protocol IMPRESSION: No evidence of pulmonary embolism. No acute finding. VTE: negative Electronically signed by: Andrea Marshall MD 05/16/2024 06:22 PM EDT
--- NOTE | 2024-05-16 12:20 | ECG_ITS ---
Test Reason : CHEST PAIN Blood Pressure : / mmHG Vent. Rate : 062 BPM Atrial Rate : 062 BPM P-R Int : 176 ms QRS Dur : 080 ms QT Int : 414 ms P-R-T Axes : 067 016 022 degrees QTc Int : 420 ms Artifact in tracing Sinus rhythm with Premature atrial complexes Otherwise normal ECG When compared with ECG of 04-FEB-2024 09:45, No significant changes seen Referred By: Generic ED Physician Electronically Signed By:KALPANA PRESTON
--- NOTE | 2024-05-16 12:26 | ED.GENADULT ---
HPI - General Adult General Chief complaint: Chest Pain Stated complaint: CP, syncopal episodes 1 week Time Seen by Provider: 05/16/24 12:57 Source: patient, RN notes reviewed and old records reviewed Mode of arrival: ambulatory History of Present Illness ED Provider: Angelia Quigley PA-C HPI narrative: 63-year-old female with a past medical history HTN, gastric bypass, seizure disorder, bipolar, vasovagal syncope, cardiac catheterization in 18 with normal coronary arteries, SVT/Afib s/p ablation on 01/03 currently on Eliquis, stress cardiomyopathy with recovered LVEF 50%, presenting to the ED complaining of left-sided chest pressure, exertional dyspnea, and lightheadedness with syncope x2 since Sunday. Patient states on Sunday was ambulating around her building, started to feel lightheaded with + syncopal episode without head trauma. Reports additional syncopal episode today without head trauma s/p walking up and down the stairs, admits to feeling exertional dyspnea and lightheadedness. No reported seizure-like activity, tongue biting, or incontinence. Reports continued chest pressure at present. Denies abdominal pain, nausea/vomiting. Has been compliant with Eliquis. Denies recent illness, cough, history of clots Related Data Home Medications ?Medication ?Instructions ?Recorded ?Confirmed aspirin 81 mg tablet,delayed 81 mg PO DAILY 12/11/22 05/16/24 release atorvastatin 40 mg tablet 40 mg PO BEDTIME 12/11/22 05/16/24 multivitamin 1 tab PO DAILY 02/23/23 05/16/24 apixaban 5 mg tablet (Eliquis) 5 mg PO BID 02/01/24 05/16/24 metoprolol succinate 25 mg 12.5 mg PO DAILY 02/01/24 05/16/24 tablet,extended release 24 hr calcium carbonate 500 mg PO DAILY 05/16/24 05/16/24 cholecalciferol (vitamin D3) 50 50 mcg PO DAILY 05/16/24 05/16/24 mcg (2,000 unit) tablet (Vitamin D3) clonazepam 0.5 mg tablet (Klonopin) 0.5 mg PO DAILY PRN anxiety 05/16/24 05/16/24 lurasidone 20 mg tablet (Latuda) 20 mg PO BEDTIME 05/16/24 05/16/24 trazodone 100 mg tablet 100 mg PO BEDTIME PRN insomnia 05/16/24 05/16/24 Previous Rx's ?Medication ?Instructions ?Recorded lamotrigine 300 mg tablet,extended 300 mg PO DAILY 30 days #30 tabs 02/06/24 release 24 hr topiramate 25 mg tablet 25 mg PO DAILY 30 days #30 tabs 02/06/24 Allergies Allergy/AdvReac Type Severity Reaction Status Date / Time latex Allergy Unknown Unknown Uncoded 05/16/24 12:30 penicillin Allergy Unknown Unknown Uncoded 05/16/24 12:30 sulfa Allergy Unknown Unknown Uncoded 05/16/24 12:30 Review of Systems Review of Systems: Yes all other systems are reviewed and are negative Constitutional: Constitutional: Reports as per HPI Neurologic: Denies Abnormal speech present [facility] Past Medical History Attestation statement: The following information was validated with the patient. Source: old records reviewed Medical History Non-motor epileptic seizure Conversion disorder Hyponatremia Cervical dystonia Essential and other specified forms of tremor Cervicalgia Osteopenia GERD (gastroesophageal reflux disease) Hyperlipidemia Anxiety Restless legs syndrome (RLS) Mitral valve prolapse PTSD (post-traumatic stress disorder) Cataract Arthritis TIA (transient ischemic attack) Conversion disorder Bipolar 2 disorder Raynauds syndrome (~08/2022) Carotid artery stenosis Seizures Syncope Acute cataract Faulkner syndrome Surgical History H/O arthroplasty History of hysterectomy Gastric bypass status for obesity Family History Family History Father Heart disease Depressed Mother Heart disease Social History Social History Household Members: None Housing: Apartment Do you presently have visiting nurse or other home services: No Alcohol intake: never Patient Tobacco Use Status: Never used Tobacco Smoked in Last 30 Days: No e-Cigarette/Vaping Use: Never Used Second Hand Smoke Exposure: No Use of substances other than those prescribed or required for medical reasons: No Advance Directives: No Advance Directives Information Provided: Yes Do you have a plan to hurt others: No Plan Patient : No service: No Sexual orientation: Straight/Heterosexual Physical Exam ED Vital Signs: Vital Signs - 24 hr 05/16/24 12:22 05/16/24 13:17 05/16/24 13:17 Temperature 98.5 F Pulse Rate 60 61 57 Respiratory Rate 18 18 Blood Pressure 113/70 110/80 110/80 Pulse Oximetry 100 97 Oxygen Delivery Method Room Air Room Air 05/16/24 13:19 05/16/24 13:19 05/16/24 14:16 Temperature 98.3 F Pulse Rate 71 72 50 Respiratory Rate 19 Blood Pressure 130/82 124/85 111/56 L Pulse Oximetry 99 Oxygen Delivery Method Room Air 05/16/24 16:05 05/16/24 16:56 05/16/24 18:08 Temperature 97.9 F 97.7 F Pulse Rate 57 49 L 53 Respiratory Rate 16 18 16 Blood Pressure 100/61 104/54 L 108/62 Pulse Oximetry 98 98 98 Oxygen Delivery Method Room Air Room Air Room Air BMI result Body Mass Index 25.7 Const General: cooperative, healthy appearing and no acute distress Orientation/consciousness: patient oriented x3 Limitations: no limitations HENMT Head: Yes normal to inspection and Yes atraumatic Ears: hearing grossly normal bilaterally General nose exam: Normal external nose present Face and sinus: Yes normal facial exam Throat: Yes posterior oropharynx normal and Yes uvula midline Eyes General: appearance normal, both eyes and all related structures Pupils: Equal, round and reactive pupils present EOM: EOMs intact bilaterally Neck Neck: Yes normal visual inspection and Yes no meningeal signs Resp Effort & Inspection: normal respiratory effort and no respiratory distress Auscultation: clear to auscultation bilaterally and no wheezes Cardio Rate: regular rate Heart sounds: S1 normal heart sound present and S2 normal heart sound present GI Inspection: Yes normal to inspection Palpation (GI): Soft to palpation, nontender, no guarding and not rigid Skin Rashes: no rashes Wounds: no wounds Neuro General: patient oriented x3, tone normal, moves all extremities, no meningeal signs, no focal motor deficits and CN's II-XI intact bilaterally Cranial nerves: Yes CN's II-XII intact bilaterally and Yes Equal, round and reactive pupils present Cognition (Neuro): normal cognition Speech: No Abnormal speech present Motor exam (neuro): 5/5 motor strength present throughout Extrem General: Yes normal to inspection and Yes no pedal edema Course Course Course Narrative: This is a rapid medical exam performed by Vahid Espinosa NP: Additional HPI, ROS, PE not included below will be deferred to primary provider. Patient is a 63-year-old female with history of afib on Eliquis, Bipolar 2 disorder, essential and other tremor, GERD, HLD, RLS, PTSD, TIA, carotid artery stenosis presenting with chest pain and syncope since Sunday. Describes as chest pressure, as well as pain to left breast and neck, denies radiation to arm. Reports syncopal episode witnessed by son at 10am today, states she fell into her chair. Denies head strike. Strawn lightheaded immediately prior. Seen at [facility] previously for similar symptoms. Plan: EKG, labs, CXR -1843--labs reassuring. Troponin x2 negative. -viral studies negative -orthostatic vital signs negative XR chest 2V IMPRESSION: Nonspecific asymmetric elevation of the right hemidiaphragm, otherwise no significant cardiopulmonary findings. CT angio chest PE protocol IMPRESSION: No evidence of pulmonary embolism. No acute finding. > plan to admit for further management of chest pain and syncope Medications Administered Discontinued Medications Generic Name Dose Route Start Last Admin Trade Name Freq PRN Reason Stop Dose Admin Iohexol 100 ml 05/16/24 15:07 05/16/24 15:07 Iohexol 350 Mg/Ml 100 Ml Infus..Btl IV 05/16/24 15:08 65 ml ONCE ONE Administration Medical Decision Making Medical Decision Making MDM Narrative: 63-year-old female with a past medical history HTN, gastric bypass, seizure disorder, bipolar, vasovagal syncope, cardiac catheterization in 18 with normal coronary arteries, SVT/Afib s/p ablation on 01/03 currently on Eliquis, stress cardiomyopathy with recovered LVEF 50%, presenting to the ED complaining of left-sided chest pressure, exertional dyspnea, and lightheadedness with syncope x2 since Sunday. On exam vital signs stable, NAD, nontoxic appearing, A&O x3, no focal neuro deficits, lungs CTA, no pedal edema. Concern for ACS vs pulmonary embolism vs CHF. Low suspicion for ICH/CVA. Low suspicion for dissection. Rule out metabolic/infectious etiologies. Plan: EKG, labs, UA, CXR, orthostatics, CTA, viral studies, anticipate admission Please refer to course for remaining clinical decision making, interpretation of labs/imaging results, and discussions with consultants and/or family members. Differential Diagnosis Differential Diagnoses: The differential diagnosis associated with the presentation includes As above Admission/Observation Consideration of admission/observation: Escalation of care including admission/observation considered Lab Data MDM Lab Attestation statement: I reviewed the patient's lab results. 05/16/24 12:51 05/16/24 12:51 Labs: Lab Results 05/16/24 05/16/24 05/16/24 Range/Units 12:51 12:52 15:19 WBC 6.1 (4.8-10.8) X10*3/uL RBC 4.10 L (4.20-5.50) X10*6/uL Hgb 12.3 (12.0-16.0) g/dl Hct 37.3 (37.0-47.0) % MCV 91.0 (80.0-98.0) fL MCH 30.0 (27.0-33.0) pg MCHC 33.0 (31.0-35.0) g/dl RDW 13.2 (11.0-16.0) % Plt Count 217 D (160-400) X10*3/uL MPV 9.5 (9.4-12.3) fL Immature Gran % (Auto) 0.2 (0.0-0.4) % Neut % (Auto) 75.1 H (45-73) % Lymph % (Auto) 13.7 L (20-40) % [place] % (Auto) 6.0 (2-11) % Eos % (Auto) 3.9 (0-4) % Baso % (Auto) 1.1 (0-2) % Lymph # (Auto) 0.8 L (1.2-4.9) X10*3/uL [place] # (Auto) 0.4 (0.1-1.2) X10*3/uL Eos # (Auto) 0.2 (0.0-0.4) X10*3/uL Baso # (Auto) 0.1 (0.0-0.2) X10*3/uL Abs Immat Gran (auto) 0.01 (0.00-0.03) X10*3/uL Absolute Neuts (auto) 4.6 (2.0-8.3) x10*3/uL Absolute Nucleated RBC 0.000 (0.0-0.012) X10*3/uL Nucleated RBC % (auto) 0.0 (0.0-0.2) /100WBC PT 14.8 H (10.9-12.4) SEC INR 1.3 H (0.9-1.1) Sodium 140 (135-145) mmol/L Potassium 4.0 (3.3-5.1) mmol/L Chloride 106 (96-108) mmol/L Carbon Dioxide 26 (22-29) mmol/L Anion Gap 12 (12-20) BUN 21 H (9-16) mg/dL Creatinine 0.94 (0.5-1.4) mg/dL Estim Creat Clear Calc 65.6 Estimated GFR > 60 Random Glucose 98 (60-115) mg/dL Calcium 9.8 (8.4-10.2) mg/dL Magnesium 2.0 (1.6-2.6) mg/dL Total Bilirubin 0.4 (0.0-1.0) mg/dL AST 27 (5-31) U/L ALT 23 (0-31) U/L Alkaline Phosphatase 73 (39-117) U/L Troponin I High Sens < 2.7 3.0 (<3.5-17.0) ng/L B-Natriuretic Peptide 37 (<100) pg/mL Total Protein 6.8 (6.5-8.0) g/dL Albumin 4.1 (3.5-5.0) g/dL Urine Color Yellow Urine Appearance Clear Urine pH 6.0 (5.0-9.0) Ur Specific [place] 1.025 (1.005-1.025) Urine Protein Negative (Neg-Trace) mg/dL Urine Glucose (UA) Negative (Negative) mg/dL Urine Ketones Negative (Negative) mg/dL Urine Blood Negative (Negative) Urine Nitrite Negative (Negative) Ur Leukocyte Esterase Small (1+) H (Negative) Urine RBC 0-2 (0-2) /HPF Urine WBC 0-5 (0-5) /HPF Ur Squamous Epith Cells 0-2 (0-2) /HPF Urine Bacteria None Seen (None Seen) Hyaline Casts 0-2 (0-2) /LPF Influenza Type A (PCR) NEGATIVE (Negative) Influenza Type B (PCR) NEGATIVE (Negative) RSV RNA Qual (PCR) NEGATIVE (Negative) SARS-CoV-2 RNA (RT-PCR) NEGATIVE (Negative) Independent Interpretation I performed an independent interpretation of an: EKG (My interpretation EKG sinus rhythm with PACs rate of 62. QRS 80. QTC 420. Nonspecific T-wave abnormality no longer present in lateral leads. No STEMI.) Radiology Impression Discussion of test interpretation with radiology: I have reviewed the radiologist's reading. Independent Historian Clinical information obtained from an independent historian. History obtained from or confirmed by: Friend External Record Review External record reviewed: Inpatient record, Office record, Outpatient record, Prior outpatient labs, Prior outpatient radiology, Primary care record and Outside ED record Tests considered The following testing was considered but not selected: As above Chronic Conditions Patient?s care impacted by: Other (HLD, Bipolar, TIA) Social Determinants Patient?s care significantly limited by Social Determinants of Health including: Problems related to primary support group, Problems related to employment and Other Social Determinant of Health Critical Care Time Critical Care Time Critical Care Time: Yes Total Critical Care Time: 35 Attestation: I have personally provided critical care time exclusive of time spent on separately billable procedures. Time includes review of lab data, radiology results, discussion with consultants, and monitoring for potential decompensation. Intervention performed as documented. Discharge Plan Discharge Clinical Impression: Syncope and collapse, Chest pain, Exertional dyspnea Patient Disposition: Admitted As Inpatient
[2024-05-16 12:59] LABS: MANUAL DIFF FLAG NO
[2024-05-16 13:01] LABS: Basophils Absolute Auto 0.1 X10*3/uL (0.0-0.2); Basophils Percent Auto 1.1 % (0-2); Eosinophils Absolute Auto 0.2 X10*3/uL (0.0-0.4); Eosinophils Percent Auto 3.9 % (0-4); Hematocrit 37.3 % (37.0-47.0); Hemoglobin 12.3 g/dl (12.0-16.0); Imm Gran Abs Auto 0.01 X10*3/uL (0.00-0.03); Imm Gran Pct Auto 0.2 % (0.0-0.4); Lymphocytes Absolute Auto 0.8 X10*3/uL (1.2-4.9); Lymphocytes Percent Auto 13.7 % (20-40); Mean Platelet Volume 9.5 fL (9.4-12.3); Monocytes Absolute Auto 0.4 X10*3/uL (0.1-1.2); Neutrophils Absolute Auto 4.6 x10*3/uL (2.0-8.3); Neutrophils Percent Auto 75.1 % (45-73); Platelet Count 217 X10*3/uL (160-400); Red Cell Distribution Width 13.2 % (11.0-16.0); White Blood Count 6.1 X10*3/uL (4.8-10.8)
[2024-05-16 13:09] LABS: INTERNATIONAL NORM RATIO 1.3 (0.9-1.1); Prothrombin Time 14.8 SEC (10.9-12.4)
[2024-05-16 13:18] LABS: Alanine Aminotransferase 23 U/L (0-31); Albumin Level 4.1 g/dL (3.5-5.0); Alkaline Phosphatase 73 U/L (39-117); Anion Gap 12 (12-20); Aspartate Amino Transferase 27 U/L (5-31); Bilirubin Total 0.4 mg/dL (0.0-1.0); Blood Urea Nitrogen 21 mg/dL (9-16); Calcium 9.8 mg/dL (8.4-10.2); Carbon Dioxide 26 mmol/L (22-29); Chloride 106 mmol/L (96-108); Creatinine Clr Calc Pharmacy 65.6; Estimated Glomerular Filt Rate > 60; Glucose Random 98 mg/dL (60-115); Sodium 140 mmol/L (135-145); Total Protein 6.8 g/dL (6.5-8.0)
--- NOTE | 2024-05-16 13:22 | PC.NURSE ---
axox3. denies CP and lightheadedness now. on monitor. NSR. reports that episodes of syncope have been accompanies by a flutter sensation that correlates to a fib. WIll report to provider the same info.
[2024-05-16 13:34] LABS: Troponin-I High Sensitivity < 2.7 ng/L (<3.5-17.0)
[2024-05-16 13:38] LABS: Influenza A PCR NEGATIVE (Negative); Influenza B PCR NEGATIVE (Negative); Resp Syncy Virus RNA Qual PCR NEGATIVE (Negative); SARS COV2 PCR INHOUSE NEGATIVE (Negative)
[2024-05-16 14:13] LABS: B Type Natriuretic Peptide 37 pg/mL (<100)
[2024-05-16] MEDS: iohexoL 350 MG/ML 100 ML INFUS..BTL IV (15:07)
[2024-05-16 15:39] LABS: Appearance Urine Clear; Color Urine Yellow; Glucose Urine UA Negative (Negative); Leukocyte Esterase Urine Small (1+) (Negative); Nitrite Urine Negative (Negative); Specific Gravity - Urine 1.025 (1.005-1.025); UMIC TRIGGER UACC YES; Urine Blood Negative (Negative); Urine Ketones Negative (Negative); Urine Protein Negative (Neg-Trace)
[2024-05-16 16:09] LABS: Bacteria Urine None Seen (None Seen); Hyaline Casts Urine 0-2 /LPF (0-2); RBC Urine 0-2 /HPF (0-2); Squamous Epithelial Cell Urine 0-2 /HPF (0-2); UACC Culture Trigger YES; WBC Urine 0-5 /HPF (0-5)
--- NOTE | 2024-05-16 18:36 | PC.NURSE ---
Pt reports feeling fine. SB on monitor. skin pwd. results are back and provider approached for disposition.
--- NOTE | 2024-05-16 19:08 | PC.NURSE ---
received report from Sofi RUSHING, assume care of pt at this time
--- NOTE | 2024-05-16 19:53 | PHA.MEDREC ---
Addendum entered by Levi Stanley eddie 05/16/24 20:22: med rec reviewed Original Note: Pharmacy Consult ? Medication Reconciliation Pharmacy has completed the medication reconciliation. Confirmed medications with patient and list patient brought in. Patient confirmed her medications. She takes Trazodone 100mg and she confirmed her Dr ok'd her to take 1 & 1/2 tabs at night but she states she is only taking 1 tablet at night and it usually gives her enough relief. She confirmed she is taking her Atorvastatin 40mg tab, Latuda 20mg and Trazadone 100mg tabs at bedtime and took those last night. She confirmed she is taking Eliquis 5mg BID and took one dose this morning along with her Aspirin 81mg tab once daily, Metoprolol 25mg tab taking 1/2 tab daily, Topiramate 25mg tab once daily, Lamotrigine 300mg tab once daily, Vitamin D3 50mcg tab once daily, Calcium 500mg tab once daily and a Multivitamin tab once daily this morning at 0930.
--- NOTE | 2024-05-16 19:59 | PM.IMHP ---
History of Present Illness Date of Service: 05/16/24 Attending physician on admission: Sunil Lynch Chief Complaint: Lightheadedness, weakness, syncope Pt is a 63-year-old female with a PMH significant for?SVT, paroxysmal AFib s/p ablation on 01/04/2024 currently on Eliquis, stress cardiomyopathy, hyponatremia, HLD, pseudoseizures, depression, PTSD, and bipolar disorder who presents to the ED for evaluation palpitations and syncopal episodes. Patient reports that all week she has been ?not feeling good?. Sunday patient was walking outside around her apartment complex when she began to feel her heart racing and experienced SOB, [place], chest pain, lightheadedness, and dizziness. Patient went to her apartment and then ?passed out? on the floor. Denies traumatic fall head strike. Throughout the week patient continued to feel a ?heaviness? in her chest and was overall weak, so she ?took it easy?. Today patient was helping her son move of bed and experienced similar symptoms including another nontraumatic syncopal episode. Patient denies nausea, vomiting, diarrhea. No recent illnesses. Denies fever, chills, abdominal pain. No headache. Of note, patient was previously admitted to [facility] last year and was brought to the medical floor twice for episodes of unresponsiveness. The 1st admission patient was noted to go into SVTs of up to 200 and was started on metoprolol. Was also evaluated by Neurology who believed her to be having pseudoseizures his EEG had showed no seizure activity. 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 She would like to establish cardiology care here at [facility]. In the ED pt's Labs were grossly unremarkable baseline for patient. No leukocytosis. Stable H&H. No significant electrolyte abnormalities. Renal and hepatic function baseline. Initial troponin negative with repeat WNL at 3.0. BNP WNL. UA negative for UTI. Tested negative COVID, RSV, flu. CXR showed nonspecific asymmetric elevation of right hemidiaphragm, otherwise no acute findings. CTA of chest negative for pulmonary embolism or any acute finding. EKG demonstrated sinus rhythm with PACs but no evidence of acute ST elevations or depressions. Pt will be admitted to the hospital under observation for treatment and further evaluation of syncopal episodes. Review of Systems Review of Systems: Yes all other systems are reviewed and are negative [facility] Medical History (Updated 05/16/24 @ 21:22 by MICHEL Sanchez) Syncope Non-motor epileptic seizure Conversion disorder Hyponatremia Cervical dystonia Essential and other specified forms of tremor Cervicalgia Osteopenia GERD (gastroesophageal reflux disease) Hyperlipidemia Anxiety Restless legs syndrome (RLS) Mitral valve prolapse PTSD (post-traumatic stress disorder) Cataract Arthritis TIA (transient ischemic attack) Conversion disorder Bipolar 2 disorder Raynauds syndrome (~08/2022) Carotid artery stenosis Seizures Acute cataract Faulkner syndrome Family History Father Heart disease Depressed Mother Heart disease Surgical History H/O arthroplasty History of hysterectomy Gastric bypass status for obesity Social History Household Members: None Housing: Apartment Do you presently have visiting nurse or other home services: No Alcohol intake: never Patient Tobacco Use Status: Never used Tobacco Smoked in Last 30 Days: No e-Cigarette/Vaping Use: Never Used Second Hand Smoke Exposure: No Use of substances other than those prescribed or required for medical reasons: No Advance Directives: No Advance Directives Information Provided: Yes Do you have a plan to hurt others: No Plan Patient : No service: No Sexual orientation: Straight/Heterosexual Meds Allergies Allergy/AdvReac Type Severity Reaction Status Date / Time latex Allergy Unknown Unknown Uncoded 05/16/24 12:30 penicillin Allergy Unknown Unknown Uncoded 05/16/24 12:30 sulfa Allergy Unknown Unknown Uncoded 05/16/24 12:30 Home Medications ?Medication ?Instructions ?Recorded ?Confirmed ?Last Taken ?Type aspirin 81 mg tablet,delayed 81 mg PO DAILY 12/11/22 05/16/24 05/16/24 09:30 History release atorvastatin 40 mg tablet 40 mg PO BEDTIME 12/11/22 05/16/24 05/16/24 09:30 History multivitamin 1 tab PO DAILY 02/23/23 05/16/24 05/16/24 09:30 History apixaban 5 mg tablet (Eliquis) 5 mg PO BID 02/01/24 05/16/24 05/16/24 09:30 History metoprolol succinate 25 mg 12.5 mg PO DAILY 02/01/24 05/16/24 05/16/24 09:30 History tablet,extended release 24 hr calcium carbonate 500 mg PO DAILY 05/16/24 05/16/24 05/16/24 09:30 History cholecalciferol (vitamin D3) 50 50 mcg PO DAILY 05/16/24 05/16/24 05/16/24 09:30 History mcg (2,000 unit) tablet (Vitamin D3) clonazepam 0.5 mg tablet (Klonopin) 0.5 mg PO DAILY PRN anxiety 05/16/24 05/16/24 Unknown History lurasidone 20 mg tablet (Latuda) 20 mg PO BEDTIME 05/16/24 05/16/24 05/16/24 09:30 History trazodone 100 mg tablet 100 mg PO BEDTIME PRN insomnia 05/16/24 05/16/24 Unknown History Physical Exam Vital Signs and Narrative: Vital Signs: Last Vital Signs Temp 97.7 F 05/16/24 18:08 Pulse 53 05/16/24 18:08 Resp 16 05/16/24 18:08 BP 108/62 05/16/24 18:08 Pulse Ox 98 05/16/24 18:08 O2 Del Method Room Air 05/16/24 18:08 BMI result Body Mass Index 25.7 Constitutional: Alert, in no acute distress. Mental Status: Oriented to person, place and time. Eyes: Pupils are equal, round, and reactive to light. Ear, Nose, and Throat: Oropharynx clear, mucous membranes moist. Ears and nose without deformities. Trachea midline. Respiratory: Clear to auscultation bilaterally. No wheezing, rales, or rhonchi. Cardiovascular: S1, S2 regular, bradycardic, with likely S2 gallop. Gastrointestinal: Abdomen soft, non-tender, non-distended. Normal bowel sounds. Neurologic: Cranial nerves II-XII are grossly intact bilaterally. No focal neurological deficits. Moves all extremities spontaneously. Skin: Warm, dry. Extremities: No edema. Psychiatric: Normal mood and affect. Results Labs 05/16/24 12:51 05/16/24 12:51 Labs: Laboratory Results - last 24 hr 10/18/24 10/18/24 10/18/24 12:51 12:52 15:19 MCV 91.0 MCH 30.0 MCHC 33.0 RDW 13.2 Plt Count 217 D MPV 9.5 Immature Gran % (Auto) 0.2 Neut % (Auto) 75.1 H Lymph % (Auto) 13.7 L [place] % (Auto) 6.0 Eos % (Auto) 3.9 Baso % (Auto) 1.1 Lymph # (Auto) 0.8 L [place] # (Auto) 0.4 Eos # (Auto) 0.2 Baso # (Auto) 0.1 Abs Immat Gran (auto) 0.01 Absolute Neuts (auto) 4.6 Absolute Nucleated RBC 0.000 Nucleated RBC % (auto) 0.0 PT 14.8 H INR 1.3 H Anion Gap 12 Estim Creat Clear Calc 65.6 Estimated GFR > 60 Random Glucose 98 Calcium 9.8 Magnesium 2.0 Total Bilirubin 0.4 AST 27 ALT 23 Alkaline Phosphatase 73 Troponin I High Sens < 2.7 3.0 B-Natriuretic Peptide 37 Total Protein 6.8 Albumin 4.1 Urine Color Yellow Urine Appearance Clear Urine pH 6.0 Ur Specific [place] 1.025 Urine Protein Negative Urine Glucose (UA) Negative Urine Ketones Negative Urine Blood Negative Urine Nitrite Negative Ur Leukocyte Esterase Small (1+) H Urine RBC 0-2 Urine WBC 0-5 Ur Squamous Epith Cells 0-2 Urine Bacteria None Seen Hyaline Casts 0-2 Influenza Type A (PCR) NEGATIVE Influenza Type B (PCR) NEGATIVE RSV RNA Qual (PCR) NEGATIVE SARS-CoV-2 RNA (RT-PCR) NEGATIVE Imaging Radiologist's Impressions: Impressions Chest X-Ray 05/16/24 12:50 IMPRESSION: Nonspecific asymmetric elevation of the right hemidiaphragm, otherwise no significant cardiopulmonary findings. Electronically signed by: Kia Reyes MD 05/16/2024 02:53 PM EDT RP Chest CTA 05/16/24 15:07 IMPRESSION: No evidence of pulmonary embolism. No acute finding. VTE: negative Electronically signed by: Andrea Marshall MD 05/16/2024 06:22 PM EDT RP Assessment and Plan (1) Syncope: Status: Acute Plan Pt is a 63-year-old female with a PMH significant for?SVT, paroxysmal AFib s/p ablation on 01/04/2024 currently on Eliquis, stress cardiomyopathy, hyponatremia, HLD, pseudoseizures, depression, PTSD, and bipolar disorder who presents to the ED for evaluation palpitations and syncopal episodes. Pt will be admitted to the hospital under observation for treatment and further evaluation of syncopal episodes. Syncopal episodes Lightheadedness, dizziness, chest pressure, palpitations, weakness, and syncopal episodes x2 Symptoms occur with exertion Pt with hx of syncope at rest, hx of SVT and pseudoseizures Orthostatics negative EGD in 2022 negative Unclear etiology: Cardiogenic vs psychogenic Cardiology consult to establish cardiology care Monitor on telemetry Question of S2 gallop Echocardiogram Paroxysmal AFib Status post ablation in 12/2022 Continue Eliquis, metoprolol HLD Continue statin Mood disorder Continue clonazepam, lamotrigine, lurasidone, and trazodone Full Code Attending:?Dr. Lynch DVT Prophylaxis: On Eliquis Patient will be admitted to the hospital under observation for treatment and further evaluation of syncopal episodes of unclear etiology that will require close monitoring cardiac function and specialist consultation with Cardiology. Quality Stroke Does the patient have a stroke diagnosis?: No VTE Prior VTE?: No VTE Risk Level:: Medical - moderate - high VTE Device Contraindication: Treatment Not Indicated VTE Drug Contraindication: N/A - Med Ordered
[2024-05-16] MEDS: Atorvastatin Calcium 40 MG TABLET PO (22:12)
[2024-05-16] MEDS: Apixaban 5 MG TABLET PO (22:12)
[2024-05-16] MEDS: Lurasidone HCl 20 MG TABLET PO (23:25)
[2024-05-16] MEDS: traZODone HCL 100 MG TABLET PO (23:45)
[2024-05-17] VITALS (8 sets, daily range): BP systolic 98–107; BP diastolic 54–75; PULSE 52–75; RESP 16–19; TEMP 36–36.7; O2SAT 95–99
[2024-05-17] MEDS: Acetaminophen 325 MG TABLET 650 MG PO ×3 (03:33→18:45)
[2024-05-17 07:15] LABS: Hemoglobin 10.9 g/dl (12.0-16.0); Mean Corpuscular HGB Conc 32.1 g/dl (31.0-35.0); Mean Corpuscular Hemoglobin 29.4 pg (27.0-33.0); Mean Corpuscular Volume 91.6 fL (80.0-98.0); Mean Platelet Volume 9.8 fL (9.4-12.3); Platelet Count 200 X10*3/uL (160-400); Red Blood Count 3.71 X10*6/uL (4.20-5.50); Red Cell Distribution Width 13.3 % (11.0-16.0); White Blood Count 5.3 X10*3/uL (4.8-10.8)
[2024-05-17 07:33] LABS: Anion Gap 10 (12-20); Blood Urea Nitrogen 16 mg/dL (9-16); Carbon Dioxide 25 mmol/L (22-29); Chloride 110 mmol/L (96-108); Creatinine Clr Calc Pharmacy 70.1; Estimated Glomerular Filt Rate > 60; Glucose Random 99 mg/dL (60-115); Potassium 3.6 mmol/L (3.3-5.1); Sodium 141 mmol/L (135-145)
--- NOTE | 2024-05-17 09:48 | P.CONCA_ITS ---
History of Present Illness History of Present Illness Date of Service: 05/17/24 Chief complaint: CP, syncopal episodes 1 week Narrative: This is a cardiology consultation regarding syncopal episodes. Patient with a history of atrial fibrillation ablation in December of this year and seen at [facility] but would like to switch due to insurance issues. Otherwise, has a history of pseudoseizures, depression, PTSD extra. She states that she has had many episodes of heart racing, chest discomfort, shortness of breath and passing out. Per documentation, patient was previously admitted to [facility] last year and was brought to the medical floor twice for unresponsiveness. Around that time, it seems she did have SVT and put on beta- blockers. Then also seen by Neurology who thought she was having pseudoseizures. Any case, not entirely clear if these episodes or cardiac or psychological. Review of Systems 2 Review of Systems: Yes all other systems are reviewed and are negative Constitutional: Constitutional: Reports as per HPI and Reports no additional constitutional complaints Eyes: Eyes: Reports as per HPI and Denies no additional eye complaints ENT: Denies system reviewed and no additional complaints, except as documented and Reports as per HPI Cardiovascular: Cardiovascular: Reports as per HPI, Reports no additional cardiovascular complaints, Denies acrocyanosis, Denies cool extremities, Reports chest pain, Denies leg edema, Denies lightheadedness, Reports Loss of Consciousness, Reports palpitations and Reports dyspnea Respiratory: Respiratory: Reports as per HPI, Denies no additional respiratory complaints and Reports dyspnea Gastrointestinal: Gastrointestinal: Reports as per HPI and Denies no additional gastrointestinal complaints Genitourinary: Genitourinary: Reports as per HPI Musculoskeletal: Musculoskeletal: Reports no additional musculoskeletal complaints and Reports as per HPI Integumentary/Breasts: Skin/Breast: Reports system reviewed and no additional complaints, except as docu Neurologic: Reports system reviewed and no additional complaints, except as documented and Reports as per HPI Psychiatric: Psychiatric: Reports no additional psychiatric complaints and Reports as per HPI Endocrine: Endocrine: Reports no additional endocrine complaints, Reports as per HPI and Reports palpitations Hematologic/Lymphatic: Hematologic/Lymphatic: Reports no additional hematologic/lymphatic complaints and Reports as per HPI Allergic/Immunologic: Allergic/Immunologic: Reports no additional allergic/immunologic complaints and Reports as per HPI [facility] Past Medical History Medical History (Updated 05/16/24 @ 21:22 by MICHEL Sanchez) Syncope Non-motor epileptic seizure Conversion disorder Hyponatremia Cervical dystonia Essential and other specified forms of tremor Cervicalgia Osteopenia GERD (gastroesophageal reflux disease) Hyperlipidemia Anxiety Restless legs syndrome (RLS) Mitral valve prolapse PTSD (post-traumatic stress disorder) Cataract Arthritis TIA (transient ischemic attack) Conversion disorder Bipolar 2 disorder Raynauds syndrome (~08/2022) Carotid artery stenosis Seizures Acute cataract Faulkner syndrome Family History Family History Father Heart disease Depressed Mother Heart disease Surgical History Surgical History H/O arthroplasty History of hysterectomy Gastric bypass status for obesity Social History Social History Household Members: None Housing: Apartment Do you presently have visiting nurse or other home services: No Alcohol intake: never Patient Tobacco Use Status: Never used Tobacco e-Cigarette/Vaping Use: Never Used Second Hand Smoke Exposure: No service: No Sexual orientation: Straight/Heterosexual Meds Allergies Allergy/AdvReac Type Severity Reaction Status Date / Time latex Allergy Unknown Unknown Uncoded 05/16/24 12:30 penicillin Allergy Unknown Unknown Uncoded 05/16/24 12:30 sulfa Allergy Unknown Unknown Uncoded 05/16/24 12:30 Active Medications: Current Medications Acetaminophen (Acetaminophen 325 Mg Tablet) 650 mg PO Q6H PRN PRN Reason: Pain, Mild (Pain Scale 1-3), fever or headache Last Admin: 05/17/24 03:33 Dose: 650 mg Apixaban (Apixaban 5 Mg Tablet) 5 mg PO BID REPLACED BY [facility] Last Admin: 05/16/24 22:12 Dose: 5 mg Aspirin (Aspirin Enteric Coated 81 Mg Tablet.Dr) 81 mg PO DAILY [facility] Atorvastatin Calcium (Atorvastatin Calcium 40 Mg Tablet) 40 mg PO BEDTIME [facility] Last Admin: 05/16/24 22:12 Dose: 40 mg Calcium Carbonate (Calcium Carbonate 750 Mg Tab.Chew) 750 mg PO Q4H PRN PRN Reason: Heartburn Calcium Carbonate (Calcium Oyster Shell Elemental 500 Mg Tablet) 500 mg PO DAILY [facility] Clonazepam (Clonazepam 0.5 Mg Tablet) 0.5 mg PO DAILY PRN PRN Reason: anxiety Lamotrigine (Lamotrigine 100 Mg Tablet) 150 mg PO BID [facility] Lurasidone HCl (Lurasidone Hcl 20 Mg Tablet) 20 mg PO BEDTIME REPLACED BY [facility] Last Admin: 05/16/24 23:25 Dose: 20 mg Magnesium Hydroxide (Milk Of Magnesia 30 Ml Oral.Susp) 30 ml PO DAILY PRN PRN Reason: Constipation Melatonin (Melatonin 3 Mg Tablet) 6 mg PO BEDTIME PRN PRN Reason: Insomnia Metoprolol Succinate (Metoprolol Succinate Er 12.5 Mg Halftab.Er.24h) 12.5 mg PO DAILY REPLACED BY [facility]; Protocol Multivitamins/Vitamin C (Multivitamin Tablet) 1 tab PO DAILY REPLACED BY [facility] Ondansetron HCl (Ondansetron Hcl 4 Mg/2 Ml Vial) 4 mg IVPUSH Q8H PRN PRN Reason: Nausea and Vomiting Sodium Chloride (0.9 % Sodium Chloride Flush 3 Ml Syringe) 3 ml IVFLUSH QSHIFT REPLACED BY [facility] Last Admin: 05/17/24 00:53 Dose: Not Given Topiramate (Topiramate 25 Mg Tablet) 25 mg PO DAILY REPLACED BY [facility] Trazodone HCl (Trazodone Hcl 100 Mg Tablet) 100 mg PO BEDTIME PRN PRN Reason: insomnia Last Admin: 05/16/24 23:45 Dose: 100 mg Vitamin D (Cholecalciferol (Vitamin D3) 25 Mcg Tablet) 50 mcg PO DAILY REPLACED BY [facility] Home Medications ?Medication ?Instructions ?Recorded ?Confirmed ?Last Taken ?Type aspirin 81 mg tablet,delayed 81 mg PO DAILY 12/11/22 05/16/24 05/16/24 09:30 History release atorvastatin 40 mg tablet 40 mg PO BEDTIME 12/11/22 05/16/24 05/16/24 09:30 History multivitamin 1 tab PO DAILY 02/23/23 05/16/24 05/16/24 09:30 History apixaban 5 mg tablet (Eliquis) 5 mg PO BID 02/01/24 05/16/24 05/16/24 09:30 History metoprolol succinate 25 mg 12.5 mg PO DAILY 02/01/24 05/16/24 05/16/24 09:30 History tablet,extended release 24 hr calcium carbonate 500 mg PO DAILY 05/16/24 05/16/24 05/16/24 09:30 History cholecalciferol (vitamin D3) 50 50 mcg PO DAILY 05/16/24 05/16/24 05/16/24 09:30 History mcg (2,000 unit) tablet (Vitamin D3) clonazepam 0.5 mg tablet (Klonopin) 0.5 mg PO DAILY PRN anxiety 05/16/24 05/16/24 Unknown History lurasidone 20 mg tablet (Latuda) 20 mg PO BEDTIME 05/16/24 05/16/24 05/16/24 09:30 History trazodone 100 mg tablet 100 mg PO BEDTIME PRN insomnia 05/16/24 05/16/24 Unknown History Physical Exam 2 Vital Signs: Vital Signs: Last Vital Signs Temp 97.6 F 05/17/24 07:17 Pulse 52 05/17/24 07:17 Resp 18 05/17/24 07:17 BP 107/60 05/17/24 07:17 Pulse Ox 98 05/17/24 07:17 O2 Del Method Room Air 05/17/24 07:17 BMI result Body Mass Index 25.7 Const: General: comfortable and no acute distress O rientation/consciousness: patient oriented x3 HEENT: Other: Unremarkable Head: Yes normal to inspection Neck: Neck: Yes normal visual inspection Chest: Chest palpation & inspection: normal inspection of the chest Resp: Auscultation: clear to auscultation bilaterally Cardio: Palpation: normal PMI Heart sounds: S1 normal heart sound present, S2 normal heart sound present, no gallops, no murmurs and no rubs GI: Palpation (GI): Soft to palpation Back/Spine/Pelvis: Other: unremarkable Skin: General skin exam: no rashes or lesions noted Neuro: General: patient oriented x3 Extrem: General: Yes normal to inspection Psych: Mental Status: mental status grossly normal Objective Labs and Meds 05/17/24 06:43 05/17/24 06:43 Lab results: Laboratory Results - last 24 hr 05/16/24 05/16/24 05/16/24 12:51 12:52 15:19 WBC 6.1 RBC 4.10 L Hgb 12.3 Hct 37.3 MCV 91.0 MCH 30.0 MCHC 33.0 RDW 13.2 Plt Count 217 D MPV 9.5 Immature Gran % (Auto) 0.2 Neut % (Auto) 75.1 H Lymph % (Auto) 13.7 L [place] % (Auto) 6.0 Eos % (Auto) 3.9 Baso % (Auto) 1.1 Lymph # (Auto) 0.8 L [place] # (Auto) 0.4 Eos # (Auto) 0.2 Baso # (Auto) 0.1 Abs Immat Gran (auto) 0.01 Absolute Neuts (auto) 4.6 Absolute Nucleated RBC 0.000 Nucleated RBC % (auto) 0.0 PT 14.8 H INR 1.3 H Sodium 140 Potassium 4.0 Chloride 106 Carbon Dioxide 26 Anion Gap 12 BUN 21 H Creatinine 0.94 Estim Creat Clear Calc 65.6 Estimated GFR > 60 Random Glucose 98 Calcium 9.8 Magnesium 2.0 Total Bilirubin 0.4 AST 27 ALT 23 Alkaline Phosphatase 73 Troponin I High Sens < 2.7 3.0 B-Natriuretic Peptide 37 Total Protein 6.8 Albumin 4.1 Urine Color Yellow Urine Appearance Clear Urine pH 6.0 Ur Specific [place] 1.025 Urine Protein Negative Urine Glucose (UA) Negative Urine Ketones Negative Urine Blood Negative Urine Nitrite Negative Ur Leukocyte Esterase Small (1+) H Urine RBC 0-2 Urine WBC 0-5 Ur Squamous Epith Cells 0-2 Urine Bacteria None Seen Hyaline Casts 0-2 Influenza Type A (PCR) NEGATIVE Influenza Type B (PCR) NEGATIVE RSV RNA Qual (PCR) NEGATIVE SARS-CoV-2 RNA (RT-PCR) NEGATIVE 05/17/24 06:43 WBC 5.3 RBC 3.71 L Hgb 10.9 L Hct 34.0 L MCV 91.6 MCH 29.4 MCHC 32.1 RDW 13.3 Plt Count 200 MPV 9.8 Immature Gran % (Auto) Neut % (Auto) Lymph % (Auto) [place] % (Auto) Eos % (Auto) Baso % (Auto) Lymph # (Auto) [place] # (Auto) Eos # (Auto) Baso # (Auto) Abs Immat Gran (auto) Absolute Neuts (auto) Absolute Nucleated RBC 0.000 Nucleated RBC % (auto) 0.0 PT INR Sodium 141 Potassium 3.6 Chloride 110 H Carbon Dioxide 25 Anion Gap 10 L BUN 16 Creatinine 0.88 Estim Creat Clear Calc 70.1 Estimated GFR > 60 Random Glucose 99 Calcium 9.0 D Magnesium Total Bilirubin AST ALT Alkaline Phosphatase Troponin I High Sens B-Natriuretic Peptide Total Protein Albumin Urine Color Urine Appearance Urine pH Ur Specific [place] Urine Protein Urine Glucose (UA) Urine Ketones Urine Blood Urine Nitrite Ur Leukocyte Esterase Urine RBC Urine WBC Ur Squamous Epith Cells Urine Bacteria Hyaline Casts Influenza Type A (PCR) Influenza Type B (PCR) RSV RNA Qual (PCR) SARS-CoV-2 RNA (RT-PCR) ECG Interpretation: EKG with underlying artifact. Sinus rhythm with premature supraventricular ectopy. Imaging Radiologist's impression: Impressions Chest X-Ray 05/16/24 12:50 IMPRESSION: Nonspecific asymmetric elevation of the right hemidiaphragm, otherwise no significant cardiopulmonary findings. Electronically signed by: Kia Reyes MD 05/16/2024 02:53 PM EDT RP Chest CTA 05/16/24 15:07 IMPRESSION: No evidence of pulmonary embolism. No acute finding. VTE: negative Electronically signed by: Andrea Marshall MD 05/16/2024 06:22 PM EDT RP Assessment and Plan (1) Syncope: Status: Acute Plan Baseline EKGs unremarkable. Telemetry is also unremarkable without any clear- cut arrhythmias. High sensitivity troponin/cardiac BNP are within range. Overall, constellation of symptoms including shortness of breath, passing out, heart racing but no objective data on monitoring. Not clear if it is cardiac or psychological. We will arrange a follow-up echocardiogram/30 day monitor and outpatient follow- up. Procedures Date of Service Date of Service: 05/17/24
--- NOTE | 2024-05-17 10:03 | MHC.CM.PN ---
Chata 05/17/24, Pt lives alone, she has EQUIPMENT SERVICE TECHNICIAN services one day a week thru [facility] for cleaning, laundry and shopping. Pt. does her own personal care. For DME, she has shower bench, grab bars, cane. HCP is her sister: Dominga Charles, copy requested. Pt.'s sister to transport her home at [place]. DCP: home, self care. CM to follow for DC needs.
[2024-05-17] MEDS: Cholecalciferol (Vitamin D3) 25 MCG TABLET 50 MCG PO (10:36)
[2024-05-17] MEDS: Metoprolol Succinate ER 12.5 MG HALFTAB.ER.24H PO (10:36)
[2024-05-17] MEDS: Aspirin Enteric Coated 81 MG TABLET.DR PO (10:37)
[2024-05-17] MEDS: Apixaban 5 MG TABLET PO ×2 (10:37→20:12)
[2024-05-17] MEDS: Calcium Oyster Shell Elemental 500 MG TABLET PO (10:37)
[2024-05-17] MEDS: lamoTRIgine 100 MG TABLET 150 MG PO ×2 (10:37→20:11)
[2024-05-17] MEDS: Topiramate 25 MG TABLET PO (10:37)
[2024-05-17] MEDS: Multivitamin TABLET 1 TAB PO (10:37)
[2024-05-17] MEDS: 0.9 % Sodium Chloride Flush 3 ML SYRINGE IVFLUSH ×3 (10:38→20:34)
--- NOTE | 2024-05-17 12:33 | P.PNIM_ITS ---
Subjective Subjective Date of Service: 05/17/24 Interval History: syncopal episodes Review of Systems rapid response called due to fall-has another episode ?syncope-but eyes wide open/pupil recative , not speaking for few minutes no seizure like activity or any postictal symptoms denies any chest pain or sob or palpatation tele seems fine even during the episode. ekg during rapid response seems fine nsr , fs 133 mg/dl, vitals and sats stable. Physical Exam 2 Vital Signs: Vital Signs: Last Vital Signs Temp 97.8 F 05/17/24 11:08 Pulse 60 05/17/24 11:08 Resp 18 05/17/24 11:08 BP 105/61 05/17/24 11:08 Pulse Ox 97 05/17/24 11:08 O2 Del Method Room Air 05/17/24 11:08 BMI result Body Mass Index 25.7 General - no acute distress. Eyes -pupil reactive , eomi ,perrla . Cardiovascular - regular rate and rhythm, S1-S2 Lungs - normal respiratory effort, clear to auscultation bilaterally, no wheezing Abdomen - soft, nontender, no rebound or guarding Extremities - no edema Neuro - awake and alert, no focal deficits Objective Data Active Medications Acetaminophen (Acetaminophen 325 Mg Tablet) 650 mg PO Q6H PRN PRN Reason: Pain, Mild (Pain Scale 1-3), fever or headache Last Admin: 05/17/24 03:33 Dose: 650 mg Documented By: LEROY Apixaban (Apixaban 5 Mg Tablet) 5 mg PO BID [facility] Last Admin: 05/17/24 10:37 Dose: 5 mg Documented By: UMA Aspirin (Aspirin Enteric Coated 81 Mg Tablet.Dr) 81 mg PO DAILY [facility] Last Admin: 05/17/24 10:37 Dose: 81 mg Documented By: UMA Atorvastatin Calcium (Atorvastatin Calcium 40 Mg Tablet) 40 mg PO BEDTIME [facility] Last Admin: 05/16/24 22:12 Dose: 40 mg Documented By: TOÑA Calcium Carbonate (Calcium Carbonate 750 Mg Tab.Chew) 750 mg PO Q4H PRN PRN Reason: Heartburn Calcium Carbonate (Calcium Oyster Shell Elemental 500 Mg Tablet) 500 mg PO DAILY [facility] Last Admin: 05/17/24 10:37 Dose: 500 mg Documented By: UMA Clonazepam (Clonazepam 0.5 Mg Tablet) 0.5 mg PO DAILY PRN PRN Reason: anxiety Lamotrigine (Lamotrigine 100 Mg Tablet) 150 mg PO BID [facility] Last Admin: 05/17/24 10:37 Dose: 150 mg Documented By: UMA Lurasidone HCl (Lurasidone Hcl 20 Mg Tablet) 20 mg PO BEDTIME [facility] Last Admin: 05/16/24 23:25 Dose: 20 mg Documented By: LEROY Magnesium Hydroxide (Milk Of Magnesia 30 Ml Oral.Susp) 30 ml PO DAILY PRN PRN Reason: Constipation Melatonin (Melatonin 3 Mg Tablet) 6 mg PO BEDTIME PRN PRN Reason: Insomnia Metoprolol Succinate (Metoprolol Succinate Er 12.5 Mg Halftab.Er.24h) 12.5 mg PO DAILY [facility]; Protocol Last Admin: 05/17/24 10:36 Dose: 12.5 mg Documented By: UMA Multivitamins/Vitamin C (Multivitamin Tablet) 1 tab PO DAILY [facility] Last Admin: 05/17/24 10:37 Dose: 1 tab Documented By: UMA Ondansetron HCl (Ondansetron Hcl 4 Mg/2 Ml Vial) 4 mg IVPUSH Q8H PRN PRN Reason: Nausea and Vomiting Sodium Chloride (0.9 % Sodium Chloride Flush 3 Ml Syringe) 3 ml IVFLUSH QSHIFT [facility] Last Admin: 05/17/24 10:38 Dose: 3 ml Documented By: UMA Topiramate (Topiramate 25 Mg Tablet) 25 mg PO DAILY [facility] Last Admin: 05/17/24 10:37 Dose: 25 mg Documented By: UMA Trazodone HCl (Trazodone Hcl 100 Mg Tablet) 100 mg PO BEDTIME PRN PRN Reason: insomnia Last Admin: 05/16/24 23:45 Dose: 100 mg Documented By: LEROY Vitamin D (Cholecalciferol (Vitamin D3) 25 Mcg Tablet) 50 mcg PO DAILY [facility] Last Admin: 05/17/24 10:36 Dose: 50 mcg Documented By: UMA Labs 05/17/24 06:43 05/17/24 06:43 Labs: Laboratory Results - last 24 hr 10/18/24 10/18/24 10/18/24 12:51 12:52 15:19 MCV 91.0 MCH 30.0 MCHC 33.0 RDW 13.2 Plt Count 217 D MPV 9.5 Immature Gran % (Auto) 0.2 Neut % (Auto) 75.1 H Lymph % (Auto) 13.7 L [place] % (Auto) 6.0 Eos % (Auto) 3.9 Baso % (Auto) 1.1 Lymph # (Auto) 0.8 L [place] # (Auto) 0.4 Eos # (Auto) 0.2 Baso # (Auto) 0.1 Abs Immat Gran (auto) 0.01 Absolute Neuts (auto) 4.6 Absolute Nucleated RBC 0.000 Nucleated RBC % (auto) 0.0 PT 14.8 H INR 1.3 H Anion Gap 12 Estim Creat Clear Calc 65.6 Estimated GFR > 60 Random Glucose 98 Calcium 9.8 Magnesium 2.0 Total Bilirubin 0.4 AST 27 ALT 23 Alkaline Phosphatase 73 Troponin I High Sens < 2.7 3.0 B-Natriuretic Peptide 37 Total Protein 6.8 Albumin 4.1 Urine Color Yellow Urine Appearance Clear Urine pH 6.0 Ur Specific [place] 1.025 Urine Protein Negative Urine Glucose (UA) Negative Urine Ketones Negative Urine Blood Negative Urine Nitrite Negative Ur Leukocyte Esterase Small (1+) H Urine RBC 0-2 Urine WBC 0-5 Ur Squamous Epith Cells 0-2 Urine Bacteria None Seen Hyaline Casts 0-2 Influenza Type A (PCR) NEGATIVE Influenza Type B (PCR) NEGATIVE RSV RNA Qual (PCR) NEGATIVE SARS-CoV-2 RNA (RT-PCR) NEGATIVE 05/17/24 06:43 MCV 91.6 MCH 29.4 MCHC 32.1 RDW 13.3 Plt Count 200 MPV 9.8 Immature Gran % (Auto) Neut % (Auto) Lymph % (Auto) [place] % (Auto) Eos % (Auto) Baso % (Auto) Lymph # (Auto) [place] # (Auto) Eos # (Auto) Baso # (Auto) Abs Immat Gran (auto) Absolute Neuts (auto) Absolute Nucleated RBC 0.000 Nucleated RBC % (auto) 0.0 PT INR Anion Gap 10 L Estim Creat Clear Calc 70.1 Estimated GFR > 60 Random Glucose 99 Calcium 9.0 D Magnesium Total Bilirubin AST ALT Alkaline Phosphatase Troponin I High Sens B-Natriuretic Peptide Total Protein Albumin Urine Color Urine Appearance Urine pH Ur Specific [place] Urine Protein Urine Glucose (UA) Urine Ketones Urine Blood Urine Nitrite Ur Leukocyte Esterase Urine RBC Urine WBC Ur Squamous Epith Cells Urine Bacteria Hyaline Casts Influenza Type A (PCR) Influenza Type B (PCR) RSV RNA Qual (PCR) SARS-CoV-2 RNA (RT-PCR) Microbiology Microbiology Results: Microbiology 05/16/24 15:19 Urine Culture - Preliminary Urine clean catch - Clean Catch Midstream Culture in progress. Assessment and Plan (1) Syncope: Status: Acute Assessment and Plan: 63-year-old female with a PMH significant for?SVT, paroxysmal AFib s/p ablation on 01/04/2024 currently on Eliquis, stress cardiomyopathy, hyponatremia, HLD, pseudoseizures, depression, PTSD, and bipolar disorder who presents to the ED for evaluation palpitations and syncopal episodes. Pt will be admitted to the hospital under observation for treatment and further evaluation of syncopal episodes. Syncopal episodes Lightheadedness, dizziness, chest pressure, palpitations, weakness, and syncopal episodes x2 Symptoms occur with exertion Pt with hx of syncope at rest, hx of SVT and pseudoseizures Orthostatics negative EGD in 2022 negative today had rapid response -please see interval hx section above. unclear if she hit her haed during fall -ct head/neck added. Unclear etiology: Cardiogenic vs psychogenic cardioogy earlier rec-outpatient workup. psych consulted . Paroxysmal AFib Status post ablation in 12/2022 Continue Eliquis, metoprolol HLD Continue statin Mood disorder Continue clonazepam, lamotrigine, lurasidone, and trazodone Full Code DVT Prophylaxis: On Eliquis ongoing need for hospital under observation for treatment and further evaluation of syncopal episodes of unclear etiology that will require close monitoring cardiac function and ?psycogenic episodes. Quality Stroke Does the patient have a stroke diagnosis?: No VTE Prior VTE?: No VTE Risk Level:: Medical - moderate - high VTE Device Contraindication: Treatment Not Indicated VTE Drug Contraindication: N/A - Med Ordered
[2024-05-17 13:40] LABS: Glucose, Whole Blood 133 mg/dL (60-115)
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
[2024-05-17] MEDS: Atorvastatin Calcium 40 MG TABLET PO (20:12)
[2024-05-17] MEDS: Lurasidone HCl 20 MG TABLET PO (20:12)
[2024-05-17] MEDS: traZODone HCL 100 MG TABLET PO (20:33)
[2024-05-17] MEDS: Ibuprofen 400 MG TABLET PO (20:33)
[2024-05-18 03:18] VITALS: BP 97/57; PULSE 53; RESP 17; TEMP 36.2; O2SAT 97
[2024-05-18 07:13] VITALS: BP 92/55; PULSE 65; RESP 18; TEMP 37.2; O2SAT 97
[2024-05-18] MEDS: Multivitamin TABLET 1 TAB PO (10:07)
[2024-05-18] MEDS: Aspirin Enteric Coated 81 MG TABLET.DR PO (10:07)
[2024-05-18] MEDS: Apixaban 5 MG TABLET PO (10:07)
[2024-05-18] MEDS: Calcium Oyster Shell Elemental 500 MG TABLET PO (10:08)
[2024-05-18] MEDS: Cholecalciferol (Vitamin D3) 25 MCG TABLET 50 MCG PO (10:08)
[2024-05-18] MEDS: Metoprolol Succinate ER 12.5 MG HALFTAB.ER.24H PO (10:08)
[2024-05-18] MEDS: lamoTRIgine 100 MG TABLET 150 MG PO (10:08)
[2024-05-18] MEDS: Topiramate 25 MG TABLET PO (10:08)
[2024-05-18] MEDS: 0.9 % Sodium Chloride Flush 3 ML SYRINGE IVFLUSH (10:15)
[2024-05-18 11:04] VITALS: BP 114/59; PULSE 54; RESP 20; TEMP 36.7; O2SAT 99
--- NOTE | 2024-05-18 11:15 | P.DS_ITS ---
DS: Providers Provider Date of Service: 05/18/24 Date of admission: 05/16/24 20:49 Date of discharge: 05/18/24 Primary care physician: Susanne Barbour MD Consults: 05/16/24 21:12 Consult to Cardiology Routine Consulting Provider: [facility] Reason for consultation: Palpitations, syncope, establish cardiology care 05/17/24 13:46 Consult to Psychiatry Routine Consulting Provider: Psych Covering Reason for consultation: ?psycogenic syncope Has provider been notified: No Attending physician on discharge: Raegan Slater Discharging clinician: Raegan Slater DS: Diagnosis Discharge Diagnosis (1) Bipolar 2 disorder: Status: Acute (2) Depression: Status: Acute (3) PTSD (post-traumatic stress disorder): Status: Acute DS: Summary Hospital Course Hospital Course: HPI: 63-year-old female with a PMH significant for?SVT, paroxysmal AFib s/p ablation on 01/04/2024 currently on Eliquis, stress cardiomyopathy, hyponatremia, HLD, pseudoseizures, depression, PTSD, and bipolar disorder who presents to the ED for evaluation palpitations and syncopal episodes. Patient reports that all week she has been ?not feeling good?. Sunday patient was walking outside around her apartment complex when she began to feel her heart racing and experienced SOB, [place], chest pain, lightheadedness, and dizziness. Patient went to her apartment and then ?passed out? on the floor. Denies traumatic fall head strike. Throughout the week patient continued to feel a ?heaviness? in her chest and was overall weak, so she ?took it easy?. Today patient was helping her son move of bed and experienced similar symptoms including another nontraumatic syncopal episode. Patient denies nausea, vomiting, diarrhea. No recent illnesses. Denies fever, chills, abdominal pain. No headache. Of note, patient was previously admitted to [facility] last year and was brought to the medical floor twice for episodes of unresponsiveness. The 1st admission patient was noted to go into SVTs of up to 200 and was started on metoprolol. Was also evaluated by Neurology who believed her to be having pseudoseizures his EEG had showed no seizure activity. 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 She would like to establish cardiology care here at [facility]. In the ED pt's Labs were grossly unremarkable baseline for patient. No leukocytosis. Stable H&H. No significant electrolyte abnormalities. Renal and hepatic function baseline. Initial troponin negative with repeat WNL at 3.0. BNP WNL. UA negative for UTI. Tested negative COVID, RSV, flu. CXR showed n onspecific asymmetric elevation of right hemidiaphragm, otherwise no acute findings. CTA of chest negative for pulmonary embolism or any acute finding. EKG demonstrated sinus rhythm with PACs but no evidence of acute ST elevations or depressions. Pt will be admitted to the hospital under observation for treatment and further evaluation of syncopal episodes. Hospital course: syncopal episodes- she has 1 episode in hospital ?syncope -rapid response called due to fall-has another episode ?syncope-but eyes wide open/pupil recative , not speaking for few minutes,no seizure like activity or any postictal symptoms ,when asked denies any chest pain or sob or palpatation,tele seems fine even during the episode.ekg during rapid response seems fine nsr , fs 133 mg/dl, vitals and sats stable.seems tele fine ,ct head /neck negative , no new episode . also seen by psych-possible psycogenic component to syncope -need to follow up outpatient .follow up cardiology outpatient to complete cardiac workup. she said she will living with her neelam diggs for few days. plan: also seen by psych-possible psycogenic component to syncope -need to follow up outpatient .follow up with her psych and neuro outpatient. follow up cardiology outpatient cardiac workup to complete-cardiology may arrange their own appointment. above management discussed with patient and her son , they bother understands and in aggreemnt with above plan, time spent 40 min Time Attestation Total time managing care of this patient today: 40 mintues. Discharge Coordination Time (in mins): 40 min Quality: Safe Use of Opioids Does Pt have an Active Cancer Diagnosis on the Problem List?: No Quality: Stroke Does the patient have a stroke diagnosis?: No Physical Exam Vital Signs: Vital Signs: Last Vital Signs Temp 98.1 F 05/18/24 11:04 Pulse 54 05/18/24 11:04 Resp 20 05/18/24 11:04 BP 114/59 L 05/18/24 11:04 Pulse Ox 99 05/18/24 11:04 O2 Del Method Room Air 05/18/24 11:04 BMI result Body Mass Index 25.7 General - no acute distress. Eyes -pupil reactive , eomi ,perrla . Cardiovascular - regular rate and rhythm, S1-S2 Lungs - normal respiratory effort, clear to auscultation bilaterally, no wheezing Abdomen - soft, nontender, no rebound or guarding Extremities - no edema Neuro - awake and alert, no focal deficits DS: Data Data Completed and Pending Labs on day of discharge: Laboratory Results - last 24 hr 05/17/24 13:30 POC Glucose 133 H Preliminary micro results at discharge 05/16/24 15:19 Urine Culture - Preliminary Urine clean catch - Clean Catch Midstream Culture in progress. Imaging Chest x-ray: Radiologist's impression: ITS Impressions Chest X-Ray 05/16/24 12:50 IMPRESSION: Nonspecific asymmetric elevation of the right hemidiaphragm, otherwise no significant cardiopulmonary findings. Electronically signed by: Kia Reyes MD 05/16/2024 02:53 PM EDT RP Chest CTA 05/16/24 15:07 IMPRESSION: No evidence of pulmonary embolism. No acute finding. VTE: negative Electronically signed by: Andrea Marshall MD 05/16/2024 06:22 PM EDT RP Cervical Spine CT 05/17/24 13:47 IMPRESSION: 1. No acute intracranial pathology. 2. No CT evidence of acute cervical spine fracture or traumatic subluxation. 3.Soft tissue density along the right parietal scalp may be a sebaceous cyst or posttraumatic hematoma/contusion. Electronically signed by: Jazmyne Galaviz MD 05/17/2024 03:06 PM EDT RP Head CT 05/17/24 13:47 IMPRESSION: 1. No acute intracranial pathology. 2. No CT evidence of acute cervical spine fracture or traumatic subluxation. 3.Soft tissue density along the right parietal scalp may be a sebaceous cyst or posttraumatic hematoma/contusion. Electronically signed by: Jazmyne Galaviz MD 05/17/2024 03:06 PM EDT RP Discharge Plan Discharge Anticipated Discharge Date/Time: 05/18/24 11:11 Patient Disposition: Home, Self-Care Discharge Diagnosis: syncope-?psycogenic Referrals: Susanne Barbour MD [Primary Care Provider] - 1 Week Discharge Medications: Continued multivitamin Tablet 1 tab PO DAILY metoprolol succinate 25 mg tablet extended release 24 hr 12.5 mg PO DAILY Eliquis 5 mg tablet 5 mg PO BID topiramate 25 mg tablet 25 mg PO DAILY 30 Days Qty: 30 0RF lamotrigine 300 mg tablet extended release 24hr 300 mg PO DAILY 30 Days Qty: 30 0RF calcium carbonate [Calcium 500] 500 mg calcium (1,250 mg) Tablet 500 mg PO DAILY cholecalciferol (vitamin D3) [Vitamin D3] 50 mcg (2,000 unit) Tablet 50 mcg PO DAILY lurasidone [Latuda] 20 mg tablet 20 mg PO BEDTIME trazodone 100 mg tablet 100 mg PO BEDTIME PRN (Reason: insomnia) clonazepam [Klonopin] 0.5 mg tablet 0.5 mg PO DAILY PRN (Reason: anxiety) atorvastatin 40 mg tablet 40 mg PO BEDTIME aspirin 81 mg tablet,delayed release (DR/EC) 81 mg PO DAILY Discharge Orders: Discharge Order (Routine); Ordered 05/18/24 Ordered By: Raegan Slater Diet: Advance to usual diet Activity on Discharge: As tolerated Stand Alone Forms: Patient Portal Discharge page Print Language: Rwandan Care Plan Goals: syncopal episodes-seems tele fine ,ct head /neck negative , no new episode . follow up cardiology outpatient cardiac workup. also seen by psych-possible psycogenic component to syncope -need to follow up outpatient . cardiology may arrange their own appointment. Health Concerns: as above. Plan of Treatment: as above. Assessment: as above.
--- NOTE | 2024-05-18 11:47 | MHC.CM.PN ---
Pt has been medically cleared for DC, she will go home via family transport, plan is self care.
--- NOTE | 2024-05-18 16:58 | PM.EVENT ---
Documented by User: Belle Aguilar APRN 05/18/24 21:51 Event Note Date of Service: 05/18/24 Event Note: Pt preparing for discharge. Agreed to complete mental status assessments. Folstein [place] Time Spent With Patient Time: Total time managing care of this patient today ____ minutes. Documented by User: Vic Roth MD 05/21/24 08:51 Event Note Date of Service: 05/21/24
== END 2024-05-18 16:01 | disposition home or self-care (01) ==
LOC: HO.ED 18:47 → HO.EDOVER 20:53 → HO.IMC 20:56
PROVIDERS: Physician Assistant; Registered Nurse Emergency; Admitting Provider Student in an Organized Health Care Education/Training Program; Emergency Provider Internal Medicine; PCP Family Medicine; Visit Provider Internal Medicine
DX: R55 Syncope and collapse (principal); F31.81 Bipolar II disorder; F43.10 Post-traumatic stress disorder, unspecified; R07.9 Chest pain, unspecified; I10 Essential (primary) hypertension; G40.909 Epilepsy, unspecified, not intractable, without status epilepticus; I47.10 Supraventricular tachycardia, unspecified; R06.00 Dyspnea, unspecified; K21.9 Gastro-esophageal reflux disease without esophagitis; I48.0 Paroxysmal atrial fibrillation; I51.81 Takotsubo syndrome; I73.00 Raynaud's syndrome without gangrene; Z03.818 Encounter for observation for suspected exposure to other biological agents ruled out; Z79.01 Long term (current) use of anticoagulants; Z79.899 Other long term (current) drug therapy
CPT/HCPCS: 0241U; 36415; 70450; 71046; 71275; 72125; 80048; 80053; 81001; 82947; 83735; 83880; 84484; 85025; 85027; 85610; 87086; 93005; 99222; 99285; Q9967

== ENCOUNTER → 2024-05-16 12:20 | Outpatient (BNV) | payer OTHER, MEDICAID, SELFPAY | PROVIDERS: Emergency Provider Internal Medicine; PCP Family Medicine; Visit Provider Internal Medicine | DX: R07.9 Chest pain, unspecified (principal); R94.31 Abnormal electrocardiogram [ECG] [EKG] | CPT/HCPCS: 93010 ==

== ENCOUNTER → 2024-05-16 20:49 | Outpatient (BNV) | payer OTHER, SELFPAY | PROVIDERS: Admitting Provider Student in an Organized Health Care Education/Training Program; Emergency Provider Internal Medicine; PCP Family Medicine; Visit Provider Clinical Nurse Specialist Psychiatric/Mental Health, Adult | DX: F31.81 Bipolar II disorder (principal); F43.11 Post-traumatic stress disorder, acute | CPT/HCPCS: 99232; 99499 ==

== ENCOUNTER → 2024-05-16 20:49 | Outpatient (BNV) | payer OTHER, MEDICAID, SELFPAY | PROVIDERS: Admitting Provider Student in an Organized Health Care Education/Training Program; Emergency Provider Internal Medicine; PCP Family Medicine; Visit Provider Internal Medicine | DX: R55 Syncope and collapse (principal) | CPT/HCPCS: 99223 ==

== ENCOUNTER → 2024-05-16 20:49 | Outpatient (BNV) | payer OTHER, MEDICAID, SELFPAY | PROVIDERS: Admitting Provider Student in an Organized Health Care Education/Training Program; Emergency Provider Internal Medicine; PCP Family Medicine; Visit Provider Student in an Organized Health Care Education/Training Program | DX: F31.81 Bipolar II disorder (principal); F43.10 Post-traumatic stress disorder, unspecified | CPT/HCPCS: 99222; 99231; 99239 ==

== ENCOUNTER 2024-05-29 11:17 | Emergency (ER) | payer OTHER, SELFPAY ==
[2024-05-29 11:39] VITALS: BP 105/65; PULSE 74; RESP 16; TEMP 36.3; O2SAT 98; BMI 25.8
--- NOTE | 2024-05-29 11:46 | ECG_ITS ---
Test Reason : HYPOTENSION Blood Pressure : / mmHG Vent. Rate : 068 BPM Atrial Rate : 068 BPM P-R Int : 192 ms QRS Dur : 078 ms QT Int : 402 ms P-R-T Axes : 075 022 019 degrees QTc Int : 427 ms Normal sinus rhythm Normal ECG When compared with ECG of 16-MAY-2024 12:17, Premature atrial complexes are no longer Present Referred By: Generic ED Physician Electronically Signed By:KALPANA PRESTON
[2024-05-29 12:09] LABS: MANUAL DIFF FLAG NO
[2024-05-29 12:11] LABS: Basophils Percent Auto 0.8 % (0-2); Eosinophils Absolute Auto 0.3 X10*3/uL (0.0-0.4); Eosinophils Percent Auto 6.3 % (0-4); Hematocrit 35.6 % (37.0-47.0); Hemoglobin 11.3 g/dl (12.0-16.0); Imm Gran Abs Auto 0.01 X10*3/uL (0.00-0.03); Imm Gran Pct Auto 0.2 % (0.0-0.4); Lymphocytes Absolute Auto 0.8 X10*3/uL (1.2-4.9); Lymphocytes Percent Auto 16.7 % (20-40); Mean Corpuscular HGB Conc 31.7 g/dl (31.0-35.0); Mean Corpuscular Hemoglobin 29.2 pg (27.0-33.0); Mean Platelet Volume 9.3 fL (9.4-12.3); Monocytes Absolute Auto 0.4 X10*3/uL (0.1-1.2); Monocytes Percent Auto 7.1 % (2-11); Neutrophils Absolute Auto 3.4 x10*3/uL (2.0-8.3); Neutrophils Percent Auto 68.9 % (45-73); Platelet Count 175 X10*3/uL (160-400); Red Blood Count 3.87 X10*6/uL (4.20-5.50); Red Cell Distribution Width 13.8 % (11.0-16.0)
[2024-05-29 12:35] LABS: Alanine Aminotransferase 19 U/L (0-31); Albumin Level 3.7 g/dL (3.5-5.0); Anion Gap 15 (12-20); Aspartate Amino Transferase 26 U/L (5-31); Bilirubin Total 0.3 mg/dL (0.0-1.0); Blood Urea Nitrogen 15 mg/dL (9-16); Calcium 9.2 mg/dL (8.4-10.2); Carbon Dioxide 21 mmol/L (22-29); Chloride 109 mmol/L (96-108); Creatinine Clr Calc Pharmacy 67.1; Estimated Glomerular Filt Rate > 60; Glucose Random 96 mg/dL (60-115); Potassium 4.1 mmol/L (3.3-5.1); Sodium 141 mmol/L (135-145); Total Protein 6.2 g/dL (6.5-8.0)
[2024-05-29 12:42] LABS: Alkaline Phosphatase 65 U/L (39-117)
[2024-05-29 12:52] VITALS: BP 121/79; PULSE 55; RESP 16; O2SAT 99
--- NOTE | 2024-05-29 15:00 | ED_ITS ---
HPI - Arrhythmia/Palpitations General Chief Complaint: Arrhythmia/Palpitations Stated Complaint: bp/heart rate concerns Time Seen by Provider: 05/29/24 12:49 History of Present Illness HPI narrative: Patient is a 63-year-old female with a history of low blood pressure. History of syncope. Positive generalized malaise. Patient stated that she had 2 syncopal episodes. Had low blood pressure at home. Did not hit her head. Has a history of atrial fibrillation patient on Eliquis. Has been worked up previously for syncope. However patient continue feel lightheaded. Continued to feel weak. Came to the ED. now wants to leave. Denies noticing any bloody stool. Denies noticing any chest pain. Denies having any diaphoresis. Related Data Home Medications ?Medication ?Instructions ?Recorded ?Confirmed aspirin 81 mg tablet,delayed 81 mg PO DAILY 12/11/22 05/16/24 release atorvastatin 40 mg tablet 40 mg PO BEDTIME 12/11/22 05/16/24 multivitamin 1 tab PO DAILY 02/23/23 05/16/24 apixaban 5 mg tablet (Eliquis) 5 mg PO BID 02/01/24 05/16/24 metoprolol succinate 25 mg 12.5 mg PO DAILY 02/01/24 05/16/24 tablet,extended release 24 hr calcium carbonate 500 mg PO DAILY 05/16/24 05/16/24 cholecalciferol (vitamin D3) 50 50 mcg PO DAILY 05/16/24 05/16/24 mcg (2,000 unit) tablet (Vitamin D3) clonazepam 0.5 mg tablet (Klonopin) 0.5 mg PO DAILY PRN anxiety 05/16/24 05/16/24 lurasidone 20 mg tablet (Latuda) 20 mg PO BEDTIME 05/16/24 05/16/24 trazodone 100 mg tablet 100 mg PO BEDTIME PRN insomnia 05/16/24 05/16/24 Previous Rx's ?Medication ?Instructions ?Recorded lamotrigine 300 mg tablet,extended 300 mg PO DAILY 30 days #30 tabs 02/06/24 release 24 hr topiramate 25 mg tablet 25 mg PO DAILY 30 days #30 tabs 02/06/24 Allergies Allergy/AdvReac Type Severity Reaction Status Date / Time latex Allergy Mild Rash Uncoded 05/29/24 11:45 penicillin Allergy Mild Hives Uncoded 05/29/24 11:45 sulfa Allergy Unknown Gastrointestinal Uncoded 05/29/24 11:45 Upset Review of Systems 2 Review of Systems: Positive history of syncope Yes all other systems are reviewed and are negative [facility] Past Medical History Attestation statement: The following information was validated with the patient. Medical History Exertional dyspnea Chest pain Depression Syncope Non-motor epileptic seizure Conversion disorder Hyponatremia Cervical dystonia Essential and other specified forms of tremor Cervicalgia Osteopenia GERD (gastroesophageal reflux disease) Hyperlipidemia Anxiety Restless legs syndrome (RLS) Mitral valve prolapse PTSD (post-traumatic stress disorder) Cataract Arthritis TIA (transient ischemic attack) Conversion disorder Bipolar 2 disorder Raynauds syndrome (~08/2022) Carotid artery stenosis Seizures Acute cataract Faulkner syndrome Surgical History H/O arthroplasty History of hysterectomy Gastric bypass status for obesity Family History Family History Father Heart disease Depressed Mother Heart disease Social History Social History Household Members: None Housing: Apartment Do you presently have visiting nurse or other home services: No Alcohol intake: never Patient Tobacco Use Status: Never used Tobacco e-Cigarette/Vaping Use: Never Used Second Hand Smoke Exposure: No Advance Directives: Yes Advance Directives Information Provided: Yes Advance Directives on File: No service: No Sexual orientation: Straight/Heterosexual Physical Exam 2 Vital Signs: Vital Signs: Last Vital Signs Temp 98.7 F 05/29/24 15:01 Pulse 55 05/29/24 15:01 Resp 16 05/29/24 15:01 BP 121/79 05/29/24 15:01 Pulse Ox 99 05/29/24 15:01 O2 Del Method Room Air 05/29/24 15:01 BMI result Body Mass Index 25.8 Appearance: Alert. Oriented X3. No acute distress. Eyes: Pupils equal, round and reactive to light. ENT: Pharynx normal. Neck: Normal inspection. Neck supple. No lymph nodes noted. No crepitus CVS: Normal heart rate and rhythm. Pulses normal. Normal S1 and S2 Respiratory: No respiratory distress. Breath sounds normal. No Wheezing. No rales Abdomen: Soft and nontender. No rigidity. No distention. good BS x4 Skin: Skin warm and dry. Normal skin color. Normal skin turgor. Extremities: No lower extremity edema. Neurovascular intact to all extremities. No Lacerations. No Rash Neuro: Oriented X 3. No motor deficit. No sensory deficit. Moving all extermities. No slurred speech Medical Decision Making Medical Decision Making [facility] Narrative: Explained to patient the risk of syncope. The risk of head injury. The risk of not knowing the reason why she passed out. Patient does not want to stay understood the risks including the risk of heart attack strokes irregular heartbeat, dehydration, head injury. Patient left against medical advice. Did not want further workup. Family at bedside. I did review patient's lab work showed a normal hemoglobin 11.3 patient's electrolytes are unremarkable. LFTs are normal. Differential Diagnosis Differential Diagnoses: The differential diagnosis associated with the presentation includes Syncope, vasovagal, mi, dehydration, GI bleed Admission/Observation Consideration of admission/observation: Escalation of care including admission/observation considered Lab Data [facility] Lab Attestation statement: I reviewed the patient's lab results. 05/29/24 12:01 05/29/24 12:01 Labs: Lab Results 05/29/24 Range/Units 12:01 WBC 5.0 (4.8-10.8) X10*3/uL RBC 3.87 L (4.20-5.50) X10*6/uL Hgb 11.3 L (12.0-16.0) g/dl Hct 35.6 L (37.0-47.0) % MCV 92.0 (80.0-98.0) fL MCH 29.2 (27.0-33.0) pg MCHC 31.7 (31.0-35.0) g/dl RDW 13.8 (11.0-16.0) % Plt Count 175 (160-400) X10*3/uL MPV 9.3 L (9.4-12.3) fL Immature Gran % (Auto) 0.2 (0.0-0.4) % Neut % (Auto) 68.9 (45-73) % Lymph % (Auto) 16.7 L (20-40) % [place] % (Auto) 7.1 (2-11) % Eos % (Auto) 6.3 H (0-4) % Baso % (Auto) 0.8 (0-2) % Lymph # (Auto) 0.8 L (1.2-4.9) X10*3/uL [place] # (Auto) 0.4 (0.1-1.2) X10*3/uL Eos # (Auto) 0.3 (0.0-0.4) X10*3/uL Baso # (Auto) 0.0 (0.0-0.2) X10*3/uL Abs Immat Gran (auto) 0.01 (0.00-0.03) X10*3/uL Absolute Neuts (auto) 3.4 (2.0-8.3) x10*3/uL Absolute Nucleated RBC 0.000 (0.0-0.012) X10*3/uL Nucleated RBC % (auto) 0.0 (0.0-0.2) /100WBC Sodium 141 (135-145) mmol/L Potassium 4.1 (3.3-5.1) mmol/L Chloride 109 H (96-108) mmol/L Carbon Dioxide 21 L (22-29) mmol/L Anion Gap 15 (12-20) BUN 15 (9-16) mg/dL Creatinine 0.92 (0.5-1.4) mg/dL Estim Creat Clear Calc 67.1 Estimated GFR > 60 Random Glucose 96 (60-115) mg/dL Calcium 9.2 (8.4-10.2) mg/dL Total Bilirubin 0.3 (0.0-1.0) mg/dL AST 26 (5-31) U/L ALT 19 (0-31) U/L Alkaline Phosphatase 65 (39-117) U/L Total Protein 6.2 L (6.5-8.0) g/dL Albumin 3.7 (3.5-5.0) g/dL External Record Review External record reviewed: Inpatient record Chronic Conditions Vertigo, AFib Social Determinants Patient?s care significantly limited by Social Determinants of Health including: Problems related to primary support group Discharge Plan Discharge Clinical Impression: Syncope Patient Disposition: Left Against Medical Advice Instructions: Syncope (ED), Syncope in Older Adults (ED) Additional Instructions: Hydrate, if you change your mind please come back. Risk of infection risk of irregular heartbeat risk of head injury exists. You left against medical advice Prescriptions: No Action multivitamin Tablet 1 tab PO DAILY metoprolol succinate 25 mg tablet extended release 24 hr 12.5 mg PO DAILY Eliquis 5 mg tablet 5 mg PO BID topiramate 25 mg tablet 25 mg PO DAILY 30 Days Qty: 30 0RF lamotrigine 300 mg tablet extended release 24hr 300 mg PO DAILY 30 Days Qty: 30 0RF calcium carbonate 500 mg calcium (1,250 mg) Tablet 500 mg PO DAILY cholecalciferol (vitamin D3) [Vitamin D3] 50 mcg (2,000 unit) Tablet 50 mcg PO DAILY lurasidone [Latuda] 20 mg tablet 20 mg PO BEDTIME trazodone 100 mg tablet 100 mg PO BEDTIME PRN (Reason: insomnia) clonazepam [Klonopin] 0.5 mg tablet 0.5 mg PO DAILY PRN (Reason: anxiety) atorvastatin 40 mg tablet 40 mg PO BEDTIME aspirin 81 mg tablet,delayed release (DR/EC) 81 mg PO DAILY Referrals: Susanne Barbour MD [Primary Care Provider] - 05/30/24 Stand Alone Forms: Against Medical Advice Interventions: ED Discharge Assessment Last Done: 05/29/24 15:01 Discharge Date/Time: 05/29/24 15:06 Print Language: Guyanese
[2024-05-29 15:01] VITALS: BP 121/79; PULSE 55; RESP 16; TEMP 37.1; O2SAT 99
== END 2024-05-29 15:06 | disposition left against medical advice (07) ==
PROVIDERS: Emergency Provider Emergency Medicine Emergency Medical Services; PCP Family Medicine
DX: R55 Syncope and collapse (principal); I95.9 Hypotension, unspecified; R53.81 Other malaise; I73.00 Raynaud's syndrome without gangrene; Z53.29 Procedure and treatment not carried out because of patient's decision for other reasons; Z79.899 Other long term (current) drug therapy
CPT/HCPCS: 36415; 80053; 85025; 93005; 99283; 99284

== ENCOUNTER → 2024-05-29 11:46 | Outpatient (BNV) | payer OTHER, SELFPAY | PROVIDERS: Emergency Provider Emergency Medicine Emergency Medical Services; PCP Family Medicine; Visit Provider Internal Medicine | DX: I95.9 Hypotension, unspecified (principal) | CPT/HCPCS: 93010 ==

== ENCOUNTER → 2024-06-11 12:51 | Outpatient (REF) | payer OTHER, SELFPAY ==
--- NOTE | 2024-06-11 12:55 | CA_ITS ---
Transthoracic Echocardiogram Patient (Last, First, Middle): Sophia Paez, Gender: Female Date of : 1960 Age: 63 Procedure Date: 06/11/2024 Procedure Type: Transthoracic Echocardiogram Location: OP Height: 175.26 cm Weight: 79.38 kg BSA: 1.95 m2 Heart Rate: bpm BP: 130 / 86 mmHg Merchandise Execution Leader: ANDRES Referring MD: Calvin Schwab MD Director Outcomes: Neno Jean MD Symptoms: R55 - Syncope and collapse Study Quality: Adequate ECG Rhythm: Sinus Conclusions: - 1. Normal LV ejection fraction 60 65% with normal filling pattern 2. Mildly dilated left atrium 3. Mild mitral regurgitation 4. Normal RV systolic pressure 5. No gross pericardial effusion Findings Left Ventricle Normal left ventricular size, thickness, and systolic function. The visually estimated ejection fraction is between 60-65%. Spectral Doppler is indicative of a normal filling pattern. Right Ventricle Normal right ventricular cavity size and systolic function. Atria The left atrium is mildly dilated. Interatrial shunt cannot be excluded. The right atrium is normal in size. Aortic Valve The aortic valve structure and function is likely normal. There is no aortic valve stenosis. There is no aortic valve regurgitation. Mitral Valve There is mild anterior and posterior mitral leaflet thickening. There is mild mitral valve regurgitation. There is no mitral valve stenosis. Pulmonic Valve The pulmonic valve is likely normal. Tricuspid Valve Likely normal tricuspid valve structure and function. There is trace tricuspid valve regurgitation. The right ventricular systolic pressure is normal. The right ventricular systolic pressure is 14 mmHg. Normal right atrial pressure. There is no evidence of pulmonary hypertension. Great Vessels All visible segments of the aorta are normal in size. The pulmonary artery was not well visualized. There is no dilatation of the ascending aorta measuring 3.40 cm. Venous The inferior vena cava is normal in size and collapses greater than 50% with inspiration. Pericardium/Pleural There is no evidence of pericardial effusion. Prior Study Comparison No significant change compared to prior study dated: 03/12/2023. Measurements 2D Linear Measurements IVSd: 0.80 0.6-0.9/0.6-1.0 cm LVIDd: 4.40 3.9-5.3/4.2-5.9 cm LVIDd Index: 2.26 2.4-3.2/2.2-3.1 cm/m2 LVIDs: 2.44 2.0-3.6 cm LVPWd: 0.95 0.7-1.1 cm LA Diam: 3.70 2.7-3.8/3.0-4.0 cm LAIDs Index: 1.90 1.5-2.3 cm/m2 LV Mass: 153.20 67-162/88-224 g LV Mass Index: 78.57 43-95/49-115 g/m2 LVOT Diam: 2.00 3.0+(-)1.3 cm 2D Systolic Function EF 4C: 67.80 >55% EF 2C: 62.10 >55% EF BiP: 65.00 >55% Mitral Valve MV Pk E: 1.14 MV PK A: 0.71 MV Decel Time: 135.00 E/A: 1.60 E'Lateral: 8.05 E'Medial: 7.62 E/E' Med: 15.00 E/E' Lat: 14.20 PHT: 39.00 MVA PHT: 5.64 Decel [place]: 8.42 Aortic Valve AoV Pk Hugo: 1.07 AoV Mn Hugo: 0.77 AoV VTI: 0.25 AoV Pk Grad: 5.00 Aov Mn Grad: 3.00 DYANA Cont.VTI: 2.63 LVOT LVOT Pk Hugo: 0.85 LVOT Mn Hugo: 0.53 LVOT VTI: 0.21 LVOT Pk Grad: 3.00 LVOT Mn Grad: 1.00 LVOT Diam: 2.00 LVOT Area: 3.14 Diastolic Function MV Pk E: 1.14 MV Pk A: 0.71 E/A: 1.60 E'Medial: 7.62 E/E' Med: 15.00 E' Laterial: 8.05 E/E' Lat: 14.20 Right Ventricle TAPSE (mm): 25.60 TVS' Hugo: 14.30 Tricuspid Valve TR Pk Hugo: 1.64 TR Pk Grad: 11.00 RA Press: 3.00 RVSP: 14.00 Great Vessels Aorta Sinus of Valsalva: 3.43 2.0-3.[address] [place]: 2.35 1.7-3.4 cm Ao Asc: 3.40 2.1-3.4 cm Updated in Other Vendor System with Status of Final Neno Ted MD electronically signed on 06/11/2024 3:55:46 PM with status of Final
== END ==
LOC: HO.CARD 12:51
PROVIDERS: PCP Family Medicine; Visit Provider Internal Medicine
DX: R55 Syncope and collapse (principal)
CPT/HCPCS: 93270; 93306

== ENCOUNTER → 2024-06-11 12:55 | Outpatient (BNV) | payer OTHER, SELFPAY | PROVIDERS: PCP Family Medicine; Visit Provider Internal Medicine Cardiovascular Disease | DX: I34.0 Nonrheumatic mitral (valve) insufficiency (principal) | CPT/HCPCS: 93306 ==

== ENCOUNTER 2024-08-08 12:20 | Emergency (ER) | payer OTHER, SELFPAY ==
--- NOTE | ~2024-08-08 | XR_ITS ---
EXAMINATION: XR CHEST CLINICAL INFORMATION: chest pain COMPARISON: None available. TECHNIQUE: Frontal view of the chest was obtained. FINDINGS: The cardiac, hilar, and mediastinal contours are normal. Lungs are clear bilaterally. No pneumothorax or effusions. Surgical clips project over the upper lungs bilaterally. There is no osseous or soft tissue abnormality. XR/XR chest 1V IMPRESSION: No active pulmonary disease. Electronically signed by: Dani Hagen MD 08/08/2024 01:12 PM [facility]
[2024-08-08 12:33] VITALS: BP 156/98; PULSE 60; O2SAT 99
--- NOTE | 2024-08-08 12:35 | ECG_ITS ---
Test Reason : CHEST PAIN Blood Pressure : */* mmHG Vent. Rate : 58 BPM Atrial Rate : 58 BPM P-R Int : 188 ms QRS Dur : 76 ms QT Int : 452 ms P-R-T Axes : 68 -1 16 degrees QTcB Int : 443 ms Sinus bradycardia Low voltage QRS Septal infarct , age undetermined Abnormal ECG When compared with ECG of 29-May-2024 11:50, No significant change was found Referred By: Generic ED Physician Electronically Signed By: KALPANA PRESTON
[2024-08-08 12:40] VITALS: BP 137/81; PULSE 60; RESP 16; TEMP 36.8; O2SAT 98; BMI 25.8
[2024-08-08 13:06] LABS: MANUAL DIFF FLAG NO
[2024-08-08 13:09] LABS: Basophils Percent Auto 0.6 % (0-2); Eosinophils Absolute Auto 0.1 X10*3/uL (0.0-0.4); Eosinophils Percent Auto 1.1 % (0-4); Hematocrit 34.7 % (37.0-47.0); Hemoglobin 11.2 g/dl (12.0-16.0); Imm Gran Abs Auto 0.02 X10*3/uL (0.00-0.03); Imm Gran Pct Auto 0.3 % (0.0-0.4); Lymphocytes Absolute Auto 1.1 X10*3/uL (1.2-4.9); Lymphocytes Percent Auto 17.7 % (20-40); Mean Corpuscular HGB Conc 32.3 g/dl (31.0-35.0); Mean Corpuscular Hemoglobin 29.8 pg (27.0-33.0); Mean Corpuscular Volume 92.3 fL (80.0-98.0); Mean Platelet Volume 9.3 fL (9.4-12.3); Monocytes Absolute Auto 0.3 X10*3/uL (0.1-1.2); Monocytes Percent Auto 4.6 % (2-11); Neutrophils Absolute Auto 4.7 x10*3/uL (2.0-8.3); Neutrophils Percent Auto 75.7 % (45-73); Platelet Count 177 X10*3/uL (160-400); Red Blood Count 3.76 X10*6/uL (4.20-5.50); Red Cell Distribution Width 14.3 % (11.0-16.0); White Blood Count 6.3 X10*3/uL (4.8-10.8)
--- NOTE | 2024-08-08 13:10 | ED_ITS ---
HPI - Chest Pain General Chief Complaint: Chest Pain Stated Complaint: CP,SOB,HX AFIB Time Seen by Provider: 08/08/24 13:08 Source: patient and EMS Mode of arrival: EMS Limitations: no limitations History of Present Illness ED Provider: Kathi Mace PA-C HPI narrative: Patient is a 64 year old assigned female at with a history of GERD, arthritis, HLD, anxiety, carotid artery stenosis, and atrial fib presenting to the emergency department today with left sided chest pain. Patient states that she had 2 episodes of left sided chest pain with some shortness of breath. Patient states that her left chest is still uncomfortable but better than it was before. Patient denies any dizziness, lightheadedness, abdominal pain, nausea, vomiting, fever, chills, blurry vision, double vision, loss of vision, back pain, night sweats, pain with urination, increased urinary frequency, increased urinary urgency, blood in her urine or stool, syncope or a near syncopal episode, recent trauma or falls, bowel incontinence, bladder incontinence, or any other complaints at this time. MD complaint: chest pain Pain radiation: none Related Data Home Medications ?Medication ?Instructions ?Recorded ?Confirmed aspirin 81 mg tablet,delayed 81 mg PO DAILY 12/11/22 05/16/24 release atorvastatin 40 mg tablet 40 mg PO BEDTIME 12/11/22 05/16/24 multivitamin 1 tab PO DAILY 02/23/23 05/16/24 apixaban 5 mg tablet (Eliquis) 5 mg PO BID 02/01/24 05/16/24 metoprolol succinate 25 mg 12.5 mg PO DAILY 02/01/24 05/16/24 tablet,extended release 24 hr calcium carbonate 500 mg PO DAILY 05/16/24 05/16/24 cholecalciferol (vitamin D3) 50 50 mcg PO DAILY 05/16/24 05/16/24 mcg (2,000 unit) tablet (Vitamin D3) clonazepam 0.5 mg tablet (Klonopin) 0.5 mg PO DAILY PRN anxiety 05/16/24 05/16/24 lurasidone 20 mg tablet (Latuda) 20 mg PO BEDTIME 05/16/24 05/16/24 trazodone 100 mg tablet 100 mg PO BEDTIME PRN insomnia 05/16/24 05/16/24 Previous Rx's ?Medication ?Instructions ?Recorded lamotrigine 300 mg tablet,extended 300 mg PO DAILY 30 days #30 tabs 02/06/24 release 24 hr topiramate 25 mg tablet 25 mg PO DAILY 30 days #30 tabs 02/06/24 Allergies Allergy/AdvReac Type Severity Reaction Status Date / Time latex Allergy Mild Rash Uncoded 08/08/24 12:41 penicillin Allergy Mild Hives Uncoded 08/08/24 12:41 sulfa Allergy Unknown Gastrointestinal Uncoded 08/08/24 12:41 Upset Review of Systems 2 Constitutional: Constitutional: Reports no additional constitutional complaints, Denies chills, Denies fever(s) and Denies night sweats Eyes: Eyes: Reports no additional eye complaints, Denies blurry vision, Denies change in vision, Denies diplopia, Denies eye discharge, Denies loss of vision and Denies eye pain ENT: Denies dizziness Cardiovascular: Cardiovascular: Reports no additional cardiovascular complaints, Reports chest pain (left sided - improved), Denies lightheadedness, Denies Loss of Consciousness and Reports dyspnea (now resolved) Respiratory: Respiratory: Reports no additional respiratory complaints and Reports dyspnea (now resolved) Gastrointestinal: Gastrointestinal: Reports no additional gastrointestinal complaints, Denies abdominal pain, Denies melena, Denies hematochezia, Denies change in bowel habits and Denies change in stool character Genitourinary: Genitourinary: Denies hematuria, Denies urinary frequency, Denies dysuria, Denies urinary incontinence, Denies urinary hesitancy and Denies urinary urgency Musculoskeletal: Musculoskeletal: Reports no additional musculoskeletal complaints, Denies numbness and Denies tingling Neurologic: Denies dizziness, Denies loss of vision, Denies numbness and Denies tingling Psychiatric: Psychiatric: Reports no additional psychiatric complaints Endocrine: Endocrine: Reports no additional endocrine complaints Hematologic/Lymphatic: Hematologic/Lymphatic: Reports no additional hematologic/lymphatic complaints Allergic/Immunologic: Allergic/Immunologic: Reports no additional allergic/immunologic complaints PMFSH Past Medical History Attestation statement: The following information was validated with the patient. Source: old records reviewed and nursing notes reviewed Medical History Exertional dyspnea Chest pain Depression Syncope Non-motor epileptic seizure Conversion disorder Hyponatremia Cervical dystonia Essential and other specified forms of tremor Cervicalgia Osteopenia GERD (gastroesophageal reflux disease) Hyperlipidemia Anxiety Restless legs syndrome (RLS) Mitral valve prolapse PTSD (post-traumatic stress disorder) Cataract Arthritis TIA (transient ischemic attack) Conversion disorder Bipolar 2 disorder Raynauds syndrome (~08/2022) Carotid artery stenosis Seizures Acute cataract Faulkner syndrome Surgical History H/O arthroplasty History of hysterectomy Gastric bypass status for obesity Family History Family History Father Heart disease Depressed Mother Heart disease Social History Social History Household Members: None Housing: Apartment Do you presently have visiting nurse or other home services: No Alcohol intake: never Patient Tobacco Use Status: Never used Tobacco e-Cigarette/Vaping Use: Never Used Second Hand Smoke Exposure: No Advance Directives: Yes Advance Directives on File: Yes Advance Directives Date on File: 07/07/24 Do you have a plan to hurt others: No Plan service: No Sexual orientation: Straight/Heterosexual Physical Exam 2 Vital Signs: Vital Signs: Last Vital Signs Temp 98.1 F 08/08/24 14:52 Pulse 60 08/08/24 14:52 Resp 12 08/08/24 14:52 BP 145/63 H 08/08/24 14:52 Pulse Ox 98 08/08/24 14:52 O2 Del Method Room Air 08/08/24 14:52 BMI result Body Mass Index 25.8 Const: General: cooperative, no acute distress, alert and awake Nutritional Appearance: well nourished Orientation/consciousness: patient oriented x3 Limitations: no limitations HEENT: Head: Yes normal to inspection and Yes atraumatic Ears: hearing grossly normal bilaterally and external ears normal General nose exam: Normal external nose present, no nasal discharge noted and no epistaxis Face and sinus: Yes normal facial exam, No abrasion and No laceration Mouth: Normal oral and palatal mucosa present, no drooling and no muffled voice Eyes: General: appearance normal, both eyes and all related structures P eriorbital: periorbital findings normal Eyelids: Yes eyelids normal C onjunctivae: conjunctivae normal Pupils: Equal, round and reactive pupils present EOM: EOMs intact bilaterally Neck: Neck: Yes normal visual inspection, Yes full ROM and Yes no lymphadenopathy Chest: Chest palpation & inspection: normal inspection of the chest Resp: Effort & Inspection: normal respiratory effort and able to speak in complete sentences GI: Inspection: Yes normal to inspection Neuro: General: patient oriented x3 and moves all extremities Cranial nerves: Yes Equal, round and reactive pupils present Cognition (Neuro): n ormal cognition Extrem: General: Yes normal to inspection, Yes full ROM and Yes capillary refill normal Psych: Appearance: grossly normal Mental Status: mental status grossly normal Affect: normal affect Attitude: cooperative Thought process: N ormal thought process present Thought content: Normal thought content present Insight: Good insight present (Psych) Medical Decision Making Medical Decision Making MDM Narrative: Patient is a 64 year old assigned female at with a history of GERD, arthritis, HLD, anxiety, carotid artery stenosis, and atrial fib presenting to the emergency department today with left sided chest pain. Patient's physical exam was unremarkable. Patient's blood work was unremarkable. Patient's EKG was unremarkable. Patient's chest x-ray showed no acute process. I explained my physical exam findings as well as all test results to the patient. I answered all questions asked by the patient. I stressed the importance of the patient taking her medication as directed (either prescribed or as the over the counter packaging recommends). I stressed the importance of the patient following up with her primary care provider and her photo printer. I stressed the importance of the patient returning to the emergency department immediately if her symptoms were to worsen or if she were to develop any dizziness, shortness of breath, difficulty breathing, chest pain, blurry vision, loss of vision, nausea, vomiting, abdominal pain, fever, chills, back pain, or any other complaints. Patient verbalized agreement and understanding with this treatment plan and discharge. Differential Diagnosis Differential Diagnoses: The differential diagnosis associated with the presentation includes Chest pain Atypical chest pain NSTEMI STEMI Admission/Observation Consideration of admission/observation: Escalation of care including admission/observation considered Patient would have been admitted to the hospital had her work up had any findings where hospital admission was appropriate and her clinical presentation warranted hospital admission. Lab Data [facility] Lab Attestation statement: I reviewed the patient's lab results. My interpretation of these results are in the [facility] Rationale portion of this note. 08/08/24 13:03 08/08/24 13:03 Labs: Lab Results 0108/08/24 08/08/24 Range/Units 13:03 14:30 14:58 WBC 6.3 (4.8-10.8) X10*3/uL RBC 3.76 L (4.20-5.50) X10*6/uL Hgb 11.2 L (12.0-16.0) g/dl Hct 34.7 L (37.0-47.0) % MCV 92.3 (80.0-98.0) fL MCH 29.8 (27.0-33.0) pg MCHC 32.3 (31.0-35.0) g/dl RDW 14.3 (11.0-16.0) % Plt Count 177 (160-400) X10*3/uL MPV 9.3 L (9.4-12.3) fL Immature Gran % (Auto) 0.3 (0.0-0.4) % Neut % (Auto) 75.7 H (45-73) % Lymph % (Auto) 17.7 L (20-40) % Kemper % (Auto) 4.6 (2-11) % Eos % (Auto) 1.1 (0-4) % Baso % (Auto) 0.6 (0-2) % Lymph # (Auto) 1.1 L (1.2-4.9) X10*3/uL Kemper # (Auto) 0.3 (0.1-1.2) X10*3/uL Eos # (Auto) 0.1 (0.0-0.4) X10*3/uL Baso # (Auto) 0.0 (0.0-0.2) X10*3/uL Abs Immat Gran (auto) 0.02 (0.00-0.03) X10*3/uL Absolute Neuts (auto) 4.7 (2.0-8.3) x10*3/uL Absolute Nucleated RBC 0.000 (0.0-0.012) X10*3/uL Nucleated RBC % (auto) 0.0 (0.0-0.2) /100WBC Sodium 142 (135-145) mmol/L Potassium 4.3 (3.3-5.1) mmol/L Chloride 109 H (96-108) mmol/L Carbon Dioxide 26 (22-29) mmol/L Anion Gap 11 L (12-20) BUN 17 H (9-16) mg/dL Creatinine 0.87 (0.5-1.4) mg/dL Estim Creat Clear Calc 70.0 Estimated GFR > 60 Random Glucose 102 (60-115) mg/dL Calcium 9.0 (8.4-10.2) mg/dL Total Bilirubin 0.2 (0.0-1.0) mg/dL AST 25 (5-31) U/L ALT 19 (0-31) U/L Alkaline Phosphatase 61 (39-117) U/L Troponin I High Sens < 2.7 < 2.7 (<3.5-17.0) ng/L Total Protein 6.3 L (6.5-8.0) g/dL Albumin 3.9 (3.5-5.0) g/dL Influenza Type A (PCR) NEGATIVE (Negative) Influenza Type B (PCR) NEGATIVE (Negative) RSV RNA Qual (PCR) NEGATIVE (Negative) SARS-CoV-2 RNA (RT-PCR) NEGATIVE (Negative) Independent Interpretation I performed an independent interpretation of an: EKG and Plain X-Ray Interpretation: My interpretation is in agreement with the radiologist's impression of this imaging study. L EXAMINATION: XR CHEST CLINICAL INFORMATION: chest pain COMPARISON: None available. TECHNIQUE: Frontal view of the chest was obtained. FINDINGS: The cardiac, hilar, and mediastinal contours are normal. Lungs are clear bilaterally. No pneumothorax or effusions. Surgical clips project over the upper lungs bilaterally. There is no osseous or soft tissue abnormality. XR/XR chest 1V IMPRESSION: No active pulmonary disease. Electronically signed by: Dani Hagen MD 08/08/2024 01:12 PM [facility] Dictated By: Dani Hagen MD Signed By: Electronically signed by Dani Hagen MD 08/08/24 1312 I independently interpreted this EKG and am in agreement with the below findings: Vent. Rate: 58 BPM Atrial Rate: 58 BPM P-R Int: 188 ms QRS Dur: 76 ms QT Int: 452 ms P-R-T Axes:68 -1 16 degrees QTcB Int: 443 ms Sinus bradycardia Low voltage QRS Septal infarct, age undetermined When compared with ECG of 29-May-2024 11:50, No significant change was found Electronically Signed By: CALVIN PRESTON Dictated By: Calvin Preston MD Signed By: Electronically signed by Calvin Preston MD 08/08/24 3076 Radiology Impression Discussion of test interpretation with radiology: I have reviewed the radiologist's reading. Independent Historian Clinical information obtained from an independent historian. History obtained from or confirmed by: EMS (EMS provided additional history and confirmed the history provided by the patient.) Discharge Plan Discharge Clinical Impression: Chest pain Patient Disposition: Home, Self-Care Instructions: Chest Pain (DC) Additional Instructions: Your work up today was reassuring. There is no evidence of acute cardiac issues. Follow up with your primary care provider and your photo printer. Return to the emergency department immediately if your symptoms worsen or if you develop any dizziness, shortness of breath, difficulty breathing, chest pain, blurry vision, loss of vision, nausea, vomiting, abdominal pain, fever, chills, back pain, or any other complaints. Prescriptions: No Action multivitamin Tablet 1 tab PO DAILY metoprolol succinate 25 mg tablet extended release 24 hr 12.5 mg PO DAILY Eliquis 5 mg tablet 5 mg PO BID topiramate 25 mg tablet 25 mg PO DAILY 30 Days Qty: 30 0RF lamotrigine 300 mg tablet extended release 24hr 300 mg PO DAILY 30 Days Qty: 30 0RF calcium carbonate 500 mg calcium (1,250 mg) Tablet 500 mg PO DAILY cholecalciferol (vitamin D3) [Vitamin D3] 50 mcg (2,000 unit) Tablet 50 mcg PO DAILY lurasidone [Latuda] 20 mg tablet 20 mg PO BEDTIME trazodone 100 mg tablet 100 mg PO BEDTIME PRN (Reason: insomnia) clonazepam [Klonopin] 0.5 mg tablet 0.5 mg PO DAILY PRN (Reason: anxiety) atorvastatin 40 mg tablet 40 mg PO BEDTIME aspirin 81 mg tablet,delayed release (DR/EC) 81 mg PO DAILY Referrals: Susanne Barbour MD [Primary Care Provider] - Print Language: Greenlandic
[2024-08-08 13:29] LABS: Alanine Aminotransferase 19 U/L (0-31); Albumin Level 3.9 g/dL (3.5-5.0); Alkaline Phosphatase 61 U/L (39-117); Anion Gap 11 (12-20); Aspartate Amino Transferase 25 U/L (5-31); Bilirubin Total 0.2 mg/dL (0.0-1.0); Blood Urea Nitrogen 17 mg/dL (9-16); Carbon Dioxide 26 mmol/L (22-29); Chloride 109 mmol/L (96-108); Estimated Glomerular Filt Rate > 60; Glucose Random 102 mg/dL (60-115); Potassium 4.3 mmol/L (3.3-5.1); Sodium 142 mmol/L (135-145); Total Protein 6.3 g/dL (6.5-8.0)
[2024-08-08 13:38] LABS: Troponin-I High Sensitivity < 2.7 ng/L (<3.5-17.0)
[2024-08-08 14:52] VITALS: BP 145/63; PULSE 60; RESP 12; TEMP 36.7; O2SAT 98
[2024-08-08 15:14] LABS: Influenza A PCR NEGATIVE (Negative); Influenza B PCR NEGATIVE (Negative); Resp Syncy Virus RNA Qual PCR NEGATIVE (Negative); SARS COV2 PCR INHOUSE NEGATIVE (Negative)
[2024-08-08 15:24] LABS: Troponin-I High Sensitivity < 2.7 ng/L (<3.5-17.0)
[2024-08-08 16:38] VITALS: BP 145/63; PULSE 60; RESP 12; TEMP 36.7; O2SAT 98
== END 2024-08-08 16:15 | disposition home or self-care (01) ==
PROVIDERS: Physician Assistant Medical; Emergency Provider Emergency Medicine; PCP Family Medicine
DX: R07.89 Other chest pain (principal); R06.02 Shortness of breath; I25.10 Atherosclerotic heart disease of native coronary artery without angina pectoris; Z79.899 Other long term (current) drug therapy; Z03.818 Encounter for observation for suspected exposure to other biological agents ruled out
CPT/HCPCS: 0241U; 36415; 71045; 80053; 84484; 85025; 93005; 99285

== ENCOUNTER → 2024-08-08 12:35 | Outpatient (BNV) | payer OTHER, SELFPAY | PROVIDERS: Emergency Provider Emergency Medicine; PCP Family Medicine; Visit Provider Internal Medicine | DX: R07.9 Chest pain, unspecified (principal); R00.1 Bradycardia, unspecified; R94.31 Abnormal electrocardiogram [ECG] [EKG] | CPT/HCPCS: 93010 ==

== ENCOUNTER → 2024-08-08 12:50 | Outpatient (BNV) | payer OTHER, SELFPAY | PROVIDERS: Emergency Provider Emergency Medicine; Visit Provider Radiology Diagnostic Radiology | DX: R07.9 Chest pain, unspecified (principal) | CPT/HCPCS: 71045 ==

== ENCOUNTER 2024-08-25 10:52 | Outpatient (AMB) | payer OTHER, SELFPAY ==
--- NOTE | 2024-08-25 11:18 | A.OFFVIS_ITS ---
Vital Signs 08/25/24 11:20 Height 5 ft 9 in Weight 182 lb 1.629 oz BMI 26.9 BP 94/60 Blood Pressure Location Rt brachial Position Sitting Pulse 86 Pulse Source Pulse Oximeter Intake Visit Reasons: f/up echo/ day Intake Note: f/yp echo/30 holter Offal Icer Poultry Required: No Accompanied by: Sister Allergies latex Allergy (Mild, Uncoded 08/08/24 12:41) Rash penicillin Allergy (Mild, Uncoded 08/08/24 12:41) Hives sulfa Allergy (Unknown, Uncoded 08/08/24 12:41) Gastrointestinal Upset Medication List - Last Reconciled 08/25/24 by Cristian Lundberg MD apixaban (Eliquis) 5 mg PO BID aspirin 81 mg PO DAILY atorvastatin 40 mg PO BEDTIME calcium carbonate 500 mg PO DAILY cholecalciferol (vitamin D3) (Vitamin D3) 50 mcg PO DAILY clonazepam (Klonopin) 0.5 mg PO DAILY PRN lamotrigine ER 300 mg PO DAILY 30 days lurasidone (Latuda) 40 mg PO BEDTIME metoprolol succinate ER 12.5 mg PO DAILY multivitamin 1 tab PO DAILY topiramate 25 mg PO DAILY 30 days trazodone 100 mg PO BEDTIME PRN HPI Comments Details: Pleasant 64 year female who is here for follow-up. She has background history of supraventricular tachycardia. She also atrial fibrillation in the past and underwent ablation for SVT and atrial fibrillation. She is on apixaban 5 mg twice a day and baby aspirin. She has cervical dystonia as well as significant tremors and has been falling frequently. She is saying that she was doing much better with primidone but it has interaction with Eliquis and she is unable to take the primidone. I checked interactions and primidone is an enzyme induced her and we will cause issues for most anticoagulants. She also has been falling frequently which is a concern with the apixaban. She is in atrial fibrillation since the ablation done in December of 2023. She had a previous TIA. [facility] Medical History Exertional dyspnea Chest pain Depression Syncope Non-motor epileptic seizure Conversion disorder Hyponatremia Cervical dystonia Essential and other specified forms of tremor Cervicalgia Osteopenia GERD (gastroesophageal reflux disease) Hyperlipidemia Anxiety Restless legs syndrome (RLS) Mitral valve prolapse PTSD (post-traumatic stress disorder) Cataract Arthritis TIA (transient ischemic attack) Conversion disorder Bipolar 2 disorder Raynauds syndrome (~08/2022) Carotid artery stenosis Seizures Acute cataract Faulkner syndrome Surgical History H/O arthroplasty History of hysterectomy Gastric bypass status for obesity Family History Father Heart disease Depressed Mother Heart disease Social History Household Members: None Housing: Apartment Do you presently have visiting nurse or other home services: No Alcohol intake: never Patient Tobacco Use Status: Never used Tobacco e-Cigarette/Vaping Use: Never Used Second Hand Smoke Exposure: No Advance Directives Date on File: 07/07/24 service: No Sexual orientation: Straight/Heterosexual Review of Systems Const Denies chills, Denies fatigue, Denies fever(s), Denies frequent falls, Denies weakness, Denies weight gain and Denies weight loss ENT Denies dizziness Card Denies chest pain, Denies leg edema, Denies lightheadedness, Denies palpitations, Denies dyspnea and Denies dyspnea on exertion Resp Denies cough, Denies dyspnea and Denies dyspnea on exertion GI Denies hematochezia Musc Denies abnormal gait, Denies muscle weakness, Denies numbness, Denies radiating pain into limb and Denies tingling Neuro Denies abnormal gait, Denies dizziness, Denies frequent falls, Denies numbness, Denies tingling and Denies weakness Endo Denies fatigue and Denies palpitations Physical Exam Vital Signs: Last Vital Signs Pulse 86 08/25/24 11:20 BP 94/60 08/25/24 11:20 BMI result Body Mass Index 26.9 GENERAL APPEARANCE: in no acute distress, pleasant. NECK: no carotid bruit, no jugular venous distention. SKIN: no suspicious lesions, warm and dry. HEART: no murmurs, regular rate and rhythm. LUNGS: clear to auscultation bilaterally. ABDOMEN: soft, nontender. EXTREMITIES: no edema. PERIPHERAL PULSES: equal. NEUROLOGIC: Tremor in the neck. Tremors in the arms. Assessment & Plan Assessment & Plan (1) Falls frequently: Code(s): R29.6 - Repeated falls Category: Medical (2) PAF (paroxysmal atrial fibrillation): Code(s): I48.0 - Paroxysmal atrial fibrillation Category: Medical Plan [age] year female who is here for follow-up. She has background history of paroxysmal atrial fibrillation and SVT underwent ablation in the past. She is on anticoagulation for stroke prevention. Unfortunately has significant tremors and frequent falls. The treatment for tremors is primidone and she is saying she did well with that but due to Eliquis primidone was discontinued. I have explained to her that currently with her frequent falls Eliquis is not safe and she should stop the Eliquis. She can continue the baby aspirin for now. Her EKGs showing sinus rhythm. If her tremors improved with primidone and she is able to ambulate again the question about anticoagulation will be out there because there is interaction between primidone and Eliquis, Xarelto, Pradaxa and Coumadin. I have discussed this with the patient and her family in detail and recommended that she should consider Watchman device in this circumstance because then she can get off the apixaban and can have treatment for her tremors. Also with her frequent falls Eliquis uses quite challenging in case she gets any head trauma. I am referring her to Dr. Rodriguez for assessment for Watchman device. Thank you for allowing me to participate in the care of your patient. Please feel free to contact me if you have any questions. Orders: Referrals Interventional Cardiology Referral I48.0 - Paroxysmal atrial fibrillation, R29.6 - Repeated falls Coding Level of Care Code Est Pt Level 4 (68469) Diagnoses Falls frequently R29.6 PAF (paroxysmal atrial fibrillation) I48.0
[2024-08-25 11:20] VITALS: BP 94/60; PULSE 86; BMI 26.9
--- OUTSIDE RECORDS SUMMARY | 2024-08-25 15:46 | XMS_ITS | Clinical Summary ---
Author Organization [facility] Address [address] [place] [address] Care Team Providers Care Managed Care Provider Name Role Phone Susanne Barbour MD Primary Care Pr ovider Allergies Active Allergy Reactions Criticality Noted Date Comments Latex Dermatitis,Rash Low 05/04/2021 Penicillins Dermatitis,Rash Low 05/04/2021 Sulfa Antibiotics Hives,Other (See Comments) 05/04/2021 Urticaria and gastritis Medications Medication Sig Dispensed Refills Start Date End Date Status Multiple Vitamin (MULTI-VITAMIN DAILY PO) Take 1 tablet by mouth daily. 0 Active lidocaine (LIDODERM) 5 % Place 1 patch onto the skin daily. Remove & Discard patch within 12 hours or as directed by MD 0 Active midodrine (PROAMATINE) 2.5 MG tablet Take 2.5 mg by mouth 3 (three) times a day before meals. 0 Active sertraline (ZOLOFT) 100 MG tablet Take 150 mg by mouth daily. 0 Active estradiol (ESTRACE) 1 MG tablet Take 1 tablet (1 mg total) by mouth daily. 0 Active traZODone (DESYREL) 100 MG tablet Take 100 mg by mouth every night at bedtime. 0 Active ferrous gluconate (FERGON) 324 MG tablet Take 1 tablet (324 mg total) by mouth 3 (three) times a week. 90 tablet 2 11/14/2021 Active Additional Information Patient not taking.Reason: Other, Reported on 05/06/2024 aspirin 81 MG EC tablet Take 1 tablet (81 mg total) by mouth daily. 0 10/17/2023 Active atorvastatin (LIPITOR) tablet 40 mg Take 1 tablet (40 mg total) by mouth every evening. 0 03/03/2022 Active clonazePAM (KlonoPIN) 0.5 MG tablet TAKE 1/2-1 TABLET BY MOUTH ONCE A DAY NEEDED FOR ANXIETY 0 04/29/2024 Active doxycycline (ADOXA) 100 MG tablet TAKE 1 TABLET BY MOUTH TWICE A DAY FOR 10 DAYS 0 04/15/2024 Active metoprolol tartrate (LOPRESSOR) 25 MG tablet Take 1 tablet (25 mg total) by mouth. 0 01/04/2024 Active lurasidone HCl (LATUDA) 20 MG TABS tablet Take 1 tablet (20 mg total) by mouth daily. 0 Active losartan (COZAAR) tablet 25 mg TAKE 1/2 TABLET BY MOUTH DAILY 0 01/28/2024 Active lamoTRIgine ER (LaMICtal XR) 300 MG 24 hr tablet Take 1 tablet (300 mg total) by mouth daily. 0 02/25/2024 Active apixaban (ELIQUIS) 5 MG TABS tablet Take by mouth every 12 (twelve) hours. 0 Active Active Problems Problem Noted Date Diagnosed Date Restless leg syndrome 03/29/2021 Overview: pramipexole/referral to Neurology for alternatives due to potential side effect of significant hypotension Conversion disorder 04/17/2019 PTSD (post-traumatic stress disorder) 04/17/2019 Anxiety 02/28/2019 Bipolar affective disorder 02/28/2019 Overview: History Suicide Attempt Carotid artery stenosis 02/28/2019 History of gastric bypass 02/28/2019 Hyperlipidemia 02/28/2019 Insomnia 02/28/2019 Iron deficiency anemia 02/28/2019 Mitral valve prolapse 02/28/2019 Osteopenia 02/28/2019 Overview: 09/2018 T score -1.4, left hip Neck pain 02/24/2019 Resolved Problems Problem Noted Date Diagnosed Date Resolved Date GERD (gastroesophageal reflux disease) 02/28/2019 05/05/2021 Family History Medical History Relation Name Comments Heart disease Father Other Father Suicide Heart attack Mother Relation Name Status Comments Father Mother (Age 68) Myocardial infarction Social History Tobacco Use Types Packs/Day Years Used Date Smoking Tobacco: Never Smokeless Tobacco: Never Tobacco Cessation:Counseling Given: Not Answered Alcohol Use Standard Drinks/Week Comments Never 0 (1 standard drink = 0.6 oz pur e alcohol) Sex and Gender Information Value Date Recorded Sex Assigned at Female 03/27/2024 8:49 AM EDT Gender Identity Not on file Sexual Orientation Not on file Job Start Date Occupation Industry Not on file Not on file Not on file Last Filed Vital Signs Vital Sign Reading Time Taken Comments Blood Pressure 116/78 05/06/2024 3:12 PM EDT Pulse 75 05/06/2024 3:12 PM EDT Temperature 36.7 ??C (98 ??F) 11/11/2021 10:35 AM EDT Respiratory Rate - - Oxygen Saturation 100% 11/11/2021 10:35 AM EDT Inhaled Oxygen Concentration - - Weight 79.8 kg (176 lb) 05/06/2024 3:12 PM EDT Height 175.3 cm (5' 9 ) 05/06/2024 3:12 PM EDT Body Mass Index 25.99 05/06/2024 3:12 PM EDT Plan of Treatment Health Maintenance Due Date Last Done Comments Hepatitis C Screening 1962 Depression Screening 1974 Preventative Health Evaluation 1980 Cervical Cancer Screening (Pap Smear) 1983 Colon Cancer Screening (Colonoscopy) 2007 Breast Cancer Screening (Mammogram) 2012 Shingrix-Zoster Vaccine (2 of 2) 08/11/2021 06/16/2021 COVID-19 Vaccine (2 - season) 2024 06/28/2023 Influenza Vaccine (#1) 2024 3, 05/01/2022, 05/01/2022, Additional history exists DTap / Tdap / Td (2 - Td or Tdap) 04/16/2030 04/16/2020 Pneumococcal Vaccine Aged Out 02/27/2018 No long er eligible based on patient's age to complete this topic RSV Adult > 60+ Yrs or Completed 08/09/2023 Hepatitis B Vaccines Aged Out No long er eligible based on patient's age to complete this topic RSV Ped < 20 months Aged Out No longe r eligible based on patient's age to complete this topic Care Teams Managed Care Provider Relationship Specialty Start Date End Date Susanne Barbour MD [address] [place] [address] PCP - General 03/27/24
--- OUTSIDE RECORDS SUMMARY | 2024-08-25 15:46 | XMS_ITS | Clinical Summary ---
Author Organization [facility] Address [address] [place] [address] Care Team Providers Care Mirror Framer Name Role Phone Km Susanne Primary Care Provider [phone] Social History Tobacco Use Types Packs/Day Years Used Date Smoking Tobacco: Never Assessed Comments Unknown Sex and Gender Information Value Date Recorded Sex Assigned at Not on file Legal Sex Female 9:01 AM EDT Gender Identity Not on file Sexual Orientation Not on file Plan of Treatment Health Maintenance Due Date Last Done Comments Breast Cancer Screening 1962 Colorectal Cancer Screening: Annual FOBT 2011 Colorectal Cancer Screening: Colonoscopy 2011 Colorectal Cancer Screening: Sigmoidoscopy 2011 Influenza Vaccine (#1) 2024 1, 04/06/2020, 05/06/2019 Pneumococcal Vaccine: Pediatrics (0 to 5 Years) and At-Risk Patients (6 to 64 Years) Aged Out 02/27/2018 No longer eligible b ased on patient's age to complete this topic Hepatitis B Vaccine Aged Out No longe r eligible based on patient's age to complete this topic Insurance [facility] Care Teams Mirror Framer Relationship Specialty Start Date End Date Susanne Barbour PCP - General 03/05/23
--- OUTSIDE RECORDS SUMMARY | 2024-08-25 15:46 | XMS_ITS | Encounter Summary ---
Author Organization [facility] Address [address] [place] [address] Care Team Providers Care Internal Affairs Investigator Name Role Phone Susanne Barbour MD Primary Care Pr ovider Reason for Visit * Neurology (Routine) - Pending Review Specialty Diagnoses / Procedures Referred By Alejandro rolle Referred To Contact Neurology Diagnoses Unspecified convulsions (CMS/HCC) Procedures Continuous EEG Aly Nolasco MD [address] [address] [facility] [address] [place] [address] Referral ID Status Reason Start Date Expiration Date V isits Requested Visits Authorized [id number] Pending Review 08/04/2024 08/04/2025 2 2 Encounter Details Date Type Department Care Team (Latest Contact Info) Description 08/08/2024 1:00 PM EST - 08/08/2024 11:59 PM EST Hospital Encounter [facility] [address] [place] [address] Discharge Disposition: Home or Self Care Social History Tobacco Use Types Packs/Day Years [...] for your loved ones. For example, child caregiver private home or elderly care for an older adult? [...] What is your living situation? 1 09/09/2023 Sex and Gender Information Value Date Recorded Sex Assigned at Not on file Gender Identity Not on file Sexual Orientation Not on file Job Start Date Occupation Industry Not on file Not on file Not on file documented as of this encounter Medications at Time of Discharge Medication Sig Dispensed Refills Start Date End Date apixaban (Eliquis) 5 mg tabletIndications:SVT (supraventricular tachycardia) (CMS/HCC) Take 1 tablet (5 mg total) by mouth 2 (two) times a day. Take by mouth every 12 (twelve) hours. - 180 tablet 1 07/16/2024 aspirin 81 mg EC tabletIndications:Mixed hyperlipidemia,Cerebral microvascular disease,Bilateral carotid artery stenosis Take 1 tablet (81 mg total) by mouth 1 (one) time each day. Take 1 tablet (81 mg total) by mouth daily. 90 tablet 1 07/16/2024 atorvastatin (LIPITOR) 20 mg tabletIndications:Mixed hyperlipidemia,Cerebral microvascular disease,Bilateral carotid artery stenosis Take 1 tablet (20 mg total) by mouth at bedtime. 90 each 1 07/16/2024 01/12/2025 busPIRone (BUSPAR) 5 mg tablet Take by mouth 2 (two) times a day. clonazePAM (KlonoPIN) 0.5 mg tablet TAKE 1/2-1 TABLET BY MOUTH ONCE A DAY NEEDED FOR ANXIETY DAILY MULTI-VITAMIN ORAL Take 1 tablet by mouth daily. ferrous sulfate 325 mg (65 mg elemental iron) tablet Take 1 tablet (325 mg total) by mouth 1 (one) time each day. 05/23/2024 lamoTRIgine (LaMICtal XR) 300 mg tablet extended release 24hr 24 hr tablet Take 1 tablet (300 mg total) by mouth daily. - Oral Patient not taking: Reported on 05/06/2024 12/25/2023 lurasidone (LATUDA) 20 mg tablet Take 2 tablets (40 mg total) by mouth. 07/16/2024 metoprolol succinate (TOPROL-XL) 25 mg 24 hr tabletIndications:SVT (supraventricular tachycardia) (CMS/HCC) Take 0.5 tablets (12.5 mg total) by mouth 1 (one) time each day. Do not crush or chew. 45 each 1 07/16/2024 01/12/2025 multivitamin,ther and minerals (VITAMINS AND MINERALS ORAL) Take by mouth. topiramate (TOPAMAX) 25 mg tablet traZODone (DESYREL) 100 mg tablet Take 100 mg by mouth every night at bedtime. estradioL (ESTRACE) 1 mg tablet 08/11/2024 documented as of this encounter Discharge Disposition Disposition Code Departure Means Destination Home or Self Care documented in this encounter Plan of Treatment Upcoming Encounters Date Type Department Care Team (Late st Contact Info) Description 08/29/2024 11:15 AM EST Appointment [facility] - [address] [phone] 09/02/2024 10:30 AM EST Hospital Encounter [facility] Endoscopy [address] [place] [phone] Jairo Nascimento MD 175 [facility] [address] [place] [address] 09/04/2024 1:00 PM EST Office Visit [facility] 175 [facility] [address] [place] [phone] Aly Nolasco MD 175 [facility] [address] [place] [phone] 09/25/2024 3:15 PM EST Office Visit Obstetrics and Gynecology [facility] [address] [place] [address] Adriana Mosqueda, [facility] [address] [place] [address] 03/26/2025 3:00 PM EDT Office Visit Adult Medicine [facility] - [address] [phone] Susanne Barbour MD [address] [place] [address] Pending Results Name Type Priority Associated Diagnoses Date /Time Continuous EEG Neurology Routine Unspecified convulsions (CMS/HCC) 08/08/2024 1:06 PM EST documented as of this encounter Visit Diagnoses Not on filedocumented in this encounter Additional Health Concerns Assessment Noted Time PHQ-9 Depression Total Score: 0 07/09/20 24 3:15 PM EST documented as of this encounter Care Teams Internal Affairs Investigator Relationship Specialty Start Date End Date Susanne Barbour MD [address] [place] [address] PCP - General Internal Medicine 02/13/22 documented as of this encounter
--- OUTSIDE RECORDS SUMMARY | 2024-08-25 15:46 | XMS_ITS | Encounter Summary ---
Author Organization [facility] Address [address] [place] [address] Care Team Providers Care Wedding Photographer Name Role Phone Susanne Barbour MD Primary Care Pr ovider Reason for Visit * Neurology (Routine) - Pending Review Specialty Diagnoses / Procedures Referred By Alejandro rolle Referred To Contact Neurology Diagnoses Unspecified convulsions (CMS/HCC) Procedures Continuous EEG Aly Nolasco MD [address] [address] [facility] [address] [place] [address] Referral ID Status Reason Start Date Expiration Date V isits Requested Visits Authorized [id number] Pending Review 08/04/2024 08/04/2025 2 2 Encounter Details Date Type Department Care Team (Latest Contact Info) Description 08/07/2024 12:50 PM EST - 08/07/2024 11:59 PM EST Hospital Encounter [facility] Neurodiagnostic [address] [place] [address] Discharge Disposition: Home or Self [...] care for your loved ones. For example, early childhood associate or elderly care for an older adult? [...] 11:15 AM EST Appointment [facility] - [address] [phone] 09/02/2024 10:30 AM EST Hospital Encounter [facility] Endoscopy [address] [place] [phone] Jairo Nascimento MD 175 [facility] [address] [place] [address] 09/04/2024 1:00 PM EST Office Visit [facility] 175 [facility] [address] [place] [phone] Aly Nolasco MD 175 [facility] [address] [place] [phone] 09/25/2024 3:15 PM EST Office Visit Obstetrics and Gynecology [facility] [address] [place] [address] Adriana Mosqueda, [facility] [address] [place] [address] 03/26/2025 3:00 PM EDT Office Visit Adult Medicine [facility] - [address] [phone] Susanne Barbour MD [address] [place] [address] Pending Results Name Type Priority Associated Diagnoses Date /Time Continuous EEG Neurology Routine Unspecified convulsions (CMS/HCC) 08/07/2024 3:11 PM EST documented as of this encounter Visit Diagnoses Not on filedocumented in this encounter Additional Health Concerns Assessment Noted Time PHQ-9 Depression Total Score: 0 07/09/20 24 3:15 PM EST documented as of this encounter Care Teams Wedding Photographer Relationship Specialty Start Date End Date Susanne Barbour MD [address] [place] [address] PCP - General Internal Medicine 02/13/22 documented as of this encounter
--- OUTSIDE RECORDS SUMMARY | 2024-08-25 15:46 | XMS_ITS | Encounter Summary ---
Author Organization [facility] Address [address] [place] [address] Care Team Providers Care Plant Maintenance Manager Name Role Phone Susanne Barbour MD Primary Care Pr ovider Reason for Visit * Reason Comments VAGINAL PROBLEMS Encounter Details Date Type Department Care Team (Late st Contact Info) Description 08/11/2024 10:00 AM EST Office Visit Obstetrics and Gynecology - [place] [address] [place] [phone] [facility] [address] [place] [address] Vaginal dryness (Primary Dx); Status post hysterectomy Social History Tobacco Use Types Packs/Day Years Used Date Smoking Tobacco: Never Smokeless Tobacco: Never Tobacco Cessation:Counseling Given: Not Answered Alcohol Use Standard Drinks/Week Comments No 0 [...] your loved ones. For example, child care supervisor or elderly care for an older adult? [...] on file documented as of this encounter Last Filed Vital Signs Vital Sign Reading Time Taken Comments Blood Pressure 103/69 08/11/2024 9:53 AM EST Pulse 78 08/11/2024 9:53 AM EST Temperature - - Respiratory Rate - - Oxygen Saturation - - Inhaled Oxygen Concentration - - Weight 80.7 kg (178 lb) 08/11/2024 9:53 AM EST Height - - Body Mass Index 26.29 07/16/2024 3:49 PM EST documented in this encounter Ordered Prescriptions Prescription Sig Dispensed Refills Start Date End Da te estradioL (ESTRACE) 1 mg tablet Take 1 tablet (1 mg total) by mouth 1 (one) time each day. 90 tablet 3 08/11/2024 documented in this encounter Progress Notes * Adriana Mosqueda CNM - 08/11/2024 10:00 AM EST Chief Complaint Patient presents with VAGINAL PROBLEMS .Subjective Patient ID: Sophia Paez is a 64 y.o. female. Presents c/o vaginal dryness, reporting that she previously took estradiol with relief but had lostinsurance and wanted to return back on it. Hysterectomy was for prolapse Declines ve at this time Currently on postmenopause . Hysterectomy. HPI Active Ambulatory Problems Diagnosis Date Noted Anxiety 02/28/2019 Bipolar affective disorder (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) 02/28/2019 Atrial fibrillation ([facility]) 12/05/2023 SVT (supraventricular tachycardia) ([facility]) 04/09/2023 Tremor 02/28/2019 Vasovagal syncope 02/28/2019 Vitamin D deficiency 02/28/2019 Cataracts, bilateral 05/10/2024 Cerebral microvascular disease 05/10/2024 Cervicalgia 05/10/2024 Cognitive dysfunction 05/10/2024 Resolved Ambulatory Problems Diagnosis Date Noted No Resolved Ambulatory Problems Past Medical History: Diagnosis Date Anemia History of gastric bypass 02/28/2019 History of gastric surgery Segmental and somatic dysfunction of cervical region 02/24/2019 Segmental and somatic dysfunction of thoracic region 02/24/2019 Urinary tract infection symptoms 11/16/2021 Review of Systems Genitourinary: Negative for difficulty urinating, dyspareunia, dysuria and frequency. Vaginal dryness Objective Physical Exam Constitutional: Appearance: Normal appearance. Neurological: Mental Status: She is alert and oriented to person, place, and time. Assessment/Plan Vaginal dryness (Primary) Status post hysterectomy Other orders - estradioL (ESTRACE) 1 mg tablet; Take 1 tablet (1 mg total) by mouth 1 (one) time each day. Dispense: 90 tablet; Refill: 3 Rx sent Made aware of lamatrogine use with estrogen se. documented in this encounter Plan of Treatment Upcoming Encounters Date Type Department Care Team (Late st Contact Info) Description 08/29/2024 11:15 AM EST Appointment [facility] [address] [address] 09/02/2024 10:30 AM EST Hospital Encounter [facility] Endoscopy [address] [place] [phone] Jairo Nascimento MD 175 [facility] [address] [place] [address] 09/04/2024 1:00 PM EST Office Visit [facility] 175 [facility] [address] [place] [phone] Aly Nolasco MD 175 [facility] [address] [place] [phone] 09/25/2024 3:15 PM EST Office Visit Obstetrics and Gynecology - [place] [address] [place] [address] Adriana Mosqueda CNM [address] [place] [address] 03/26/2025 3:00 PM EDT Office Visit Adult Medicine [facility] [address] [place] [address] Susanne Barbour MD [address] [place] [address] documented as of this encounter Visit Diagnoses Diagnosis Vaginal dryness- Primary Postmenopausal atrophic vaginitis Status post hysterectomy Acquired absence of both cervix and uterus documented in this encounter Discontinued Medications Medication Sig Discontinue Reason Start Date End Da te estradioL (ESTRACE) 1 mg tablet Reorder 08/11/2024 documented as of this encounter Historical Medications * This list may reflect changes made after this encounter. Medication Sig Dispensed Refills Start Date End Date ferrous sulfate 325 mg (65 mg elemental iron) tablet Take 1 tablet (325 mg total) by mouth 1 (one) time each day. 05/23/2024 added in this encounter Additional Health Concerns Assessment Noted Time PHQ-9 Depression Total Score: 0 07/09/20 24 3:15 PM EST documented as of this encounter Care Teams Plant Maintenance Manager Relationship Specialty Start Date End Date Susanne Barbour MD [address] [place], [place] PCP - General Internal Medicine 02/13/22 documented as of this encounter
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
--- OUTSIDE RECORDS SUMMARY | 2024-08-25 15:46 | XMS_ITS | Encounter Summary ---
Author Organization [facility] Address [address] [place] [address] Care Team Providers Care Product Development Carpenter Name Role Phone Susanne Barbour MD Primary Care Pr ovider Encounter Details Date Type Department Care Team (Late st Contact Info) Description 08/06/2024 Lab [facility] Neurodiagnostic [address] [place] [phone] Aly Nolasco MD 175 [facility] 150 [place] [phone] Unspecified convulsions (CMS/HCC) Social History Tobacco Use Types Packs/Day Years [...] ed Within the last 3 months, yesenia w many times did you visit the [...] for your loved ones. For example, child adolescent psychiatrist or elderly care for an older adult? [...] on file documented as of this encounter Plan of Treatment Upcoming Encounters Date Type Department Care Team (Late st Contact Info) Description 08/29/2024 11:15 AM EST Appointment Bone Density - [place] [address] [place] [address] 09/02/2024 10:30 AM EST Hospital Encounter [facility] Endoscopy [address] [place] [phone] Jairo Nascimento MD 175 [facility] 200 [place], [place] [phone] 09/04/2024 1:00 PM EST Office Visit [facility] [place] 175 [facility] 150 [place] [phone] Aly Nolasco MD 175 [facility] 150 [place] [phone] 09/25/2024 3:15 PM EST Office Visit Obstetrics [facility] Gyne[facility] 230 [place] [address] Adriana Mosqueda, [facility] 230 [place] [address] 03/26/2025 3:00 PM EDT Office Visit Adult Medicine [address] [phone] Susanne Barbour MD [address] [place] [address] Pending Results Name Type Priority Associated Diagnoses Date /Time Continuous EEG Neurology Routine Unspecified convulsions (CMS/HCC) 08/08/2024 1:06 PM EST documented as of this encounter Visit Diagnoses Diagnosis Unspecified convulsions (CMS/HCC) documented in this encounter Additional Health Concerns Assessment Noted Time PHQ-9 Depression Total Score: 0 07/09/20 3:15 PM EST documented as of this encounter Care Teams Product Development Carpenter Relationship Specialty Start Date End Date Susanne Barbour MD [address] [place] [address] PCP - General Internal Medicine 02/13/22 documented as of this encounter
--- OUTSIDE RECORDS SUMMARY | 2024-08-25 15:47 | XMS_ITS | Encounter Summary ---
Author Organization [facility] Address [address] [place] [address] Care Team Providers Care Market Analysis Director Name Role Phone Susanne Barbour MD Primary Care Pr ovider Reason for Visit * Reason Onset Date Comments Anticoagulation 07/31/[address] Nascimento Encounter Details Date Type Department Care Team (Late st Contact Info) Description 07/31/2024 Telephone Gastroenterology - [place] [address] [place] [address] Angela Conti LPN Anticoagulation (Colonoscopy on 09/02/[address] Nascimento) Social History Tobacco Use Types Packs/Day Years [...] your loved ones. For example, early childhood assistant or elderly care for an older adult? [...] as of this encounter Progress Notes * Angela Conti LPN - 08/04/2024 1:54 PM EST Pt notified. Letter mailed. * Susanne Barbour MD - 07/31/2024 1:42 PM EST yes * Angela Conti LPN - 07/31/2024 1:37 PM EST Colonoscopy on 09/02/[address] Nascimento, Can pt hold eliquis for 2 days before procedure? documented in this encounter Plan of Treatment Upcoming Encounters Date Type Department Care Team (Late st Contact Info) Description 08/29/2024 11:15 AM EST Appointment Bone [address] [phone] 09/02/2024 10:30 AM EST Hospital Encounter [facility] Endoscopy [address] [place] [phone] Jairo Nascimento MD 175 [facility] 200 [place] [address] 09/04/2024 1:00 PM EST Office Visit [facility] 175 [facility] 150 [place] [phone] Aly Nolasco MD 175 [facility] 150 [place] [phone] 09/25/2024 3:15 PM EST Office Visit Obstetrics and Gynecology - [place] 230 [place] [phone] Adriana Mosqueda CNM 230 [place] [address] 03/26/2025 3:00 PM EDT Office Visit Adult Medicine [address] [phone] Susanne Barbour MD [address] [place] [address] documented as of this encounter Visit Diagnoses Not on filedocumented in this encounter Additional Health Concerns Assessment Noted Time PHQ-9 Depression Total Score: 0 07/09/20 24 3:15 PM EST documented as of this encounter Care Teams Market Analysis Director Relationship Specialty Start Date End Date Susanne Barbour MD 2040 [facility], [place] PCP - General Internal Medicine 02/13/22 documented as of this encounter
--- OUTSIDE RECORDS SUMMARY | 2024-08-25 15:47 | XMS_ITS | Encounter Summary ---
Author Organization [facility] Address [address] [place] [address] Care Team Providers Care Advertising Teacher Name Role Phone Susanne Barbour MD Primary Care Pr ovider Encounter Details Date Type Department Care Team (Late st Contact Info) Description 08/20/2024 Telephone Adult Medicine [address] [phone] Kalee Stovall, KRISTAN Social History Tobacco Use Types Packs/Day Years [...] for your loved ones. For example, child protective investigator or elderly care for an older adult? [...] as of this encounter Progress Notes * Kalee Stovall RN - 08/20/2024 3:45 PM EST I left a message for the pt to call the office at . documented in this encounter Plan of Treatment Upcoming Encounters Date Type Department Care Team (Late st Contact Info) Description 08/29/2024 11:15 AM EST Appointment Bone Density - [address] [place] [address] 09/02/2024 10:30 AM EST Hospital Encounter [facility] Endoscopy [address] [place] [phone] Jairo Nascimento MD 175 [facility] 200 [place] [address] 09/04/2024 1:00 PM EST Office [facility] 175 [facility] 150 [place] [phone] Aly Nolasco MD 175 [facility] 150 [place] [phone] 09/25/2024 3:15 PM EST Office Visit Obstetrics and Gynecology [facility] 230 [place] [phone] Adriana Mosqueda, [facility] 230 [place] [address] 03/26/2025 3:00 PM EDT Office Visit Adult Medicine [address] [phone] Susanne Barbour MD [address] [place] [address] documented as of this encounter Visit Diagnoses Not on filedocumented in this encounter Additional Health Concerns Assessment Noted Time PHQ-9 Depression Total Score: 0 07/09/20 24 3:15 PM EST documented as of this encounter Care Teams Advertising Teacher Relationship Specialty Start Date End Date Susanne Barbour MD 2040 [facility], [place] PCP - General Internal Medicine 02/13/22 documented as of this encounter
--- OUTSIDE RECORDS SUMMARY | 2024-08-25 15:47 | XMS_ITS ---
Author Organization 300 [facility] Address [address] [place] [address] Phone Care Team Providers Care Waste Examiner Name Role Phone Susanne Barbour MD Primary Care Pr ovider Community Health Worker Program Status:Ongoing (Active) Start date:07/21/2024 Enrollment date:07/21/2024 Overview Community Health Worker Program Case Team Name Relationship Phone Chanelle Chong Community Health Worker(Responsi ble Staff) Continued Care and Services Coordination
--- OUTSIDE RECORDS SUMMARY | 2024-08-25 15:47 | XMS_ITS | Encounter Summary ---
Author Organization [facility] Address [address] [place] [address] Care Team Providers Care Life Advisor Name Role Phone Susanne Barbour MD Primary Care Pr ovider Encounter Details Date Type Department Care Team (Late st Contact Info) Description 05/06/2024 2:47 PM EDT Hospital Encounter TH HISTORIC ENCOUNTERS EASTERN CONVERSION ONLY Aly Nolasco MD 175 [facility] [address] [place] [address] Social History Tobacco Use Types Packs/Day Years [...] for your loved ones. For example, child welfare social worker or elderly care for an older adult? [...] have unwitnessed unresponsiveness while at work at [employer]. She was admitted to the ICU for suspected status epilepticus. She was under a lot of stress at that time , she admitted herself to [facility] last year , hospital GCS was 3 [...] losartan and continued on her home metoprolol. Permit Coordinator in December 2023 she had double ablation . She was started on Eliquis for Afib. While in the hospital she had a CTA which showed CT angio head/neck showed no cutoff of the major branches of the skull [place]. Focal areas of severe stenoses [...] tablet (300 mg total) by mouth daily. ? ? 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 The majority of the actual [id number] visit was spent counseling the patient with respect to the current neurological picture. Aly Nolasco MD documented in this encounter Plan of Treatment Upcoming Encounters Date Type Department Care Team (Late st Contact Info) Description 08/29/2024 11:15 AM EST Appointment Bone Density [address] [phone] 09/02/2024 10:30 AM EST Hospital Encounter [facility] Endoscopy 271 [place] [phone] Jairo Nascimento MD 175 [facility] 200 [place] [address] 09/04/2024 1:00 PM EST Office Visit [facility] 175 [facility] 150 [place] [phone] Aly Nolasco MD 175 [facility] 150 [place] [phone] 09/25/2024 3:15 PM EST Office Visit Obstetrics and Gynecology - [place] 230 [place] [phone] Adriana Mosqueda CN 230 [place] [address] 03/26/2025 3:00 PM EDT Office Visit Adult Medicine [facility] [address] [place] [address] Susanne Barbour MD [address] [place] [address] documented as of this encounter Visit Diagnoses Not on filedocumented in this encounter Care Teams Life Advisor Relationship Specialty Start Date End Date Susanne Barbour MD [address] [place], [place] PCP - General Internal Medicine 02/13/22 documented as of this encounter
--- OUTSIDE RECORDS SUMMARY | 2024-08-25 15:47 | XMS_ITS | Encounter Summary ---
Author Organization [facility] Address [address] [place] [address] Care Team Providers Care Tandem Mill Roller Name Role Phone Susanne Barbour MD Primary Care Pr ovider Encounter Details Date Type Department Care Team (Late st Contact Info) Description 08/05/2024 Lab [facility] Neurodiagnostic [address] [place] [phone] Aly Nolasco MD 175 [facility] 150 [place] [phone] Unspecified convulsions (CMS/HCC) Social History Tobacco Use [...] for your loved ones. For example, child nurse or elderly care for an older adult? [...] 11:15 AM EST Appointment [facility]ensity - [place] [address] [place] [address] 09/02/2024 10:30 AM EST Hospital Encounter [facility] Endoscopy [address] [place] [phone] Jairo Nascimento MD 175 [facility] 200 [place], [place] [phone] 09/04/2024 1:00 PM EST Office Visit [facility] [place] 175 [facility] 150 [place] [phone] Aly Nolasco MD 175 [facility] 150 [place] [phone] 09/25/2024 3:15 PM EST Office Visit Obstetrics and Gynecology [facility] 230 [place] [address] Adriana Mosqueda [facility] 230 [place] [address] 03/26/2025 3:00 PM EDT Office Visit Adult Medicine [address] [phone] Susanne Barbour MD [address] [place] [address] Pending Results Name Type Priority Associated Diagnoses Date /Time Continuous EEG Neurology Routine Unspecified convulsions (CMS/HCC) 08/07/2024 3:11 PM EST documented as of this encounter Visit Diagnoses Diagnosis Unspecified convulsions (CMS/HCC) documented in this encounter Additional Health Concerns Assessment Noted Time PHQ-9 Depression Total Score: 0 07/09/20 3:15 PM EST documented as of this encounter Care Teams Tandem Mill Roller Relationship Specialty Start Date End Date Susanne Barbour MD [address] [place] [address] PCP - General Internal Medicine 02/13/22 documented as of this encounter
--- OUTSIDE RECORDS SUMMARY | 2024-08-25 15:47 | XMS_ITS | Clinical Summary ---
Author Organization [address] [facility] Address [address] [place] [address] Phone Care Team Providers Care Internet Ecommerce Specialist Name Role Phone Susanne Barbour MD Primary Care Pr ovider Allergies Active Allergy Reactions Criticality Noted Date Comments Latex Dermatitis,Rash Low 11/16/2005 Other Reaction(s): Rash/Dermatitis Penicillins Dermatitis,Rash Low 11/16/2005 Other Reaction(s): Rash/Dermatitis Sulfa (Sulfonamide Antibiotics) Hives 05/04/2021 Other Reaction(s): Other (See Comments) Urticaria and gastritis Other Reaction(s): rash, GI Upset Medications Medication Sig Dispensed Refills Start Date End Date Status clonazePAM (KlonoPIN) 0.5 mg tablet TAKE 1/2-1 TABLET BY MOUTH ONCE A DAY NEEDED FOR ANXIETY Active lamoTRIgine (LaMICtal XR) 300 mg tablet extended release 24hr 24 hr tablet Take 1 tablet (300 mg total) by mouth daily. - Oral Patient not taking: Reported on 05/06/2024 12/25/2023 Active traZODone (DESYREL) 100 mg tablet Take 100 mg by mouth every night at bedtime. Active DAILY MULTI-VITAMIN ORAL Take 1 tablet by mouth daily. Active multivitamin,ther and minerals (VITAMINS AND MINERALS ORAL) Take by mouth. Active topiramate (TOPAMAX) 25 mg tablet Active busPIRone (BUSPAR) 5 mg tablet Take by mouth 2 (two) times a day. Active apixaban (Eliquis) 5 mg tabletIndications: SVT (supraventricular tachycardia) (CMS/HCC) Take 1 tablet (5 mg total) by mouth 2 (two) times a day. Take by mouth every 12 (twelve) hours. - 180 tablet 1 07/16/2024 Active aspirin 81 mg EC tabletIndications: Mixed hyperlipidemia,Cer ebral microvascular disease,Bilateral carotid artery stenosis Take 1 tablet (81 mg total) by mouth 1 (one) time each day. Take 1 tablet (81 mg total) by mouth daily. 90 tablet 1 07/16/2024 Active metoprolol succinate (TOPROL-XL) 25 mg 24 hr tabletIndications: SVT (supraventricular tachycardia) (CMS/HCC) Take 0.5 tablets (12.5 mg total) by mouth 1 (one) time each day. Do not crush or chew. 45 each 1 07/16/2024 5 Active atorvastatin (LIPITOR) 20 mg tabletIndications: Mixed hyperlipidemia,Cer ebral microvascular disease,Bilateral carotid artery stenosis Take 1 tablet (20 mg total) by mouth at bedtime. 90 each 1 07/16/2024 5 Active lurasidone (LATUDA) 20 mg tablet Take 2 tablets (40 mg total) by mouth. 07/16/2024 Active ferrous sulfate 325 mg (65 mg elemental iron) tablet Take 1 tablet (325 mg total) by mouth 1 (one) time each day. 05/23/2024 Active estradioL (ESTRACE) 1 mg tablet Take 1 tablet (1 mg total) by mouth 1 (one) time each day. 90 tablet 3 08/11/2024 Active polyethylene glycol (Golytely) 236-22.74-6.74 -5.86 gram solution Take 4L by mouth once for one dose. May substitue any PEG. Starting at 6PM the night before your procedure drink 1 8oz glasses at your own pace until you complete half of the gallon. Finish 2nd half of the gallon 5 hours before your procedure. 4000 mL 08/19/2024 Active bisacodyL (DULCOLAX) 5 mg EC tablet Take 2 tablets by mouth right before beginning bowel prep. See instructions provided by the office 2 tablet 08/19/2024 Active estradioL (ESTRACE) 1 mg tablet 5 Discontinu ed(Reorder ) Active Problems Problem Noted Date Diagnosed Date Cataracts, bilateral 05/10/2024 Cerebral microvascular disease 05/10/2024 Assessment & Plan (07/17/2024 8:01 AM EST): Orders: aspirin 81 mg EC tablet; Take 1 tablet (81 mg total) by mouth 1 (one) time each day. Take 1 tablet (81 mg total) by mouth daily. atorvastatin (LIPITOR) 20 mg tablet; Take 1 tablet (20 mg total) by mouth at bedtime. Cervicalgia 05/10/2024 Cognitive dysfunction 05/10/2024 Dissection of left carotid artery 12/05/2023 Atrial fibrillation 12/05/2023 SVT (supraventricular tachycardia) 04/09/2023 Assessment & Plan (07/17/2024 8:01 AM EST): Follow up with Dr. Sherman as scheduled next year She recently completed 30 day registered nurse cardiac telemetry. Pending results States echo done last month was normal. I do not have records for review Continue current meds Orders: apixaban (Eliquis) 5 mg tablet; Take 1 tablet (5 mg total) by mouth 2 (two) times a day. Take by mouth every 12 (twelve) hours. - metoprolol succinate (TOPROL-XL) 25 mg 24 hr tablet; Take 0.5 tablets (12.5 mg total) by mouth 1 (one) time each day. Do not crush or chew. Prediabetes 09/18/2022 Degenerative joint disease (DJD) of lumbar spine 08/02/2022 Restless leg syndrome 03/29/2021 Overview (05/08/2024): pramipexole/referral to Neurology for alternatives due to potential side effect of significant hypotension Conversion disorder 04/17/2019 PTSD (post-traumatic stress disorder) 04/17/2019 Anxiety 02/28/2019 Assessment & Plan (07/17/2024 8:01 AM EST): Continue clonazepam 0.5 mg as needed anxiety. Was started on buspar by psyc but it made her jittery so she contacted her psychiatrist so she could get weaned off. She is still taking the medication Bipolar affective disorder 02/28/2019 Overview (05/08/2024): History Suicide Attempt Assessment & Plan (07/16/2024 5:08 PM EST): She is on topiramate 25 mg, she was supposed to clarify this was prescribed by her psychiatrist Dr. Caraballo for bipolar disorder. She does not have headaches. She will do so and let me know Continue lamotrigine 300 mg daily,Latuda 40 mg nightly(states plan is to go up to 60 mg). Medications are prescribed by her psychiatrist. Carotid artery stenosis 02/28/2019 Assessment & Plan (07/17/2024 8:01 AM EST): Orders: aspirin 81 mg EC tablet; Take 1 tablet (81 mg total) by mouth 1 (one) time each day. Take 1 tablet (81 mg total) by mouth daily. atorvastatin (LIPITOR) 20 mg tablet; Take 1 tablet (20 mg total) by mouth at bedtime. Hyperlipidemia 02/28/2019 Assessment & Plan (07/17/2024 8:01 AM EST): Will decrease atorvastatin from 40 mg to 20 mg due to adequately controlled cholesterol levels. Will repeat levels in 1 months Orders: aspirin 81 mg EC tablet; Take 1 tablet (81 mg total) by mouth 1 (one) time each day. Take 1 tablet (81 mg total) by mouth daily. atorvastatin (LIPITOR) 20 mg tablet; Take 1 tablet (20 mg total) by mouth at bedtime. Lipid panel with reflex to direct LDL; Future Comprehensive metabolic panel; Future Insomnia 02/28/2019 Assessment & Plan (07/17/2024 8:01 AM EST): Continue trazodone 100 mg nightly Iron deficiency anemia 02/28/2019 Overview (05/08/2024): Dr. Po Mosqueda 05/05/2021 Assessment & Plan (07/17/2024 8:01 AM EST): Orders: CBC and differential; Future Iron and TIBC; Future Ferritin; Future Mitral valve prolapse 02/28/2019 Osteopenia 02/28/2019 Overview (05/08/2024): 09/2018 T score -1.4, left hip Assessment & Plan (07/17/2024 8:01 AM EST): Continue daily ca/vit D supplement Orders: Vitamin D 25 hydroxy; Future Elevated liver enzymes 02/28/2019 Overview (05/10/2024): 04/2018 GERD (gastroesophageal reflux disease) 9 Osteoarthritis of multiple joints 02/28/2019 Overview (05/10/2024): Hands. Wrist, Hip Seizure disorder 02/28/2019 Overview (05/10/2024): Was on Keppra- pt d/alpesh herself Tremor 02/28/2019 Vasovagal syncope 02/28/2019 Overview (05/10/2024): 04/2018+ Tilttable; Propanolol and Midodrine Syncope 08/2019- following with cardiology- loop recorder for a month--no significant events noted and Nuclear stress test pending- [facility] [place] [facility]- Dr Pradhan Last Assessment & Plan: Referral to cardio done, DX: vasovagal Syncope. ??Tilt table positive [facility] cardiology Dr. Pradhan. ??Advised to take midodrine and propranolol. ??Recently hospitalized due to multiple syncopal episodes at [facility]. ??Please evaluate for any further work-up/she was supposed to complete nuclear stress test which was not done in the past. 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) 08/11/2024 10:00 AM EST Office Visit Obstetrics and Gynecology [address] [phone] Adriana Mosqueda CNM Vaginal dryness (Primary Dx); Status post hysterectomy 08/08/2024 1:00 PM EST - 08/08/2024 11:59 PM EST Hospital Encounter [facility] Neurodiagnostic [address] [place] [phone] Discharge Disposition: Home or Self Care 08/07/2024 12:50 PM EST - 08/07/2024 11:59 PM EST Hospital Encounter [facility] Neurodiagnostic [address] [place] [phone] Discharge Disposition: Home or Self Care 08/06/2024 [facility] Neurodiagnostic [address] [place] [phone] Aly Nolasco MD Unspecified convulsions ([facility]/HCC) 08/05/2024 Lab [facility] Neurodiagnostic [address] [place] [phone] Aly Nolasco MD Unspecified convulsions (CMS/HCC) 07/31/2024 Telephone Gastroenterology [facility] 175 [facility] 175 [facility] [address] [place] [phone] Angela Conti LPN Anticoagulation (Colonoscopy on 09/02/[address] Nascimento) 07/21/2024 Telephone [facility] [address] [place] [phone] Chanelle Chong Go over SIOH Screener 07/16/2024 4:30 PM EST Office Visit Adult Medicine [address] [phone] Susanne Barbour MD SVT (supraventricular tachycardia) (CMS/HCC) (Primary Dx); Mixed hyperlipidemia; Iron deficiency anemia, unspecified iron deficiency anemia type; Cerebral microvascular disease; Bilateral carotid artery stenosis; Scalp lesion; Encounter for screening mammogram for malignant neoplasm of breast; Encounter for screening involving social determinants of health (SDoH); Osteopenia of multiple sites; Bipolar affective disorder, current episode mixed, current episode severity unspecified (CMS/HCC); Primary insomnia; Anxiety; Dyspnea on exertion 2024 3:30 PM EST Office Visit [facility] [address] [facility] [address] [place] [address] Aly Nolasco MD Seizure-like activity (CMS/[facility]) (Primary Dx); Cognitive changes from Last 3 Months Immunizations Name Administration Dates Next Due H1N1 Inj Preservative Free 08/19/2009 Influenza trivalent, with preservative (Fluzone; Afluria) 6mo and older 05/02/2023,05/01/2022,05/13/2021,2019,05/06/2019,05/20/2018 Influenza, Unspecified 05/30/2023 Moderna Covid-19 Bivalent, O riginal + Ba.1 (Non-US Tradename Spikevax Bivalent) 05/01/2022,05/01/2022 Moderna SARS-CoV-2 COVID-19, mRNA, LNP-S, preservative free 12/15/2021,06/16/2021,08/26/2020,2019 Pneumococcal conjugate 13 va lent (Prevnar 13, PCV13) 2mo and older 02/27/2018 Respiratory syncytial virus (RSV), unspecified 08/09/2023 Tdap Tetanus diptheria acell ular pertussis (Boostrix; Adacel) 7yo and older 04/16/2020 Zoster recombinant (Shingrix ) 19yo and older 06/16/2021 Surgical History Surgery Date Site/Laterality Comments HERNIA REPAIR PROCEDURE: REPAIR UMBILICAL HERNIA HERNIA REPAIR PROCEDURE: ME REPAIR FIRST ABDOMINAL WALL HERNIA TUBAL LIGATION PROCEDURE: HISTORICAL TUBAL LIGATION TONSILLECTOMY PROCEDURE: HISTORICAL TONSILLECTOMY CARPAL TUNNEL RELEASE 11/2014 Bilateral PROCEDURE: HISTORICAL CARPAL TUNNEL REL; COMMENT: 11/2014-right WRIST SURGERY Left PROCEDURE: HISTORICAL WRIST SURGERY; COMMENT: trapezoid with screw OTHER SURGICAL HISTORY 2003 PROCEDURE: ME LAPS GSTR RSTCV PX W/BYP IRA-EN-Y LIMB <150 CM; COMMENT: Gastric bypass CARDIAC CATHETERIZATION 02/2018 PROCEDURE: HISTORICAL CARDIAC CATH; COMMENT: Negative STEREOTACTIC BREAST BIOPSY 10/12/2005 PROCEDURE: STEREOTACTIC BREAST BIOPSY OTHER SURGICAL HISTORY 06/13/2006 PROCEDURE: HISTORICAL VAGINAL HYSTERECTOMY WITH BSO; COMMENT: BSO also for ovarian cyst and prolapse COLONOSCOPY PROCEDURE: HISTORICAL COLONOSCOPY; COMMENT: Performed with EGD at age 52 in [place] ESOPHAGOGASTRODUODENOSCOPY PROCEDURE: ME EGD TRANSORAL BIOPSY SINGLE/MULTIPLE; COMMENT: Performed with colonoscopy at age 52 in [place] OTHER SURGICAL HISTORY 06/01/2021 PROCEDURE: HISTORY OTHER; COMMENT: L gastroc recession, calcaneal osteotomy, post tibial tendon tenolysis and excision, flexor digitorum longus transfer to navicular, spring ligament reconstruction, 1st TMT plantarflexion fusion with Dr Dunn at [facility] Medical History Medical History Date Comments Seizure disorder (CMS/HCC) 02/28/2019 DX:Se izure disorder ([facility]) Mitral valve prolapse 02/28/2019 DX:Mitral valve prolapse Carotid artery stenosis 02/28/2019 DX:Carot id artery stenosis Insomnia 02/28/2019 DX:Insomnia GERD (gastroesophageal reflux disease) DX:GERD (gastroesophageal reflux disease) Anxiety 02/28/2019 DX:Anxiety Tremor 02/28/2019 DX:Tremor Vitamin D deficiency 02/28/2019 DX:Vitamin D deficiency Iron deficiency anemia 02/28/2019 DX:Iron d eficiency anemia History of gastric bypass 02/28/2019 DX:His tory of gastric bypass Vasovagal syncope 02/28/2019 DX:Vasovagal s yncope; COMMENT: 04/2018+ Tilttable; Propanolol and Midodrine Osteopenia 02/28/2019 DX:Osteopenia; C OMMENT: 09/2018 T score -1.4, left hip Elevated liver enzymes 02/28/2019 DX:Elevat ed liver enzymes; COMMENT: 04/2018 Segmental and somatic dysfun ction of cervical region 02/24/2019 DX:Segmental and somatic dysfunction of cervical region Segmental and somatic dysfun ction of thoracic region 02/24/2019 DX:Segmental and somatic dysfunction of thoracic region Cervicalgia 02/24/2019 DX:Cervicalgia Hyperlipidemia 02/28/2019 DX:Hyperlipidemi a PTSD (post-traumatic stress disorder) 04/17/2019 DX:PTSD (post-traumatic stress disorder) Conversion disorder 04/17/2019 DX:Conversio n disorder Bipolar affective disorder (CMS/HCC) 02/28/2019 DX:Bipolar affective disorder (HCC); COMMENT: History Suicide Attempt Osteoarthritis of multiple joints 02/28/2019 DX:Osteoarthritis of multiple joints; COMMENT: Hands. Wrist, Hip Anemia DX:Anemia History of gastric surgery DX:Hi story of gastric surgery Urinary tract infection symptoms 11/16/2021 DX:Urinary tract infection symptoms Family History Medical History Relation Name Comments Melanoma Brother 1 and SCC Heart attack Mother Diabetes Paternal Grandmother Breast cancer Sister 1 Relation Name Status Comments Brother 1 Alive Brother 2 Alive Brother 3 Alive Father (Age 69) Maternal Grandfather Maternal Grandmother Mother (Age 68) [place] Paternal Grandfather Paternal Grandmother Sister 1 Alive Sister 2 Alive Son Alive Social History Tobacco Use Types Packs/Day Years [...] your loved ones. For example, early childhood aide classroom or elderly care for an older adult? [...] file Not on file Not on file Obstetrics History Para Term AB IAB SAB Ectopic Multiple Livin g Live Births 2 1 1 1 Date Outcome GA Total Labor Labor/2nd/3rd Weight Sex Type Anes PTL Tomasa A1 A5 Name Clin Para 1992 32w 0d 2126 g (75 oz) M Vag-S pont [facility] Last Filed Vital Signs Vital Sign Reading Time Taken Comments Blood Pressure 103/69 08/11/2024 9:53 AM EST Pulse 78 08/11/2024 9:53 AM EST Temperature 37 ??C (98.6 ??F) 07/16/2024 3:49 PM EST Respiratory Rate 16 07/16/2024 3:49 PM EST Oxygen Saturation 99% 2024 3:49 PM EST Inhaled Oxygen Concentration - - Weight 80.7 kg (178 lb) 08/11/2024 9:53 AM EST Height 175.3 cm (5' 9 ) 07/16/2024 3:49 PM EST Body Mass Index 26.29 07/16/2024 3:49 PM EST Plan of Treatment Upcoming Encounters Date Type Department Care Team (Late st Contact Info) Description 08/29/2024 11:15 AM EST Appointment Bone Density [address] [phone] 09/02/2024 10:30 AM EST Hospital Encounter [facility] Endoscopy [address] [place] [phone] Jairo Nascimento MD 175 [facility] [address] [place] [address] 09/04/2024 1:00 PM EST Office Visit [facility] 175 [facility] [address] [place] [phone] Aly Nolasco MD 175 [facility] 150 [place] [phone] 09/25/2024 3:15 PM EST Office Visit Obstetrics and Gynecology [facility] [address] [place] [phone] Adriana Mosqueda, [facility] [address] [place] [address] 03/26/2025 3:00 PM EDT Office Visit Adult Medicine [facility] [address] [place] [phone] Susanne Barbour MD [address] [place] [phone] Health Maintenance Due Date Last Done Comments Cervical Cancer Screening: Pap Smear 1983 Breast Cancer Screening 11/06/2019 11/05/2017 Zoster Vaccines (2 of 2) 08/11/2021 06/16/2021 RSV Immunization Patients 60+ Years Old (1 - Risk 60-74 years 1-dose series) 2022 08/09/2023 Colorectal Cancer Screening: Colonoscopy 07/07/2022 Osteoporosis Screening (Bone Density Screening) 07/07/2022 Hypertension/CHF/CAD Annual BMP Blood Test 03/21/2025 03/21/2024, 03/21/2024 Depression Screening 07/09/2025 07/09/2024 Social Influencers of Health Screening 07/09/2025 07/09/2024 Cholesterol Screening (Lipid Panel) 03/21/2029 03/21/2024, 03/21/2024, 05/23/2018 DTaP,Tdap,and Td Vaccines (2 - Td or Tdap) 04/16/2030 04/16/2020 HIV Screening Completed 07/07/2004 Hepatitis C Screening Completed 09/16/2021 RSV Immunization Patients Under 20 months Aged Out 08/09/2023 No longer eligible based on patient's age to complete this topic Influenza Vaccine Completed 04/15/2024, , 05/02/2023, Additional history exists COVID-19 Vaccine Completed 05/26/2024, , 05/01/2022, Additional history exists Pneumococcal Vaccine: Pediatrics (0 to 5 Years) and At-Risk Patients (6 to 64 Years) Aged Out 05/26/2024, 02/27/2018 No longer eligibl e based on patient's age to complete this topic HIB Vaccines Aged Out No longer eligi ble based on patient's age to complete this topic HPV Vaccines Aged Out No longer eligi ble based on patient's age to complete this topic Hepatitis A Vaccines Aged Out No long er eligible based on patient's age to complete this topic Hepatitis B Vaccines Aged Out No long er eligible based on patient's age to complete this topic IPV Vaccines Aged Out No longer eligi ble based on patient's age to complete this topic MMR Vaccines Aged Out No longer eligi ble based on patient's age to complete this topic Meningococcal ACWY Vaccine Aged Out N o longer eligible based on patient's age to complete this topic Varicella Vaccines Aged Out No longer eligible based on patient's age to complete this topic Procedures Procedure Name Priority Date/Time Associated Diagnosis Comments HM ANNUAL BMP BLOOD TEST Routine 03/21/2024 LIPID PANEL Routine 03/21/2024 HEPATITIS C SCREENING Routine 09/16/2021 HIV SCREENING Routine 07/07/2004 from Last 3 Months or Most Recently Relevant to Health Maintenance Results * Annual BMP Blood Test (03/21/2024) Annual BMP Blood Test abstracted Historical Provider MD ADITI JOHNS E * Lipid panel (03/21/2024) LDL/HDL Ratio 2 0 - 4 Triglycerides 71 0 - 150 mg/dL Cholesterol 145 0 - 200 mg/dL HDL 71 40 mg/dL LDL Cholesterol 60 0 - 100 mg/dL Blood Venous blood specimen / Unknown Historical Provider LAB BLOOD ORDERAB LES * Hepatitis C Screening (09/16/2021) Hepatitis C Screening abstracted Historical Provider MD ADITI JOHNS E * HIV Screening (07/07/2004) HIV Screening abstracted Historical Provider MD ADITI Nunez from Last 3 Months or Most Recently Relevant to Health Maintenance Care Teams Internet Ecommerce Specialist Relationship Specialty Start Date End Date Susanne Barbour MD [address] [facility] [place], [place] PCP - General Internal Medicine 02/13/22
--- OUTSIDE RECORDS SUMMARY | 2024-08-25 15:47 | XMS_ITS | Encounter Summary ---
Author Organization [facility] Address [address] [place] [address] Care Team Providers Care Dermatopathologist Name Role Phone Susanne Barbour MD Primary Care Pr ovider Reason for Visit * Reason Onset Date Comments Go over SIOH Screener 07/21/2024 Encounter Details Date Type Department Care Team (Late st Contact Info) Description 07/21/2024 Telephone [place] [facility] [address] [place] [phone] [place], [place] Go over SIOH Screener Social History Tobacco Use Types Packs/Day Years [...] for your loved ones. For example, childcare aide or elderly care for an older adult? [...] as of this encounter Progress Notes * Chanelle Chong - 07/28/2024 2:24 PM EST I have emailed Iggy Irwin and Nohemi Monteiro [place] [place] and asked for their assistance in regard to this patients needs. I will update patient once I receive more information. * Chanelle Chong - 07/21/2024 2:02 PM EST I reached out to patient to further discuss her SIOH Screener results. Patient indicated that she was all set with her nutrition insecurities because she now has meals on Wheels. She also mentioned to me that she has an CIRCUITS ENGINEER that is helping her with her food shopping. When we spoke about her housinginsecurity, she mentioned to me that she will start looking for another apartment in July because she says her rent is going up in January and it is getting pretty expensive. I did mention to her about applying for housing, low income and even section 8. I also offered in helping with applications,submitting them and also picking them up for her. Patient also indicated that she was in need of a Fire Investigator and someone that can be able to organize her medication in her personal pill box. She indicates that at times, because of her memory, she takes extra doses or forgets to take them. I have provided patient with my direct contact information. Chanelle Chong Community Health Worker documented in this encounter Plan of Treatment Upcoming Encounters Date Type Department Care Team (Late st Contact Info) Description 08/29/2024 11:15 AM EST Appointment Bone Density - [address] [phone] 09/02/2024 10:30 AM EST Hospital Encounter [facility] Endoscopy [address] [place] [phone] Jairo Nascimento MD 175 [facility] 200 [place] [address] 09/04/2024 1:00 PM EST Office Visit [facility] [place] 175 [facility] [address] [place] [phone] Aly Nolasco MD 175 [facility] [address] [place] [phone] 09/25/2024 3:15 PM EST Office Visit Obstetrics and Gynecology - [place] 230 [place] [phone] Adriana Mosqueda CNM [address] [place] [address] 03/26/2025 3:00 PM EDT Office Visit Adult Medicine [address] [phone] Susanne Barbour MD [address] [place] [address] documented as of this encounter Visit Diagnoses Not on filedocumented in this encounter Additional Health Concerns Assessment Noted Time PHQ-9 Depression Total Score: 0 07/09/20 24 3:15 PM EST documented as of this encounter Care Teams Dermatopathologist Relationship Specialty Start Date End Date Susanne Barbour MD [address] [place], [place] PCP - General Internal Medicine 02/13/22 documented as of this encounter
== END 2024-08-25 12:10 | disposition home or self-care (01) ==
PROVIDERS: PCP Family Medicine; Visit Provider Internal Medicine Cardiovascular Disease
DX: R29.6 Repeated falls (principal); I48.0 Paroxysmal atrial fibrillation
CPT/HCPCS: 99214

== ENCOUNTER → 2024-08-25 10:52 | Outpatient (BNVA) | payer OTHER, SELFPAY | PROVIDERS: PCP Family Medicine; Visit Provider Internal Medicine Cardiovascular Disease | DX: I48.0 Paroxysmal atrial fibrillation (principal); R29.6 Repeated falls; Z79.899 Other long term (current) drug therapy | CPT/HCPCS: 99212 ==

== ENCOUNTER 2024-12-03 13:36 | Outpatient (AMB) | payer OTHER, SELFPAY ==
--- NOTE | 2024-12-03 14:00 | MHC.OFFVIS ---
Vital Signs 12/03/24 14:01 Height 5 ft 9 in Weight 171 lb 15.369 oz BMI 25.4 BP 110/70 Blood Pressure Location Lt brachial Position Sitting Pulse 91 Pulse Source Pulse Oximeter Intake Visit Reasons: 3 month f/up Intake Note: 3 mth f/up Accompanied by: Self / Same As Patient Allergies latex Allergy (Mild, Uncoded 08/08/24 12:41) Rash penicillin Allergy (Mild, Uncoded 08/08/24 12:41) Hives sulfa Allergy (Unknown, Uncoded 08/08/24 12:41) Gastrointestinal Upset Medication List - Last Reconciled 12/03/24 by Cristian Lundberg MD aspirin 81 mg PO DAILY atorvastatin 40 mg PO BEDTIME calcium carbonate 500 mg PO DAILY cholecalciferol (vitamin D3) (Vitamin D3) 50 mcg PO DAILY clonazepam (Klonopin) 0.5 mg PO DAILY PRN clopidogrel (Plavix) 75 mg PO DAILY ferrous sulfate 325 mg PO DAILY lamotrigine ER 300 mg PO DAILY 30 days lurasidone (Latuda) 40 mg PO BEDTIME multivitamin 1 tab PO DAILY primidone 50 mg PO BEDTIME topiramate 100 mg PO DAILY trazodone 100 mg PO BEDTIME PRN HPI Comments Details: Pleasant 64 year female who is here for follow-up. She has background history of supraventricular tachycardia. She also atrial fibrillation in the past and underwent ablation for SVT and atrial fibrillation. She is on apixaban 5 mg twice a day and baby aspirin. She has cervical dystonia as well as significant tremors and has been falling frequently. She is saying that she was doing much better with primidone but it has interaction with Eliquis and she is unable to take the primidone. I checked interactions and primidone is an enzyme induced her and we will cause issues for most anticoagulants. She also has been falling frequently which is a concern with the apixaban. She is in atrial fibrillation since the ablation done in December of 2023. She had a previous TIA. 12/03/2024: on previous visit we discussed about potential Watchman device because she was on primidone for significant tremors and cervical dystonia and there was interaction between all anticoagulants and primidone. She is now status post Watchman device and is off anticoagulation. She is taking aspirin and Plavix currently. She is feeling much better. Blood pressure is well controlled. Overall doing well. [facility] Medical History Exertional dyspnea Chest pain Depression Syncope Non-motor epileptic seizure Conversion disorder Hyponatremia Cervical dystonia Essential and other specified forms of tremor Cervicalgia Osteopenia GERD (gastroesophageal reflux disease) Hyperlipidemia Anxiety Restless legs syndrome (RLS) Mitral valve prolapse PTSD (post-traumatic stress disorder) Cataract Arthritis TIA (transient ischemic attack) Conversion disorder Bipolar 2 disorder Raynauds syndrome (~08/2022) Carotid artery stenosis Seizures Acute cataract Faulkner syndrome Surgical History H/O arthroplasty History of hysterectomy Gastric bypass status for obesity Family History Father Heart disease Depressed Mother Heart disease Social History Household Members: None Housing: Apartment Do you presently have visiting nurse or other home services: No Alcohol intake: never Patient Tobacco Use Status: Never used Tobacco e-Cigarette/Vaping Use: Never Used Second Hand Smoke Exposure: No Advance Directives Date on File: 07/07/24 service: No Sexual orientation: Straight/Heterosexual Review of Systems Const Denies chills, Denies fatigue, Denies fever(s), Denies frequent falls, Denies weakness, Denies weight gain and Denies weight loss ENT Denies dizziness Card Denies chest pain, Denies leg edema, Denies lightheadedness, Denies palpitations, Denies dyspnea and Denies dyspnea on exertion Resp Denies cough, Denies dyspnea and Denies dyspnea on exertion GI Denies hematochezia Musc Denies abnormal gait, Denies muscle weakness, Denies numbness, Denies radiating pain into limb and Denies tingling Neuro Denies abnormal gait, Denies dizziness, Denies frequent falls, Denies numbness, Denies tingling and Denies weakness Endo Denies fatigue and Denies palpitations Physical Exam Vital Signs: Last Vital Signs Pulse 91 12/03/24 14:01 BP 110/70 12/03/24 14:01 BMI result Body Mass Index 25.4 GENERAL APPEARANCE: in no acute distress, pleasant. NECK: no carotid bruit, no jugular venous distention. SKIN: no suspicious lesions, warm and dry. HEART: no murmurs, regular rate and rhythm. LUNGS: clear to auscultation bilaterally. ABDOMEN: soft, nontender. EXTREMITIES: no edema. PERIPHERAL PULSES: equal. NEUROLOGIC: Tremor in the neck. Tremors in the arms. Assessment & Plan Assessment & Plan (1) PAF (paroxysmal atrial fibrillation): Code(s): I48.0 - Paroxysmal atrial fibrillation Category: Medical (2) Falls frequently: Code(s): R29.6 - Repeated falls Category: Medical Plan Very pleasant 64 year female who is here for follow-up. She has background history of atrial fibrillation and SVT. She had cervical dystonia and significant tremors which were only control with primidone but primidone had an interaction with all anticoagulants. We discussed and referred her for Watchman device and she is now status post Watchman placement. She is doing fine and currently off anticoagulation and taking aspirin and Plavix only. Blood pressure well controlled. Follow-up 6 months. Thank you for allowing me to participate in the care of your patient. Please feel free to contact me if you have any questions. Medications: Changed From topiramate 25 mg PO DAILY 30 tabs 0RF 30 days To topiramate 100 mg PO DAILY Coding Level of Care Code Est Pt Level 4 (31094) Diagnoses PAF (paroxysmal atrial fibrillation) I48.0 Falls frequently R29.6
[2024-12-03 14:01] VITALS: BP 110/70; PULSE 91; BMI 25.4
--- OUTSIDE RECORDS SUMMARY | 2024-12-03 14:56 | XMS_ITS | Clinical Summary ---
Author Organization [facility] Address [address] [place] [address] Care Team Providers Care Internal Controls Consultant Name Role Phone Susanne Barbour MD Primary [...] age to complete this topic Care Teams Internal Controls Consultant Relationship Specialty Start Date End Date Susanne Barbour MD [address] [place] [address] PCP - General 03/27/24
--- OUTSIDE RECORDS SUMMARY | 2024-12-03 14:56 | XMS_ITS | Clinical Summary ---
Author Organization [facility] [address] [facility] Address [address] [place] [address] Phone Care Team Providers Care Manufacturing Support Engineer Name Role Phone Susanne Barbour MD Primary Care Pr ovider Allergies Active Allergy Reactions Criticality Noted Date Comments Latex Dermatitis,Rash Low 11/16/2005 Other Reaction(s): Rash/Dermatitis Penicillins Dermatitis,Rash Low 11/16/2005 Other Reaction(s): Rash/Dermatitis Sulfa (Sulfonamide Antibiotics) Hives 05/04/2021 Other Reaction(s): Other (See Comments) Urticaria and gastritis Other Reaction(s): rash, GI Upset Medications clonazePAM (KlonoPIN) 0.5 mg tablet TAKE 1/2-1 TABLET BY MOUTH ONCE A DAY NEEDED FOR ANXIETY Active lamoTRIgine (LaMICtal XR) 300 mg tablet extended release 24hr 24 hr tablet Take 1 tablet (300 mg total) by mouth daily. - Oral Patient not taking: Reported on 05/06/2024 12/25/19 24 Active traZODone (DESYREL) 100 mg tablet Active lurasidone (LATUDA) 20 mg tablet Take 2 tablets (40 mg total) by mouth. 07/16/20 24 Active estradioL (ESTRACE) 1 mg tablet Take 1 tablet (1 mg total) by mouth 1 (one) time each day. 90 tablet 3 08/11/19 25 Active aspirin 81 mg EC tabletIndications :Atrial fibrillation, unspecified type (CMS/HCC V24, CMS/HCC V28) Take 1 tablet (81 mg total) by mouth 1 (one) time each day. Take 1 tablet (81 mg total) by mouth daily. 90 tablet 1 09/11/19 25 Active atorvastatin (Lipitor) 40 mg tabletIndications :Mixed hyperlipidemia Take 1 tablet (40 mg total) by mouth at bedtime. 90 each 1 10/17/19 25 2024 Active clopidogreL (PLAVIX) 75 mg tablet Take 1 tablet (75 mg total) by mouth 1 (one) time each day. Active topiramate (Topamax) 50 mg tablet Take 1 tablet (50 mg total) by mouth 2 (two) times a day. 60 tablet 2 11/14/19 25 Active albuterol HFA (PROAIR HFA ; PROVENTIL HFA ; VENTOLIN HFA) 90 mcg/actuation inhaler Inhale 2 puffs by mouth every 4 (four) hours if needed (cough, wheezing, shortness of breath). 8.5 g 2 11/20/19 25 Active primidone (MYSOLINE) 50 mg tablet Take 1 tablet (50 mg total) by mouth 2 (two) times a day. 1/2 po hs x 1 week, then increase to 1 po hs 60 tablet 5 11/29/19 25 Active ferrous sulfate 325 mg (65 mg elemental iron) tabletIndications :Iron deficiency anemia, unspecified TAKE 1 TABLET BY MOUTH EVERY DAY 90 tablet 1 11/27/19 25 Active multivitamin,ther and minerals (VITAMINS AND MINERALS ORAL) Take by mouth. 2024 Discontinued(T herapy completed) ferrous sulfate 325 mg (65 mg elemental iron) tablet Take 1 tablet (325 mg total) by mouth 1 (one) time each day. 05/23/20 24 2024 Discontinued topiramate (TOPAMAX) 25 mg tabletIndications :Seizure disorder (CMS/HCC V24, CMS/HCC V28) Take 1 tablet (25 mg total) by mouth 1 (one) time each day for 7 days, THEN 1 tablet (25 mg total) 2 (two) times a day. 67 each 3 09/11/19 25 2024 Discontinued calcium carbonate-vitamin D 500 mg-5 mcg (200 unit) per tablet Take 1 tablet by mouth 1 (one) time each day. 200 units 2024 Discontinued(T herapy completed) primidone (MYSOLINE) 50 mg tablet 1/2 po hs x 1 week, then increase to 1 po hs 30 tablet 5 10/03/19 25 2024 Discontinued(R eorder) clopidogreL (PLAVIX) 75 mg tablet Take 1 tablet (75 mg total) by mouth 1 (one) time each day. 10/10/19 25 2024 Discontinued(D uplicate order) Active Problems Problem Noted Date Diagnosed Date Gait instability 11/19/2024 Seizure disorder ([facility] V24, [facility] V28) 10/29 TIA (transient ischemic attack) 11/19/2024 Aphasia 11/19/2024 Presence of Watchman left atrial appendage closu re device 10/16/2024 Assessment & Plan (10/16/2024 12:05 PM EDT): Placed on 10/08/24. See HPI Cataracts, bilateral 05/10/2024 Cerebral microvascular disease 05/10/2024 [...] dysfunction 05/10/2024 Dissection of left carotid artery ([facility] V24) 12/05/2023 Paroxysmal atrial fibrillation ([facility] V24, [facility] V28) 12/05/2023 Assessment & Plan (10/16/2024 12:05 PM EDT): Her atrial fibrillation is paroxysmal. Status post Watchman procedure which she tolerated well. Her blood pressure cannot handle metoprolol 12.5 mg dose. Has several low blood pressure readings at home with associated lightheadedness. Will stop the metoprolol. She will continue home blood pressure monitoring and return in 2 weeks for blood pressure check SVT (supraventricular tachycardia) ([facility] V24) 04/09/2023 Assessment & Plan (07/17/2024 8:01 AM EST): Follow up with Dr. Sherman as scheduled next year She recently completed 30 day cardiac cath technologist. Pending results States echo done last month [...] still taking the medication Bipolar affective disorder ([facility] V24, [facility] V28) 02/28/2019 Overview (05/08/2024): History Suicide Attempt Assessment [...] at bedtime. Hyperlipidemia 02/28/2019 Assessment & Plan (10/16/2024 12:05 PM EDT): She will complete fasting labs which were ordered at our last visit in June Orders: atorvastatin (Lipitor) 40 mg tablet; Take 1 tablet (40 mg total) by mouth at bedtime. Assessment & Plan (07/17/2024 8:01 AM EST): [...] Dr. Po Mosqueda 05/05/2021 Assessment & Plan (10/16/2024 12:05 PM EDT): Continue ferrous sulfate 3 times a week. She will complete pending iron studies. Anemia has resolved based on testing done in the hospital on 10/08/2024 Assessment & Plan (07/17/2024 8:01 AM EST): [...] joints 02/28/2019 Overview (05/10/2024): Hands. Wrist, Hip Generalized epilepsy (CMS/HCC V24, CMS/HCC V28) 02/28/2019 Overview (05/10/2024): Was on Keppra- pt d/alpesh herself Assessment & Plan (10/16/2024 12:05 PM EDT): Continue Lamictal 300 mg nightly and Topamax 25 mg twice daily. Continue neurology follow-up. See HPI Tremor 02/28/2019 Assessment & Plan (10/16/2024 12:05 PM EDT): Continue follow-up with neurology. Continue primidone which has been helpful Vasovagal syncope 02/28/2019 Overview (05/10/2024): 04/2018+ Tilttable; Propanolol and Midodrine Syncope 08/2019- following with cardiology- loop recorder for a month--no significant events noted and Nuclear stress test pending- [facility]- Dr Pradhan Last Assessment & Plan: Referral to cardio done, DX: vasovagal Syncope. ??Tilt table positive [facility] cardiology Dr. Pradhan. ??Advised to take midodrine and propranolol. ??Recently hospitalized due to multiple syncopal episodes at [facility]. ??Please evaluate for any further work-up/she was supposed to complete nuclear stress test which was not done in the past. Vitamin D deficiency 02/28/2019 Neck pain 02/24/2019 Encounters Date Type Department Care Team Description 11/19/2024 2:00 PM EDT Office Visit [facility] Medicine [address] [phone] Adina Valdez PA Seizure disorder (CMS/HCC V24, CMS/HCC V28) (Primary Dx); Generalized epilepsy (CMS/HCC V24, CMS/HCC V28); Paroxysmal atrial fibrillation (CMS/HCC V24, CMS/HCC V28); Presence of Watchman left atrial appendage closure device; Cognitive dysfunction; Tremor; Aphasia; TIA (transient ischemic attack); Gait instability; Mild intermittent reactive airway disease without complication 11/18/2024 2:15 PM EDT Ancillary Procedure [facility] - [address] [place] [address] Decreased pedal pulses 11/14/[address] [phone] Ad[facility]dez [facility] 11/13/2024 1:00 PM EDT Office Visit [facility] [address] [phone] Aly Nolasco MD Seizure-like activity (CMS/HCC V24, CMS/HCC V28) (Primary Dx); Cognitive changes; Tremor; Aphasia; TIA (transient ischemic attack) 11/07/2024 10:00 AM EDT Telemedicine [facility] [address] [phone] Betty Lamar PA Seizure disorder (CMS/HCC V24, CMS/HCC V28) (Primary Dx); Tremor 11/07/2024 Nurse Triage Adult [address] [phone] Adina Valdez PA 11/06/2024 12:35 PM EDT - 11/06/2024 11:59 PM EDT Hospital Encounter [facility] [address] [place] [address] Discharge Disposition: Home or Self Care 10/31/2024 10:45 AM EDT Office Visit [address] [phone] dAina Valdez PA Paroxysmal atrial fibrillation (CMS/HCC V24, CMS/HCC V28) (Primary Dx); Presence of Watchman left atrial appendage closure device 10/28/[address] [phone] Susanne Barbour MD Forms/questionnaire s 10/24/2024 Telephone [facility] [address] [phone] Susanne Barbour MD Referral (Patient is already established at [facility]. [place] R) 10/21/[address] [phone] Maggy Werner [place] Forms/questionnaire s (RMV form received at the visit from patient ) 10/16/2024 10:30 AM EDT Office Visit [address] [phone] Susanne Barbour MD Paroxysmal atrial fibrillation (CMS/HCC V24, CMS/HCC V28) (Primary Dx); Presence of Watchman left atrial appendage closure device; Mixed hyperlipidemia; Tremor; Iron deficiency anemia, unspecified iron deficiency anemia type; Generalized epilepsy (CMS/HCC V24, CMS/HCC V28); Dyspnea on exertion 10/14/2024 Nurse Triage [address] [phone] Kalee Stovall RN 10/13/[address] [phone] Susanne Barbour MD Hospital Follow-up 10/02/2024 2:00 PM EST Telemedicine [facility] [address] [phone] Betty Lamar PA Seizure-like activity (CMS/HCC V24, CMS/HCC V28) (Primary Dx); Tremor 09/29/2024 3:04 PM EST - 09/29/2024 11:59 PM EST Hospital Encounter CT Scan - [address] [phone] Closed head injury, initial encounter Discharge Disposition: Home or Self Care 09/29/2024 3:04 PM EST - 09/29/2024 11:59 PM EST Hospital Encounter CT Scan [address] [phone] Closed head injury, initial encounter; Cervicalgia; Neck pain Discharge Disposition: Home or Self Care 09/23/2024 11:30 AM EST Office Visit Adult Medicine [address] [phone] Adina Valdez PA Closed head injury, initial encounter (Primary Dx); Neck pain; Cervicalgia 09/18/2024 Nurse Triage Adult Medicine [address] [phone] Kalee Stovall RN 09/11/2024 3:00 PM EST Office Visit Adult Medicine [address] [phone] Adina Valdez PA Atrial fibrillation, unspecified type (CMS/HCC V24, CMS/HCC V28) (Primary Dx); Seizure disorder (CMS/HCC V24, CMS/HCC V28); Tremor; Bipolar affective disorder, current episode mixed, current episode severity unspecified (CMS/HCC V24, CMS/HCC V28) 09/11/2024 11:30 AM EST Telemedicine [facility] [address] [phone] Aly Nolasco MD Anxiety (Primary Dx); Seizure disorder ([facility] V24, [facility] V28); Tremor from Last 3 Months Immunizations Name Administration [...] PROCEDURE: REPAIR UMBILICAL HERNIA HERNIA REPAIR PROCEDURE: RI REPAIR FIRST ABDOMINAL WALL HERNIA TUBAL LIGATION PROCEDURE: HISTORICAL TUBAL LIGATION TONSILLECTOMY PROCEDURE: HISTORICAL TONSILLECTOMY CARPAL TUNNEL RELEASE 11/2014 Bilateral PROCEDURE: HISTORICAL CARPAL TUNNEL REL; COMMENT: 11/2014-right WRIST SURGERY Left PROCEDURE: HISTORICAL WRIST SURGERY; COMMENT: trapezoid with screw OTHER SURGICAL HISTORY 2002 PROCEDURE: RI LAPS GSTR RSTCV PX W/BYP IRA-EN-Y LIMB <150 CM; COMMENT: Gastric bypass CARDIAC CATHETERIZATION 02/2018 PROCEDURE: HISTORICAL CARDIAC CATH; COMMENT: Negative STEREOTACTIC BREAST BIOPSY 10/12/2005 PROCEDURE: STEREOTACTIC BREAST BIOPSY OTHER SURGICAL HISTORY 06/13/2006 PROCEDURE: HISTORICAL VAGINAL HYSTERECTOMY WITH BSO; COMMENT: BSO also for ovarian cyst and prolapse COLONOSCOPY PROCEDURE: HISTORICAL COLONOSCOPY; COMMENT: Performed with EGD at age 52 in [place] ESOPHAGOGASTRODUODENOSCOPY PROCEDURE: RI EGD TRANSORAL BIOPSY SINGLE/MULTIPLE; COMMENT: Performed with colonoscopy at age 52 in [place] OTHER SURGICAL HISTORY 06/01/2021 PROCEDURE: HISTORY OTHER; COMMENT: L gastroc recession, calcaneal osteotomy, post tibial tendon tenolysis and excision, flexor digitorum longus transfer to navicular, spring ligament reconstruction, 1st TMT plantarflexion fusion with Dr Dunn at [facility] Medical History Medical History Date Comments Seizure disorder ([facility] V2 4, [facility] V28) 02/28/2019 DX:Seizure disorder ([facility]) Mitral valve prolapse 02/28/2019 DX:Mitral valve prolapse Carotid artery stenosis 02/28/2019 DX:Carot id artery stenosis Insomnia 02/28/2019 DX:Insomnia GERD (gastroesophageal reflux disease) 9 DX:GERD (gastroesophageal reflux disease) Anxiety 02/28/2019 DX:Anxiety [...] 04/17/2019 DX:Conversio n disorder Bipolar affective disorder ( [facility] V24, [facility] V28) 02/28/2019 DX:Bipolar affective disorde r ([facility]); COMMENT: History Suicide Attempt Osteoarthritis of multiple [...] Maternal Grandfather Maternal Grandmother Mother (Age 68) [place] Paternal Grandfather Paternal Grandmother Sister 1 Alive [...] care for your loved ones. For example, children's entertainer or elderly care for an older adult? [...] not to disclose 2024 9:28 AM EST Obstetrics History Para Term AB IAB SAB Ectopic Multiple Livin g Live Births 2 1 1 1 Date Outcome GA Total Labor Labor/2nd/3rd Weight Sex Type Anes PTL Tomasa A1 A5 Name Clin Para 1990 32w 0d 2126 g (75 oz) M Vag-S pont Living Dio Last Filed Vital Signs Vital Sign Reading Time Taken Comments Blood Pressure 96/69 11/19/2024 2:08 PM EDT Pulse 79 11/19/2024 2:08 PM EDT Temperature 36.4 ??C (97.6 ??F) 11/19/2024 2:08 PM ED T Respiratory Rate 14 11/19/2024 2:08 PM EDT Oxygen Saturation 97% 11/19/2024 2:08 PM EDT Inhaled Oxygen Concentration - - Weight 78.9 kg (174 lb) 11/19/2024 2:08 PM EDT Height 175.3 cm (5' 9 ) 11/19/2024 2:08 PM EDT Body Mass Index 25.7 11/19/2024 2:08 PM EDT Plan of Treatment Upcoming Encounters Date Type Department Care Team (Late st Contact Info) Description 02/02/2025 1:30 PM EDT Office Visit [facility] [address] [facility] [address] [place] [phone] Aly Nolasco MD [address] [facility] [address] [place] [phone] 02/17/2025 1:30 PM EDT Office Visit Obstetrics and Gynecology - [address] [phone] Zenaida Walters CNM [address] [place], [place] 03/26/2025 3:00 PM EDT Office Visit [facility] - [address] [phone] Susanne Barbour MD [address] [place] [address] Health Maintenance Due Date Last Done Comments Cervical Cancer Screening: Pap Smear 1983 Breast Cancer Screening 11/06/2019 11/05/2017 Osteoporosis Screening (Bone Density Screening) 07/07/2022 Hypertension/CHF/CAD Annual BMP Blood Test 03/21/2025 03/21/2024, 03/21/2024 Social Influencers of Health Screening 07/09/2025 07/09/2024 Depression Screening 11/04/2025 11/04/2024 Cholesterol Screening (Lipid Panel) 03/21/2029 03/21/2024, 03/21/2024, 05/23/2018 DTaP,Tdap,and Td Vaccines (2 - Td or Tdap) 04/16/2030 04/16/2020 Colorectal Cancer Screening: Colonoscopy 09/02/2034 09/02/2024 HIV Screening Completed 07/07/2004 Hepatitis C Screening Completed 09/16/2021 RSV Immunization Adult Patients Discontinued 08/09/2023 RSV Immunization Patients Under 20 months Aged Out 08/09/2023 No longer eligible based on patient's age to complete this topic Influenza Vaccine Completed 04/15/2024, , 05/02/2023, Additional history exists COVID-19 Vaccine Completed 05/26/2024, , 05/01/2022, Additional history exists Pneumococcal Vaccine: 50+ Years Completed 05/26/2024, 02/27/2018 Pneumococcal Vaccine: Pediatrics (0 to 5 Years) and At-Risk Patients (6 to 64 Years) Completed 05/26/2024, 02/27/2018 Zoster Vaccines Completed 09/12/2024, 06/16/2021 HIB Vaccines Aged Out No longer eligi [...] patient's age to complete this topic Meningococcal B Vaccine Aged Out No l onger eligible based on patient's age to complete this topic Varicella Vaccines Aged Out No longer eligible based on patient's age to complete this topic Procedures Procedure Name Priority Date/Time Associated Diagnosis Comments VAS US DUPLEX LOWER EXT ARTERIES BILAT WITH SE Routine 11/18/2024 3:05 PM EDT Decreased pedal pulses HC SPIROMETRY BRONCHODILATION RESPONSIVENESS PRE/POST BRONCHODILATOR ADMINISTRATION Routine 11/06/2024 1:35 PM EDT Dyspnea on exertion ECHO 10/24/2024 CT HEAD WO CONTRAST Routine 09/29/2024 3 :26 PM EST Closed head injury, initial encounter CT CERVICAL SPINE WO CONTRAST Routine 09/29/2024 3:26 PM EST Closed head injury, initial encounter Cervicalgia Neck pain COLONOSCOPY Routine 09/02/2024 10:44 AM EST Encounter for screening for malignant neoplasm of colon ANNUAL BMP BLOOD TEST Routine 03/21/2024 LIPID PANEL Routine 03/21/2024 HEPATITIS C SCREENING Routine 09/16/2021 HIV SCREENING Routine 07/07/2004 from Last 3 Months or Most Recently Relevant to Health Maintenance Results * Vascular US duplex lower extremity arteries bilateral with SE (11/18/2024 3:05 PM EDT) Right arm BP 124 mmHg CV VAS LAB Left arm BP 123 mmHg CV VAS LAB Right posterior tibial 125 mmHg CV VAS LAB Right Dorsalis Pedis 126 mmHg CV VAS LAB Right SE 1.02 CV VAS LAB Left posterior tibial 118 mmHg CV VAS LAB Left Dorsalis Pedis 132 mmHg CV VAS LAB Left SE 1.06 CV VAS LAB Anatomical Region Laterality Modality Vascular, Abdomen Ultrasound Narrative 11/18/2024 3:33 PM EDT Right Mild arterial plaques noted. Normal flow velocities and waveforms in the arterial segments above the knee. Triple-vessel runoff in the right calf. Normal right ankle pressure and ankle-brachial index. ??Right SE 1.02. Left Mild arterial plaques noted. Normal flow velocities and waveform in the arterial segments above the knee. Triple vessel runoff in the left calf. Normal left ankle pressure and ankle-brachial index. ??Left SE 1.06. Right Lower Arterial Duplex The distal external iliac artery has triphasic flow. The common femoral artery has triphasic flow. The profunda femoris artery has triphasic flow. The superficial femoral artery has triphasic flow. The proximal popliteal artery has biphasic flow. The distal popliteal artery has triphasic flow. The proximal anterior tibial artery has triphasic flow. The mid anterior tibial artery has biphasic flow. The distal anterior tibial artery has biphasic flow. The proximal posterior tibial artery has biphasic flow. The mid posterior tibial artery has triphasic flow. The distal posterior tibial artery has biphasic flow. The mid peroneal artery has triphasic flow. Left Lower Arterial Duplex The distal external iliac artery has triphasic flow. The common femoral artery has triphasic flow. The profunda femoris artery has triphasic flow. The superficial femoral artery has triphasic flow. The popliteal artery has triphasic flow. The proximal anterior tibial artery has triphasic flow. The mid anterior tibial artery has biphasic flow. The distal anterior tibial artery has biphasic flow. The posterior tibial artery has biphasic flow. The mid peroneal artery has triphasic flow. Neurosurgery Spine Physician Details A arias scale, color and doppler analysis ultrasound was performed. During the study longitudinal views were obtained. Continuous wave doppler and pulsed wave doppler was performed. Overall the study quality was good. us Cristopher Ho MD CV VASCULAR PROCEDURES Final Re sult * Pulmonary function testing: Spirometry, Spirometry with Bronchodilator, Pulmonary Stress Test, Complex, Pulmonary Stress Test, 6 min walk (11/06/2024 1:35 PM EDT) Narrative Melony Ricci MD - 11/08/2024 5:05 PM EDT DATE OF SERVICE: 11/06/24 SPIROMETRY: FEV1 is 115 % predicted and an FVC ??is 107 % predicted. The FEV1/FVC ratio is 107% of normal, no response to bronchodilators noted. LUNG VOLUMES: Total lung capacity (TLC): 91% predicted. Residual volume (RV): 77% predicted RV/TLC ratio is 79% of normal DIFFUSION CAPACITY: DLCO 91% predicted. DlCO/VA 92% of predicted COMPARISONS: INTERPRETATION: This pulmonary function test shows normal spirometry and diffusion. ??No evidence of lung disease based on this PFT ??Melony Ricci MD ?? Susanne Barbour MD PFT ORDERABLES Final Result * Echo (10/24/2024) Anatomical Region Laterality Modality Other us Provider [facility] CV HISTORICAL CONV PROCE DURES Final Result * CT Head wo Contrast (09/29/2024 3:26 PM EST) Anatomical Region Laterality Modality Head and Neck Computed Tomogra phy 09/29/2024 5:52 PM EST Impressions 09/30/2024 10:54 AM EST No evidence of intracranial hemorrhage or mass effect. POS - [id number] -------- FINAL REPORT -------- Dictated By: Nikki Norman Dictated Date: 09/29/2024 17:52 ET Assigned Physician: Nikki Norman Reviewed and Electronically Signed By: Nikki Norman Signed Date: 09/30/2024 10:54 ET Workstation ID: [id number] Transcribed By: Self Edit Transcribed Date: 09/29/2024 18:07 ET Narrative 09/30/2024 10:54 AM EST EXAM: HEAD CT HISTORY: Fell 09/14/2024 and hit back of head on bathtub. ??No loss of consciousness. ??Now with headache. COMPARISON: 01/16/2024 , MRI brain 03/03/2022 TECHNIQUE: Nonenhanced head CT from skull base to vertex with multi-planar reformats. ??Manual dose reduction technique tailored for patient and site of imaging. TOTAL CTDIvol: 66.38 mGy FINDINGS: No evidence of intracranial hemorrhage or an acute territorial infarction. ??Arias-white matter differentiation appears preserved. ??Very mild white matter hypodensities which are typically associated with small vessel disease. ??Atherosclerotic calcifications involving the carotid siphon. No hydrocephalus. ??No evidence of a mass, mass effect, or midline shift. ??No cerebellar ectopia. ??Pituitary gland is not enlarged. ?? No acute fracture or destructive bone lesion. ??No significant sinus disease in the partially imaged paranasal sinuses. ??Chronic opacification of inferior mastoid air cells, left greater than right. ??Mild degenerative changes involving the temporomandibular joints. Procedure Note Nikki Norman MD - 09/30/2024 EXAM: HEAD CT HISTORY: Fell 09/14/2024 and hit back of head on bathtub. No loss ofconsciousness. Now with headache. COMPARISON: 01/16/2024 , MRI brain 03/03/2022 TECHNIQUE: Nonenhanced head CT from skull base to vertex with multi- planarreformats. Manual dose reduction technique tailored for patient and siteof imaging. TOTAL CTDIvol: 66.38 mGy FINDINGS: No evidence of intracranial hemorrhage or an acute territorial infarction.Arias- white matter differentiation appears preserved. Very mild whitematter hypodensities which are typically associated with small vesseldisease. Atherosclerotic calcifications involving the carotid siphon. No hydrocephalus. No evidence of a mass, mass effect, or midline shift.No cerebellar ectopia. Pituitary gland is not enlarged. No acute fracture or destructive bone lesion. No significant sinusdisease in the partially imaged paranasal sinuses. Chronic opacificationof inferior mastoid air cells, left greater than right. Mild degenerativechanges involving the temporomandibular joints. IMPRESSION: No evidence of intracranial hemorrhage or mass effect. POS - [id number] -------- FINAL REPORT -------- Dictated By: Nikki Norman Dictated Date: 09/29/2024 17:52 ET Assigned Physician: Nikki Norman Reviewed and Electronically Signed By: Nikki Norman Signed Date: 09/30/2024 10:54 ET Workstation ID: [id number] Transcribed By: Self Edit Transcribed Date: 09/29/2024 18:07 ET Adina PEARSON IMG CT PROCEDURES Final Resul t * CT Cervical Spine wo Contrast (09/29/2024 3:26 PM EST) Anatomical Region Laterality Modality Spine, C-spine Computed Tomogra phy 09/29/2024 6:08 PM EST Impressions 09/30/2024 10:54 AM EST No acute fracture or malalignment detected. ??Mild degenerative changes. POS - [id number] -------- FINAL REPORT -------- Dictated By: Nikki Norman Dictated Date: 09/29/2024 18:08 ET Assigned Physician: Nikki Norman Reviewed and Electronically Signed By: Nikki Norman Signed Date: 09/30/2024 10:54 ET Workstation ID: [id number] Transcribed By: Self Edit Transcribed Date: 09/29/2024 18:25 ET Narrative 09/30/2024 10:54 AM EST EXAM: CERVICAL SPINE CT HISTORY: Fell 09/14/2024 and hit back of head on bathtub. ??Now with neck pain. COMPARISON: None TECHNIQUE: Nonenhanced axial CT through the cervical spine with multi-planar reformats. ??Manual dose reduction technique tailored for patient and site of imaging. TOTAL CTDIvol: 7.50 mGy FINDINGS: No acute fracture or malalignment detected. Mild disc space narrowing at C4-5 with mild anterior endplate spurring. ??No prominent disc bulging or large disc protrusions or extrusions although MRI would be more sensitive. ??Posterior endplate spurring at C4-5 and C6-7. ??No high-grade neural foraminal narrowing or spinal canal stenosis at any level. ??Atlantoaxial distance is within normal limits. Moderate mucosal thickening in the right maxillary sinus and very mild in the left. Mild atherosclerotic calcifications in the region of the carotid bulbs. ?? No pneumothorax in the upper chest. Procedure Note Nikki Norman MD - 09/30/2024 EXAM: CERVICAL SPINE CT HISTORY: Fell 09/14/2024 and hit back of head on bathtub. Now with neckpain. COMPARISON: None TECHNIQUE: Nonenhanced axial CT through the cervical spine withmulti-planar reformats. Manual dose reduction technique tailored forpatient and site of imaging. TOTAL CTDIvol: 7.50 mGy FINDINGS: No acute fracture or malalignment detected. Mild disc space narrowing at C4-5 with mild anterior endplate spurring.No prominent disc bulging or large disc protrusions or extrusions althoughMRI would be more sensitive. Posterior endplate spurring at C4-5 andC6-7. No high-grade neural foraminal narrowing or spinal canal stenosisat any level. Atlantoaxial distance is within normal limits. Moderate mucosal thickening in the right maxillary sinus and very mild inthe left. Mild atherosclerotic calcifications in the region of the carotid bulbs. No pneumothorax in the upper chest. IMPRESSION: No acute fracture or malalignment detected. Mild degenerative changes. POS - [id number] -------- FINAL REPORT -------- Dictated By: Nikki Norman Dictated Date: 09/29/2024 18:08 ET Assigned Physician: Nikki Norman Reviewed and Electronically Signed By: Nikki Norman Signed Date: 09/30/2024 10:54 ET Workstation ID: [id number] Transcribed By: Self Edit Transcribed Date: 09/29/2024 18:25 ET us Adina PEARSON [facility] PROCEDURES Final Resul t * COLONOSCOPY Anesthesia - MAC; [facility] ENDOSCOPY (09/02/2024 10:44 AM EST) Anatomical Region Laterality Modality Endoscopy 09/02/2024 10:2 9 AM EST Impressions 09/02/2024 10:45 AM EST - The entire examined colon is normal on direct and ? retroflexion views. ? - No specimens collected. Recommendation: ?- Discharge patient to home. ? - Repeat colonoscopy in 10 years for screening ? purposes. Narrative 09/02/2024 10:45 AM EST [facility] GI Patient Name: Sophia Paez Procedure Date: 09/02/2024 10:29 AM Date of : 1960 Age: 64 Gender: Female Note Status: Finalized Attending MD: Jairo Nascimento MD, Procedure Date No Time: 09/02/2024 Procedure: ? Colonoscopy Indications: ? Screening for colorectal malignant neoplasm Providers: ? Jairo Nascimento MD Referring MD: ?Jairo Nascimento MD Medicines: ? Monitored Anesthesia Care Complications: ? No immediate complications. Estimated Blood Loss: ? Estimated blood loss: none. Procedure: ? Pre-Anesthesia Assessment: ? - Prior to the procedure, a History and Physical was ? performed, and patient medications and allergies were ? reviewed. The patient is competent. The risks and ? benefits of the procedure and the sedation options and ? risks were discussed with the patient. All questions ? were answered and informed consent was obtained. ? Patient identification and proposed procedure were ? verified by the physician, the nurse, the nylon mender ? and the automotive drivability technician in the pre-procedure area in the ? endoscopy suite. Mental Status Examination: alert and ? oriented. Airway Examination: normal oropharyngeal ? airway and neck mobility. Respiratory Examination: ? clear to auscultation. CV Examination: normal. ? Prophylactic Antibiotics: The patient does not require ? prophylactic antibiotics. Prior Anticoagulants: The ? patient has taken no anticoagulant or antiplatelet ? agents. ASA Grade Assessment: II - A patient with mild ? systemic disease. After reviewing the risks and ? benefits, the patient was deemed in satisfactory ? condition to undergo the procedure. The anesthesia ? plan was to use monitored anesthesia care (MAC). ? Immediately prior to administration of medications, ? the patient was re-assessed for adequacy to receive ? sedatives. The heart rate, respiratory rate, oxygen ? saturations, blood pressure, adequacy of pulmonary ? ventilation, and response to care were monitored ? throughout the procedure. The physical status of the ? patient was re-assessed after the procedure. ? After I obtained informed consent, the scope was ? passed under direct vision. Throughout the procedure, ? the patient's blood pressure, pulse, and oxygen ? saturations were monitored continuously. The ? Colonoscope was introduced through the anus and ? advanced to the cecum, identified by appendiceal ? orifice and ileocecal valve. The colonoscopy was ? performed without difficulty. The patient tolerated ? the procedure well. The quality of the bowel ? preparation was good. Findings: ?The perianal and digital rectal examinations were ? normal. ? The entire examined colon appeared normal on direct ? and retroflexion views. Jairo Nascimento MD 09/02/2024 10:45:51 AM This report has been signed electronically.Jairo Nascimento MD Number of Addenda: 0 Note Initiated On: 09/02/2024 10:29 AM Scope Withdrawal Time: 0 hours 5 minutes 29 seconds Scope In: 10:34:47 AM Scope Out: 10:44:42 AM ? Endoscopy Department at [facility] - [address] [place] [address], ? [place] [address] Procedure Note Jairo Nascimento MD - 09/02/2024 [facility] GI Patient Name: Sophia Paez Procedure Date: 09/02/2024 10:29 AM Date of : 1960 Age: 64 Gender: Female Note Status: Finalized Attending : Jairo Nascimento MD, Procedure Date No Time: 09/02/2024 Procedure: Colonoscopy Indications: Screening for colorectal malignant neoplasm Providers: Jairo Nascimento MD Referring MD: Jairo Nascimento MD Medicines: Monitored Anesthesia Care Complications: No immediate complications. Estimated Blood Loss: Estimated blood loss: none. Procedure: Pre-Anesthesia Assessment: - Prior to the procedure, a History and Physicalwas performed, and patient medications and allergieswere reviewed. The patient is competent. The risks and benefits of the procedure and the sedation optionsand risks were discussed with the patient. Allquestions were answered and informed consent was obtained. Patient identification and proposed procedure were verified by the physician, the nurse, theanesthetist and the automotive drivability technician in the pre-procedure area in the endoscopy suite. Mental Status Examination: alertand oriented. Airway Examination: normal oropharyngeal airway and neck mobility. Respiratory Examination: clear to auscultation. CV Examination: normal. Prophylactic Antibiotics: The patient does notrequire prophylactic antibiotics. Prior Anticoagulants: The patient has taken no anticoagulant or antiplatelet agents. ASA Grade Assessment: II - A patient withmild systemic disease. After reviewing the risks and benefits, the patient was deemed in satisfactory condition to undergo the procedure. The anesthesia plan was to use monitored anesthesia care (MAC). Immediately prior to administration of medications, the patient was re-assessed for adequacy to receive sedatives. The heart rate, respiratory rate, oxygen saturations, blood pressure, adequacy of pulmonary ventilation, and response to care were monitored throughout the procedure. The physical status ofthe patient was re-assessed after the procedure. After I obtained informed consent, the scope was passed under direct vision. Throughout theprocedure, the patient's blood pressure, pulse, and oxygen saturations were monitored continuously. The Colonoscope was introduced through the anus and advanced to the cecum, identified by appendiceal orifice and ileocecal valve. The colonoscopy was performed without difficulty. The patient tolerated the procedure well. The quality of the bowel preparation was good. Findings: The perianal and digital rectal examinations were normal. The entire examined colon appeared normal on direct and retroflexion views. Jairo Nascimento MD 09/02/2024 10:45:51 AM This report has been signed electronically.Jairo Nascimento MD Number of Addenda: 0 Note Initiated On: 09/02/2024 10:29 AM Scope Withdrawal Time: 0 hours 5 minutes 29 seconds Scope In: 10:34:47 AM Scope Out: 10:44:42 AM Endoscopy Department at [address] [id number] IMPRESSION: - The entire examined colon is normal on direct and retroflexion views. - No specimens collected. Recommendation: - Discharge patient to home. - Repeat colonoscopy in 10 years for screening purposes. Jairo Nascimento MD GI~PROCEDURE ORDERABLES Fin al Result * Annual BMP Blood Test (03/21/2024) [facility] Annual BMP Blood Test abstracted Historical Provider HEALTH MAINTENANCE Final Result * Lipid panel (03/21/2024) [facility] LDL/HDL Ratio 2 0 - 4 Triglycerides 71 0 - 150 mg/dL Cholesterol 145 0 - 200 mg/dL HDL 71 >=40 mg/dL LDL Cholesterol 60 0 - 100 mg/dL Blood Venous blood specimen / Unknown Result [facility] Historical [facility] BLOOD ORDERABLES Fara l Result * Hepatitis C Screening (09/16/2021) [facility] Hepatitis C Screening abstracted Historical [facility] HEALTH MAINTENANCE Final Result * HIV Screening (07/07/2004) [facility] HIV Screening abstracted Historical Provider HEALTH MAINTENANCE Final Result from Last 3 Months or Most Recently Relevant to Health Maintenance Insurance [facility] [employer] Care Teams Manufacturing Support Engineer Relationship Specialty Start Date End Date Susanne Barbour MD [address] [place], [place] PCP - General Internal Medicine 02/13/22
--- OUTSIDE RECORDS SUMMARY | 2024-12-03 14:56 | XMS_ITS | Clinical Summary ---
Author Organization [facility] Facility Address [address] [place] [id number] Care Team Providers Care Manager Medicare Name Role Phone Km Susanne Primary Care Provider [phone] Social History Tobacco Use Types Packs/Day Years [...] Colonoscopy 2011 Colorectal Cancer Screening: Sigmoidoscopy 2011 Pneumococcal Vaccine: 50+ Years (2 of 2 - PPSV23) 02/27/2019 02/27/2018 Influenza Vaccine (Season Ended) 2025 05/13/2021, 04/06/2020, 05/06/2019 Pneumococcal Vaccine: Peds ( 0 to 5 Years) and At-Risk Patients (6 to 49 Years) Discontinued 02/27/2018 Hepatitis B Vaccine Aged Out No longe r eligible based on patient's age to complete this topic Insurance [facility] Care Teams Manager Medicare Relationship Specialty Start Date End Date Susanne Barbour PCP - General 03/05/23
--- OUTSIDE RECORDS SUMMARY | 2024-12-03 14:56 | XMS_ITS | Encounter Summary ---
Author Organization [facility] Address [address] [place] [address] Care Team Providers Care Mail Caller Name Role Phone Susanne Barbour MD Primary Care Pr ovider Encounter Details Date Type Department Care Team (Late st Contact Info) Description 05/06/2024 2:47 PM EDT Hospital Encounter TH HISTORIC ENCOUNTERS [facility] ONLY Aly Nolasco MD [address] [facility] [address] [place] [address] Social History Tobacco Use Types [...] for your loved ones. For example, child & adolescent psychiatrist or elderly care for an [...] have unwitnessed unresponsiveness while at work at [employer]. She was admitted to the ICU for suspected status epilepticus. She was under a lot of stress at that time , she admitted herself to [facility] last year , hospital GCS was 3 [...] losartan and continued on her home metoprolol. Press Helper in December 2023 she had double ablation . She was started on Eliquis for Afib. While in the hospital she had a CTA which showed CT angio head/neck showed no cutoff of the major branches of the [place] of [place]. 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 The majority of the actual [id number] visit was spent counseling the patient with respect to the current neurological picture. Aly Nolasco MD documented in this encounter Plan of Treatment Upcoming Encounters Date Type Department Care Team (Late st Contact Info) Description 02/02/2025 1:30 PM EDT Office Visit [facility] [place] [address] [facility] [address] [place] [phone] Aly Nolasco MD [address] [facility] [address] [place] [phone] 02/17/2025 1:30 PM EDT Office Visit Obstetrics and Gynecology - [address] [phone] Zenaida Walters CNM [address] [place] [address] 03/26/2025 3:00 PM EDT Office Visit [facility] - [address] [phone] Susanne Barbour MD [address] [place] [address] documented as of this encounter Visit Diagnoses Not on filedocumented in this encounter Care Teams Mail Caller Relationship Specialty Start Date End Date Susanne Barbour MD [address] [facility] [place], [place] PCP - General Internal Medicine 02/13/22 documented as of this encounter
--- OUTSIDE RECORDS SUMMARY | 2024-12-03 14:56 | XMS_ITS | Encounter Summary ---
Author Organization [facility] Address [address] [place] [address] Care Team Providers Care Electrical Instrumentation Technician Name Role Phone Susanne Barbour MD Primary Care Pr ovider Encounter Details Date Type Department Care Team (Late st Contact Info) Description 11/07/2024 Nurse Triage Adult Medicine [address] [phone] Adina Valdez PA [address] [place] [address] Social History Tobacco Use Types Packs/Day Years [...] your loved ones. For example, child care assistant or elderly care for an older [...] AM EST documented as of this encounter Plan of Treatment Upcoming Encounters Date Type Department Care Team (Late st Contact Info) Description 02/02/2025 1:30 PM EDT Office Visit [facility] [address] [place] [phone] Aly Nolasco MD [address] [facility] [address] [place] [phone] 02/17/2025 1:30 PM EDT Office Visit Obstetrics and Gynecology - [address] [phone] Zenaida Walters CNM [address] [place] [address] 03/26/2025 3:00 PM EDT Office Visit [facility] - [address] [phone] Susanne Barbour MD [address] [place] [address] documented as of this encounter Visit Diagnoses Not on filedocumented in this encounter Additional Health Concerns Assessment Noted Time PHQ-9 Depression Total Score: 0 11/05/19 25 2:23 PM EDT documented as of this encounter Care Teams Electrical Instrumentation Technician Relationship Specialty Start Date End Date Susanne Barbour MD [address] [place], [place] PCP - General Internal Medicine 02/13/22 documented as of this encounter
--- OUTSIDE RECORDS SUMMARY | 2024-12-03 14:56 | XMS_ITS ---
Author Organization [address] Address [address] [place] [address] Phone Care Team Providers Care Chemical Lab Technician Name Role Phone Susanne Barbour MD Primary Care Pr ovider Community Health Worker Program Status:Closed (Closed) Start date:07/21/2024 Enrollment date:07/21/2024 End date:12/01/2024 Close reason:Admitted to higher level of care Overview Community Health Worker Program Continued Care and Services Coordination
== END 2024-12-03 14:22 | disposition home or self-care (01) ==
LOC: HO.HCS 13:37
PROVIDERS: PCP Family Medicine; Visit Provider Internal Medicine Cardiovascular Disease
DX: I48.0 Paroxysmal atrial fibrillation (principal); R29.6 Repeated falls
CPT/HCPCS: 99214

== ENCOUNTER → 2024-12-03 13:36 | Outpatient (BNVA) | payer OTHER, SELFPAY | PROVIDERS: PCP Family Medicine; Visit Provider Internal Medicine Cardiovascular Disease | DX: I48.0 Paroxysmal atrial fibrillation (principal); R29.6 Repeated falls | CPT/HCPCS: 99212 ==

== ENCOUNTER 2025-04-14 14:47 | Emergency (ER) | payer OTHER, SELFPAY ==
--- OUTSIDE RECORDS SUMMARY | 2024-05-06 14:47 | XMS_ITS | Encounter Summary ---
Author Organization [facility] Address [address] [place] [address] Care Team Providers Care Tube Laser Operator Name Role Phone Susanne Barbour MD Primary Care Pr ovider Encounter Details Date Type Department Care Team (Late st Contact Info) Description 05/06/2024 2:47 PM EDT Hospital Encounter TH HISTORIC ENCOUNTERS [facility] ONLY Aly Nolasco MD [address] [place] [address] Social History Tobacco Use Types Packs/Day Years [...] care for your loved ones. For example, childcare administrator or elderly care for an older adult? [...] Date Recorded What is your living situation? 1 09/09/2023 Interpersonal Safety Answer Date Record ed Physical Abuse 09/02/2024 Verbal Abuse 09/02/2024 Comments No Sex and Gender Information [...] have unwitnessed unresponsiveness while at work at [employer]. She was admitted to the ICU for suspected status epilepticus. She was under a lot of stress at that time , she admitted herself to [place] last year , hospital GCS was 3 [...] losartan and continued on her home metoprolol. 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 She was started on Eliquis for Afib. While in the hospital she had a CTA which showed CT angio head/neck showed no cutoff of the major branches of the [place] of [place]. 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 The majority of the actual dgch-us-plhf visit was spent counseling the patient with respect to the current neurological picture. Aly Nolasco MD documented in this encounter Plan of Treatment Upcoming Encounters Date Type Department Care Team (Late st Contact Info) Description 04/30/2025 11:00 AM EDT Office Visit Adult Medicine [address] [phone] Adina Valdez PA [address] [place] [address] 06/05/2025 1:00 PM EST Office Visit [facility] [place] [address] [facility] [address] [place] [phone] Betty Lamar PA 175 [facility] [address] [place] [address] 08/10/2025 10:45 AM EST Ancillary Procedure [facility] [address] [facility] [address] [place] [address] 08/24/2025 8:30 AM EST Office Visit V[facility] Surgery - [place] [address] [facility] [address] [place] [address] Cristopher Ho MD [facility] [place] [address] documented as of this encounter Visit Diagnoses Not on filedocumented in this encounter Care Teams Tube Laser Operator Relationship Specialty Start Date End Date Susanne Barbour MD [address] [place], [place] PCP - General Internal Medicine 02/13/22 documented as of this encounter
--- OUTSIDE RECORDS SUMMARY | 2025-04-14 12:30 | XMS_ITS | Encounter Summary ---
Author Organization [facility] Address [address] [place] [address] Care Team Providers Care Dogman/Woman Name Role Phone Susanne Barbour MD Primary Care Pr ovider Reason for Visit * Reason Comments Hypotension Encounter Details Date Type Department Care Team ([facility] st Contact Info) Description 04/14/2025 12:30 PM EDT Office Visit Adult Medicine [address] [phone] Adina Valdez PA [address] [place] [address] Dizziness (Primary Dx); Weakness; Intermittent chest pain Social History Tobacco Use Types Packs/Day Years [...] care for your loved ones. For example, salesperson children's shoes or elderly care for an older adult? [...] Sign Reading Time Taken Comments Blood Pressure 96/64 04/14/2025 12:30 PM EDT Pulse 85 04/14/2025 12:30 PM EDT Temperature 36.4 C (97.6 F) 04/14/2025 12:30 PM EDT Respiratory Rate 14 04/14/2025 12:30 PM EDT Oxygen Saturation 98% 04/14/2025 12:30 PM EDT Inhaled Oxygen Concentration - - Weight 72.6 kg (160 lb) 04/14/2025 12:30 PM EDT Height - - Body Mass Index 24.33 02/02/2025 1:34 PM EDT documented in this encounter Progress Notes * MICHEL Arshad - 04/14/2025 12:30 PM EDT CHIEF COMPLAINT: Hypotension IDENTIFIER: Sophia Paez is a 64 y.o. old female. HPI: 64 year old female with PMHx of TIA, atrial fibrillation (s/p Watchman procedure), carotid artery stenosis, aphasia, cerebral microvascular disease, seizure disorder, SVT, vasovagal syncope and tremor presents to office reporting generalized weakness, fatigue and not feeling well. She is accompanied by her friend Yessy today She states she noticed symptoms beginning on 04/09, states she was going to start getting dressed/ready for mandaen. She states she went to stand up and felt the room spinning. She states she took her BP and noticed it was 86/60. She had had a protein drink to eat at that time, this was around 8AM. She states she took her BP around 830 and it was still 89 systolic. She states she felt like she couldn't stand and decided to lay down/stay home. She states she had some cereal and about an hour later, she rechecked her BP and it was 103/70. She states she was still feeling weak at the time She states symptoms of weakness, dizziness have persisted. She states she continues not to feel well. She denies fever, chills, flu-like symptoms, vomiting, diarrhea, blood in stool/dark stool, urinary symptoms, abdominal pain She reports some nausea. She states she has changed her diet and overall is eating healthier which has in turn decreased her appetite but she still feels hungry On further questioning, she does endorse intermittent slight chest pain and SOB. States she has hadtwo episodes of chest pain since end of February (denies symptoms in office today) She reports readings of 86/59, 83/56 and 94/59 with home BP cuff earlier today. BP in office today 96/64 (similar reading at last visit in October). Patient was previously on metoprolol for atrial fibrillation but medication was discontinued a while ago She states the dizziness will hit her at times when she starts to walk, finds that she needs to hold onto furniture as she feels she is swaying. She states she has had this before but the symptoms over the past week feel more severe Patient is scheduled for follow-up appointments with Cardiology in April and May ROS: GENERAL: No fever HEENT: No changes in hearing or vision RESPIRATORY: No cough, wheezing or shortness of breath CARDIOVASCULAR: No leg swelling or palpitations GI: No abdominal pain, diarrhea, constipation, blood in stool : No dysuria, frequency, incontinence, hematuria MUSCULOSKELETAL: No joint pain or swelling NEURO: No syncope, numbness All other systems reviewed and negative. PAST MEDICAL HISTORY: Patient Active Problem List Diagnosis Date Noted Gait instability 11/19/2024 Seizure disorder ([facility] V24, [facility] V28) 11/19/2024 TIA (transient ischemic attack) 11/19/2024 Aphasia 11/19/2024 Presence of Watchman left atrial appendage closure device 10/16/2024 Cataracts, bilateral 05/10/2024 Cerebral microvascular disease 05/10/2024 Cervicalgia 05/10/2024 Cognitive dysfunction 05/10/2024 Dissection of left carotid artery ([facility] V24) 12/05/2023 Paroxysmal atrial fibrillation ([facility] V24, [facility] V28) 12/05/2023 SVT (supraventricular tachycardia) ([facility] V24) 04/09/2023 Prediabetes 09/18/2022 Degenerative joint disease (DJD) of lumbar spine 08/02/2022 Restless leg syndrome 03/29/2021 Conversion disorder 04/17/2019 PTSD (post-traumatic stress disorder) 04/17/2019 Anxiety 02/28/2019 Bipolar affective disorder ([facility] V24, [facility] V28) 02/28/2019 Carotid artery stenosis 02/28/2019 Hyperlipidemia 02/28/2019 Insomnia 02/28/2019 Iron deficiency anemia 02/28/2019 Mitral valve prolapse 02/28/2019 Osteopenia 02/28/2019 Elevated liver enzymes 02/28/2019 GERD (gastroesophageal reflux disease) 02/28/2019 Osteoarthritis of multiple joints 02/28/2019 Generalized epilepsy ([facility] V24, [facility] V28) 02/28/2019 Tremor 02/28/2019 Vasovagal syncope 02/28/2019 Vitamin D deficiency 02/28/2019 Neck pain 02/24/2019 ACTIVE MEDICATIONS: Current Outpatient Medications Medication Instructions albuterol HFA (PROAIR HFA ; PROVENTIL HFA ; VENTOLIN HFA) 90 mcg/actuation inhaler 2 puffs, inhalation, Every 4 hours PRN aspirin 81 mg, oral, Daily, Take 1 tablet (81 mg total) by mouth daily. atorvastatin (LIPITOR) 40 mg, oral, Nightly busPIRone (BUSPAR) 5 mg, 3 times daily PRN calcium carbonate-vitamin D 500 mg-5 mcg (200 unit) per tablet 1 tablet, Daily clonazePAM (KlonoPIN) 0.5 mg tablet TAKE 1/2-1 TABLET BY MOUTH ONCE A DAY NEEDED FOR ANXIETY clopidogreL (PLAVIX) 75 mg, Daily estradioL (ESTRACE) 1 mg, oral, Daily ferrous sulfate 325 mg, oral, Daily lamoTRIgine (LaMICtal XR) 300 mg tablet extended release 24hr 24 hr tablet Take 1 tablet (300 mg total) by mouth daily. - Oral Patient not taking: Reported on 05/06/2024 lurasidone (LATUDA) 40 mg primidone (MYSOLINE) 100 mg, oral, Nightly topiramate (TOPAMAX) 50 mg, oral, 2 times daily traZODone (DESYREL) 100 mg tablet ALLERGIES: Allergies Allergen Reactions Sulfa (Sulfonamide Antibiotics) Hives Other Reaction(s): Other (See Comments) Urticaria and gastritis Other Reaction(s): rash, GI Upset Latex Dermatitis and Rash Other Reaction(s): Rash/Dermatitis Penicillins Dermatitis and Rash Other Reaction(s): Rash/Dermatitis PHYSICAL EXAM: Blood pressure 96/64, pulse 85, temperature 36.4 ??C (97.6 ??F), temperature source Temporal, resp.rate 14, weight 72.6 kg (160 lb), SpO2 98%. Body mass index is 24.33 kg/m??. APPEARANCE: Alert and in no acute distress EYES: Conjunctiva and sclera normal HEART: RRR with normal S1 and S2 LUNG: clear to auscultation, no wheezing, rales, or rhonchi EXTREMITIES: Extremities warm and well perfused without clubbing, cyanosis, or edema NEURO: Awake, alert and oriented x 3 LABS/IMAGING: Reviewed IMPRESSION: 1. Dizziness 2. Weakness 3. Intermittent chest pain PLAN: Patient in office today reporting generalized unwell feeling, dizziness, weakness and episodic chest pain (though denies CP in office currently) as well as low BP readings. EKG obtained and revealed NSR 67bpm, no acute changes from previous. BP is on lower side on our check today, similar reading at visit in October. Case reviewed with supervising physician. Given reported symptoms and complex medical history, recommended ER evaluation today. She is agreeable. Her friend is going to drive her. Discussed if symptoms worsen on drive to pocket and pulley machine operator and contact 911. Expect call placed to [place] [facility] by LENORA Patient verbalized understanding and is in agreement with plan ADDITIONAL ORDERS: Orders Placed This Encounter Procedures ECG 12 lead Tracing Only None MICHEL Arshad on 04/14/2025 at 5:45 PM EDT Today's documentation was made using voice recognition software.This note may contain grammatical errors secondary to this software. documented in this encounter Plan of Treatment Upcoming Encounters Date Type Department Care Team (Late st Contact Info) Description 04/30/2025 11:00 AM EDT Office Visit Adult Medicine [facility] [address] [place] [address] Adina Valdez PA [address] [place] [address] 06/05/2025 1:00 PM EST Office Visit [facility] [address] [place] [phone] Betty Lamar PA [address] [place] [address] 08/10/2025 10:45 AM EST Ancillary Procedure [facility] [address] [place] [phone] 08/24/2025 8:30 AM EST Office Visit [facility] [place] [address] [place] [phone] Cristopher Ho MD [address] [place] [phone] documented as of this encounter Procedures Procedure Name Priority Date/Time Associated Diagnosis Comments ECG 12-LEAD TRACING ONLY Routine 04/14/2025 5:46 PM EDT Dizziness documented in this encounter Results * ECG 12 lead Tracing Only (04/14/2025 5:46 PM EDT) Adina PEARSON ECG ORDERABLES Final Result documented in this encounter Visit Diagnoses Diagnosis Dizziness- Primary Dizziness and giddiness Weakness Other malaise and fatigue Intermittent chest pain documented in this encounter Historical Medications * This list may reflect changes made after this encounter. busPIRone (BUSPAR) 5 mg tablet Take 1 tablet (5 mg total) by mouth 3 (three) times a day if needed. 03/22/2025 added in this encounter Additional Health Concerns Assessment Noted Time PHQ-9 Depression Total Score: 0 11/05/19 25 2:23 PM EDT documented as of this encounter Care Teams Dogman/Woman Relationship Specialty Start Date End Date Susanne Barbour MD [address] [place], [place] PCP - General Internal Medicine 02/13/22 documented as of this encounter
--- NOTE | 2025-04-14 14:49 | ECG_ITS ---
Test Reason : cp Blood Pressure : */* mmHG Vent. Rate : 76 BPM Atrial Rate : 76 BPM P-R Int : 170 ms QRS Dur : 78 ms QT Int : 384 ms P-R-T Axes : 79 63 31 degrees QTcB Int : 432 ms Sinus rhythm with Premature supraventricular complexes Otherwise normal ECG When compared with ECG of 08-Aug-2024 12:43, Premature supraventricular complexes are now Present Criteria for Septal infarct are no longer Present Referred By: Karen Hyde Electronically Signed By: KALPANA PRESTON
--- NOTE | 2025-04-14 15:07 | ED.CHESTPAIN ---
HPI - Chest Pain General Chief Complaint: General Medical Stated Complaint: Chest pain, low BP Time Seen by Provider: 04/14/25 18:05 Source: patient Mode of arrival: ambulatory Limitations: no limitations History of Present Illness ED Provider: Dr. Lino HPI narrative: 64-year-old female history of GERD, arthritis, carotid artery stenosis, AFib with Watchman presenting to ER today for evaluation of generalized weakness along with low blood pressure and dizziness. She has history of moderate pericardial effusion on previous echocardiogram. Patient stated that she was sent from her doctor's office for further evaluation. She noted that she had multiple low blood pressure measurement at home. She is not complaining of any chest pain or abdominal pain no dysuria. However she does not describe generalized weakness with lightheadedness. No focal neurological deficit. Related Data Home Medications ?Medication ?Instructions ?Recorded ?Confirmed aspirin 81 mg tablet,delayed 81 mg PO DAILY 12/11/22 12/03/24 release atorvastatin 40 mg tablet 40 mg PO BEDTIME 12/11/22 12/03/24 multivitamin 1 tab PO DAILY 02/23/23 12/03/24 calcium carbonate 500 mg PO DAILY 05/16/24 12/03/24 cholecalciferol (vitamin D3) 50 50 mcg PO DAILY 05/16/24 12/03/24 mcg (2,000 unit) tablet (Vitamin D3) clonazepam 0.5 mg tablet (Klonopin) 0.5 mg PO DAILY PRN anxiety 05/16/24 12/03/24 trazodone 100 mg tablet 100 mg PO BEDTIME PRN insomnia 05/16/24 12/03/24 lurasidone 20 mg tablet (Latuda) 40 mg PO BEDTIME 08/25/24 12/03/24 clopidogrel 75 mg tablet (Plavix) 75 mg PO DAILY 12/03/24 12/03/24 ferrous sulfate 325 mg (65 mg 325 mg PO DAILY 12/03/24 12/03/24 iron) tablet primidone 50 mg tablet 50 mg PO BEDTIME 12/03/24 12/03/24 topiramate 25 mg tablet 100 mg PO DAILY 12/03/24 12/03/24 Previous Rx's ?Medication ?Instructions ?Recorded lamotrigine 300 mg tablet,extended 300 mg PO DAILY 30 days #30 tabs 02/06/24 release 24 hr Allergies Allergy/AdvReac Type Severity Reaction Status Date / Time latex Allergy Mild Rash Uncoded 04/14/25 15:12 penicillin Allergy Mild Hives Uncoded 04/14/25 15:12 sulfa Allergy Unknown Gastrointestinal Uncoded 04/14/25 15:12 Upset Review of Systems Review of Systems: Pertinent review of systems as mentioned in HPI. All other system otherwise negative. [facility] Past Medical History [facility] Narrative: Medical history as mentioned in HPI Medical History Exertional dyspnea Chest pain Depression Syncope Non-motor epileptic seizure Conversion disorder Hyponatremia Cervical dystonia Essential and other specified forms of tremor Cervicalgia Osteopenia GERD (gastroesophageal reflux disease) Hyperlipidemia Anxiety Restless legs syndrome (RLS) Mitral valve prolapse PTSD (post-traumatic stress disorder) Cataract Arthritis TIA (transient ischemic attack) Conversion disorder Bipolar 2 disorder Raynauds syndrome (~08/2022) Carotid artery stenosis Seizures Acute cataract Faulkner syndrome Surgical History H/O arthroplasty History of hysterectomy Gastric bypass status for obesity Family History Family History Father Heart disease Depressed Mother Heart disease Social History Social History Household Members: None Housing: Apartment Do you presently have visiting nurse or other home services: No Alcohol intake: never Patient Tobacco Use Status: Never used Tobacco e-Cigarette/Vaping Use: Never Used Second Hand Smoke Exposure: No Advance Directives: Yes Advance Directives on File: Yes Advance Directives Date on File: 07/07/24 service: No Sexual orientation: Straight/Heterosexual Physical Exam Exam: Exam: General: Pleasant, no distress, interacting appropriately Head: Normacephalic, atraumatic ENT: oral mucosa moist, neck supple, no tracheal deviation Cardiovascular: regular rate, regular rhythm, no murmurs, rubbing, gallops Respiratory: CTAB, no wheeze, rales, rhonchi Gastrointestinal: Soft, non distended, non tender, non guarding Extremities: Trace edema bilaterally Neurological: Awake and alert, no facial droop noted, no focal neurological deficits Skin: Warm and dry Psychiatric: Appropriate mood and thoughts Vital Signs: Vital Signs: Last Vital Signs Temp 97.6 F 04/14/25 21:38 Pulse 49 L 04/14/25 21:38 Resp 16 04/14/25 21:38 BP 129/58 L 04/14/25 21:38 Pulse Ox 99 04/14/25 21:38 O2 Del Method Room Air 04/14/25 21:38 BMI result Body Mass Index 23.5 Course Course Course Narrative: This is an RME: Additional HPI, ROS, PE not included below will be deferred to primary provider. RME assessment and note performed by: Karen Hyde PA-C 64 year old assigned female at with a history of GERD, arthritis, HLD, anxiety, carotid artery stenosis, and atrial fib on ASA no AC, who presents to the ER with complaints of low blood pressure. Expect from Angela. Generalized weakness, dizziness, chest pain for the last 4 days. Recently put on Wellbutrin 1 week ago. Previously on Metoprolol 6-7 months ago, was taken off due to hypotension. Had CP in february. No CP now, last had CP on 04/09. BP 93/65. Plan: Labs, UA, EKG, further ER eval needed Medications Administered Discontinued Medications Generic Name Dose Route Start Last Admin Trade Name Freq PRN Reason Stop Dose Admin Sodium Chloride 1,000 mls @ 999 mls/hr 04/14/25 18:15 04/14/25 20:27 Ns IV 04/14/25 19:15 Infused .Q1H1M JAYSON Infusion Medical Decision Making Medical Decision Making [facility] Narrative: 64-year-old female history of carotid artery stenosis, AFib Watchman procedure presents to the ER today for evaluation of generalized weakness and low blood pressure evaluation. No sign of tachycardia no sign of fever. Patient does not appear to be toxic on exam. I did perform a bedside ultrasound of the heart.. No sign of cardiac tamponade on exam. There appears to be good squeeze in the left ventricle. No sign of significant change in his the patient's EKG. Pursue cardiac workup. We will also obtain screening lactic acid along with blood cultures. However I have low suspicion for infection. IV fluids initiated for the patient at this time. Patient CBC unremarkable, patient chemistries did show elevated BUN and creatinine ratio likely indicative of dehydration lactic acid is not elevated. Patient's troponin is negative. BNP is not elevated. Patient's TSH is normal. Patient's UA did not show any signs of UTI. On reassessment patient stated that she is feeling better she does feel stronger at this time. Patient is able to ambulate without any issues. Patient will be discharged with outpatient follow up. She agrees and understands this plan. Differential Diagnosis Differential Diagnoses: The differential diagnosis associated with the presentation includes Hypotension, UTI, cardiac tamponade, dehydration, electrolyte abnormality Lab Data MDM Lab Attestation statement: I reviewed the patient's lab results. 04/14/25 15:27 04/14/25 15:27 Labs: Lab Results 04/14/25 04/14/25 04/14/25 Range/Units 15:27 19:25 21:32 WBC 7.1 (4.8-10.8) X10*3/uL RBC 4.36 (4.20-5.50) X10*6/uL Hgb 12.8 (12.0-16.0) g/dl Hct 38.6 (37.0-47.0) % MCV 88.5 (80.0-98.0) fL MCH 29.4 (27.0-33.0) pg MCHC 33.2 (31.0-35.0) g/dl RDW 14.6 (11.0-16.0) % Plt Count 196 (160-400) X10*3/uL MPV 9.7 (9.4-12.3) fL Immature Gran % (Auto) 0.1 (0.0-0.4) % Neut % (Auto) 75.0 H (45-73) % Lymph % (Auto) 16.1 L (20-40) % [place] % (Auto) 4.9 (2-11) % Eos % (Auto) 3.2 (0-4) % Baso % (Auto) 0.7 (0-2) % Lymph # (Auto) 1.1 L (1.2-4.9) X10*3/uL [place] # (Auto) 0.4 (0.1-1.2) X10*3/uL Eos # (Auto) 0.2 (0.0-0.4) X10*3/uL Baso # (Auto) 0.1 (0.0-0.2) X10*3/uL Abs Immat Gran (auto) 0.01 (0.00-0.03) X10*3/uL Absolute Neuts (auto) 5.3 (2.0-8.3) x10*3/uL Absolute Nucleated RBC 0.000 (0.0-0.012) X10*3/uL Nucleated RBC % (auto) 0.0 (0.0-0.2) /100WBC Sodium 139 (135-145) mmol/L Potassium 4.0 (3.3-5.1) mmol/L Chloride 110 H (96-108) mmol/L Carbon Dioxide 22 (22-29) mmol/L Anion Gap 11 L (12-20) BUN 23 H (9-16) mg/dL Creatinine 1.00 (0.5-1.4) mg/dL Estim Creat Clear Calc 60.9 Estimated GFR 56 Random Glucose 102 (60-115) mg/dL Lactic Acid 0.7 (0.5-2.0) mmol/L Calcium 9.3 (8.4-10.2) mg/dL Magnesium 2.2 (1.6-2.6) mg/dL Total Bilirubin 0.2 (0.0-1.0) mg/dL Direct Bilirubin < 0.2 (0.0-0.5) mg/dL AST 22 (5-31) U/L ALT 16 (0-31) U/L Alkaline Phosphatase 72 (39-117) U/L Troponin I High Sens < 2.7 (<3.5-17.0) ng/L NT-Pro-B Natriuret Pep 186.5 (<300) pg/mL Total Protein 6.6 (6.5-8.0) g/dL Albumin 4.0 (3.5-5.0) g/dL TSH 0.95 (0.32-4.0) uIU/mL Urine Color Yellow Urine Appearance Clear Urine pH 5.0 (5.0-9.0) Ur Specific [place] 1.015 (1.005-1.025) Urine Protein Negative (Neg-Trace) mg/dL Urine Glucose (UA) Negative (Negative) mg/dL Urine Ketones Negative (Negative) mg/dL Urine Blood Negative (Negative) Urine Nitrite Negative (Negative) Ur Leukocyte Esterase Negative (Negative) COVID-19 (JAYLIN) Negative (Negative) COVID-19 Clin Com See Note Influenza Type A (LILY) Negative (Negative) Influenza Type B (LILY) Negative (Negative) Influenza A & B Note See Note Independent Interpretation I performed an independent interpretation of an: EKG Discharge Plan Discharge Clinical Impression: Light-headedness, Dehydration Patient Disposition: Home, Self-Care Instructions: Dehydration (ED) Prescriptions: No Action multivitamin Tablet 1 tab PO DAILY lamotrigine 300 mg tablet extended release 24hr 300 mg PO DAILY 30 Days Qty: 30 0RF calcium carbonate 500 mg calcium (1,250 mg) Tablet 500 mg PO DAILY cholecalciferol (vitamin D3) [Vitamin D3] 50 mcg (2,000 unit) Tablet 50 mcg PO DAILY trazodone 100 mg tablet 100 mg PO BEDTIME PRN (Reason: insomnia) clonazepam [Klonopin] 0.5 mg tablet 0.5 mg PO DAILY PRN (Reason: anxiety) lurasidone [Latuda] 20 mg tablet 40 mg PO BEDTIME atorvastatin 40 mg tablet 40 mg PO BEDTIME aspirin 81 mg tablet,delayed release (DR/EC) 81 mg PO DAILY topiramate 25 mg tablet 100 mg PO DAILY clopidogrel [Plavix] 75 mg tablet 75 mg PO DAILY primidone 50 mg tablet 50 mg PO BEDTIME ferrous sulfate 325 mg (65 mg iron) tablet 325 mg PO DAILY Interventions: ED Discharge Assessment Last Done: 04/14/25 21:38 Discharge Date/Time: 04/14/25 21:38 Print Language: Georgian
[2025-04-14 15:10] VITALS: BP 93/65; PULSE 86; RESP 18; TEMP 36.2; O2SAT 98; BMI 23.5
[2025-04-14 15:34] LABS: MANUAL DIFF FLAG NO
[2025-04-14 15:36] LABS: Hematocrit 38.6 % (37.0-47.0); Hemoglobin 12.8 g/dl (12.0-16.0); Imm Gran Abs Auto 0.01 X10*3/uL (0.00-0.03); Imm Gran Pct Auto 0.1 % (0.0-0.4); Lymphocytes Absolute Auto 1.1 X10*3/uL (1.2-4.9); Mean Corpuscular HGB Conc 33.2 g/dl (31.0-35.0); Mean Corpuscular Hemoglobin 29.4 pg (27.0-33.0); Mean Corpuscular Volume 88.5 fL (80.0-98.0); NRBC Abs Auto 0.000 X10*3/uL (0.0-0.012); NRBC Pct Auto 0.0 /100WBC (0.0-0.2); Platelet Count 196 X10*3/uL (160-400); Red Blood Count 4.36 X10*6/uL (4.20-5.50); White Blood Count 7.1 X10*3/uL (4.8-10.8)
[2025-04-14 15:52] LABS: COVID-19 Test Negative (Negative); IDNOW Serial# 6674DD1D
[2025-04-14 15:53] LABS: IDNOW Serial# 08D9AD1C; Influenza B2 Negative (Negative)
[2025-04-14 15:57] LABS: Alanine Aminotransferase 16 U/L (0-31); Albumin Level 4.0 g/dL (3.5-5.0); Alkaline Phosphatase 72 U/L (39-117); Anion Gap 11 (12-20); Aspartate Amino Transferase 22 U/L (5-31); Blood Urea Nitrogen 23 mg/dL (9-16); Calcium 9.3 mg/dL (8.4-10.2); Carbon Dioxide 22 mmol/L (22-29); Chloride 110 mmol/L (96-108); Creatinine Clr Calc Pharmacy 60.9; Estimated Glomerular Filt Rate 56; Magnesium 2.2 mg/dL (1.6-2.6); Potassium 4.0 mmol/L (3.3-5.1); Sodium 139 mmol/L (135-145); Total Protein 6.6 g/dL (6.5-8.0)
[2025-04-14 16:05] LABS: Troponin-I High Sensitivity < 2.7 ng/L (<3.5-17.0)
[2025-04-14 18:08] VITALS: BP 112/69; PULSE 53; RESP 16; TEMP 36.2; O2SAT 98
[2025-04-14 19:05] LABS: Thyroid Stimulating Hormone 0.95 uIU/mL (0.32-4.0)
--- OUTSIDE RECORDS SUMMARY | 2025-04-14 19:16 | XMS_ITS ---
Author Name [facility] [[email or web address]]P Organization Unknown Allergies Allergen Reaction Severity Comment Documented Date Source Statu s SULFA ANTIBIOTICS OTHER (SEE COMMENTS) Urticaria and gastritis 05/04/2021 [facility] active LATEX RASH [facility] PENICILLINS RASH [facility]
--- OUTSIDE RECORDS SUMMARY | 2025-04-14 19:16 | XMS_ITS | Encounter Summary ---
Author Organization [facility] Address [address] [place] [address] Care Team Providers Care Applications Systems Analyst Name Role Phone Susanne Barbour MD Primary Care Pr ovider Encounter Details Date Type Department Care Team (Late st Contact Info) Description 11/07/2024 Nurse Triage Adult Medicine [address] [phone] Adina Valdez PA [address] [place] [address] Social History Tobacco Use Types Packs/Day Years [...] your loved ones. For example, child care provider or elderly care for an older adult? [...] 11:00 AM EDT Office Visit Adult Medicine [facility] [address] [place] [phone] Adina Valdez PA [address] [place] [address] 06/05/2025 1:00 PM EST Office Visit [facility] [place] [address] [place] [phone] Betty Lamar PA [address] [place] [address] 08/10/2025 10:45 AM EST Ancillary Procedure [facility] [address] [facility] [address] [place] [phone] 08/24/2025 8:30 AM EST Office Visit [facility] - [place] [address] [place] [address] Cristopher Ho MD [address] [place] [phone] documented as of this encounter Visit Diagnoses Not on filedocumented in this encounter Additional Health Concerns Assessment Noted Time PHQ-9 Depression Total Score: 0 11/05/19 25 2:23 PM EDT documented as of this encounter Care Teams Applications Systems Analyst Relationship Specialty Start Date End Date Susanne Barbour MD [address] [place], [place] PCP - General Internal Medicine 02/13/22 documented as of this encounter
--- OUTSIDE RECORDS SUMMARY | 2025-04-14 19:16 | XMS_ITS | Clinical Summary ---
Author Organization [facility] [address] [facility] Address [address] [place] [address] Phone Care Team Providers Care Journeyman Pipefitter Name Role Phone Susanne Barbour MD Primary [...] at bedtime. 90 each 1 10/17/19 25 Active clopidogreL (PLAVIX) 75 mg tablet Take 1 tablet (75 mg total) by mouth 1 (one) time each day. Active albuterol HFA (PROAIR HFA ; PROVENTIL HFA ; VENTOLIN HFA) 90 mcg/actuation inhaler Inhale 2 puffs by mouth every 4 (four) hours if needed (cough, wheezing, shortness of breath). 8.5 g 2 11/20/19 25 Active ferrous sulfate 325 mg (65 mg elemental iron) tabletIndications :Iron deficiency anemia, unspecified TAKE 1 TABLET BY MOUTH EVERY DAY 90 tablet 1 11/27/19 25 Active calcium carbonate-vitamin D 500 mg-5 mcg (200 unit) per tablet Take 1 tablet by mouth 1 (one) time each day. Active primidone (MYSOLINE) 50 mg tablet Take 2 tablets (100 mg total) by mouth at bedtime. 60 tablet 5 03/11/20 25 Active topiramate (TOPAMAX) 50 mg tablet TAKE 1 TABLET BY MOUTH TWICE A DAY 60 tablet 2 03/31/20 25 Active busPIRone (BUSPAR) 5 mg tablet Take 1 tablet (5 mg total) by mouth 3 (three) times a day if needed. 03/22/20 25 Active topiramate (Topamax) 50 mg tablet Take 1 tablet (50 mg total) by mouth 2 (two) times a day. 60 tablet 2 11/14/19 25 025 Discontinued Active Problems Problem Noted Date Diagnosed Date Gait instability 11/19/2024 Seizure disorder (CMS/HCC V24, CMS/HCC V28) 10/29 TIA (transient ischemic attack) 11/19/2024 [...] dysfunction 05/10/2024 Dissection of left carotid artery ([facility] V24) 12/05/2023 Paroxysmal atrial fibrillation ([facility] V24, [facility] V28) 12/05/2023 Assessment & Plan (10/16/2024 [...] for blood pressure check SVT (supraventricular tachycardia) ([facility] V24) 04/09/2023 Assessment & Plan (07/17/2024 8:01 AM EST): Follow up with Dr. Sherman as scheduled next year She recently completed 30 day ed educational aide. Pending results States echo done last month [...] still taking the medication Bipolar affective disorder ([facility] V24, CMS/HCC V28) 02/28/2019 Overview (05/08/2024): History Suicide Attempt [...] events noted and Nuclear stress test pending- [facility] Cardiology- Dr Pradhan Last Assessment & Plan: Referral to cardio done, DX: vasovagal Syncope. Tilt table positive [facility] cardiology Dr. Pradhan. Advised to take midodrine and propranolol. Recently hospitalized due to multiple syncopal episodes at [facility]. Please evaluate for any further work-up/she was supposed to complete nuclear stress test which was not done in the past. Vitamin D deficiency 02/28/2019 Neck pain 02/24/2019 Encounters Date Type Department Care Team Description 04/14/2025 12:30 PM EDT Office Visit Adult Medicine [address] [phone] Adina Valdez PA Dizziness (Primary Dx); Weakness; Intermittent chest pain 04/02/2025 Nurse Triage Adult Medicine [address] [phone] Adina Valdez PA 02/27/2025 Telephone Adult Medicine [address] [phone] Susanne Barbour MD 02/02/2025 1:30 PM EDT Office Visit [address] [place] [address] Aly Nolasco MD Cognitive changes (Primary Dx); Anxiety; Stenosis of left carotid artery; Seizure disorder (CMS/HCC V24, CMS/[facility] V28); TIA (transient ischemic attack); Tremor; Aphasia from Last 3 Months Immunizations Name Administration [...] PROCEDURE: REPAIR UMBILICAL HERNIA HERNIA REPAIR PROCEDURE: VA REPAIR FIRST ABDOMINAL WALL HERNIA TUBAL LIGATION PROCEDURE: HISTORICAL TUBAL LIGATION TONSILLECTOMY PROCEDURE: HISTORICAL TONSILLECTOMY CARPAL TUNNEL RELEASE 11/2014 Bilateral PROCEDURE: HISTORICAL CARPAL TUNNEL REL; COMMENT: 11/2014-right WRIST SURGERY Left PROCEDURE: HISTORICAL WRIST SURGERY; COMMENT: trapezoid with screw OTHER SURGICAL HISTORY 2002 PROCEDURE: VA LAPS GSTR RSTCV PX W/BYP IRA-EN-Y LIMB <150 CM; COMMENT: Gastric bypass CARDIAC CATHETERIZATION 02/2018 PROCEDURE: HISTORICAL CARDIAC CATH; COMMENT: Negative STEREOTACTIC BREAST BIOPSY 10/12/2005 PROCEDURE: STEREOTACTIC BREAST BIOPSY OTHER SURGICAL HISTORY 06/13/2006 PROCEDURE: HISTORICAL VAGINAL HYSTERECTOMY WITH BSO; COMMENT: BSO also for ovarian cyst and prolapse COLONOSCOPY PROCEDURE: HISTORICAL COLONOSCOPY; COMMENT: Performed with EGD at age 52 in [place] ESOPHAGOGASTRODUODENOSCOPY PROCEDURE: VA EGD TRANSORAL BIOPSY SINGLE/MULTIPLE; COMMENT: Performed with colonoscopy at age 52 in [place] OTHER SURGICAL HISTORY 06/01/2021 PROCEDURE: HISTORY OTHER; COMMENT: L gastroc recession, calcaneal osteotomy, post tibial tendon tenolysis and excision, flexor digitorum longus transfer to navicular, spring ligament reconstruction, 1st TMT plantarflexion fusion with Dr Dunn at [facility] Medical History Medical History Date Comments Seizure disorder ([facility] V2 4, [facility] V28) 02/28/2019 DX:Seizure disorder ([facility]) Mitral valve prolapse 02/28/2019 DX:Mitral valve [...] DX:Conversio n disorder Bipolar affective disorder ( [facility] V24, [facility] V28) 02/28/2019 DX:Bipolar affective disorde r ([facility]); COMMENT: History Suicide Attempt Osteoarthritis of [...] Maternal Grandfather Maternal Grandmother Mother (Age 68) [place] Paternal Grandfather Paternal Grandmother Sister 1 Alive [...] for your loved ones. For example, child attendant or elderly care for an older adult? [...] (160 lb) 04/14/2025 12:30 PM EDT Height 172.7 cm (5' 8 ) 02/02/2025 1:34 PM EDT Body Mass Index 24.33 02/02/2025 1:34 PM EDT Plan of Treatment Upcoming Encounters Date Type Department Care Team (Late st Contact Info) Description 04/30/2025 11:00 AM EDT Office Visit Adult Medicine [address] [phone] Adina Valdez PA [address] [place] [address] 06/05/2025 1:00 PM EST Office Visit - [place] [address] [place] [phone] Betty Lamar PA [address] [facility] [address] [place] [address] 08/10/2025 10:45 AM EST Ancillary Procedure [facility] - [facility] [address] [facility] [address] [place] [address] 08/24/2025 8:30 AM EST Office Visit Vascular Surgery - [place] [address] [facility] [address] [place] [address] Cristopher Ho MD [address] [place] [phone] Health Maintenance Due Date Last Done Comments Cervical Cancer Screening: Pap Smear 1983 Breast Cancer Screening 11/06/2019 11/05/2017 Osteoporosis Screening (Bone Density Screening) 07/07/2022 Influenza Vaccine (#1) 2025 , 05/30/2023, 05/02/2023, Additional history exists Social Influencers of Health Screening 07/09/2025 07/09/2024 [...] on patient's age to complete this topic COVID-19 Vaccine Completed 05/26/2024, , 05/01/2022, Additional history exists Pneumococcal Vaccine: 50+ Years Completed 05/26/2024, 02/27/2018 Zoster Vaccines Completed 09/12/2024, 06/16/2021 Depression Screening Completed 11/04/2024 HIB Vaccines Aged Out No longer eligi [...] ONLY Routine 04/14/2025 5:46 PM EDT Dizziness ECHO 01/26/2025 COLONOSCOPY Routine 09/02/2024 10:44 AM EST Encounter for screening for malignant neoplasm of colon LIPID PANEL Routine 03/21/2024 HEPATITIS C SCREENING Routine 09/16/2021 HIV SCREENING Routine 07/07/2004 from Last 3 Months or Most Recently Relevant to Health Maintenance Results * ECG 12 lead Tracing Only (04/14/2025 5:46 PM EDT) Adina PEARSON ECG ORDERABLES Final Result * Echo (01/26/2025) Anatomical Region Laterality Modality Other us Provider [facility] CV HISTORICAL CONV PROCE DURES Final Result * COLONOSCOPY Anesthesia - MAC; [facility] ENDOSCOPY (09/02/2024 10:44 AM EST) Anatomical Region Laterality Modality Endoscopy 09/02/2024 10:2 9 AM EST Impressions 09/02/2024 10:45 AM EST - The entire examined colon is normal on direct and retroflexion views. - No specimens collected. Recommendation: - Discharge patient to home. - Repeat colonoscopy in 10 years for screening purposes. Narrative 09/02/2024 10:45 AM EST [facility] GI Patient Name: Andrés Paez Procedure Date: 09/02/2024 10:29 AM Date [...] the procedure, a History and Physical was performed, and patient medications and allergies were reviewed. The patient is competent. The risks and benefits of the procedure and the sedation options and risks were discussed with the patient. All questions were answered and informed consent was obtained. Patient identification and proposed procedure were verified by the physician, the nurse, the boom worker and the automation technician in the pre-procedure area in the endoscopy suite. Mental Status Examination: alert and oriented. Airway Examination: normal oropharyngeal airway and neck mobility. Respiratory Examination: clear to auscultation. CV Examination: normal. Prophylactic Antibiotics: The patient does not require prophylactic antibiotics. Prior Anticoagulants: The patient has taken no anticoagulant or antiplatelet agents. ASA Grade Assessment: II - A patient with mild systemic disease. After reviewing the risks and [...] monitored throughout the procedure. The physical status of the patient was re-assessed after the procedure. After I obtained informed consent, the scope was passed under direct vision. Throughout the procedure, the patient's blood pressure, pulse, and oxygen [...] Scope Out: 10:44:42 AM Endoscopy Department at [facility] - [address] [place] [phone] Procedure Note Jairo Nascimento MD - 09/02/2024 [facility] GI Patient Name: Andrés Paez Procedure Date: 09/02/2024 10:29 AM Date [...] the physician, the nurse, theanesthetist and the automation technician in the pre-procedure area in the [...] Scope Out: 10:44:42 AM Endoscopy Department at [facility] - [address] [place] [phone] IMPRESSION: - The entire examined colon is normal on direct and retroflexion views. - No specimens collected. Recommendation: - Discharge patient to home. - Repeat colonoscopy in 10 years for screening purposes. us Jairo Nascimento MD GI~PROCEDURE ORDERABLES Fin al Result * Lipid panel (03/21/2024) LDL/HDL Ratio 2 0 - 4 Triglycerides 71 0 - 150 mg/dL Cholesterol 145 0 - 200 mg/dL HDL 71 >=40 mg/dL LDL Cholesterol 60 0 - 100 mg/dL Blood Venous blood specimen / Unknown Historical Provider LAB BLOOD ORDERABLES Fara l Result * Hepatitis C Screening (09/16/2021) Pathologist [facility] Hepatitis C Screening abstracted Historical Provider HEALTH MAINTENANCE Final Result * HIV Screening (07/07/2004) Pathologist [facility] HIV Screening abstracted Historical Provider HEALTH MAINTENANCE Final Result from Last 3 Months or Most Recently Relevant to Health Maintenance Insurance [facility] [employer] Care Teams Journeyman Pipefitter Relationship Specialty Start Date End Date Susanne Barbour MD [address] [facility], [place] PCP - General Internal Medicine 02/13/22
--- OUTSIDE RECORDS SUMMARY | 2025-04-14 19:16 | XMS_ITS | Clinical Summary ---
Author Organization [facility] Facility Address [address] [place] [id number] Care Team Providers Care Creche Attendant Name Role Phone Km Susanne Primary Care Provider [phone] Social History Tobacco Use Types Packs/Day Years [...] Vaccine: 50+ Years (2 of 2 - PCV20 or PCV21) 02/27/2019 02/27/2018 Influenza Vaccine (#1) 2025 , 04/06/2020, 05/06/2019 Pneumococcal Vaccine: Peds ( 0 to 5 Years) and At-Risk Patients (6 to 49 Years) Discontinued 02/27/2018 Hepatitis B Vaccine Aged Out No longe r eligible based on patient's age to complete this topic Insurance [facility] Care Teams Creche Attendant Relationship Specialty Start Date End Date Susanne Barbour PCP - General 03/05/23
--- OUTSIDE RECORDS SUMMARY | 2025-04-14 19:16 | XMS_ITS | Encounter Summary ---
Author Organization [facility] Address [address] [place] [address] Care Team Providers Care Agriculture Internship Name Role Phone Susanne Barbour MD Primary Care Pr ovider Encounter Details Date Type Department Care Team (Late st Contact Info) Description 04/02/2025 Nurse Triage Adult Medicine [address] [phone] Adina Valdez PA [address] [place] [address] Social History Tobacco Use Types Packs/Day Years [...] AM EST documented as of this encounter Progress Notes * Kalee Stovall RN - 04/13/2025 1:53 PM EDT Reason for Disposition ??? Brief (now gone) weakness or lightheadedness after standing up or eating Answer Assessment - Initial Assessment Questions 1. BLOOD PRESSURE: What is your blood pressure? Did you take at least two measurements 5 minutesapart? 87/60 then 93/63 2. ONSET: When did you take your blood pressure? 04/12/25 at 0800 3. HOW: How did you take your blood pressure? (e.g., visiting nurse, automatic home BP monitor) Automatic home BP cuff 4. HISTORY: Do you have a history of low blood pressure? What is your blood pressure normally? On 11/19/24 her BP was 96/69. Currently her BP is 103/66 and HR 65 5. MEDICINES: Are you taking any medicines for blood pressure? If Yes, ask: Have they been changed recently? No 6. PULSE RATE: Do you know what your pulse rate is? Unknown 7. OTHER SYMPTOMS: Have you been sick recently? Have you had a recent injury? No 8. : Is there any chance you are ? When was your last menstrual period? No. Pt is 64. Protocols used: Blood Pressure - Low-A-AH * Kalee Stovall RN - 04/13/2025 1:52 PM EDT An appointment was made for her to be seen in the office tomorrow at 12:30 pm with Adina Valdez and she is in agreement with this plan. * Kalee Stovall RN - 04/13/2025 10:46 AM EDT I left pt a message to call the office at and sent a my chart message. On 11/19/24 pt had an appointment in the office and her BP was noted to be 96/69 and heart rate 79. On 04/12/25 she states her BP was 87/60 followed by 93/63. * Ofe Joaquin MA - 04/03/2025 1:54 PM EDT noted documented in this encounter Plan of Treatment Upcoming Encounters Date Type Department Care Team (Late st Contact Info) Description 04/30/2025 11:00 AM EDT Office Visit Adult Medicine [facility] [address] [place] [address] Adina Valdez PA [address] [place] [address] 06/05/2025 1:00 PM EST [facility] [place] [address] [place] [address] Betty Lamar PA [address] [place] [address] 08/10/2025 10:45 AM EST Ancillary Procedure [facility] - [facility] [address] [place] [address] 08/24/2025 8:30 AM EST Office Visit Vascular Surgery - [place] [address] [place] [address] Cristopher Ho MD [address] [place] [phone] documented as of this encounter Visit Diagnoses Not on filedocumented in this encounter Additional Health Concerns Assessment Noted Time PHQ-9 Depression Total Score: 0 11/05/19 25 2:23 PM EDT documented as of this encounter Care Teams Agriculture Internship Relationship Specialty Start Date End Date Susanne Barbour MD [address] [facility] [place], [place] PCP - General Internal Medicine 02/13/22 documented as of this encounter
[2025-04-14 20:23] VITALS: BP 129/58; PULSE 49; RESP 16; TEMP 36.4; O2SAT 99
[2025-04-14 20:42] LABS: NT Pro B Type Natriuretic Pept 186.5 pg/mL (<300)
--- NOTE | 2025-04-14 20:43 | PC.NURSE ---
Patient requested and given tuna sandwich. Okayed by Dr. Lino.
[2025-04-14 21:38] VITALS: BP 129/58; PULSE 49; RESP 16; TEMP 36.4; O2SAT 99
[2025-04-14 21:42] LABS: Appearance Urine Clear; Glucose Urine UA Negative (Negative); PH 5.0 (5.0-9.0); Specific Gravity - Urine 1.015 (1.005-1.025)
== END 2025-04-14 21:38 | disposition home or self-care (01) ==
PROVIDERS: Physician Assistant Medical; Emergency Provider Student in an Organized Health Care Education/Training Program; PCP Family Medicine
DX: E86.0 Dehydration (principal); R07.9 Chest pain, unspecified; R53.1 Weakness; R42 Dizziness and giddiness; I48.91 Unspecified atrial fibrillation; Z79.899 Other long term (current) drug therapy
CPT/HCPCS: 36415; 80048; 80076; 81003; 83605; 83735; 83880; 84443; 84484; 85025; 87040; 87502; 87635; 93005; 96360; 99284

== ENCOUNTER → 2025-04-14 14:49 | Outpatient (BNV) | payer OTHER, SELFPAY | PROVIDERS: Emergency Provider Student in an Organized Health Care Education/Training Program; PCP Family Medicine; Visit Provider Internal Medicine | DX: I49.1 Atrial premature depolarization (principal) | CPT/HCPCS: 93010 ==

== ENCOUNTER 2025-04-22 13:18 | Outpatient (AMB) | payer OTHER, SELFPAY ==
--- OUTSIDE RECORDS SUMMARY | 2024-05-06 14:47 | XMS_ITS | Encounter Summary ---
Author Organization [facility] Address [address] [place] [address] Care Team Providers Care Construction Controller Name Role Phone Susanne Barbour MD Primary Care Pr ovider Encounter Details Date Type Department Care Team (Late st Contact Info) Description 05/06/2024 2:47 PM EDT Hospital Encounter TH HISTORIC ENCOUNTERS [facility] ONLY Aly Nolasco MD [address] [place] [address] Social History Tobacco Use Types Packs/Day Years [...] for your loved ones. For example, child development director or elderly care for an older adult? [...] have unwitnessed unresponsiveness while at work at [employer]. She was admitted to the ICU for suspected status epilepticus. She was under a lot of stress at that time , she admitted herself to [place] last year , hospital GCS was 3 [...] losartan and continued on her home metoprolol. 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 She was started on Eliquis for Afib. While in the hospital she had a CTA which showed CT angio head/neck showed no cutoff of the major branches of the [place] of [place]. 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 The majority of the actual [facility] visit was spent counseling the patient with respect to the current neurological picture. Aly Nolasco MD documented in this encounter Plan of Treatment Upcoming Encounters Date Type Department Care Team (Late st Contact Info) Description 04/30/2025 11:00 AM EDT Office Visit Adult Medicine [address] [address] Adina Valdez PA [address] [place] [address] 06/05/2025 1:00 PM EST Office Visit [facility] [place] 175 [facility] [address] [place] [phone] Betty Lamar PA 175 [facility] 150 [place] [address] 08/10/2025 10:45 AM EST Ancillary Procedure [facility] [address] 300 [facility] [address] [place] [address] 08/24/2025 8:30 AM EST Office Visit Vascular Surgery - [place] [address] [facility] [address] [place] [address] Cristopher Ho MD [facility] [place] [address] documented as of this encounter Visit Diagnoses Not on filedocumented in this encounter Care Teams Construction Controller Relationship Specialty Start Date End Date Susanne Barbour MD [address] [facility], [place] PCP - General Internal Medicine 02/13/22 documented as of this encounter
--- NOTE | 2025-04-22 13:19 | MHC.OFFVIS ---
Vital Signs 04/22/25 13:20 Height 5 ft 9 in Weight 159 lb 2.78 oz BMI 23.5 BP 96/54 L Blood Pressure Location Lt brachial Position Sitting Pulse 75 Pulse Source Pulse Oximeter Intake Visit Reasons: [facility] f/up, low bp Accompanied by: Health Care Proxy Allergies latex Allergy (Mild, Uncoded 04/14/25 15:12) Rash penicillin Allergy (Mild, Uncoded 04/14/25 15:12) Hives sulfa Allergy (Unknown, Uncoded 04/14/25 15:12) Gastrointestinal Upset Medication List - Last Reconciled 04/22/25 by Robb Caceres NP aspirin 81 mg PO DAILY atorvastatin 40 mg PO BEDTIME calcium carbonate 500 mg PO DAILY cholecalciferol (vitamin D3) (Vitamin D3) 50 mcg PO DAILY clonazepam (Klonopin) 0.5 mg PO DAILY PRN ferrous sulfate 325 mg PO DAILY lamotrigine ER 300 mg PO DAILY 30 days lurasidone (Latuda) 40 mg PO BEDTIME multivitamin 1 tab PO DAILY primidone 100 mg PO BID topiramate 100 mg PO DAILY trazodone 100 mg PO BEDTIME PRN HPI Comments Details: This is a 64-year-old female patient coming in for a hospital discharge follow-up. Patient with a history of AFib with recurrent falls status post Watchman device placement who was seen in the ER recently for ongoing low blood pressures and dizziness. Looking at previous notes, patient has been having this ongoing issue since November of 2024. Patient is accompanied by her sister who helps with the history and states that patient has been falling a lot recently due to low blood pressures. Patient has no associated symptoms of any exertional chest pain, shortness of breath, palpitations, orthopnea, PND, leg edema, or syncope. Patient is reporting compliance with all her medications and says that she was recently taken off Xarelto on her six-month follow-up since Watchman device placement. Patient is otherwise denying any signs of bleeding. [facility] Medical History Exertional dyspnea Chest pain Depression Syncope Non-motor epileptic seizure Conversion disorder Hyponatremia Cervical dystonia Essential and other specified forms of tremor Cervicalgia Osteopenia GERD (gastroesophageal reflux disease) Hyperlipidemia Anxiety Restless legs syndrome (RLS) Mitral valve prolapse PTSD (post-traumatic stress disorder) Cataract Arthritis TIA (transient ischemic attack) Conversion disorder Bipolar 2 disorder Raynauds syndrome (~08/2022) Carotid artery stenosis Seizures Acute cataract Faulkner syndrome Surgical History H/O arthroplasty History of hysterectomy Gastric bypass status for obesity Family History Father Heart disease Depressed Mother Heart disease Social History Household Members: None Housing: Apartment Do you presently have visiting nurse or other home services: No Alcohol intake: never Patient Tobacco Use Status: Never used Tobacco e-Cigarette/Vaping Use: Never Used Second Hand Smoke Exposure: No Advance Directives Date on File: 07/07/24 service: No Sexual orientation: Straight/Heterosexual Review of Systems Const Denies daytime sleepiness, Denies difficulty sleeping, Denies snoring, Denies stops breathing during sleep and Denies weakness Card Denies chest pain, Denies rapid heart rate, Denies irregular heart rhythm, Denies claudication, Denies leg edema, Reports lightheadedness, Denies palpitations, Denies dyspnea, Denies dyspnea on exertion, Denies orthopnea, Denies paroxysmal nocturnal dyspnea and Denies slow heart rate Resp Denies cough, Denies dyspnea, Denies dyspnea on exertion and Denies snoring GI Reports no additional complaints, Denies hematochezia, Denies change in stool character and Denies dyspepsia Musc Denies abnormal gait, Denies muscle weakness and Denies numbness Neuro Denies abnormal gait, Denies numbness and Denies weakness Endo Denies palpitations Physical Exam Vital Signs: Last Vital Signs Pulse 75 04/22/25 13:20 BP 96/54 L 04/22/25 13:20 BMI result Body Mass Index 23.5 Const General: cooperative, healthy appearing, comfortable and no acute distress Orientation/consciousness: patient oriented x3 HEENT Head: Yes normal to inspection Neck Neck: Yes normal visual inspection, Yes trachea midline and Yes supple Chest Chest palpation & inspection: normal inspection of the chest Resp Effort & Inspection: normal respiratory effort Auscultation: clear to auscultation bilaterally, no crackles, no rales, no rhonchi and no wheezes Cardio Jugular venous distension: no JVD Palpation: normal PMI Rate: regular rate Rhythm: regular rhythm Heart sounds: S1 normal heart sound present, S2 normal heart sound present, no click, no gallops, no murmurs and no rubs Peripheral pulses: Peripheral pulses 2+ throughout GI Inspection: Yes normal to inspection Palpation (GI): Soft to palpation Auscultation: normal bowel sounds Skin General skin exam: no rashes or lesions noted Neuro General: patient oriented x3 Extrem General: Yes normal to inspection, No no pedal edema and No calf tenderness Psych Appearance: grossly normal Mental Status: mental status grossly normal Speech and movement: Normal speech and movement present Assessment & Plan Assessment & Plan (1) Hypotension: Code(s): I95.9 - Hypotension, unspecified Category: Medical Plan: Patient's blood pressure today is low. Patient brings in a log of blood pressures from home averaging between 80-90 systolic. Patient had previously been on metoprolol which was discontinued by PCP around the time the symptoms started. In the hospital, it was noted that patient was dehydrated and was treated with IV fluids. Patient states that she has been hydrating herself better now. However, patient still has ongoing symptoms and therefore we will trial her on midodrine. Patient states that she wakes up around 10:00 and therefore we will start her on the b.i.d. dose with the emphasis that patient should not take her last dose after 17:00. If patient has ongoing symptoms then patient may need ENT referral to rule out vertigo. Patient and sister both understanding of the plan. Advised on adequate hydration and orthostatics precautions. Advised to monitor blood pressures at home with a goal less than 130/80. Advised to maintain a log to bring to next visit. (2) PAF (paroxysmal atrial fibrillation): Code(s): I48.0 - Paroxysmal atrial fibrillation Category: Medical Plan: History of paroxysmal AFib. Had a Watchman device placed on 10/08/2024 due to recurrent falls. Patient was recently seen for a follow-up and was taken off Xarelto. (3) Presence of Watchman left atrial appendage closure device: Code(s): Z95.818 - Presence of other cardiac implants and grafts Category: Medical Plan: As above. (4) Falls frequently: Code(s): R29.6 - Repeated falls Category: Medical Plan: As above. (5) Hospital discharge follow-up: Code(s): Z09 - Encounter for follow-up examination after completed treatment for conditions other than malignant neoplasm Plan: As above. Advised heart healthy diet, adequate hydration, orthostatic precautions, med compliance, and monitoring blood pressures. Follow up in 2 months. In the interim, patient will call the office with any concerns or change in symptoms. This note was generated using voice recognition software. While every effort has been made to ensure accuracy and proper jack spinner, there may be occasional errors that could affect the content or meaning of the described symptoms. Medications: New midodrine do not give last dose of day after 5PM or within 4 hrs of bedtime 2.5 mg PO BID 60 tabs 3RF Coding Level of Care Code Est Pt Level 4 (86781) Complex EM visit Add On G2211 Diagnoses Hypotension I95.9 PAF (paroxysmal atrial fibrillation) I48.0 Presence of Watchman left atrial appendage closure device Z95.818 Falls frequently R29.6 Hospital discharge follow-up Z09 Time Spent (min) 32 Comment Time spent in reviewing the chart, test results, assessment, counseling and documentation.
[2025-04-22 13:20] VITALS: BP 96/54; PULSE 75; BMI 23.5
--- OUTSIDE RECORDS SUMMARY | 2025-04-22 15:41 | XMS_ITS | Clinical Summary ---
Author Organization [facility] Facility Address [address] [place] [id number] Care Team Providers Care Cable Dispatcher Name Role Phone Km Susanne Primary Care Provider [phone] Social History Tobacco Use Types Packs/Day Years [...] patient's age to complete this topic Insurance [employer] Care Teams Cable Dispatcher Relationship Specialty Start Date End Date Susanne Barbour PCP - General 03/05/23
--- OUTSIDE RECORDS SUMMARY | 2025-04-22 15:41 | XMS_ITS | Encounter Summary ---
Author Organization [facility] Address [address] [place] [address] Care Team Providers Care School Custodian Name Role Phone Susanne Barbour MD Primary Care Pr ovider Reason for Visit * Reason Onset Date Comments MEDICATION DISCUSSION 04/22/2025 Encounter Details Date Type Department Care Team ([facility] st Contact Info) Description 04/22/2025 Telephone [facility] [address] [place] [address] Betty Lamar, MICHEL [address] [place] [address] Social History Tobacco Use Types Packs/Day Years [...] your loved ones. For example, child welfare caseworker or elderly care for an older adult? [...] as of this encounter Progress Notes * Fatuma Padilla - 04/22/2025 3:12 PM EDT Patient called asking if she could have an increase in the dosage of their Primidone. Patient says she has had an increase in their tremors. Patient says the tremors are from the inside out and head to toe. I let the patient know that Dr Nunez was out of the country this week and I would send the message to our PA. Patient also let me know that if it needed to be discussed with Dr Nunez she is able to wait until Sunday for when Dr Nunez returns. documented in this encounter Plan of Treatment Upcoming Encounters Date Type Department Care Team (Late st Contact Info) Description 04/30/2025 11:00 AM EDT Office Visit Adult Medicine [address] [phone] Adina Valdez PA 305 [facility] [address] 06/05/2025 1:00 PM EST Office Visit [facility] [place] 175 [facility] 150 [place] [phone] Betty Lamar PA 175 [facility] 150 [place] [address] 08/10/2025 10:45 AM EST Ancillary Procedure [facility] - [facility] 101 300 [facility] 101 [place] [address] 08/24/2025 8:30 AM EST Office Visit Vascular Surgery - [place] [address] [facility] [address] [place] [address] Cristopher Ho MD [address] [place] [phone] documented as of this encounter Visit Diagnoses Not on filedocumented in this encounter Additional Health Concerns Assessment Noted Time PHQ-9 Depression Total Score: 0 11/05/19 25 2:23 PM EDT documented as of this encounter Care Teams School Custodian Relationship Specialty Start Date End Date Susanne Barbour MD [address] [place], [place] PCP - General Internal Medicine 02/13/22 documented as of this encounter
--- OUTSIDE RECORDS SUMMARY | 2025-04-22 15:41 | XMS_ITS | Clinical Summary ---
Author Organization [facility] Address [address] [place] [address] Care Team Providers Care Bindery Machine Setter/Set Up Operator Name Role Phone Susanne Barbour MD [...] 75 05/06/2024 3:12 PM EDT Temperature 36.7 C (98 F) 11/11/2021 10:35 AM EDT Respiratory Rate - [...] 08/11/2021 06/16/2021 COVID-19 Vaccine (2 - season) 2025 06/28/2023 Influenza Vaccine (#1) 2025 3, 05/01/2022, 05/01/2022, Additional history exists DTap [...] age to complete this topic Care Teams Bindery Machine Setter/Set Up Operator Relationship Specialty Start Date End Date Susanne Barbour MD [address] [place] [address] PCP - General 03/27/24
--- OUTSIDE RECORDS SUMMARY | 2025-04-22 15:41 | XMS_ITS | Clinical Summary ---
Author Organization [facility] 444 [facility] Address [address] [place] [address] Phone Care Team Providers Care Technician Preventative Medicine Name Role Phone Susanne Barbour MD Primary [...] dysfunction 05/10/2024 Dissection of left carotid artery ([facility] V24) 12/05/2023 Paroxysmal atrial fibrillation ([facility] V24, [facility] V28) 12/05/2023 Assessment & Plan (10/16/2024 12:05 [...] for blood pressure check SVT (supraventricular tachycardia) ([facility] V24) 04/09/2023 Assessment & Plan (07/17/2024 8:01 AM EST): Follow up with Dr. Sherman as scheduled next year She recently completed 30 day rn cardiac. Pending results States echo done last month [...] still taking the medication Bipolar affective disorder ([facility] V24, CMS/HCC V28) 02/28/2019 Overview (05/08/2024): History [...] events noted and Nuclear stress test pending- [facility] Cardiology- Dr Pradhan Last Assessment & Plan: Referral to cardio done, DX: vasovagal Syncope. Tilt table positive [facility] cardiology Dr. Pradhan. Advised to take midodrine and propranolol. Recently hospitalized due to multiple syncopal episodes at [facility]. Please evaluate for any further work-up/she was supposed to complete nuclear stress test which was not done in the past. Vitamin D deficiency 02/28/2019 Neck pain 02/24/2019 Encounters Date Type Department Care Team Description 04/22/2025 Telephone [facility] 175 [facility] [address] [place] [address] Betty Lamar PA 04/17/2025 Telephone Adult Medicine [address] [phone] Bertha Casas [place] 04/14/2025 12:30 PM EDT Office Visit Adult Medicine [address] [phone] Adina Valdez PA Dizziness (Primary Dx); Weakness; Intermittent chest pain 04/02/2025 Nurse Triage Adult [address] [phone] Adina Valdez PA 02/27/2025 Telephone Adult Medicine [facility] [address] [place] [phone] Susanne Barbour MD 02/02/2025 1:30 PM EDT Office Visit [facility] [address] [facility] [address] [place] [address] Aly Nolasco MD Cognitive changes (Primary Dx); Anxiety; Stenosis of left carotid artery; Seizure disorder (CMS/HCC V24, CMS/HCC V28); TIA (transient ischemic attack); Tremor; Aphasia [...] PROCEDURE: REPAIR UMBILICAL HERNIA HERNIA REPAIR PROCEDURE: VT REPAIR FIRST ABDOMINAL WALL HERNIA TUBAL LIGATION PROCEDURE: HISTORICAL TUBAL LIGATION TONSILLECTOMY PROCEDURE: HISTORICAL TONSILLECTOMY CARPAL TUNNEL RELEASE 11/2014 Bilateral PROCEDURE: HISTORICAL CARPAL TUNNEL REL; COMMENT: 11/2014-right WRIST SURGERY Left PROCEDURE: HISTORICAL WRIST SURGERY; COMMENT: trapezoid with screw OTHER SURGICAL HISTORY 2002 PROCEDURE: VT LAPS GSTR RSTCV PX W/BYP IRA-EN-Y LIMB <150 CM; COMMENT: Gastric bypass CARDIAC CATHETERIZATION 02/2018 PROCEDURE: HISTORICAL CARDIAC CATH; COMMENT: Negative STEREOTACTIC BREAST BIOPSY 10/12/2005 PROCEDURE: STEREOTACTIC BREAST BIOPSY OTHER SURGICAL HISTORY 06/13/2006 PROCEDURE: HISTORICAL VAGINAL HYSTERECTOMY WITH BSO; COMMENT: BSO also for ovarian cyst and prolapse COLONOSCOPY PROCEDURE: HISTORICAL COLONOSCOPY; COMMENT: Performed with EGD at age 52 in [place] ESOPHAGOGASTRODUODENOSCOPY PROCEDURE: VT EGD TRANSORAL BIOPSY SINGLE/MULTIPLE; COMMENT: Performed with colonoscopy at age 52 in [place] OTHER SURGICAL HISTORY 06/01/2021 PROCEDURE: HISTORY OTHER; COMMENT: L gastroc recession, calcaneal osteotomy, post tibial tendon tenolysis and excision, flexor digitorum longus transfer to navicular, spring ligament reconstruction, 1st TMT plantarflexion fusion with Dr Dunn at [facility] Medical History Medical History Date Comments Seizure disorder (CMS/HCC V2 4, CMS/HCC V28) 02/28/2019 DX:Seizure disorder ([facility]) Mitral valve prolapse 02/28/2019 DX:Mitral valve prolapse [...] DX:Conversio n disorder Bipolar affective disorder ( [facility] V24, [facility] V28) 02/28/2019 DX:Bipolar affective disorde r ([facility]); COMMENT: History Suicide Attempt Osteoarthritis of multiple [...] Maternal Grandfather Maternal Grandmother Mother (Age 68) [place] Paternal Grandfather Paternal Grandmother Sister 1 Alive [...] for your loved ones. For example, children's ministries director or elderly care for an older [...] 11:00 AM EDT Office Visit Adult Medicine [facility] [address] [place] [address] Adina Valdez PA [address] [place] [address] 06/05/2025 1:00 PM EST Office Visit [facility] 175 [facility] [address] [place] [address] Betty Lamar PA 175 [facility] [address] [place] [address] 08/10/2025 10:45 AM EST Ancillary Procedure [facility] - [facility] 101 300 [facility] 101 [place] [address] 08/24/2025 8:30 AM EST Office Visit Vascular Surgery - [place] 300 [facility] [address] [place] [address] Cristopher Ho MD [address] [place] [address] Health Maintenance Due Date Last Done Comments Cervical Cancer Screening: Pap Smear 1983 Breast Cancer Screening 11/06/2019 11/05/2017 Osteoporosis Screening (Bone Density Screening) 07/07/2022 Influenza Vaccine (#1) 2025 4, 05/30/2023, 05/02/2023, Additional history exists Social Influencers [...] neoplasm of colon LIPID PANEL Routine 03/21/2024 HM HEPATITIS C SCREENING Routine 09/16/2021 HIV SCREENING Routine 07/07/2004 from Last 3 Months or Most Recently Relevant to Health Maintenance Results * ECG 12 lead Tracing Only (04/14/2025 5:46 PM EDT) Adina PEARSON ECG ORDERABLES Final Result * Echo (01/26/2025) Anatomical Region Laterality Modality Other Provider [facility] CV HISTORICAL CONV PROCE DURES Final Result * COLONOSCOPY Anesthesia - MAC; [facility] ENDOSCOPY (09/02/2024 10:44 AM EST) Anatomical Region Laterality Modality Endoscopy 09/02/2024 10:2 9 AM EST Impressions 09/02/2024 10:45 AM EST - The entire examined colon is normal on direct and retroflexion views. - No specimens collected. Recommendation: - Discharge patient to home. - Repeat colonoscopy in 10 years for screening purposes. Narrative 09/02/2024 10:45 AM EST [facility] GI Patient Name: Andrés Paez Procedure Date: [...] verified by the physician, the nurse, the community relations officer and the audio/video technician in the pre-procedure area in the [...] Scope Out: 10:44:42 AM Endoscopy Department at [facility] - [address] [place] [phone] Procedure Note Jairo Nascimento MD - 09/02/2024 [facility] Patient Name: Andrés Paez Procedure Date: [...] the physician, the nurse, theanesthetist and the audio/video technician in the pre-procedure area in the [...] Scope Out: 10:44:42 AM Endoscopy Department at [facility] - [address] [place] [phone] IMPRESSION: - The entire examined colon is [...] Blood Venous blood specimen / Unknown Result [facility] Historical Provider LAB BLOOD ORDERABLES Fara l Result * Hepatitis C Screening (09/16/2021) Pathologist [facility] Hepatitis C Screening abstracted Historical Provider HEALTH MAINTENANCE Final Result * HIV Screening (07/07/2004) Pathologist [facility] HIV Screening abstracted Historical Provider HEALTH MAINTENANCE Final Result from Last 3 Months or Most Recently Relevant to Health Maintenance Insurance [facility] Care Teams Technician Preventative Medicine Relationship Specialty Start Date End Date Susanne Barbour MD [address] [place], [place] PCP - General Internal Medicine 02/13/22
--- OUTSIDE RECORDS SUMMARY | 2025-04-22 15:41 | XMS_ITS | Encounter Summary ---
Author Organization [facility] Address [address] [place] [address] Care Team Providers Care Retirement Assistant Name Role Phone Susanne Barbour MD Primary Care Pr ovider Reason for Visit * Reason Onset Date Comments Hospital Follow-up 04/17/2025 Encounter Details Date Type Department Care Team (Late st Contact Info) Description 04/17/2025 Telephone Adult Medicine [address] [phone] Bertha Casas [place] Social History Tobacco Use Types Packs/Day Years [...] your loved ones. For example, child protective services social worker or elderly care for an [...] as of this encounter Progress Notes * Rain Rascon RN - 04/17/2025 11:46 AM EDT Called pt pt an only to and offered next unable pt had Pe scheduled already for 04/30 will chagne to er fu and will need to reschedule PE * Bertha Casas MA - 04/17/2025 11:12 AM EDT Hospital/ER follow up appointment needed Hospital patient was treated at: [facility] Was this only an ER visit or was the patient admitted to the hospital? ER Visit only Date of visit if ER visit only: 04/14/25 If patient was admitted what was the date of discharge? Reason/diagnosis for visit or stay: low blood pressure When was the patient told to follow up? Patient states they didn't say when to follow up Was visit or stay related to an injury? If yes, what was the date of injury (DOI)? No If yes, was the injury due to: Not 3rd constitution party related documented in this encounter Plan of Treatment Upcoming Encounters Date Type Department Care Team (Late st Contact Info) Description 04/30/2025 11:00 AM EDT Office Visit Adult Medicine [address] [phone] Adina Valdez PA [address] [place] [address] 06/05/2025 1:00 PM EST Office Visit [facility] [place] [address] [place] [address] Betty Lamar PA [address] [place] [address] 08/10/2025 10:45 AM EST Ancillary Procedure [facility] - [address] [place] [address] 08/24/2025 8:30 AM EST Office Visit Vascular Surgery - [place] [address] [place] [address] Cristopher Ho MD [address] [place] [address] documented as of this encounter Visit Diagnoses Not on filedocumented in this encounter Additional Health Concerns Assessment Noted Time PHQ-9 Depression Total Score: 0 11/05/19 25 2:23 PM EDT documented as of this encounter Care Teams Retirement Assistant Relationship Specialty Start Date End Date Susanne Barbour MD [address] [place], [place] PCP - General Internal Medicine 02/13/22 documented as of this encounter
--- OUTSIDE RECORDS SUMMARY | 2025-04-22 15:42 | XMS_ITS | Encounter Summary ---
Author Organization [facility] Address [address] [place] [address] Care Team Providers Care Employment Training Specialist Name Role Phone Susanne Barbour MD Primary Care Pr ovider Encounter Details Date Type Department Care Team (Late st Contact Info) Description 04/02/2025 Nurse Triage Adult Medicine [address] [phone] Adina Valdez PA [address] [place] [address] Social History Tobacco Use Types Packs/Day Years [...] for your loved ones. For example, child study team director or elderly care for an older [...] Notes * Rain Rascon RN - 04/17/2025 2:27 PM EDT Please see other encounter hosp fu for 04/30 * Kalee Stovall RN - 04/17/2025 9:36 AM EDT Per pt via my chart; Dear Kalee, this is Yessy Paez I went to [facility] ER last night as requested by Adina. They did an ultrasound of my heart and found a little fluid around my heart, which was there before, did blood cultures to see if I had an infection which was negative and did regular bloodwork which was negative gave me IV fluids blood pressure did go up. They did say I was a little dehydrated. But everything was fine. They didn???t really give me a reason for the low blood pressure. They did tell me to follow up with my process lead which I did today and I have a follow up appointment with doctor. Lane on May 22 at 1:30. And I am letting you know also. I took my blood pressure at 10 AM. This morning it was 93/64 pulse 80. I took it again at 1 o???clock. It is 102/62 pulse 58. I am still weak, but that???s better than it was earlier. I just wanted to let you know what???s going on. Pt is in need of an ER follow up appointment. I left pt a message to call the office at . * Kalee Stovall RN - 04/13/2025 1:53 [...] Description 04/30/2025 11:00 AM EDT Office Visit [address] [phone] Adina Valdez PA [address] [place] [address] 06/05/2025 1:00 PM EST Office Visit [facility] [address] [place] [phone] Betty Lamar PA [address] [place] [address] 08/10/2025 10:45 AM EST Ancillary Procedure [facility] - [address] [place] [phone] 08/24/2025 8:30 AM EST Office Visit V[facility] Surgery - [place] [address] [place] [phone] Cristopher Ho MD [address] [place] [phone] documented as of this encounter Visit Diagnoses Not on filedocumented in this encounter Additional Health Concerns Assessment Noted Time PHQ-9 Depression Total Score: 0 11/05/19 25 2:23 PM EDT documented as of this encounter Care Teams Employment Training Specialist Relationship Specialty Start Date End Date Susanne Barbour MD [address] [place], [place] PCP - General Internal Medicine 02/13/22 documented as of this encounter
--- OUTSIDE RECORDS SUMMARY | 2025-04-22 15:42 | XMS_ITS | Encounter Summary ---
Author Organization [facility] Address [address] [place] [address] Care Team Providers Care Disk Sharpener Name Role Phone Susanne Barbour MD Primary Care Pr ovider Encounter Details Date Type Department Care Team (Late st Contact Info) Description 11/07/2024 Nurse Triage Adult Medicine [address] [phone] Adina Valdez PA [address] [place] [address] Social History Tobacco Use Types Packs/Day Years [...] for your loved ones. For example, child and adolescent psychiatrist or elderly care for an [...] AM EDT Office Visit Adult Medicine [facility] [address] [place] [phone] Adina Valdez PA [address] [place] [address] 06/05/2025 1:00 PM EST Office Visit [facility] [address] [place] [address] Betty Lamar PA [address] [place] [address] 08/10/2025 10:45 AM EST Ancillary Procedure [facility] - [facility] [address] [place] [address] [facility] 101 [place] [address] 08/24/2025 8:30 AM EST Office Visit Vascular Surgery - [place] [address] [place] [address] Cristopher Ho MD [address] [place] [phone] documented as of this encounter Visit Diagnoses Not on filedocumented in this encounter Additional Health Concerns Assessment Noted Time PHQ-9 Depression Total Score: 0 11/05/19 25 2:23 PM EDT documented as of this encounter Care Teams Disk Sharpener Relationship Specialty Start Date End Date Susanne Barbour MD [address] [place], [place] PCP - General Internal Medicine 02/13/22 documented as of this encounter
== END 2025-04-22 13:54 | disposition home or self-care (01) ==
LOC: HO.HCS 13:19
PROVIDERS: PCP Family Medicine
DX: I95.9 Hypotension, unspecified (principal); I48.0 Paroxysmal atrial fibrillation; Z95.818 Presence of other cardiac implants and grafts; R29.6 Repeated falls; Z09 Encounter for follow-up examination after completed treatment for conditions other than malignant neoplasm
CPT/HCPCS: 99214

== ENCOUNTER → 2025-04-22 13:18 | Outpatient (BNVA) | payer OTHER, SELFPAY | PROVIDERS: PCP Family Medicine | DX: Z09 Encounter for follow-up examination after completed treatment for conditions other than malignant neoplasm (principal); I95.9 Hypotension, unspecified; I48.0 Paroxysmal atrial fibrillation; R29.6 Repeated falls; Z95.818 Presence of other cardiac implants and grafts | CPT/HCPCS: 99212 ==

== ENCOUNTER 2025-06-08 12:40 | Outpatient (AMB) | payer OTHER, SELFPAY ==
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
--- OUTSIDE RECORDS SUMMARY | 2025-06-05 13:00 | XMS_ITS | Encounter Summary ---
Author Organization [facility] Address [address] [place] [address] Care Team Providers Care It Generalist Name Role Phone Susanne Barbour MD Primary Care Pr ovider Encounter Details Date Type Department Care Team (Late st Contact Info) Description 06/05/2025 1:00 PM EST Office Visit [address] [place] [address] Betty Lamar PA [address] [place] [phone] Social History Tobacco Use Types Packs/Day Years [...] Sign Reading Time Taken Comments Blood Pressure 108/74 06/05/2025 1:13 PM EST Pulse 86 06/05/2025 1:13 PM EST Temperature 37.2 C (98.9 F) 06/05/2025 1:13 PM EST Respiratory Rate - - Oxygen Saturation 98% 06/05/2025 1:13 PM EST Inhaled Oxygen Concentration - - Weight - - Height - - Body Mass Index - - documented in this encounter Ordered Prescriptions Prescription Sig Dispense Quantity Refills Last Filled Start Date End Date primidone (MYSOLINE) 50 mg tablet 1 po in am and 2 po hs 90 tablet 5 06/05/2025 documented in this encounter Plan of Treatment Upcoming Encounters Date Type Department Care Team (Late st Contact Info) Description 07/16/2025 1:00 PM EST Office Visit Adult [facility] [address] [place] [phone] Adina Valdez PA [address] [place] [address] 08/10/2025 10:45 AM EST Ancillary Procedure [facility] - [facility] [address] [facility] [address] [place] [phone] 08/24/2025 8:30 AM EST Office Visit Vascular Surgery - [place] [address] [facility] [address] [place] [address] Cristopher Ho MD [address] [place] [phone] 09/01/2025 11:30 AM EST Office Visit Adult Medicine [address] [phone] Adina Valdez PA [address] [place] [address] 09/24/2025 1:00 PM EST Office Visit [facility] 175 [facility] [address] [place] [phone] Aly Nolasco MD 175 [place] [address] 12/02/2025 12:00 PM EDT Office Visit Adult Medicine [facility] [address] [place], [place] [phone] Susanne Barbour MD [address] [place] [address] documented as of this encounter Visit Diagnoses Not on filedocumented in this encounter Discontinued Medications Medication Sig Discontinue Reason Start Date End Da te primidone (MYSOLINE) 50 mg tablet Take 2 tablets (100 mg total) by mouth at bedtime. Reorder 03/11/2025 06/05/2025 documented as of this encounter Additional Health Concerns Assessment Noted Time PHQ-9 Depression Total Score: 0 11/05/19 25 2:23 PM EDT documented as of this encounter Care Teams It Generalist Relationship Specialty Start Date End Date Susanne Barbour MD [address] [facility], [place] PCP - General Internal Medicine 02/13/22 documented as of this encounter
[2025-06-08 12:47] VITALS: BP 100/62; PULSE 83; BMI 23.6
--- NOTE | 2025-06-08 12:47 | A.OFFVIS_ITS ---
Vital Signs 06/08/25 12:47 Height 5 ft 9 in Weight 159 lb 9.835 oz BMI 23.6 BP 100/62 Blood Pressure Location Lt brachial Position Sitting Pulse 83 Pulse Source Pulse Oximeter Intake Visit Reasons: 6 mth f/up Intake Note: 6 mth f/up Wad Compressor Operator Adjuster Required: No Soil Science Technical Officer: Soil Science Technical Officer Present Accompanied by: Self / Same As Patient Allergies latex Allergy (Mild, Uncoded 04/14/25 15:12) Rash penicillin Allergy (Mild, Uncoded 04/14/25 15:12) Hives sulfa Allergy (Unknown, Uncoded 04/14/25 15:12) Gastrointestinal Upset Medication List - Last Reconciled 06/08/25 by Cristian Lundberg MD aspirin 81 mg PO DAILY atorvastatin 40 mg PO BEDTIME calcium carbonate 500 mg PO DAILY cholecalciferol (vitamin D3) (Vitamin D3) 50 mcg PO DAILY clonazepam (Klonopin) 0.5 mg PO DAILY PRN ferrous sulfate 325 mg PO DAILY lamotrigine ER 300 mg PO DAILY 30 days lurasidone (Latuda) 40 mg PO BEDTIME midodrine 2.5 mg PO BID multivitamin 1 tab PO DAILY primidone 100 mg PO BID topiramate 100 mg PO DAILY trazodone 100 mg PO BEDTIME PRN HPI Comments Details: Pleasant 64 year female who is here for follow-up. She has background history of supraventricular tachycardia. She also atrial fibrillation in the past and underwent ablation for SVT and atrial fibrillation. She is on apixaban 5 mg twice a day and baby aspirin. She has cervical dystonia as well as significant tremors and has been falling frequently. She is saying that she was doing much better with primidone but it has interaction with Eliquis and she is unable to take the primidone. I checked interactions and primidone is an enzyme induced her and we will cause issues for most anticoagulants. She also has been falling frequently which is a concern with the apixaban. She is in atrial fibrillation since the ablation done in December of 2023. She had a previous TIA. 12/03/2024: on previous visit we discussed about potential Watchman device be cause she was on primidone for significant tremors and cervical dystonia and there was interaction between all anticoagulants and primidone. She is now status post Watchman device and is off anticoagulation. She is taking aspirin and Plavix currently. She is feeling much better. Blood pressure is well controlled. Overall doing well. 06/08/25: Here for follow-up. Her tremors are somewhat improved with primidone. She is seeing a movement disorder specialist. No chest pain or shortness of breath [facility] Medical History Exertional dyspnea Chest pain Depression Syncope Non-motor epileptic seizure Conversion disorder Hyponatremia Cervical dystonia Essential and other specified forms of tremor Cervicalgia Osteopenia GERD (gastroesophageal reflux disease) Hyperlipidemia Anxiety Restless legs syndrome (RLS) Mitral valve prolapse PTSD (post-traumatic stress disorder) Cataract Arthritis TIA (transient ischemic attack) Conversion disorder Bipolar 2 disorder Raynauds syndrome (~08/2022) Carotid artery stenosis Seizures Acute cataract Faulkner syndrome Surgical History H/O arthroplasty History of hysterectomy Gastric bypass status for obesity Family History Father Heart disease Depressed Mother Heart disease Social History Household Members: None Housing: Apartment Do you presently have visiting nurse or other home services: No Alcohol intake: never Patient Tobacco Use Status: Never used Tobacco e-Cigarette/Vaping Use: Never Used Second Hand Smoke Exposure: No Advance Directives Date on File: 07/07/24 service: No Sexual orientation: Straight/Heterosexual Review of Systems Const Denies chills, Denies fatigue, Denies fever(s), Denies frequent falls, Denies weakness, Denies weight gain and Denies weight loss ENT Denies dizziness Card Denies chest pain, Denies leg edema, Denies lightheadedness, Denies palpitations, Denies dyspnea and Denies dyspnea on exertion Resp Denies cough, Denies dyspnea and Denies dyspnea on exertion GI Denies hematochezia Musc Denies abnormal gait, Denies muscle weakness, Denies numbness, Denies radiating pain into limb and Denies tingling Neuro Denies abnormal gait, Denies dizziness, Denies frequent falls, Denies numbness, Denies tingling and Denies weakness Endo Denies fatigue and Denies palpitations Physical Exam Vital Signs: Last Vital Signs Pulse 83 06/08/25 12:47 BP 100/62 06/08/25 12:47 BMI result Body Mass Index 23.6 GENERAL APPEARANCE: in no acute distress, pleasant. NECK: no carotid bruit, no jugular venous distention. SKIN: no suspicious lesions, warm and dry. HEART: no murmurs, regular rate and rhythm. LUNGS: clear to auscultation bilaterally. ABDOMEN: soft, nontender. EXTREMITIES: no edema. PERIPHERAL PULSES: equal. NEUROLOGIC: Tremor in the neck. Tremors in the arms. Assessment & Plan Assessment & Plan (1) PAF (paroxysmal atrial fibrillation): Code(s): I48.0 - Paroxysmal atrial fibrillation Category: Medical (2) Falls frequently: Code(s): R29.6 - Repeated falls Category: Medical Plan Very pleasant 64 year female who is here for follow-up. She has background history of atrial fibrillation and SVT. She had cervical dystonia and significant tremors which were only controlled with primidone but primidone had an interaction with all anticoagulants. We discussed and referred her for Watchman device and she is now status post Watchman placement. She is taking aspirin at this point. She took primidone with improvement in tremors but they are not completely gone unfortunately. She is seen movement disorder specialist at [facility]. From cardiovascular point of view she is stable. She will follow up in 1 year. Thank you for allowing me to participate in the care of your patient. Please feel free to contact me if you have any questions. Coding Level of Care Code Est Pt Level 4 (84546) Diagnoses PAF (paroxysmal atrial fibrillation) I48.0 Falls frequently R29.6
--- OUTSIDE RECORDS SUMMARY | 2025-06-08 14:48 | XMS_ITS | Clinical Summary ---
Author Organization [facility] [address] [facility] Address [address] [place] [address] Phone Care Team Providers Care Local Operator Name Role Phone Susanne Barbour MD [...] 08/11/19 25 Active aspirin 81 mg EC tabletIndications: Atrial fibrillation, unspecified type (CMS/HCC V24, CMS/HCC V28) Take 1 tablet (81 mg total) by mouth 1 (one) time each day. Take 1 tablet (81 mg total) by mouth daily. 90 tablet 1 09/11/19 25 Active atorvastatin (Lipitor) 40 mg tabletIndications: Mixed hyperlipidemia Take 1 tablet (40 mg total) by mouth at bedtime. 90 each 1 10/17/19 25 Active albuterol HFA (PROAIR HFA ; PROVENTIL HFA ; VENTOLIN HFA) 90 mcg/actuation inhaler Inhale 2 puffs by mouth every 4 (four) hours if needed (cough, wheezing, shortness of breath). 8.5 g 2 11/20/19 25 Active ferrous sulfate 325 mg (65 mg elemental iron) tabletIndications: Iron deficiency anemia, unspecified TAKE 1 TABLET BY MOUTH EVERY DAY 90 tablet 1 11/27/19 25 Active calcium carbonate-vitamin D 500 mg-5 mcg (200 unit) per tablet Take 1 tablet by mouth 1 (one) time each day. Active topiramate (TOPAMAX) 50 mg tablet TAKE 1 TABLET BY MOUTH TWICE A DAY 60 tablet 2 03/31/20 25 Active busPIRone (BUSPAR) 5 mg tablet Take 1 tablet (5 mg total) by mouth 3 (three) times a day if needed. 03/22/20 25 Active midodrine (PROAMATINE) 2.5 mg tablet Take 1 tablet (2.5 mg total) by mouth 2 (two) times a day. 04/23/20 25 Active primidone (MYSOLINE) 50 mg tablet 1 po in am and 2 po hs 90 tablet 5 06/05/20 25 Active primidone (MYSOLINE) 50 mg tablet Take 2 tablets (100 mg total) by mouth at bedtime. 60 tablet 5 03/11/20 25 025 Discontin ued(Reord er) Active Problems Problem Noted Date Diagnosed Date Hypotension 04/30/2025 Gait instability 11/19/2024 Seizure disorder (CMS/HCC V24, [...] dysfunction 05/10/2024 Dissection of left carotid artery ([facility] V24) 12/05/2023 Paroxysmal atrial fibrillation ([facility] V24, [facility] /[facility] V28) 12/05/2023 Assessment & Plan (10/16/2024 12:05 [...] for blood pressure check SVT (supraventricular tachycardia) ([facility] V24) 04/09/2023 Assessment & Plan (07/17/2024 8:01 AM EST): Follow up with Dr. 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 Pending results States echo done last month [...] still taking the medication Bipolar affective disorder (CMS/[facility] V24, CMS/HCC V28) 02/28/2019 Overview (05/08/2024): History [...] events noted and Nuclear stress test pending- [facility] Cardiology- Dr Pradhan Last Assessment & Plan: Referral to cardio done, DX: vasovagal Syncope. Tilt table positive [facility] cardiology Dr. Pradhan. Advised to take midodrine and propranolol. Recently hospitalized due to multiple syncopal episodes at [facility]. Please evaluate for any further work-up/she was supposed to complete nuclear stress test which was not done in the past. Vitamin D deficiency 02/28/2019 Neck pain 02/24/2019 Encounters Date Type Department Care Team Description 06/05/2025 1:00 PM EST Office Visit [address] [place] [phone] Betty Lamar PA 04/30/2025 11:00 AM EDT Office Visit Adult Medicine [address] [phone] Adina Valdez PA Hypotension, unspecified hypotension type (Primary Dx); Itchy scalp; Dizziness, nonspecific 04/27/2025 Telephone Adult Medicine [address] [phone] Kalee Stovall RN 04/22/[address] [place] [address] Betty Lamar PA 04/17/2025 Telephone Adult Medicine [address] [phone] Bertha Casas MA 04/14/2025 12:30 PM EDT Office Visit Adult Medicine [address] [phone] Adina Valdez PA Dizziness (Primary Dx); Weakness; Intermittent chest pain 04/02/2025 Nurse Triage Adult Medicine [address] [phone] Adina Valdez PA from Last 3 Months Immunizations Immunization Administration Dates Next Due H1N1 Inj Preservative [...] PROCEDURE: REPAIR UMBILICAL HERNIA HERNIA REPAIR PROCEDURE: MT REPAIR FIRST ABDOMINAL WALL HERNIA TUBAL LIGATION PROCEDURE: HISTORICAL TUBAL LIGATION TONSILLECTOMY PROCEDURE: HISTORICAL TONSILLECTOMY CARPAL TUNNEL RELEASE 11/2014 Bilateral PROCEDURE: HISTORICAL CARPAL TUNNEL REL; COMMENT: 11/2014-right WRIST SURGERY Left PROCEDURE: HISTORICAL WRIST SURGERY; COMMENT: trapezoid with screw OTHER SURGICAL HISTORY 2002 PROCEDURE: MT LAPS GSTR RSTCV PX W/BYP IRA-EN-Y LIMB <150 CM; COMMENT: Gastric bypass CARDIAC CATHETERIZATION 02/2018 PROCEDURE: HISTORICAL CARDIAC CATH; COMMENT: Negative STEREOTACTIC BREAST BIOPSY 10/12/2005 PROCEDURE: STEREOTACTIC BREAST BIOPSY OTHER SURGICAL HISTORY 06/13/2006 PROCEDURE: HISTORICAL VAGINAL HYSTERECTOMY WITH BSO; COMMENT: BSO also for ovarian cyst and prolapse COLONOSCOPY PROCEDURE: HISTORICAL COLONOSCOPY; COMMENT: Performed with EGD at age 52 in [place] ESOPHAGOGASTRODUODENOSCOPY PROCEDURE: MT EGD TRANSORAL BIOPSY SINGLE/MULTIPLE; COMMENT: Performed with colonoscopy at age 52 in [place] OTHER SURGICAL HISTORY 06/01/2021 PROCEDURE: HISTORY OTHER; COMMENT: L gastroc recession, calcaneal osteotomy, post tibial tendon tenolysis and excision, flexor digitorum longus transfer to navicular, spring ligament reconstruction, 1st TMT plantarflexion fusion with Dr Dunn at [facility] Medical History Medical History Date Comments Seizure disorder ([facility]/HCC V2 4, CMS/HCC V28) 02/28/2019 DX:Seizure disorder ([facility]) Mitral valve prolapse 02/28/2019 DX:Mitral valve prolapse [...] DX:Conversio n disorder Bipolar affective disorder ( [facility] V24, [facility] V28) 02/28/2019 DX:Bipolar affective disorde r ([facility]); COMMENT: History Suicide Attempt Osteoarthritis of multiple [...] Maternal Grandfather Maternal Grandmother Mother (Age 68) [place] Paternal Grandfather Paternal Grandmother Sister 1 Alive [...] your loved ones. For example, child adolescent care or elderly care for an older adult? [...] F) 06/05/2025 1:13 PM EST Respiratory Rate 16 04/30/2025 10:59 AM EDT Oxygen Saturation 98% 06/05/2025 1:13 PM EST Inhaled Oxygen Concentration - - Weight 72.6 kg (160 lb) 04/30/2025 10:59 AM EDT Height 172.7 cm (5' 8 ) 04/30/2025 10:59 AM EDT Body Mass Index 24.33 04/30/2025 10:59 AM EDT Plan of Treatment Upcoming Encounters Date Type Department Care Team (Late st Contact Info) Description 07/16/2025 1:00 PM EST Office Visit Adult [address] [phone] Adina Valdez PA [address] [place] [address] 08/10/2025 10:45 AM EST Ancillary Procedure [facility] [address] [place] [address] 08/24/2025 8:30 AM EST Office Visit Vascular Surgery - [place] [address] [facility] [address] [place] [address] Cristopher Ho MD [address] [place] [address] 09/01/2025 11:30 AM EST Office Visit Adult [address] [phone] Adina Valdez PA [address] [place] [address] 09/24/2025 1:00 PM EST Office Visit [facility] [address] [facility] [address] [place] [phone] Aly Nolasco MD [address] [place] [address] 12/02/2025 12:00 PM EDT Office Visit Adult Medicine [address] [phone] Susanne Barbour MD [address] [place] [address] Health Maintenance Due Date Last Done Comments Cervical Cancer Screening: Pap Smear 1983 Breast Cancer Screening 11/06/2019 11/05/2017 Osteoporosis Screening (Bone Density Screening) 07/07/2022 Social Influencers of Health Screening 07/09/2025 07/09/2024 Influenza Vaccine (#1) 2025 , 05/30/2023, 05/02/2023, Additional history exists Postponed from 03/30/2025 (Patient Refused) Cholesterol Screening (Lipid Panel) 03/21/2029 03/21/2024, 03/21/2024, [...] ONLY Routine 04/14/2025 5:46 PM EDT Dizziness COLONOSCOPY Routine 09/02/2024 10:44 AM EST Encounter for screening for malignant neoplasm of colon LIPID PANEL Routine 03/21/2024 HEPATITIS C SCREENING Routine 09/16/2021 HIV SCREENING Routine 07/07/2004 from Last 3 Months or Most Recently Relevant to Health Maintenance Results * ECG 12 lead Tracing Only (04/14/2025 5:46 PM EDT) Adina PEARSON ECG ORDERABLES Final Result * COLONOSCOPY Anesthesia - MAC; [facility] ENDOSCOPY (09/02/2024 10:44 AM EST) Anatomical Region Laterality Modality Endoscopy 09/02/2024 10:2 9 AM EST Impressions 09/02/2024 10:45 AM EST - The entire examined colon is normal on direct and retroflexion views. - No specimens collected. Recommendation: - Discharge patient to home. - Repeat colonoscopy in 10 years for screening purposes. Narrative 09/02/2024 10:45 AM EST [facility] GI Patient Name: Andrés Gloria Procedure Date: 09/02/2024 10:29 AM Date of [...] verified by the physician, the nurse, the transcribing operator head and the mechanical service technician in the pre-procedure area in the [...] Scope Out: 10:44:42 AM Endoscopy Department at [facility] - [address] [place] [phone] Procedure Note Jairo Nascimento MD - 09/02/2024 [facility] GI Patient Name: Andrés Gloria Procedure Date: 09/02/2024 10:29 AM Date of [...] the physician, the nurse, theanesthetist and the mechanical service technician in the pre-procedure area in the [...] Scope Out: 10:44:42 AM Endoscopy Department at [address] [phone] IMPRESSION: - The entire examined colon is normal on direct and retroflexion views. - No specimens collected. Recommendation: - Discharge patient to home. - Repeat colonoscopy in 10 years for screening purposes. Jairo Nascimento MD GI~PROCEDURE ORDERABLES Fin al Result * Lipid panel (03/21/2024) [facility] LDL/HDL Ratio 2 0 - 4 Triglycerides 71 0 - 150 mg/dL Cholesterol 145 0 - 200 mg/dL HDL 71 >=40 mg/dL LDL Cholesterol 60 0 - 100 mg/dL Blood Venous blood specimen / Unknown Result [facility] Historical Provider LAB BLOOD ORDERABLES Faar l Result * Hepatitis C Screening (09/16/2021) [facility] Hepatitis C Screening abstracted Result [facility] Historical Héctor [employer] Final Result * HIV Screening (07/07/2004) [facility] HIV Screening abstracted Result [facility] Historical Héctor [employer] Final Result from Last 3 Months or Most Recently Relevant to Health Maintenance Insurance [facility] Care Teams Local Operator Relationship Specialty Start Date End Date Susanne Barbour MD [address] [place], [place] PCP - General Internal Medicine 02/13/22
--- OUTSIDE RECORDS SUMMARY | 2025-06-08 14:48 | XMS_ITS | Clinical Summary ---
Author Organization [facility] Address [address] [place] [address] Care Team Providers Care Bread Racker Name Role Phone Susanne Barbour MD Primary [...] age to complete this topic Care Teams Bread Racker Relationship Specialty Start Date End Date Susanne Barbour MD [address] [place] [address] PCP - General 03/27/24
--- OUTSIDE RECORDS SUMMARY | 2025-06-08 14:48 | XMS_ITS | Clinical Summary ---
Author Organization [facility] Facility Address [address] [place] [id number] Care Team Providers Care Sports Doctor Name Role Phone Km Susanne Primary Care Provider [phone] Social History Tobacco Use Types Packs/Day Years [...] patient's age to complete this topic Insurance [facility] Care Teams Sports Doctor Relationship Specialty Start Date End Date Susanne Barbour PCP - General 03/05/23
--- OUTSIDE RECORDS SUMMARY | 2025-06-08 14:49 | XMS_ITS | Data Portability ---
Author Organization [facility], [facility] Address [address] [place] [address] Care Team Providers Care Mobile Application Architect Name Role Phone SAADIA PELAEZ Primary Care Provider Assessment No assessment recorded. Plan of Treatment Reminders Order Date Submit Date Provider Last Modified By Organization Details Last Modified Time Details Appointments MED CLEAR ONLY 15 2024 01:00P M Renita Dunn MD Not available Not available Not available SURGERY @ [facility] 2024 07:30A M Renita Dunn MD Not available Not available Not available [facility] POST OP 2024 01:45P M Cast Room Not available Not available Not available POST OP 15 2024 03:00P M Ivania Johnson PA-C Not available Not available Not available POST OP 15 2025 03:00P M Renita Dunn MD Not available Not available Not available Lab None recorded . Referral vascular referral - NONINVAS RICARDO VASCULAR STUDIES - SE'S, TBI'S LEFT LOWER EXTREMIT Y 2024 025 [email or web address] [facility], [address] [facility], [facility] [address], [place], [address], 12/29/2024 17:13:19 Procedures None recorded . Surgeries orthopae dic surgery (SURG) 2024 025 [email or web address] [facility], [address] [place], [address], 05/19/2025 08:46:00 Imaging XR, ankle + foot - room 102 new L 3v foot 2v ankle wb 2024 025 [email or web address] [facility], [address], [place], [address], 12/29/2024 17:13:19 Medication Orders None recorded . Patient TargetsNo targets recorded. Patient InstructionsNo instructions recorded. Reason for Referral Vascular Referral for Pain i n left foot NONINVASIVE VASCULAR STUDIES - SE'S, TBI'S LEFT LOWER EXTREMITY Referring Physician: Renita Dunn, Orthopedic Surgery, Encounter Date: 12/29/2024 Results Created Date Observation Date Name Description Value Unit Range Abnormal Flag Note LastModifiedBy Organization Detail LastModifiedTime 12/30/1912/29/2024 XR, ankle + foot [email or web address] ?Encry pted=s hAaTro YD8dLq bEUv6g %2BXZw aYqtaq 0bqfl% 2Fg9IQ a4ajBk vP9nXo QUaueC m3YtLR FvZlgJ JJ8mAn HZtai3 2i8505 AC0Kla 3uMVqu iKiQtr MwF INTERFACE [facility] Office [address], [place], [address], 12/29/2024 13:31:33 12/30/19 25 12/29/2024 XR, ankle + foot http:/ [email or web address] ?Encry pted=s hAaTro YD8dLq bEUv6g %2BXZw aYqtaq 0bqfl% 2Fg9IQ a4ajBk vP9nXo QUaueC m3YtLR FvZlJ JJ8mAn HZtai3 5k9499 AC0Kla 3uMVqu iKiQtr MwF INTERFACE [facility] [address] [facility] [address], [place], [address], 12/29/2024 13:31:35 Result Notes Documentation Provider Name and Address Organization Details Recorded Time Xr, Ankle + Foot : [email or web address] Encrypted=ynJnIolTL8nEjjZ Uv6g%5DQDnhEebzt6heiq%2Fg 6ZUs1dhHkdP1vImMPnnyPu2Jm MKOrQfrZMM0bYmHFrxb35s943 2UW7Uum6eNKkrfNzQkoGrZ Not Available [facility] 12/29/2024 13:31: 34 Xr, Ankle + Foot : [email or web address] Encrypted=cbQhOuaWL6rGvtR Uv6g%8OEPbbQgfoj9obqx%2Fg 3NYx9buAejC7nYhQFrblIt3Sp ZLWcFjpWXB3dZhDPzoh05p649 6XH9Mms8fPDkbzMdVkfPsV Not Available [facility] 12/29/2024 13:31: 35 Medical Equipment None Reported. Allergies Allergen ID Allergen Name Allergen Category Reaction Reaction Severity Criticality Documentation Date Start Date Code Code System Note Provider Name and Address Organization Details Recorded Time 82685 Substance with sulfonami de structure and antibacte rial mechanism of action (substanc e) medicatio n Not available Not available Not available 10/01/20232007 11909 8003 SNOMED Aller gyRea ction : 'Skin React ion'; Not Available [facility] 12:57:30 95745 Product containin g penicilli n (product) medicatio n Not available Not available Not available 10/01/20232001 97686 8001 SNOMED Aller gyRea ction : 'Skin React ion'; Not Available [facility] 12:57:30 01068 latex environme nt,medica tion Not available Not available Not available 10/01/20232001 43953 91 RxNorm Aller gyRea ction : 'Skin React ion'; Not Available [facility] 12:57:30 Medications Name Sig Start Date Stop Date Status Note LastModified by Organization Details LastModified Time atorvastatin 40 mg tablet TAKE 1 TABLET BY MOUTH EVERYDAY AT BEDTIME active Not Available Not Available No t Available buspirone 5 mg tablet TAKE 1 TABLET BY MOUTH THREE TIMES A DAY NEEDED FOR ANXIETY active Not Available Not Available Not Available primidone 50 mg tablet TAKE 2 TABLETS BY MOUTH AT BEDTIME. active Not Available Not Available No t Available atorvastatin 20 mg tablet TAKE 1 TABLET BY MOUTH EVERYDAY AT BEDTIME active Not Available Not Available No t Available trazodone 50 mg tablet TAKE 1 TABLET BY MOUTH EVERY DAY AT BEDTIME NEEDED FOR INSOMNIA active Not Available Not Available No t Available clonazepam 0.5 mg tablet TAKE 1/2 TO 1 TABLET (0.25 TO 0.5 MG TOTAL) BY MOUTH UP TO ONCE A DAY NEEDED FOR ANXIETY. active Not Available Not Available No t Available topiramate 25 mg tablet TAKE 1 TABLET BY MOUTH ONCE A DAY FOR 7 DAYS, THEN 1 TABLET BY MOUTH TWICE A DAY active Not Available Not Available No t Available clopidogrel 75 mg tablet TAKE 1 TABLET BY MOUTH DAILY. active Not Available Not Available No t Available aspirin 81 mg tablet,delay ed release TAKE 1 TABLET BY MOUTH EVERY DAY active Not Available Not Available No t Available doxycycline monohydrate 100 mg tablet TAKE 1 TABLET BY MOUTH TWICE A DAY FOR 10 DAYS active Not Available Not Available No t Available prednisolone acetate 1 % eye drops,suspen billy PLEASE SEE ATTACHED FOR DETAILED DIRECTIONS active Not Available Not Available N ot Available estradiol 1 mg tablet TAKE 1 TABLET BY MOUTH 1 TIME EACH DAY. active Not Available Not Available No t Available trazodone 100 mg tablet TAKE 1 TABLET BY MOUTH NEEDED FOR INSOMNIA active Not Available Not Available No t Available ferrous sulfate 325 mg (65 mg iron) tablet TAKE 1 TABLET BY MOUTH EVERY DAY active Not Available Not Available No t Available losartan 25 mg tablet TAKE 1/2 TABLET BY MOUTH DAILY active Not Available Not Available Not Available mupirocin 2 % topical ointment APPLY TO BIOPSY SITE TWICE DAILY FOR TWO WEEKS active Not Available Not Available No t Available midodrine 2.5 mg tablet TAKE 1 TABLET ORALLY 2 TIMES A DAY DO NOT GIVE LAST DOSE OF DAY AFTER 5PM OR WITHIN 4 HRS OF BEDTIME active Not Available Not Available No t Available metoprolol succinate ER 25 mg tablet,exten ded release 24 hr TAKE 1/2 TABLET (12.5 MG TOTAL) BY MOUTH DAILY. DO NOT CRUSH OR CHEW. active Not Available Not Available No t Available Ventolin HFA 90 mcg/actuatio n aerosol inhaler INHALE 2 PUFFS BY MOUTH EVERY 4 (FOUR) HOURS IF NEEDED (COUGH, WHEEZING, SHORTNESS OF BREATH). active Not Available Not Available Not Available Laxative (bisacodyl) 5 mg tablet,delay ed release TAKE 2 TABLETS BY MOUTH RIGHT BEFORE BEGINNING BOWEL PREP. SEE INSTRUCTION S PROVIDED BY THE OFFICE active Not Available Not Available No t Available topiramate 50 mg tablet TAKE 1 TABLET BY MOUTH TWICE A DAY active Not Available Not Available No t Available lithium carbonate [place] Carbonate 150MG Capsule 2001 active Statu s: 'Curr ent'; Not Available Not Available Not Available oxycodone HCl-oxycodon e-ASA four times a day 2020 active Statu s: 'Curr ent'; Not Available Not Available Not Available GaviLyte-G 236 gram-22.74 gram-6.74 gram-5.86 gram oral solution PLEASE SEE ATTACHED FOR DETAILED DIRECTIONS active Not Available Not Available N ot Available lurasidone 40 mg tablet TAKE 1 TABLET BY MOUTH EVERY EVENING W/FOOD active Not Available Not Available No t Available lamotrigine ER 300 mg tablet,exten ded release 24 hr TAKE 1 TABLET BY MOUTH EVERY DAY active Not Available Not Available No t Available lurasidone 20 mg tablet TAKE 1 TABLET BY MOUTH EVERY EVENING WITH A MEAL active Not Available Not Available Not Available Eliquis 5 mg tablet TAKE 1 TABLET BY MOUTH 2 TIMES A DAY. TAKE BY MOUTH EVERY 12 HOURS. - active Not Available Not Available No t Available lurasidone 60 mg tablet TAKE 1 TABLET BY MOUTH EVERY DAY active Not Available Not Available No t Available Vitals None Recorded Social History None recorded. Functional Status None recorded. Mental Status None recorded. Family History Nothing Reported. Medical History No medical history recorded. Gynecological HistoryNo gynecological history recorded. Obstetrics History GPAL:G 0 P 0 0 0 0 Past Encounters Encounter ID Performer Location Encounter Start Date Encounter Closed Date Diagnosis/Indication Diagnosis SNOMED-CT Code Diagnosis ICD10 Code Diagnosis IMO Codes Diagnosis Note [id number] MD RADHA [facility] [address] [facility] [place] [address] 12/29/2024 12:34:34 01/12/2025 14:47:04 Pain in left foot 8616231888 72720 M79.672 267441 Hallux deandre jose m of left foot 1991113142 M20.12 47505826 Toe joint rigid 16810313 4 M20.22 8543993 Hammer toe 840319790 M20 .42 02999489 Health Concerns Section Related Observation LastModified by Organization Detai ls LastModified Time None Recorded Concern Status LastModified by Organization Details LastModified Time None Recorded Advance Directives Directive None Recorded Payers Insurance Date Sequence Insurance Name Policy Number Policy Bradshaw Covered Member ID Bradshaw Member ID Guarantor Name 06/08/2025 1 FOR[facility]LY [facility] NET PLAN (MEDICAID HMO) AMANDEEP Perez Philippe [id number] Sophia Chris Philippe Notes Date Note Type Note Provider Name and Address Organization Details Recorded Time 12/29/2024 text/html Chief complaint: Left foot pain and deformity History of present illness: Sophia presents today for evaluation of her left foot pain and deformity. She is well-known to our office. She is status post left gastrocnemius recession, medializing calcaneal osteotomy, flexor digitorum longus transfer to the navicular with spring ligament reconstruction, and first TMT fusion in May 2021. Although she has done extremely well with regard to this, she has a chronic and painful left forefoot deformity which we had planned to surgically address in 2022 however had to cancel her surgery due to cardiac problems. Patient reports actually having a cardiac arrest in October 2023. She has recently diagnosed atrial fibrillation and has had a pacemaker placed along with an ablation she is on Plavix. 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 Despite all this, she continues to have fairly severe pain involving the left foot. She has a extension and valgus deformity at the first MTP joint with multiple lesser hammertoe deformities. She is hoping to pursue surgery on the foot if possible. Physical exam: Patient in no acute distress, alert and oriented. Mood and affect appropriate On standing examination there is symmetric physiologic valgus of the hindfoot bilaterally with neutral forefoot position Bilaterally there is painless passive range of motion of the ankle, subtalar, and transverse tarsal joints Focused examination left lower extremity there is no swelling, erythema, ecchymoses There is severe hallux valgus forming which is not passively reducible There is extension through the first MTP joint with a compensatory fairly rigid flexion deformity at the hallux IP joint. I cannot dorsiflex her hallux IP joint beyond neutral. There is hammertoe deformities of the 2nd through 5th toes. I cannot palpate her DP pulse. There is relatively brisk capillary refill present in the toes.Mildly decreased sensation in the L4 distribution. Otherwise grossly neurovascularly intact Imaging: AP, lateral, oblique weightbearing imaging of the left foot and ankle was obtained today in office. AP and oblique weightbearing imaging of the left ankle demonstrates no evidence of acute fracture or degenerative change. Tibiotalar mortise is symmetric with no talar tilt or shift. Weightbearing imaging of the left foot demonstrates retained hardware traversing the first tarsometatarsal joint. Joint appears to be fully fused with no evidence of nonunion. There is evidence of prior attempted hallux valgus correction with what appears to have been very aggressive resection of the medial eminence of the first metatarsal head as well as a distal first metatarsal osteotomy. There is valgus and extension deformity of the first MTP as well as the 2nd and 3rd MTP joints. Hammertoe deformities noted. Impression: Left severe hallux valgus deformity with history of prior attempted hallux valgus correction Left 2nd through 5th hammertoe deformities with lesser MTP extension contractures/subluxat ionHistory of atrial fibrillation, on Plavix - History of cardiac arrest, possible ischemic brain injury Plan: I reviewed the above diagnoses as well as physical examination and imaging findings with the patient in clinic today. We again reviewed that we can surgically correct her deformity. The operative plan would be for left first metatarsal phalangeal joint fusion, medial sesamoidectomy. She will likely need extensor houses longus tendon lengthening, and possibly an open release of the hallux IP joint. Additional procedures will include 2nd through 5th hammertoe corrections with metatarsal osteotomies as needed. I do want to obtain noninvasive vascular studies to ensure that the patient has adequate perfusion to her foot to heal a wound Surgical booking slip has been placed and we will contact the patient to set up surgery. She will need extensive preoperative medical clearance, particularly cardiac clearance Risks and benefits of operative intervention were discussed with patient including not limited to: Bleeding, infection, damage to surrounding neurovascular structures, possibility of nonunion, possibly malunion, possibly will render correction of deformity possibility of incomplete pain relief. Recovery protocol was discussed at length with the patient. Patient indicated she understood the risks and rationale and wished to proceed Renita Dunn MD [address], [place], [address], [place] [facility] 01/04/2025 21:29:55 OBGyn Episode No OBEpisode recorded.
--- OUTSIDE RECORDS SUMMARY | 2025-06-08 14:49 | XMS_ITS | Encounter Summary ---
Author Organization [facility] Address [address] [place] [address] Care Team Providers Care Housing Development Specialist Name Role Phone Susanne Barbour MD Primary Care Pr ovider Encounter Details Date Type Department Care Team (Late st Contact Info) Description 11/07/2024 Nurse Triage Adult Medicine [address] [phone] Adina Valdez PA [address] [place] [address] Social History Tobacco Use Types Packs/Day Years [...] your loved ones. For example, early childhood teacher or elderly care for an older [...] EST Office Visit Adult [facility] [address] [place], [place] [phone] Adina Valdez PA [address] [place] [address] 08/10/2025 10:45 AM EST Ancillary Procedure [facility] [address] [place] [address] 08/24/2025 8:30 AM EST Office Visit Vascular Surgery - [place] [address] [place] [address] Cristopher Ho MD [address] [place] [address] 09/01/2025 11:30 AM EST Office Visit [address] [phone] Adina Valdez PA [address] [place] [address] 09/24/2025 1:00 PM EST Office Visit - [place] [address] [facility] [address] [place] [phone] Aly Nolasco MD [address] [place] [address] 12/02/2025 12:00 PM EDT Office Visit [address] [phone] Susanne Barbour MD [address] [place] [address] documented as of this encounter Visit Diagnoses Not on filedocumented in this encounter Additional Health Concerns Assessment Noted Time PHQ-9 Depression Total Score: 0 11/05/19 25 2:23 PM EDT documented as of this encounter Care Teams Housing Development Specialist Relationship Specialty Start Date End Date Susanne Barbour MD [address] [place], [place] PCP - General Internal Medicine 02/13/22 documented as of this encounter
== END 2025-06-08 13:23 | disposition home or self-care (01) ==
LOC: HO.HCS 12:41
PROVIDERS: PCP Family Medicine; Visit Provider Internal Medicine Cardiovascular Disease
DX: I48.0 Paroxysmal atrial fibrillation (principal); R29.6 Repeated falls
CPT/HCPCS: 99214

== ENCOUNTER → 2025-06-08 12:40 | Outpatient (BNVA) | payer OTHER, SELFPAY | PROVIDERS: PCP Family Medicine; Visit Provider Internal Medicine Cardiovascular Disease | DX: I48.0 Paroxysmal atrial fibrillation (principal); R29.6 Repeated falls; G25.0 Essential tremor; G24.3 Spasmodic torticollis; Z95.818 Presence of other cardiac implants and grafts | CPT/HCPCS: 99212 ==